=== PATIENT | male | born 1935 | race Caucasian/White ===

== ENCOUNTER → 2017-01-12 | Outpatient (CLI) | payer MEDICARE, OTHER ==
--- NOTE | 2017-01-12 11:52 | NM ---
EXAMINATION TYPE: NM thyroid image only DATE OF EXAM: 01/12/2017 11:48 AM COMPARISON: NONE HISTORY: Abnormal thyroid labs TECHNIQUE: After the intravenous administration of 10.5 mCi Tc 99m Sodium Pertechnetate. FINDINGS: Diffuse, genius uptake is seen pinhole static images. No hot or cold defect. IMPRESSION: Normal thyroid scan and uptake.
== END | disposition home or self-care (01) ==
LOC: RADNMMAIN 11:06
PROVIDERS: ATTEND Family Medicine
DX: R94.6 Abnormal results of thyroid function studies (principal)
CPT/HCPCS: 78013; A9512

== ENCOUNTER → 2017-03-28 | Outpatient (CLI) | payer MEDICARE, OTHER ==
[2017-03-28 10:43] LABS: Blood Urea Nitrogen 23 mg/dL (9-20); Non-African American GFR(MDRD) >60 (>60 ml/min/1.73 sqM)
--- NOTE | 2017-03-28 11:27 | CT ---
EXAMINATION TYPE: CT chest w con DATE OF EXAM: 03/28/2017 11:08 AM COMPARISON: NONE HISTORY: Difficulty breathing, COPD CT DLP: 464 mGycm Automated exposure control for dose reduction was used. CONTRAST: CT scan of the chest is performed with IV Contrast, patient injected with 100 mL of Omnipaque 300. FINDINGS: LUNGS: Moderate emphysematous changes seen. Subpleural fibrosis identified within the lower lobes as well as a mild bronchiectasis. No evidence for focal consolidation at this time. No nodule or mass is identified. MEDIASTINUM: There are no greater than 1 cm hilar or mediastinal lymph nodes. No pericardial effusi on is seen. Ectasia of the thoracic aorta without evidence for aneurysm. Mild atheromatous changes se en. There is evidence of a mild cardiomegaly. Small hiatal hernia detected. UPPER ABDOMEN: No signif icant abnormality appreciated. OTHER: No additional significant abnormality is seen. IMPRESSION: 1. Moderate emphysematous change with mild left basilar subpleural fibrosis and mild bronchiectasis.
== END ==
LOC: RADCTMAIN 09:56
PROVIDERS: ATTEND Family Medicine
DX: J43.9 Emphysema, unspecified (principal); J47.9 Bronchiectasis, uncomplicated
CPT/HCPCS: 82565; 84520; 71260; 36415; Q9967

== ENCOUNTER 2017-04-20 12:06 | Inpatient (IN) | payer MEDICARE, OTHER ==
[2017-04-20] MEDS ORDERED: ASPIRIN 325 MG TAB PO STA (13:55)
[2017-04-20] MEDS ORDERED: SODIUM CHLORIDE 0.9% 1,000 ML IV STA (13:55)
[2017-04-20] MEDS ORDERED: SODIUM CHLORIDE 0.9% 500 ML IV STA (13:55)
--- NOTE | 2017-04-20 14:08 | ED ---
General Adult HPI - General Chief complaint: Recheck/Abnormal Lab/Rx Stated complaint: abnormal labs Time Seen by Provider: 04/20/17 12:33 Source: patient, RN notes reviewed, old records reviewed Mode of arrival: wheelchair Limitations: no limitations - History of Present Illness Initial comments: This is an 81-year-old male here for evaluation for this patient was SDR for evaluation of episode of altered mental status as of recent. Patient did see his primary care doctor was sent for possible CVA evaluation, did have outpatient CAT scan, patient was told to emergency room secondary CAT scan findings. Patient denies neurological complaints at this time. Symptoms he believes have resolved. Patient has no chest patient was with her bowel pain no headache or trauma - Related Data Home Medications Medication Instructions Recorded Confirmed Aspirin 81 mg PO DAILY 03/24/14 03/29/17 Atenolol [Tenormin] 12.5 mg PO BID 03/24/14 03/29/17 Cholecalciferol [Vitamin D3] 50,000 units PO DAILY 03/24/14 03/29/17 Desvenlafaxine Succinate [Pristiq 50 mg PO DAILY 03/24/14 03/29/17 ER] Finasteride [Proscar] 5 mg PO DAILY 03/24/14 03/29/17 Fluticasone Propionate [Flovent 200 mcg IH BID 03/24/14 03/29/17 Diskus] Garlic 1,000 mg PO TID 03/24/14 03/29/17 Iron 65 mg PO DAILY 03/24/14 03/29/17 Levalbuterol Hfa Inhaler [Xopenex 1 applicator INHALATION TID 03/24/14 03/29/17 Hfa Inhaler] [place]-3 Acid Ethyl Esters [Lovaza] 1 gm PO TID 03/24/14 03/29/17 Salmeterol Xinafoate [Serevent 1 puff IH BID 03/24/14 03/29/17 Diskus] Simvastatin [Zocor] 40 mg PO HS 03/24/14 03/29/17 Systane 1 drop BOTH EYES TID 03/24/14 03/29/17 Terazosin [Hytrin] 2 mg PO BID 03/24/14 03/29/17 cycloSPORINE [Restasis] 1 applicator BOTH EYES BID 03/24/14 03/29/17 Xolair 225 mg SQ Q14D 03/26/14 03/29/17 Tadalafil [Cialis] 5 mg PO DAILY 10/23/14 03/29/17 Primidone [Mysoline] 100 mg PO TID 07/22/15 03/29/17 Carbidopa-Levodopa 25-250 mg 1 each PO TID 10/28/15 03/29/17 [Sinemet 25-250] Naproxen Sodium [Aleve] 220 mg PO Q12HR 08/17/16 03/29/17 Ipratropium Nebulized [Atrovent 0.5 mg INHALATION Q8HR 03/29/17 03/29/17 Nebulized] Ipratropium Nebulized [Atrovent 04/12/17 Nebulized] Allergies Allergy/AdvReac Type Severity Reaction Status Date / Time No Known Allergies Allergy Verified 04/20/17 12:23 Review of Systems ROS Statement: Those systems with pertinent positive or pertinent negative responses have been documented in the HPI. ROS Other: All systems not noted in ROS Statement are negative. Past Medical History Past Medical History: Asthma, COPD, Hypertension, Myocardial Infarction ([place]), Prostate Disorder Additional Past Medical History / Comment(s): hx cataracts removed bilat, kidney stone Last Myocardial Infarction Date:: unknown History of Any Multi-Drug Resistant Organisms: None Reported Past Surgical History: Back Surgery, Cholecystectomy, Heart Catheterization Past Anesthesia/Blood Transfusion Reactions: No Reported Reaction, Previous Problems w/ Anesthesia Additional Past Anesthesia/Blood Transfusion Reaction / Comment(s): woke up during anesthesia x1 Past Psychological History: No Psychological Hx Reported Smoking Status: Former smoker Past Alcohol Use History: None Reported Past Drug Use History: None Reported General Exam - General Exam Comments Initial Comments: NIH of 0 Limitations: no limitations General appearance: alert, in no apparent distress Head exam: Present: atraumatic, normocephalic, normal inspection Eye exam: Present: normal appearance, PERRL, EOMI. Absent: scleral icterus, conjunctival injection, periorbital swelling ENT exam: Present: normal exam, mucous membranes moist Neck exam: Present: normal inspection. Absent: tenderness, meningismus, lymphadenopathy Respiratory exam: Present: normal lung sounds bilaterally. Absent: respiratory distress, wheezes, rales, rhonchi, stridor Cardiovascular Exam: Present: regular rate, normal rhythm, normal heart sounds. Absent: systolic murmur, diastolic murmur, rubs, gallop, clicks GI/Abdominal exam: Present: soft, normal bowel sounds. Absent: distended, tenderness, guarding, rebound, rigid Extremities exam: Present: normal inspection, full ROM, normal capillary refill. Absent: tenderness, pedal edema, joint swelling, calf tenderness Back exam: Present: normal inspection Neurological exam: Present: alert, oriented X3, CN II-XII intact Psychiatric exam: Present: normal affect, normal mood Skin exam: Present: warm, dry, intact, normal color. Absent: rash Course Vital Signs 04/20/17 12:18 Temperature 97.3 F L Pulse Rate 62 Respiratory 18 Rate Blood Pressure 115/56 O2 Sat by Pulse 93 L Oximetry Medical Decision Making - Medical Decision Making 81 female to the ER for evaluation of altered mental status. Neurological complaint. Patient does have CT positive for CVA, will be admitted for neurological evaluation and treatment - Radiology Data Radiology results: report reviewed (CT brain as an outpatient study does show likely CVA involving) Disposition Clinical Impression: CVA (cerebral vascular accident) Disposition: ADMITTED IP TO THIS HOSP Condition: Good Referrals: Maxx Benson MD [Primary Care Provider] - 1-2 days
[2017-04-20 14:37] LABS: Basophils % (A) 1 %; CH 32.4; CHCM 31.9; Eosinophils # (A) 0.2 k/uL (0-0.7); Eosinophils % (A) 4 %; HCT 38.4 % (39.0-53.0); HGB 12.2 gm/dL (13.0-17.5); Luc % (Auto) 2; Lymphocytes # (A) 1.5 k/uL (1.0-4.8); Lymphocytes % (A) 31 %; MCH 32.3 pg (25.0-35.0); MCHC 31.7 g/dL (31.0-37.0); MCV 101.8 fL (80.0-100.0); Macrocytosis Slight; Mean Platelet Volume 8.2; Monocytes # (A) 0.4 k/uL (0-1.0); Monocytes % (A) 8 %; Neutrophils # (A) 2.7 k/uL (1.3-7.7); Neutrophils % (A) 55 %; RBC 3.77 m/uL (4.30-5.90); RDW 14.8 % (11.5-15.5); WBC 4.9 k/uL (3.8-10.6)
[2017-04-20 14:44] LABS: Phosphorous 3.4 mg/dL (2.5-4.5); Potassium 5.5 mmol/L (3.5-5.1); Total Bilirubin 0.4 mg/dL (0.2-1.3); Total Protein 7.9 g/dL (6.3-8.2)
[2017-04-20 14:46] LABS: Partial Thromboplastin Time 24.1 sec (22.0-30.0); Prothrombin Time 10.6 sec (9.0-12.0)
[2017-04-20 14:55] VITALS: BMI 21.9
[2017-04-20 15:03] LABS: Creatine Kinase 68 U/L (55-170)
[2017-04-20 15:16] LABS: Troponin I <0.012 ng/mL (0.000-0.034)
[2017-04-20 15:31] LABS: Creatine Kinase MB 2.9 ng/mL (0.0-2.4)
[2017-04-20 16:22] LABS: Appearance,Urine Cloudy (Clear); Bacteria,Urine Occasional /hpf; Bilirubin,Urine Negative (Negative); Glucose,Urine (UA) Negative (Negative); Ketones,Urine Negative (Negative); Leukocyte Esterase,Urine Negative (Negative); Mucus,Urine Rare /hpf; Nitrite,Urine Negative (Negative); Particle Count 8804; Protein,Urine Trace (Negative); RBC,Urine 18 /hpf (0-5); Squamous Epithelial Cell,Urine <1 /hpf (0-4); UA Billing (MACRO vs. MICRO) MICRO; Urobilinogen,Urine <2.0 mg/dL (<2.0); WBC,Urine 3 /hpf (0-5)
--- NOTE | 2017-04-20 16:24 | P.CNNES ---
History of Present Illness Consult date: 04/20/17 Reason for Consult: Patient being evaluated for possible stroke. CT brain is abnormal. History of Present Illness: This patient is a 81-year-old right-handed white male who was in his usual state of health until about a week ago. Patient states he was at home and developed sudden difficulty with balance and gait. He states he was having difficulty walking straight and had some gait imbalance. He did not pay much attention to this as he felt the symptoms would get better. He went to see his primary care physician Dr. Maxx Vitale who recommended he go for a computed tomography scan of the brain for further evaluation. Patient had the computed tomography scan of the brain done today with contrast and there is evidence of acute right frontal lobe gyral enhancement. He was recommended admission to the hospital due to the abnormal computed tomography scan of the brain. Patient does have history of underlying Haakenson is some. He is taking Sinemet as well as Mysoline. Patient states he does not shuffle when he is walking but does complain of tremors in his hands. Patient denied any headache today. He denies any visual changes but did have some mild slurring of speech a few days ago. Patient has a history of having undergone back surgery about 5 years ago. Following the back surgery he continues to have chronic low back pain and difficulty walking. He states he slaps his left foot when he walks at home. He has not had this further evaluated. Patient states he does take one baby aspirin on a regular basis for secondary stroke prevention. His stroke risk factors include hypertension and hyperlipidemia. He is taking Zocor 40 mg daily. Patient denies any focal weakness on his left side. He has no symptoms of headache today on admission. He does take one baby aspirin daily on a regular basis and should continue on the same. Patient has been having and noticing a change in his mood in the last few weeks. He does complain of mild depression as well. He is now been admitted and neurology has been consulted for further evaluation and recommendations. Review of Systems Constitutional: Denies chills, Denies fever Eyes: denies blurred vision, denies pain Ears, nose, mouth and throat: Denies headache, Denies sore throat Cardiovascular: Denies chest pain, Denies shortness of breath Respiratory: Denies cough Gastrointestinal: Denies abdominal pain, Denies diarrhea, Denies nausea, Denies vomiting Musculoskeletal: Denies myalgias Integumentary: Denies pruritus, Denies rash Neurological: Reports ataxia, Reports gait dysfunction, Reports memory loss, Reports tremors, Denies numbness, Denies weakness Psychiatric: Reports memory loss, Denies anxiety, Denies depression Endocrine: Denies fatigue, Denies weight change Past Medical History Past Medical History: Asthma, COPD, Hypertension, Myocardial Infarction ([place]), Prostate Disorder Additional Past Medical History / Comment(s): hx cataracts removed bilat, kidney stone Last Myocardial Infarction Date:: unknown History of Any Multi-Drug Resistant Organisms: None Reported Past Surgical History: Back Surgery, Cholecystectomy, Heart Catheterization Past Anesthesia/Blood Transfusion Reactions: No Reported Reaction, Previous Problems w/ Anesthesia Additional Past Anesthesia/Blood Transfusion Reaction / Comment(s): woke up during anesthesia x1 Past Psychological History: No Psychological Hx Reported Smoking Status: Former smoker Past Alcohol Use History: None Reported Past Drug Use History: None Reported Medications and Allergies Home Medications Medication Instructions Recorded Confirmed Type Aspirin 81 mg PO DAILY 03/24/14 04/20/17 History Atenolol [Tenormin] 12.5 mg PO BID 03/24/14 04/20/17 History Desvenlafaxine Succinate [Pristiq 50 mg PO DAILY 03/24/14 04/20/17 History ER] Finasteride [Proscar] 5 mg PO DAILY 03/24/14 04/20/17 History Garlic 1,000 mg PO TID 03/24/14 04/20/17 History Iron 65 mg PO DAILY 03/24/14 04/20/17 History [place]-3 Acid Ethyl Esters [Lovaza] 4 gm PO DAILY 03/24/14 04/20/17 History Salmeterol Xinafoate [Serevent 1 puff IH RT-BID 03/24/14 04/20/17 History Diskus] Simvastatin [Zocor] 40 mg PO HS 03/24/14 04/20/17 History Terazosin [Hytrin] 2 mg PO BID 03/24/14 04/20/17 History cycloSPORINE [Restasis] 1 applicator BOTH EYES BID 03/24/14 04/20/17 History Xolair 225 mg SQ Q14D 03/26/14 04/20/17 History Tadalafil [Cialis] 5 mg PO DAILY 10/23/14 04/20/17 History Ipratropium Nebulized [Atrovent 0.5 mg INHALATION RT-TID 03/29/17 04/20/17 History Nebulized] Albuterol Nebulized [Ventolin 2.5 mg INHALATION RT-TID 04/20/17 04/20/17 History Nebulized] Fluticasone Propionate [Flovent 2 puff INHALATION RT-BID 04/20/17 04/20/17 History Hfa 220MCG] Primidone [Mysoline] 100 mg PO TID 04/20/17 04/20/17 History Roflumilast [Daliresp] 500 mcg PO DAILY 04/20/17 04/20/17 History Allergies Allergy/AdvReac Type Severity Reaction Status Date / Time No Known Allergies Allergy Verified 04/20/17 12:23 Physical Examination - Vital Signs Vital Signs: Vital Signs Temp Pulse Pulse Resp BP BP BP 04/20/17 14:48 97 F L 68 18 172/81 04/20/17 13:59 56 L 18 167/70 04/20/17 12:18 97.3 F L 62 18 115/56 Pulse Ox 04/20/17 14:48 98 04/20/17 13:59 99 04/20/17 12:18 93 L Intake and Output 04/20/17 04/20/17 04/20/17 06:59 14:59 22:59 Other: Weight 63.5 kg Patient Weight 04/21/17 06:59 Weight 63.5 kg - Constitutional General appearance: average body habitus, cooperative - EENT EENT: PERRL, mucous membranes moist - Respiratory Respiratory: lungs clear, normal breath sounds - Cardiovascular Cardiovascular: regular rate, normal S1, normal S2 Extremities: no peripheral edema bilaterally - Gastrointestinal Gastrointestinal: normoactive bowel sounds - Integumentary Integumentary: normal - Neurologic Cranial nerve examination: PERRL, EOMI, VFF, V1/V2/V3 grossly intact, face symmetric, tongue midline, intact gag reflex, intact corneal reflex, normal palatal elevation Speech examination: intact Sensorimotor examination: intact Detailed motor examination: grossly full strength in all extremities Motor examination - right side: 4/5: dorsiflexion, toe extension (EHL), plantarflexion, 5/5: biceps, triceps, wrist flexion, wrist extension, derrick worker, hip flexors, knee extensors Motor examination - left side: 3/5: dorsiflexion, toe extension (EHL), plantarflexion, 5/5: biceps, triceps, wrist flexion, wrist extension, derrick worker, hip flexors, knee extensors Detailed sensory examination: intact Reflex and gait examination: intact Reflexes: 1+: ankle, bicep, knee, tricep - Musculoskeletal Musculoskeletal: no pain - Psychiatric Psychiatric: mood/affect appropriate, cooperative Results - Laboratory Findings CBC and BMP: 04/20/17 14:15 04/20/17 14:15 Abnormal Lab Findings: Abnormal Labs 04/20/17 04/20/17 04/20/17 14:15 14:15 14:15 RBC 3.77 L Hgb 12.2 L Hct 38.4 L MCV 101.8 H Potassium 5.5 H Carbon Dioxide 36 H BUN 26 H Creatinine 1.70 H CK-MB (CK-2) 2.9 H* Assessment and Plan (1) Acute ischemic stroke Status: Acute Code(s): I63.9 - CEREBRAL INFARCTION, UNSPECIFIED (2) Parkinsonism Status: Acute Code(s): G20 - PARKINSON'S DISEASE (3) Ataxic gait Status: Acute Code(s): R26.0 - ATAXIC GAIT (4) Foot drop Status: Acute Code(s): M21.379 - FOOT DROP, UNSPECIFIED FOOT (5) History of lumbar laminectomy Status: Acute Code(s): Z98.890 - OTHER SPECIFIED POSTPROCEDURAL STATES Plan: This patient is 81-year-old male who apparently over the last week has been having difficulty with unsteady gait. He has a history of underlying parkinsonism and history of back surgery. He states he has chronic low back pain which does hinder his ability to walk and ambulate. Apparently a week ago he just did not feel well and felt that his balance was quite suddenly change. He was having difficulty standing up straight. His gait was clearly involved. He denied any slurring of speech or visual changes. He had seen his primary care physician who recommended he undergo a computed tomography scan of the brain. CAT scan of the brain was completed today and was abnormal. CAT scan reveals evidence of gyral enhancement over the right frontal lobe. He was admitted to hospital for further evaluation. We are recommending the patient undergo an MRI of the brain with and without gadolinium. We will also obtain a routine computed tomography scan of the brain without contrast tonight for further assessment. We are recommending a complete stroke evaluation for the patient. His overall prognosis at this time remains very guarded. Case was discussed at length with the patient today in detail. He is in agreement with our treatment plan. We will continue close neurological follow-up of this patient during this admission. His overall prognosis at this time remains guarded. Time with Patient: Greater than 30
[2017-04-20 16:32] LABS: Specific Gravity,Urine 1.049 (1.001-1.035)
--- NOTE | 2017-04-20 17:33 | CT ---
EXAMINATION TYPE: CT brain wo con DATE OF EXAM: 04/20/2017 5:25 PM COMPARISON: Today HISTORY: Abnormal CT CT DLP: 1121 mGycm Automated exposure control for dose reduction was used. FINDINGS: There is cerebral cortical atrophy. There is no mass effect nor midline shift. There is no sign of in tracranial hemorrhage. There is no pathologic intracranial calcification. There is slight prominence of the ventricles. IMPRESSION: Cerebral atrophy and mild normal pressure type hydrocephalus. There is gyriform enhancement in the ri ght posterior frontal lobe on the CT scan this morning consistent with a vascular malformation. I do not see definite evidence for a cortical infarct.
[2017-04-20] MEDS: SODIUM CHLORIDE 0.9% 1,000 ML IV SCH ×2 (18:51→23:54)
[2017-04-20] MEDS: IPRATROPIUM 0.5 MG/2.5 ML NEBU INHALATION SCH (20:44)
[2017-04-20] MEDS: FORMOTEROL FUMARATE 20 MCG/2 ML NEBU INHALATION SCH (20:44)
[2017-04-20] MEDS: ALBUTEROL NEBULIZED 2.5 MG/3 ML INHALATION SCH (20:44)
[2017-04-20] MEDS: BUDESONIDE 1 MG/2 ML NEBU INHALATION SCH (20:45)
[2017-04-20] MEDS: PRIMIDONE 50 MG TAB PO SCH (21:57)
[2017-04-20] MEDS: ATENOLOL 25 MG TAB PO SCH (21:58)
[2017-04-20] MEDS: TERAZOSIN 2 MG CAP PO SCH (21:58)
[2017-04-20] MEDS: ATORVASTATIN 20 MG TAB PO SCH (21:58)
[2017-04-20] MEDS: cycloSPORINE 0.05% OPHTH 0.4 ML DROPERETTE BOTH EYES SCH (21:58)
[2017-04-20] MEDS: HEPARIN SODIUM,PORCINE 5,000 UNIT/ML 1 ML VIAL SQ SCH (21:58)
[2017-04-21 06:30] LABS: Basophils % (A) 0 %; CH 31.7; CHCM 31.5; Eosinophils # (A) 0.2 k/uL (0-0.7); Eosinophils % (A) 6 %; HCT 33.4 % (39.0-53.0); HDW 2.62; HGB 10.4 gm/dL (13.0-17.5); Hypochromasia Slight; Luc % (Auto) 3; Lymphocytes # (A) 1.1 k/uL (1.0-4.8); Lymphocytes % (A) 29 %; MCH 31.6 pg (25.0-35.0); MCHC 31.3 g/dL (31.0-37.0); Macrocytosis Slight; Mean Platelet Volume 7.3; Monocytes # (A) 0.4 k/uL (0-1.0); Monocytes % (A) 10 %; Neutrophils # (A) 2.1 k/uL (1.3-7.7); Neutrophils % (A) 53 %; RBC 3.31 m/uL (4.30-5.90); RDW 14.5 % (11.5-15.5); WBC 3.9 k/uL (3.8-10.6); WBC (Perox) 4.05
[2017-04-21 06:41] LABS: Anion Gap 7 mmol/L; Blood Urea Nitrogen 29 mg/dL (9-20); Calcium 9.2 mg/dL (8.4-10.2); Carbon Dioxide 27 mmol/L (22-30); Chloride 105 mmol/L (98-107); Cholesterol 140 mg/dL (<200); Glucose 90 mg/dL (74-99); HDL Cholesterol 63 mg/dL (40-60); Non-African American GFR(MDRD) >60 (>60 ml/min/1.73 sqM); Sodium 139 mmol/L (137-145); Triglycerides 52 mg/dL (<150)
--- NOTE | 2017-04-21 07:48 | MR ---
MR brain with and without contrast HISTORY: Cerebrovascular accident multiplanar multisequence and postcontrast images obtained through the brain following 20 cc MultiHan ce IV. Correlation to CT brain 20 Apr 2017 Gyriform enhancement is again seen as on patient's prior CT, there is some associated gliotic change on inversion recovery and T2-weighted sequences. Scattered hyperintensities are present within the pe riventricular and subcortical white matter on inversion recovery and T2-weighted sequences. Some mini mal restricted diffusion is thought present along the frontal cortex, there is no significant mass ef fect. Cerebellopontine angles, corpus callosum, pituitary, cervical medullary junction are within normal li mits. The orbits are symmetric. There are normal vascular flow voids, normal vascular enhancement is noted following contrast administration. No definite hemorrhage or hydrocephalus. Cortical atrophy is likely age-related. Inflammatory change present in the mastoid air cells on the right. IMPRESSION: Gyriform enhancement may be related to cortical infarct. Suggest short interval follow-up . Finding somewhat equivocal on diffusion-weighted images. Fast brain protocol was utilized. Correlat e for right mastoiditis. Chronic small vessel ischemia, age related atrophy.
[2017-04-21] MEDS: ATENOLOL 25 MG TAB PO SCH ×3 (08:37→21:02)
[2017-04-21] MEDS: HEPARIN SODIUM,PORCINE 5,000 UNIT/ML 1 ML VIAL SQ SCH ×2 (08:37→20:43)
[2017-04-21] MEDS: TERAZOSIN 2 MG CAP PO SCH ×3 (08:37→21:02)
[2017-04-21] MEDS: ASPIRIN 325 MG TAB PO SCH (08:38)
[2017-04-21] MEDS: cycloSPORINE 0.05% OPHTH 0.4 ML DROPERETTE BOTH EYES SCH ×2 (08:38→20:43)
[2017-04-21] MEDS: DESVENLAFAXINE SUCCINATE 50 MG TAB.ER.24H PO SCH (08:38)
[2017-04-21] MEDS: PRIMIDONE 50 MG TAB PO SCH ×4 (08:39→21:02)
[2017-04-21] MEDS: FINASTERIDE 5 MG TAB PO SCH (08:39)
[2017-04-21] MEDS ORDERED: NON-FORMULARY DRUG (Roflumilast [Daliresp] 500 MCG) PO SCH (09:00)
[2017-04-21] MEDS: BUDESONIDE 1 MG/2 ML NEBU INHALATION SCH ×2 (09:21→19:01)
[2017-04-21] MEDS: FORMOTEROL FUMARATE 20 MCG/2 ML NEBU INHALATION SCH ×2 (09:21→19:01)
[2017-04-21] MEDS: IPRATROPIUM 0.5 MG/2.5 ML NEBU INHALATION SCH ×3 (09:21→19:01)
[2017-04-21] MEDS: ALBUTEROL NEBULIZED 2.5 MG/3 ML INHALATION SCH ×3 (09:21→19:01)
[2017-04-21] MEDS: FERROUS SULFATE 325 MG TAB PO SCH (11:51)
[2017-04-21] MEDS: SODIUM CHLORIDE 0.9% 1,000 ML IV SCH ×2 (11:52→20:35)
--- NOTE | 2017-04-21 15:34 | P.PN ---
Subjective This patient is a 81 year old male being evaluated for possible stroke. The patient had an abnormal CT Scan of the brain and was admitted to the hospital yesterday. He had no focal motor deficit on examination yesterday on Neurologic examination. The CT Scan revealed gyral changes over the right frontal lobe. He did not have any left sided weakness. He had MRI Brain done last night and we reviewed the results that are not conclusive. It appears to suggest likely area of stroke, but a short term follow-up will useful to assess this possible infarction. We would recommend a carotid doppler study be done today as part of a stroke evaluation. The patient seems to be doing about the same today as compared to yesterday. We would recommend a complete stroke evaluation for this patient. We will continue close neruologic follow-up for this patient. We have updated the patient on the results of the MRI of the brain. We will continue our stroke evaluation for the patient. He may require follow-up MRI of the brain at a latter date. His overall prognosis at this time remains guarded. Objective - Vital Signs Vital signs: Vital Signs Temp 97.1 F L 04/21/17 04:00 Pulse 54 L 04/21/17 04:00 Resp 18 04/21/17 04:00 BP 149/71 04/21/17 04:00 Pulse Ox 100 04/21/17 04:00 Intake & Output 04/20/17 04/21/17 04/21/17 18:59 06:59 18:59 Intake Total 360 360 Output Total 900 800 Balance 360 -900 -440 Weight 63.5 kg 65.3 kg Intake: Oral 360 360 Output: Urine 900 800 Other: Voiding Method Urinal Urinal # Voids 1 # Bowel Movements 1 - Exam Physical Examination: PHYSICAL EXAMINATION: Patient is resting comfortably in bed. VITAL SIGNS: Blood pressure is [166/68]. Heart rate is [60]. Respiration is [16] . Temperature is [97.0]. HEENT: Head is atraumatic, neck is supple, there were no carotid bruits. CHEST: Lungs are clear to auscultation and percussion. CARDIAC: S1, S2 normal rate and rhythm. There is no murmur. ABDOMEN: Soft and nontender. Bowel sounds are present. EXTREMITIES: There is no pedal edema. Peripheral pulses are present. Neurological examination: Patient's neurological examination is unchanged from yesterday. - Labs CBC & Chem 7: 04/21/17 05:51 04/21/17 05:51 Labs: Abnormal Lab Results - Last 24 Hours (Table) 04/20/17 04/20/17 04/20/17 Range/Units 14:10 14:15 14:15 RBC 3.77 L (4.30-5.90) m/uL Hgb 12.2 L (13.0-17.5) gm/dL Hct 38.4 L (39.0-53.0) % MCV 101.8 H (80.0-100.0) fL Potassium (3.5-5.1) mmol/L Carbon Dioxide (22-30) mmol/L BUN (9-20) mg/dL Creatinine (0.66-1.25) mg/dL CK-MB (CK-2) 2.9 H* (0.0-2.4) ng/mL HDL Cholesterol (40-60) mg/dL Ur Specific [place] 1.049 H (1.001-1.035) Urine Protein Trace H (Negative) Urine Blood Trace H (Negative) Urine RBC 18 H (0-5) /hpf Urine Bacteria Occasional H (None) /hpf Urine Mucus Rare H (None) /hpf 04/20/17 04/21/17 04/21/17 Range/Units 14:15 05:51 05:51 RBC 3.31 L (4.30-5.90) m/uL Hgb 10.4 L (13.0-17.5) gm/dL Hct 33.4 L (39.0-53.0) % MCV 101.0 H (80.0-100.0) fL Potassium 5.5 H (3.5-5.1) mmol/L Carbon Dioxide 36 H (22-30) mmol/L BUN 26 H 29 H (9-20) mg/dL Creatinine 1.70 H (0.66-1.25) mg/dL CK-MB (CK-2) (0.0-2.4) ng/mL HDL Cholesterol 63 H (40-60) mg/dL Ur Specific [place] (1.001-1.035) Urine Protein (Negative) Urine Blood (Negative) Urine RBC (0-5) /hpf Urine Bacteria (None) /hpf Urine Mucus (None) /hpf Assessment and Plan (1) Acute ischemic stroke Status: Acute Code(s): I63.9 - CEREBRAL INFARCTION, UNSPECIFIED (2) Parkinsonism Status: Acute Code(s): G20 - PARKINSON'S DISEASE (3) Ataxic gait Status: Acute Code(s): R26.0 - ATAXIC GAIT (4) Foot drop Status: Acute Code(s): M21.379 - FOOT DROP, UNSPECIFIED FOOT (5) History of lumbar laminectomy Status: Acute Code(s): Z98.890 - OTHER SPECIFIED POSTPROCEDURAL STATES Plan: This patient is 81-year-old male who apparently over the last week has been having difficulty with unsteady gait. He has a history of underlying parkinsonism and history of back surgery. He states he has chronic low back pain which does hinder his ability to walk and ambulate. Apparently a week ago he just did not feel well and felt that his balance was quite suddenly change. He was having difficulty standing up straight. His gait was clearly involved. He denied any slurring of speech or visual changes. He had seen his primary care physician who recommended he undergo a computed tomography scan of the brain. CAT scan of the brain was completed today and was abnormal. CAT scan reveals evidence of gyral enhancement over the right frontal lobe. He was admitted to hospital for further evaluation. We are recommending the patient undergo an MRI of the brain with and without gadolinium. We will also obtain a routine computed tomography scan of the brain without contrast tonight for further assessment. We are recommending a complete stroke evaluation for the patient. His overall prognosis at this time remains very guarded. Patient's MRI of the brain was completed last night. Results indicate no definitive finding. It is suggestive of a right frontal lobe infarct. We are recommending a carotid Doppler study to be done to rule out carotid artery stenosis. We will give further recommendations depending on these results. Patient is to continue on 1 aspirin daily for secondary stroke prevention. The MRI report indicates a recommendation for possible repeat MRI for a short interval follow-up. Case was discussed at length with the patient today in detail. He is in agreement with our treatment plan. We will continue close neurological follow-up of this patient during this admission. His overall prognosis at this time remains guarded.
--- NOTE | 2017-04-21 17:41 | HP ---
DATE OF ADMISSION: 04/20/2017 This patient seen, evaluated, examined while covering for Dr. Maxx Benson. Patient admitted to the hospital from the emergency department with problems associated with altered mental status. There was some suspicion of CVA as well. Neurological services have been following this patient as well. Overall the patient is a poor historian, not much data can be obtained from him. He does have chronic ongoing tremors as well. A CT scan of the chest shows some finding. Patient has been admitted to the hospital for observation as well as MRI to perform with neurological evaluation. Past medical history significant for chronic persistent asthma, COPD, hypertension, hypertensive cardiovascular disease, myocardial infarction, history of prostate disorder. Past surgical history is significant for cardiac cath, angiogram, status post cholecystectomy back surgery, bilateral cataract extraction. Renal calculi. ALLERGIES: No known drug allergy. Medications at home include: 1. Aspirin 81 mg daily. 2. Tenormin 12.5 mg p.o. 2 times a day. 3. Cholecalciferol 50,000 units daily. 4. Pristiq 50 mg daily. 5. Proscar 5 mg daily. 6. Flovent 200 mcg 2 times a day. 7. Garlique 1 gram 3 times a day. 8. Iron as needed. 9. Xopenex MDI 3 times a day. 10. [place]-3 fatty acid. 11. Also on Zocor 40 mg daily. 12. Hytrin 2 mg 2 times a day. 13. Xolair 225 mg q. 14. 14. Cialis 5 mg daily. 15. Mysoline Sinemet is 3 times a day. 16. Aleve. 17. Ipratropium nebulizer treatment. REVIEW OF SYSTEMS: JUVENILE OFFICER: Denies any seizure activity, loss of consciousness, hemiparesis. CARDIORESPIRATORY: As dictated above. Chronic ongoing shortness of breath, but has been stable. GI/: Otherwise unremarkable and noncontributory. Musculoskeletal/dermatological: Unremarkable and noncontributory except as dictated above. On examination, most recent vitals include blood pressure is 166/68, respiratory rate 16, pulse 60, temperature 97, saturation 99% on 3 liters oxygen. HEENT: Atraumatic, normocephalic. Pharynx is clear. Narrow pharyngeal opening is present. NECK: Supple without lymphadenopathy, jugular venous distention or carotid bruit. LUNGS: Bilateral good air entry is present. HEART: Regular rate and rhythm. S1 and S2 audible. ABDOMEN: Soft. No rebound or rigidity. EXTREMITIES: +1 peripheral pulses. NEUROLOGICAL EXAMINATION: Ongoing chronic tremors. Coordination appears to be stable as per the patient and family. No weakness in any side of the body is present. Overall neurological examination is within baseline. Labs reviewed. White cell count 2900, hemoglobin of 10 and 33, platelet count of 175,000. Sodium 130, potassium 5.0, BUN and creatinine 29 and 0.9, cholesterol within normal limits. Urinalysis few WBC, RBC is present. CT scan of the brain revealed cerebellar trophy, normal pressure hydrocephalus. Some gyriform enhancement of the right posterior frontal lobe is seen. Vascular malformation cannot be excluded. The MRI of the brain performed late last night revealed gyriform enhancement related to cortical infarct. No mass effect is seen. IMPRESSION: 1. Acute cerebrovascular accident involving the right posterior frontal lobe. 2. Normal pressure hydrocephalus. 3. Severe chronic obstructive pulmonary disease emphysema and chronic persistent asthma. 4. Dyslipidemia. 5. Hypertension, hypertensive cardiovascular disease. 6. Advanced Parkinson's disease 7. Benign prostatic hypertrophy. Plan is to continue current medications, supportive care. Monitor fall precautions. Continue neurochecks. Awaiting further evaluation from the neurology service. Will follow.
[2017-04-21] MEDS: ATORVASTATIN 20 MG TAB PO SCH ×2 (20:43→21:02)
[2017-04-22 06:15] VITALS: RESP 18
[2017-04-22] MEDS: FORMOTEROL FUMARATE 20 MCG/2 ML NEBU INHALATION SCH ×2 (08:40→20:00)
[2017-04-22] MEDS: ALBUTEROL NEBULIZED 2.5 MG/3 ML INHALATION SCH ×3 (08:40→20:00)
[2017-04-22] MEDS: IPRATROPIUM 0.5 MG/2.5 ML NEBU INHALATION SCH ×3 (08:40→20:00)
[2017-04-22] MEDS: BUDESONIDE 1 MG/2 ML NEBU INHALATION SCH ×2 (08:40→20:00)
[2017-04-22] MEDS: PRIMIDONE 50 MG TAB PO SCH ×3 (08:50→23:03)
[2017-04-22] MEDS: HEPARIN SODIUM,PORCINE 5,000 UNIT/ML 1 ML VIAL SQ SCH ×2 (08:50→20:08)
[2017-04-22] MEDS: ASPIRIN 325 MG TAB PO SCH (08:51)
[2017-04-22] MEDS: TERAZOSIN 2 MG CAP PO SCH ×2 (08:51→20:09)
[2017-04-22] MEDS: ATENOLOL 25 MG TAB PO SCH (08:51)
[2017-04-22] MEDS: FINASTERIDE 5 MG TAB PO SCH (08:52)
[2017-04-22] MEDS: cycloSPORINE 0.05% OPHTH 0.4 ML DROPERETTE BOTH EYES SCH ×2 (08:52→20:11)
[2017-04-22] MEDS: DESVENLAFAXINE SUCCINATE 50 MG TAB.ER.24H PO SCH (08:52)
[2017-04-22] MEDS: SODIUM CHLORIDE 0.9% 1,000 ML IV SCH ×2 (11:09→17:32)
[2017-04-22] MEDS: FERROUS SULFATE 325 MG TAB PO SCH (11:56)
--- NOTE | 2017-04-22 13:37 | P.PN ---
Subjective This is an 81-year-old male patient being evaluated and examined today on the sixth floor. This patient was admitted to the hospital from the emergency room with altered mental status and there was some suspicion of CVA. Neurology is on consult. This patient does have a history of chronic and ongoing tremors. A CT scan of the brain shows cerebral atrophy, and normal pressure hydrocephalus some gyriform enhancement of the right posterior frontal lobe is seen consistent with a vascular malformation. MRI of the brain shows gyriform enhancement may be related to cortical infarct. Upon examination the patient's resting up in bed on 3 L of oxygen which he does wear home as well. He denies any cough, congestion, or shortness of breath. Objective - Vital Signs Vital signs: Vital Signs Temp 97.6 F 04/22/17 11:36 Pulse 53 L 04/22/17 11:37 Resp 18 04/22/17 11:37 BP 189/75 04/22/17 11:36 Pulse Ox 100 04/22/17 11:36 Intake & Output 04/21/17 04/22/17 04/22/17 18:59 06:59 18:59 Intake Total 540 300 237 Output Total 800 200 Balance -260 300 37 Weight 66.9 kg Intake: Intake, IV Titration 300 Amount Sodium Chloride 0.9% 1, 300 000 ml @ 100 mls/hr IV . Q10H [facility] Rx#:[id number] Oral 540 237 Output: Urine 800 200 Other: Voiding Method Urinal Urinal Toilet # Voids 0 500 # Bowel Movements 0 - Exam GENERAL EXAM: Alert, active, comfortable in no apparent distress. HEAD: Normocephalic. EYES: Normal reaction of pupils, equal size. NOSE: Clear with pink turbinates. THROAT: No erythema or exudates. NECK: No masses, no JVD. CHEST: No chest wall deformity. LUNGS: Equal air entry with no crackles, wheeze, rhonchi or dullness. CVS: S1 and S2 normal with no audible mumurs, regular rhythm. ABDOMEN: No hepatosplenomegaly, normal bowel sounds, no guarding or rigidity. EXTREMITIES: No edema noted, pedal pulses palpable. SKIN: No rashes CENTRAL NERVOUS SYSTEM: Chronic ongoing tremors, tone is normal in all 4 extremities. No significant extremity weakness noted. - Labs CBC & Chem 7: 04/21/17 05:51 04/21/17 05:51 Assessment and Plan Plan: Assessment Acute cerebrovascular accident including the right posterior frontal lobe Normal pressure hydrocephalus Severe chronic obstructive pulmonary disease Chronic persistent asthma Chronic hypoxic respiratory failure Dyslipidemia Hypertension, hypertensive cardiovascular disease Advanced Parkinson's disease Benign prostatic hypertrophy Plan Medications have been reviewed and will be continued as ordered. Continue with neurology consults appreciate recommendations. Patient is supposed to have an EEG. Continue with supplemental oxygen to maintain oxygen saturations greater than 90%. Continue with pulmonary hygiene with supportive care. Continue neuro checks. Patient did have a carotid Doppler study done in the outpatient setting, we will obtain copies of the report. We will continue to monitor labs/ results and adjust treatment as necessary. I performed an examination of the patient and discussed their management with the nurse practitioner. I have reviewed the nurse practitioner's note and agree with the documented findings and plan of care. We are covering for Dr. Benson until Sunday at 6 AM.
[2017-04-22 17:09] LABS: Glucose,Whole Blood 91 mg/dL (75-99)
--- NOTE | 2017-04-22 18:53 | P.PN ---
Subjective This patient is a 81 year old male being evaluated for possible stroke. The patient had an abnormal CT Scan of the brain and was admitted to the hospital yesterday. He had no focal motor deficit on examination yesterday on Neurologic examination. The CT Scan revealed gyral changes over the right frontal lobe. He did not have any left sided weakness. He had MRI Brain done last night and we reviewed the results that are not conclusive. It appears to suggest likely area of stroke, but a short term follow-up will useful to assess this possible infarction. We would recommend a carotid doppler study be done today as part of a stroke evaluation. The patient seems to be doing about the same today as compared to yesterday. We would recommend a complete stroke evaluation for this patient. We will continue close neruologic follow-up for this patient. We have updated the patient on the results of the MRI of the brain. We will continue our stroke evaluation for the patient. He may require follow-up MRI of the brain at a latter date. Patient is requiring oxygen at this time at a setting of 3 L. He does use home oxygen as well. He denies any cough or congestion or shortness of breath. As noted the patient will follow up in the outpatient neurology clinic for further recommendations. Radiology is recommending a short-term follow-up MRI of the brain which can be done in the outpatient setting. We are awaiting the results of his recent carotid Doppler study. His blood pressure is slightly elevated this evening. Recommend close monitoring over the next several days. His overall prognosis remains guarded. His overall prognosis at this time remains guarded. Objective - Vital Signs Vital signs: Vital Signs Temp 97.5 F L 04/22/17 15:56 Pulse 66 04/22/17 16:00 Resp 18 04/22/17 16:00 BP 185/81 04/22/17 15:56 Pulse Ox 99 04/22/17 15:56 Intake & Output 04/21/17 04/22/17 04/22/17 18:59 06:59 18:59 Intake Total 886 242 5902 Output Total 800 200 Balance -260 300 817 Weight 66.9 kg Intake: Intake, IV Titration 300 Amount Sodium Chloride 0.9% 1, 300 000 ml @ 100 mls/hr IV . Q10H [facility] Rx#:[id number] Oral 540 1017 Output: Urine 800 200 Other: Voiding Method Urinal Urinal Toilet # Voids 0 500 3 # Bowel Movements 0 1 - Exam Physical Examination: PHYSICAL EXAMINATION: Patient is resting comfortably in bed. VITAL SIGNS: Blood pressure is [185/81]. Heart rate is [67]. Respiration is [18] . Temperature is [97.5]. HEENT: Head is atraumatic, neck is supple, there were no carotid bruits. CHEST: Lungs are clear to auscultation and percussion. CARDIAC: S1, S2 normal rate and rhythm. There is no murmur. ABDOMEN: Soft and nontender. Bowel sounds are present. EXTREMITIES: There is no pedal edema. Peripheral pulses are present. Neurological examination: Patient's neurological examination is unchanged from yesterday. - Labs CBC & Chem 7: 04/21/17 05:51 04/21/17 05:51 Assessment and Plan (1) Acute ischemic stroke Status: Acute Code(s): I63.9 - CEREBRAL INFARCTION, UNSPECIFIED (2) Parkinsonism Status: Acute Code(s): G20 - PARKINSON'S DISEASE (3) Ataxic gait Status: Acute Code(s): R26.0 - ATAXIC GAIT (4) Foot drop Status: Acute Code(s): M21.379 - FOOT DROP, UNSPECIFIED FOOT (5) History of lumbar laminectomy Status: Acute Code(s): Z98.890 - OTHER SPECIFIED POSTPROCEDURAL STATES Plan: This patient is a 81-year-old male initially admitted to Hospital with symptoms of possible new stroke. He underwent a computed tomography scan and subsequently a MRI of the brain. There is a gyral area of enhancement in change noted over the right frontal lobe. Radiology is recommending a short interval repeat study. At this time this suggests mostly a acute cortical infarct in the right frontal lobe. He is undergoing a complete stroke evaluation. We are waiting the results of his carotid Doppler study. He is to continue on aspirin at this time. He may follow-up in the outpatient neurology clinic for further reevaluation of his MRI study and possible repeat MRI of the brain. We will continue close neurological follow-up for the patient during this admission. His overall prognosis at this time remains guarded.
[2017-04-22] MEDS: ATORVASTATIN 20 MG TAB PO SCH (20:09)
[2017-04-22] MEDS: ATENOLOL 12.5 MG TAB PO SCH (20:11)
[2017-04-23] MEDS: SODIUM CHLORIDE 0.9% 1,000 ML IV SCH ×2 (03:02→12:23)
[2017-04-23] MEDS: IPRATROPIUM 0.5 MG/2.5 ML NEBU INHALATION SCH ×2 (07:53→13:54)
[2017-04-23] MEDS: BUDESONIDE 1 MG/2 ML NEBU INHALATION SCH (07:53)
[2017-04-23] MEDS: FORMOTEROL FUMARATE 20 MCG/2 ML NEBU INHALATION SCH (07:53)
[2017-04-23] MEDS: ALBUTEROL NEBULIZED 2.5 MG/3 ML INHALATION SCH ×2 (07:53→13:54)
[2017-04-23] MEDS: DESVENLAFAXINE SUCCINATE 50 MG TAB.ER.24H PO SCH (08:19)
[2017-04-23] MEDS: ATENOLOL 12.5 MG TAB PO SCH (08:19)
[2017-04-23] MEDS: HEPARIN SODIUM,PORCINE 5,000 UNIT/ML 1 ML VIAL SQ SCH (08:19)
[2017-04-23] MEDS: cycloSPORINE 0.05% OPHTH 0.4 ML DROPERETTE BOTH EYES SCH (08:19)
[2017-04-23] MEDS: ASPIRIN 325 MG TAB PO SCH (08:19)
[2017-04-23] MEDS: PRIMIDONE 50 MG TAB PO SCH (08:19)
[2017-04-23] MEDS: FINASTERIDE 5 MG TAB PO SCH (08:20)
[2017-04-23] MEDS: TERAZOSIN 2 MG CAP PO SCH (08:20)
[2017-04-23 10:04] VITALS: BP 174/78; TEMP 96.4
[2017-04-23] MEDS: FERROUS SULFATE 325 MG TAB PO SCH (12:23)
--- NOTE | 2017-04-23 13:04 | P.PN ---
Subjective This patient is a 81 year old male being evaluated for possible stroke. The patient had an abnormal CT Scan of the brain and was admitted to the hospital yesterday. He had no focal motor deficit on examination yesterday on Neurologic examination. The CT Scan revealed gyral changes over the right frontal lobe. He did not have any left sided weakness. He had MRI Brain done last night and we reviewed the results that are not conclusive. It appears to suggest likely area of stroke, but a short term follow-up will be useful to assess this possible infarction. We would recommend a carotid doppler study be done today as part of a stroke evaluation. The patient seems to be doing about the same today as compared to yesterday. We would recommend a complete stroke evaluation for this patient. We will continue close neruologic follow-up for this patient. We have updated the patient on the results of the MRI of the brain. We will continue our stroke evaluation for the patient. He may require follow-up MRI of the brain at a latter date. Patient is requiring oxygen at this time at a setting of 3 L. He does use home oxygen as well. He denies any cough or congestion or shortness of breath. As noted the patient will follow up in the outpatient neurology clinic for further recommendations. Radiology is recommending a short-term follow-up MRI of the brain which can be done in the outpatient setting. We are awaiting the results of his recent carotid Doppler study. If the carotid Doppler is negative for any significant stenosis then would continue with aspirin therapy for secondary stroke prevention. His blood pressure is slightly elevated this evening. Recommend close monitoring over the next several days. His overall prognosis remains guarded. Patient may be considered for discharge home with outpatient follow-up in the neurology clinic in 2-3 weeks. His overall prognosis at this time remains guarded. Objective - Vital Signs Vital signs: Vital Signs Temp 96.4 F L 04/23/17 08:00 Pulse 72 04/23/17 08:15 Resp 18 04/23/17 08:00 BP 174/78 04/23/17 08:00 Pulse Ox 100 04/23/17 08:00 Intake & Output 04/22/17 04/23/17 04/23/17 18:59 06:59 18:59 Intake Total 1017 0 240 Output Total 200 450 Balance 817 -450 240 Weight 65.5 kg Intake: Intake, IV Titration 0 Amount Sodium Chloride 0.9% 1, 0 000 ml @ 100 mls/hr IV . Q10H [facility] Rx#:[id number] Oral 1017 240 Output: Urine 200 450 Other: Voiding Method Toilet Toilet Toilet # Voids 3 # Bowel Movements 1 - Exam Physical Examination: PHYSICAL EXAMINATION: Patient is resting comfortably in bed. VITAL SIGNS: Blood pressure is [174/78]. Heart rate is [73]. Respiration is [16] . Temperature is [96.4]. HEENT: Head is atraumatic, neck is supple, there were no carotid bruits. CHEST: Lungs are clear to auscultation and percussion. CARDIAC: S1, S2 normal rate and rhythm. There is no murmur. ABDOMEN: Soft and nontender. Bowel sounds are present. EXTREMITIES: There is no pedal edema. Peripheral pulses are present. Neurological examination: Patient's neurological examination is unchanged from yesterday. - Labs CBC & Chem 7: 04/21/17 05:51 04/21/17 05:51 Assessment and Plan (1) Acute ischemic stroke Status: Acute Code(s): I63.9 - CEREBRAL INFARCTION, UNSPECIFIED (2) Parkinsonism Status: Acute Code(s): G20 - PARKINSON'S DISEASE (3) Ataxic gait Status: Acute Code(s): R26.0 - ATAXIC GAIT (4) Foot drop Status: Acute Code(s): M21.379 - FOOT DROP, UNSPECIFIED FOOT (5) History of lumbar laminectomy Status: Acute Code(s): Z98.890 - OTHER SPECIFIED POSTPROCEDURAL STATES Plan: This patient is a 81-year-old male initially admitted to Hospital with symptoms of possible new stroke. He underwent a computed tomography scan and subsequently a MRI of the brain. There is a gyral area of enhancement in change noted over the right frontal lobe. Radiology is recommending a short interval repeat study. At this time this suggests mostly a acute cortical infarct in the right frontal lobe. He is undergoing a complete stroke evaluation. We are waiting the results of his carotid Doppler study. If the carotid Doppler is negative for any significant stenosis he may be discharged home on aspirin therapy for secondary stroke prevention. He is to continue on aspirin at this time. He may follow-up in the outpatient neurology clinic for further reevaluation of his MRI study and possible repeat MRI of the brain. He may schedule follow-up in 2-3 weeks in the outpatient neurology clinic. We will continue close neurological follow-up for the patient during this admission. His overall prognosis at this time remains guarded. We will continue close neurological follow-up with this patient during this admission.
--- NOTE | 2017-04-23 13:55 | P.DS ---
Providers Date of admission: 04/20/17 13:59 Expected date of discharge: 04/23/17 Attending physician: Maxx Benson Consults: 04/20/17 14:01 Consult Physician Routine Consulting Provider: Clemente Mayer Consult Reason/Comments: cva Do you want consulting provider notified?: Yes Primary care physician: [facility] Course: This is an 81-year-old male patient being evaluated and examined today on the sixth floor. This patient was admitted to the hospital from the emergency room with altered mental status and there was some suspicion of CVA. Neurology is on consult. This patient does have a history of chronic and ongoing tremors. A CT scan of the brain shows cerebral atrophy, and normal pressure hydrocephalus some gyriform enhancement of the right posterior frontal lobe is seen consistent with a vascular malformation. MRI of the brain shows gyriform enhancement may be related to cortical infarct. Upon examination the patient's resting up in bed on 3 L of oxygen which he does wear home as well. He denies any cough, congestion, or shortness of breath. Neurology has cleared the patient for discharge. Pertinent Studies: Brain Ct. Brain MRI Patient Condition at Discharge: Good Plan - Discharge Summary Discharge Medication List Aspirin 81 mg PO DAILY 03/24/14 [History] Atenolol [Tenormin] 12.5 mg PO BID 03/24/14 [History] Desvenlafaxine Succinate [Pristiq ER] 50 mg PO DAILY 03/24/14 [History] Finasteride [Proscar] 5 mg PO DAILY 03/24/14 [History] Garlic 1,000 mg PO TID 03/24/14 [History] Iron 65 mg PO DAILY 03/24/14 [History] [place]-3 Acid Ethyl Esters [Lovaza] 4 gm PO DAILY 03/24/14 [History] Salmeterol Xinafoate [Serevent Diskus] 1 puff IH RT-BID 03/24/14 [History] Simvastatin [Zocor] 40 mg PO HS 03/24/14 [History] Terazosin [Hytrin] 2 mg PO BID 03/24/14 [History] cycloSPORINE [Restasis] 1 applicator BOTH EYES BID 03/24/14 [History] Xolair 225 mg SQ Q14D 03/26/14 [History] Tadalafil [Cialis] 5 mg PO DAILY 10/23/14 [History] Ipratropium Nebulized [Atrovent Nebulized] 0.5 mg INHALATION RT-TID 03/29/17 [ History] Albuterol Nebulized [Ventolin Nebulized] 2.5 mg INHALATION RT-TID 04/20/17 [ History] Fluticasone Propionate [Flovent Hfa 220MCG] 2 puff INHALATION RT-BID 04/20/17 [ History] Primidone [Mysoline] 100 mg PO TID 04/20/17 [History] Roflumilast [Daliresp] 500 mcg PO DAILY 04/20/17 [History] Follow up Appointment(s)/Referral(s): Maxx Benson MD [Primary Care Provider] - 1-2 days Clemente Mayer MD [STAFF PHYSICIAN] - 1 Week Patient Instructions/Handouts: Ischemic Stroke (GEN)
[2017-04-23 14:57] VITALS: PULSE 73
--- NOTE | 2017-04-24 10:15 | EEG ---
DATE OF SERVICE: 04/23/2017 INDICATIONS FOR EXAMINATION: This patient is an 81-year-old male admitted with acute right frontal lobe stroke. AGE: 81Y EEG FINDINGS: A routine 21-channel, awake digital EEG recording was accomplished utilizing the 10 to 20 international system with bipolar and referential montages. The background activity in the most alert resting state consists of a low to medium amplitude, fairly well-developed and well-sustained 6 Hz activity over the posterior head regions. This posterior rhythm attenuates to eye opening. There is a small amount of low amplitude 18 to 20 Hz beta activity seen maximally over the anterior head regions. Muscle and movement artifact was observed on a few occasions during the tracing. Hyperventilation was not performed. Photic stimulation at flash frequencies of 2 to 30 Hz produced a minimal occipital driving response. No epileptiform discharges were seen. IMPRESSION: This EEG is moderately abnormal in diffuse fashion due to slowing of the EEG background. The EEG failed to reveal any focal, lateralized or epileptiform abnormalities. Clinical correlation is recommended.
--- NOTE | 2017-04-24 11:27 | ECHOF ---
Referral Reason:Thrombus MEASUREMENTS -------- HEIGHT: 170.2 cm WEIGHT: 63.5 kg BP: RVIDd: 3.4 cm (< 3.3) IVSd: 1.1 cm (0.6 - 1.1) LVIDd: 4.7 cm (3.9 - 5.3) LVPWd: 0.8 cm (0.6 - 1.1) IVSs: 1.4 cm LVIDs: 3.3 cm LVPWs: 1.1 cm LA Diam: 3.2 cm (2.7 - 3.8) LAESV Index (A-L): 32.05 ml/m Ao Diam: 3.4 cm (2.0 - 3.7) AV Cusp: 2.5 cm (1.5 - 2.6) LA Diam: 4.1 cm (2.7 - 3.8) MV E Ajit: 0.63 m/s MV DecT: 242 ms MV A Ajit: 0.87 m/s MV E/A Ratio: 0.72 RAP: 5.00 mmHg RVSP: 28.65 mmHg FINDINGS -------- Sinus rhythm. This was a technically adequate study. There is mild concentric left ventricular hypertrophy. Overall left ventricular systolic function is normal with, an EF between 55 - 60 %. The right ventricle is normal in size. LA is moderately dilated 34-39 ml/m2 The right atrial size is normal. There is mild aortic valve sclerosis. There is no evidence of aortic regurgitation. Mild mitral annular calcification present. Mild mitral regurgitation is present. Mild tricuspid regurgitation present. There is no evidence of pulmonary hypertension. The right ventricular systolic pressure, as measured by Doppler, is 28.65mmHg. Trace/mild (physiologic) pulmonic regurgitation. The aortic root size is normal. There is no pericardial effusion. CONCLUSIONS -------- 1. There is mild concentric left ventricular hypertrophy. 2. Trace/mild (physiologic) pulmonic regurgitation. 3. The aortic root size is normal. 4. There is no pericardial effusion. 5. Overall left ventricular systolic function is normal with, an EF between 55 - 60 %. 6. LA is moderately dilated 34-39 ml/m2 7. There is mild aortic valve sclerosis. 8. Mild mitral annular calcification present. 9. Mild mitral regurgitation is present. 10. Mild tricuspid regurgitation present. 11. There is no evidence of pulmonary hypertension. 12. The right ventricular systolic pressure, as measured by Doppler, is 28.65mmHg. LOCOMOTIVE CRANE OPERATOR HELPER: So Quezada RDCS
== END 2017-04-23 15:42 | disposition home or self-care (01) | DRG 65 ==
LOC: EC 12:06 → 6SEL 13:59
PROVIDERS: ADMIT Family Medicine; ATTEND Family Medicine
DX: I63.9 Cerebral infarction, unspecified (principal); G91.2 (Idiopathic) normal pressure hydrocephalus; J96.11 Chronic respiratory failure with hypoxia; G20 Parkinson's disease; J44.9 Chronic obstructive pulmonary disease, unspecified; I11.9 Hypertensive heart disease without heart failure; Q27.9 Congenital malformation of peripheral vascular system, unspecified; J45.909 Unspecified asthma, uncomplicated; E78.5 Hyperlipidemia, unspecified; M21.379 Foot drop, unspecified foot; F32.9 Major depressive disorder, single episode, unspecified; N40.0 Benign prostatic hyperplasia without lower urinary tract symptoms; R47.81 Slurred speech; R27.0 Ataxia, unspecified; G89.29 Other chronic pain; M54.5 Low back pain; I25.2 Old myocardial infarction; Z87.891 Personal history of nicotine dependence; Z90.49 Acquired absence of other specified parts of digestive tract; Z98.41 Cataract extraction status, right eye; Z98.42 Cataract extraction status, left eye; Z87.442 Personal history of urinary calculi; Z79.82 Long term (current) use of aspirin; Z79.899 Other long term (current) drug therapy
CPT/HCPCS: 70450; 70460; 70553; 80048; 80053; 80061; 81001; 82550; 82553; 83735; 84100; 84484; 85025; 85610; 85730; 93306; 93880; 94640; 95819; 99285

== ENCOUNTER → 2017-04-20 | Outpatient (CLI) | payer MEDICARE, OTHER ==
--- NOTE | 2017-04-20 10:33 | CT ---
"EXAMINATION TYPE: CT brain w con DATE OF EXAM: 04/20/2017 9:47 AM COMPARISON: NONE HISTORY: TIA, loss of balance CT DLP: 1058 mGycm Automated exposure control for dose reduction was used. CONTRAST: CT scan of the head is performed with IV Contrast, patient injected with 100 mL of Omnipaque 300. FINDINGS: There is no abnormal enhancing mass or midline shift identified. The ventricles and sulci are within normal limits in size. The globes are intact and the visualized sinuses are clear. There is a gyral enhancement within the right frontal lobe. MRI is recommended. This could been the b asis of an evolving subacute infarct. Neoplasm not excluded. Physician office notified. IMPRESSION: There is a gyral enhancement within the right frontal lobe. MRI is recommended. This could been the b asis of an evolving subacute infarct. Neoplasm not excluded. Cannot exclude petechial hemorrhage give n the presence of contrast. A Red message has been communicated to Maxx Benson MD via the [employer] | Critical Result s ystem on 04/20/2017 10:30 AM, Message ID [id number]."
--- NOTE | 2017-04-20 10:43 | US ---
EXAMINATION TYPE: US carotid duplex BILAT DATE OF EXAM: 04/20/2017 9:45 AM COMPARISON: NONE CLINICAL HISTORY: I67.9 cva. Syncope, TIA EXAM MEASUREMENTS: RIGHT: Peak Systolic Velocity (PSV) cm/sec ----- Right CCA: 89.6 ----- Right ICA: 186.4 ----- Right ECA: 196.6 ICA/CCA ratio: 2.1 RIGHT: End Diastole cm/sec ----- Right CCA: 11.1 ----- Right ICA: 36.6 ----- Right ECA: 0.0 LEFT: Peak Systolic Velocity (PSV) cm/sec ----- Left CCA: 96.8 ----- Left ICA: 201.2 ----- Left ECA: 190.8 ICA/CCA ratio: 2.1 LEFT: End Diastole cm/sec ----- Left CCA: 17.9 ----- Left ICA: 36.2 ----- Left ECA: 8.1 VERTEBRALS (direction of flow): Right Vertebral: Antegrade Left Vertebral: Antegrade Bilateral intimal thickening, significant amount of plaque bilateral bulb and proximal ICA, elevated velocities: right proximal mid and distal ICA, right mid ECA, left proximal CCA, left proximal and mi d ICA and left mid ECA, right ICA/CCA ratio of 2.1 for 50 to 69% stenosis, left ICA/CCA ratio of 2.1 for 50 to 69% stenosis IMPRESSION: 1. Extensive atherosclerotic plaque bilaterally with findings suggestive of 50-69% stenosis bilateral ly. Consider follow-up MRA or CTA.
== END | disposition home or self-care (01) ==
LOC: RADCTMAIN 09:02
PROVIDERS: ATTEND Family Medicine
DX: I65.23 Occlusion and stenosis of bilateral carotid arteries (principal); R93.0 Abnormal findings on diagnostic imaging of skull and head, not elsewhere classified; I63.9 Cerebral infarction, unspecified
CPT/HCPCS: 93880; 70460; Q9967

== ENCOUNTER → 2017-07-23 | Outpatient (CLI) | payer MEDICARE, OTHER ==
--- NOTE | 2017-07-23 11:41 | NM ---
EXAMINATION TYPE: NM thyroid image only DATE OF EXAM: 07/23/2017 COMPARISON: 01/12/2017 HISTORY: Abnormal thyroid labs TECHNIQUE: After the intravenous administration of 11 mCi Tc 99m Sodium Pertechnetate. FINDINGS: No sizable hot or cold defect. IMPRESSION: Normal thyroid scan and uptake.
== END | disposition home or self-care (01) ==
LOC: RADNMMAIN 10:59
PROVIDERS: ATTEND Family Medicine
DX: R94.6 Abnormal results of thyroid function studies (principal)
CPT/HCPCS: 78013; A9512

== ENCOUNTER 2018-03-09 11:01 | Inpatient (IN) | payer MEDICARE, OTHER ==
[2018-03-09] MEDS ORDERED: SODIUM CHLORIDE 0.9% 1,000 ML IV STA (11:29)
[2018-03-09] MEDS ORDERED: SODIUM CHLORIDE 0.9% 500 ML IV STA (11:29)
[2018-03-09] MEDS ORDERED: IPRATROPIUM 0.5 MG/2.5 ML NEBU INHALATION STA (11:29)
[2018-03-09] MEDS ORDERED: ALBUTEROL NEBULIZED 2.5 MG/3 ML INHALATION STA (11:29)
--- NOTE | 2018-03-09 11:36 | ED ---
General Adult HPI - General Chief complaint: Shortness of Breath Stated complaint: congestion Time Seen by Provider: 03/09/18 11:26 Source: patient, family, RN notes reviewed, old records reviewed Mode of arrival: wheelchair Limitations: no limitations - History of Present Illness Initial comments: This is an 82-year-old male the ER for evaluation of shortness of breath. Patient does suffer from severe COPD, so with significant shortness of breath history regarding into today. Worsening today with increasing amount of oxygen requirement at home. Increasing shortness of breath severely worse with any sort of activity or exertion. No chest pain, patient denies fever does have increased cough and congestion. No recent travel history no sick contacts. Patient does have recent admission for similar complaint - Related Data Home Medications Medication Instructions Recorded Confirmed Aspirin 81 mg PO DAILY 03/24/14 02/14/18 Atenolol [Tenormin] 12.5 mg PO BID 03/24/14 02/14/18 Desvenlafaxine Succinate [Pristiq 50 mg PO DAILY 03/24/14 02/14/18 ER] Finasteride [Proscar] 5 mg PO DAILY 03/24/14 02/14/18 Garlic 1 tab PO TID 03/24/14 02/14/18 Delong-3 Acid Ethyl Esters [Lovaza] 1 gm PO TID 03/24/14 02/14/18 Salmeterol Xinafoate [Serevent 1 puff INHALATION RT-BID 03/24/14 02/14/18 Diskus] Simvastatin [Zocor] 40 mg PO HS 03/24/14 02/14/18 Terazosin [Hytrin] 2 mg PO BID 03/24/14 02/14/18 Fluticasone Propionate [Flovent 2 puff INHALATION RT-BID 04/20/17 02/14/18 Hfa 220MCG] Primidone [Mysoline] 100 mg PO DAILY 04/20/17 02/14/18 Roflumilast [Daliresp] 500 mcg PO DAILY 04/20/17 02/14/18 Carbidopa-Levodopa 10-100 mg 1 tab PO TID 08/30/17 02/14/18 [Sinemet 10-100] Calcium Carbonate [Calcium] 600 mg PO BID 09/13/17 02/14/18 Cholecalciferol [Vitamin D3] 5,000 unit PO DAILY 09/13/17 02/14/18 Diazepam 2 mg PO TID PRN 09/13/17 02/14/18 Ferrous Sulfate [Feosol] 325 mg PO DAILY 09/13/17 02/14/18 Montelukast [Singulair] 10 mg PO DAILY 09/13/17 02/14/18 Omalizumab [Xolair] 150 mg SQ Q14D 09/13/17 02/14/18 Propylene Glycol/Peg 400/Pf 1 drop BOTH EYES TID 09/13/17 02/14/18 [Systane 0.3-0.4% Eye Drops] cycloSPORINE 0.05% OPHTH SOLN 1 drop BOTH EYES BID 09/13/17 02/14/18 [Restasis] predniSONE 10 mg PO DAILY 09/13/17 02/14/18 Budesonide [Pulmicort] 0.25 mg INHALATION BID 12/20/17 02/14/18 Ipratropium-Albuterol Nebulize 3 ml INHALATION TID 12/20/17 02/14/18 [Duoneb 0.5 mg-3 mg/3 ml Soln] Allergies Allergy/AdvReac Type Severity Reaction Status Date / Time No Known Allergies Allergy Verified 02/14/18 09:39 Review of Systems ROS Statement: Those systems with pertinent positive or pertinent negative responses have been documented in the HPI. ROS Other: All systems not noted in ROS Statement are negative. Past Medical History Past Medical History: COPD, Hyperlipidemia, Hypertension, Prostate Disorder, Renal Disease Additional Past Medical History / Comment(s): Home O2 at 3-3.5L/NC ATC, chronic tremors-etiology unknown to pt, L foot drop, pt states he "possibly" had a ND years ago, chronic low back pain, nephrolithiasis-has passed stones on his own and also surgically removed, BPH. L ankle torn tendon Last Myocardial Infarction Date:: unknown History of Any Multi-Drug Resistant Organisms: None Reported Past Surgical History: Back Surgery, Cholecystectomy, Heart Catheterization Additional Past Surgical History / Comment(s): Lumbar laminectomy, lithotripsy, colonoscopy, bilateral cataract removals. Past Anesthesia/Blood Transfusion Reactions: No Reported Reaction, Previous Problems w/ Anesthesia Additional Past Anesthesia/Blood Transfusion Reaction / Comment(s): woke up during anesthesia x1 Past Psychological History: Anxiety Smoking Status: Former smoker Past Alcohol Use History: None Reported Past Drug Use History: None Reported - Past Family History Mother Family Medical History: Musculoskeletal Disorder, Neurologic Disorder Additional Family Medical History / Comment(s): Mother had parkinsons. Father Additional Family Medical History / Comment(s): Father had back problems. He in a MVA at the age of 62 yrs. General Exam Limitations: no limitations General appearance: alert, in no apparent distress, anxious Head exam: Present: atraumatic, normocephalic, normal inspection Eye exam: Present: normal appearance, PERRL, EOMI. Absent: scleral icterus, conjunctival injection, periorbital swelling ENT exam: Present: normal exam, mucous membranes moist Neck exam: Present: normal inspection. Absent: tenderness, meningismus, lymphadenopathy Respiratory exam: Present: respiratory distress, wheezes, accessory muscle use, decreased breath sounds, prolonged expiratory. Absent: rales, rhonchi, stridor Cardiovascular Exam: Present: regular rate, normal rhythm, normal heart sounds. Absent: systolic murmur, diastolic murmur, rubs, gallop, clicks GI/Abdominal exam: Present: soft, normal bowel sounds. Absent: distended, tenderness, guarding, rebound, rigid Extremities exam: Present: normal inspection, full ROM, normal capillary refill. Absent: tenderness, pedal edema, joint swelling, calf tenderness Back exam: Present: normal inspection Neurological exam: Present: alert, oriented X3, CN II-XII intact Psychiatric exam: Present: normal affect, normal mood Skin exam: Present: warm, dry, intact, normal color. Absent: rash Course Vital Signs 03/09/18 03/09/18 03/09/18 11:16 11:42 12:02 Temperature 100.0 F H Pulse Rate 80 69 Respiratory 18 20 Rate Blood Pressure 73/44 O2 Sat by Pulse 94 L Oximetry 03/09/18 03/09/18 03/09/18 12:13 12:38 12:41 Temperature 98.6 F Pulse Rate 67 73 Respiratory Rate Blood Pressure O2 Sat by Pulse Oximetry 03/09/18 13:07 Temperature Pulse Rate 87 Respiratory 16 Rate Blood Pressure 115/63 O2 Sat by Pulse 96 Oximetry - Reevaluation(s) Reevaluation #1: 03/09/18 13:11 Patient did not really show much improvement with breathing treatment EKG Findings - EKG Comments: EKG Findings:: EKG shows a flutter rate of 64, QRS 134, QTC 422 Medical Decision Making - Medical Decision Making 82 male the ER for evasive shortness of cough and congestion will be for breathing treatments steroids. - Lab Data Result diagrams: 03/09/18 11:37 03/09/18 11:37 Lab Results 03/09/18 03/09/18 03/09/18 Range/Units 11:35 11:37 11:37 WBC 8.8 (3.8-10.6) k/uL RBC 3.75 L (4.30-5.90) m/uL Hgb 12.6 L (13.0-17.5) gm/dL Hct 37.5 L (39.0-53.0) % MCV 100.0 (80.0-100.0) fL MCH 33.6 (25.0-35.0) pg MCHC 33.6 (31.0-37.0) g/dL RDW 15.1 (11.5-15.5) % Plt Count 156 (150-450) k/uL Neutrophils % 79 % Lymphocytes % 8 % Monocytes % 8 % Eosinophils % 3 % Basophils % 0 % Neutrophils # 6.9 (1.3-7.7) k/uL Lymphocytes # 0.7 L (1.0-4.8) k/uL Monocytes # 0.7 (0-1.0) k/uL Eosinophils # 0.3 (0-0.7) k/uL Basophils # 0.0 (0-0.2) k/uL Macrocytosis Slight PT (9.0-12.0) sec INR (<1.2) APTT (22.0-30.0) sec D-Dimer (<0.60) mg/L FEU Sodium (137-145) mmol/L Potassium (3.5-5.1) mmol/L Chloride (98-107) mmol/L Carbon Dioxide (22-30) mmol/L Anion Gap mmol/L BUN (9-20) mg/dL Creatinine (0.66-1.25) mg/dL Est GFR (CKD-EPI)AfAm (>60 ml/min/1.73 sqM) Est GFR (CKD-EPI)NonAf (>60 ml/min/1.73 sqM) Glucose (74-99) mg/dL Calcium (8.4-10.2) mg/dL Magnesium (1.6-2.3) mg/dL Total Bilirubin (0.2-1.3) mg/dL AST (17-59) U/L ALT (21-72) U/L Alkaline Phosphatase (38-126) U/L Total Creatine Kinase 55 (55-170) U/L CK-MB (CK-2) 1.9 (0.0-2.4) ng/mL CK-MB (CK-2) Rel Index 3.5 Troponin I 0.023 (0.000-0.034) ng/mL NT-Pro-B Natriuret Pep pg/mL Total Protein (6.3-8.2) g/dL Albumin (3.5-5.0) g/dL Influenza Type A RNA Not Detected (Not Detectd) Influenza Type B (PCR) Not Detected (Not Detectd) 03/09/18 03/09/18 03/09/18 Range/Units 11:37 11:37 11:37 WBC (3.8-10.6) k/uL RBC (4.30-5.90) m/uL Hgb (13.0-17.5) gm/dL Hct (39.0-53.0) % MCV (80.0-100.0) fL MCH (25.0-35.0) pg MCHC (31.0-37.0) g/dL RDW (11.5-15.5) % Plt Count (150-450) k/uL Neutrophils % % Lymphocytes % % Monocytes % % Eosinophils % % Basophils % % Neutrophils # (1.3-7.7) k/uL Lymphocytes # (1.0-4.8) k/uL Monocytes # (0-1.0) k/uL Eosinophils # (0-0.7) k/uL Basophils # (0-0.2) k/uL Macrocytosis PT 9.7 (9.0-12.0) sec INR 1.0 (<1.2) APTT 22.8 (22.0-30.0) sec D-Dimer 0.73 H (<0.60) mg/L FEU Sodium 140 (137-145) mmol/L Potassium 4.7 (3.5-5.1) mmol/L Chloride 100 (98-107) mmol/L Carbon Dioxide 32 H (22-30) mmol/L Anion Gap 8 mmol/L BUN 19 (9-20) mg/dL Creatinine 0.91 (0.66-1.25) mg/dL Est GFR (CKD-EPI)AfAm >90 (>60 ml/min/1.73 sqM) Est GFR (CKD-EPI)NonAf 78 (>60 ml/min/1.73 sqM) Glucose 147 H (74-99) mg/dL Calcium 10.0 (8.4-10.2) mg/dL Magnesium 1.7 (1.6-2.3) mg/dL Total Bilirubin 0.5 (0.2-1.3) mg/dL AST 23 (17-59) U/L ALT 15 L (21-72) U/L Alkaline Phosphatase 60 (38-126) U/L Total Creatine Kinase (55-170) U/L CK-MB (CK-2) (0.0-2.4) ng/mL CK-MB (CK-2) Rel Index Troponin I (0.000-0.034) ng/mL NT-Pro-B Natriuret Pep 438 pg/mL Total Protein 6.9 (6.3-8.2) g/dL Albumin 3.8 (3.5-5.0) g/dL Influenza Type A RNA (Not Detectd) Influenza Type B (PCR) (Not Detectd) - Radiology Data Radiology results: report reviewed (Chest x-rays negative for acute disease), image reviewed Disposition Clinical Impression: Acute exacerbation of chronic obstructive airways disease, Hypoxia Disposition: ADMITTED IP TO THIS HOSP Condition: Fair Referrals: Maxx Benson MD [Primary Care Provider] - 1-2 days
[2018-03-09 11:56] LABS: Basophils % (A) 0 %; Eosinophils # (A) 0.3 k/uL (0-0.7); Eosinophils % (A) 3 %; HCT 37.5 % (39.0-53.0); HGB 12.6 gm/dL (13.0-17.5); Lymphocytes # (A) 0.7 k/uL (1.0-4.8); Lymphocytes % (A) 8 %; MCH 33.6 pg (25.0-35.0); MCHC 33.6 g/dL (31.0-37.0); Macrocytosis Slight; Mean Platelet Volume 7.5; Monocytes # (A) 0.7 k/uL (0-1.0); Monocytes % (A) 8 %; Neutrophils # (A) 6.9 k/uL (1.3-7.7); Neutrophils % (A) 79 %; Platelet Count 156 k/uL (150-450); RBC 3.75 m/uL (4.30-5.90); RDW 15.1 % (11.5-15.5); WBC 8.8 k/uL (3.8-10.6)
[2018-03-09 12:01] LABS: ALT 15 U/L (21-72); AST 23 U/L (17-59); Albumin 3.8 g/dL (3.5-5.0); Alkaline Phosphatase 60 U/L (38-126); Anion Gap 8 mmol/L; Blood Urea Nitrogen 19 mg/dL (9-20); Carbon Dioxide 32 mmol/L (22-30); Chloride 100 mmol/L (98-107); Glucose 147 mg/dL (74-99); Magnesium 1.7 mg/dL (1.6-2.3); Potassium 4.7 mmol/L (3.5-5.1); Sodium 140 mmol/L (137-145); Total Bilirubin 0.5 mg/dL (0.2-1.3); Total Protein 6.9 g/dL (6.3-8.2)
--- NOTE | 2018-03-09 12:05 | XR ---
EXAMINATION TYPE: XR chest 1V portable DATE OF EXAM: 03/09/2018 HISTORY: sob. REFERENCE: Previous study dated 09/14/2017. FINDINGS: The lungs are overinflated. The heart is mildly enlarged. There is left basilar airspace di sease. There is a small left effusion. IMPRESSION: 1. COPD. 2. CARDIOMEGALY. 3. LEFT BASILAR AIRSPACE DISEASE. 4. SMALL LEFT EFFUSION.
[2018-03-09 12:10] LABS: D-Dimer 0.73 mg/L FEU (<0.60); Partial Thromboplastin Time 22.8 sec (22.0-30.0); Prothrombin Time 9.7 sec (9.0-12.0)
[2018-03-09 12:24] LABS: Creatine Kinase MB 1.9 ng/mL (0.0-2.4)
[2018-03-09] MEDS ORDERED: ACETAMINOPHEN IV (For NPO) 1,000 MG in EMPTY BAG 1 BAG IVPB STA (12:40)
[2018-03-09] MEDS ORDERED: KETOROLAC 30 MG/ML 1 ML VIAL IVP STA (12:40)
[2018-03-09 12:45] LABS: Troponin I 0.023 ng/mL (0.000-0.034)
[2018-03-09] MEDS ORDERED: RX INFO: IV CONTRAST WAS GIVEN 1 EACH MISC MISCELLANE PRN (13:08)
[2018-03-09] MEDS ORDERED: methylPREDNISolone SOD SUCCI 125 MG/2 ML VIAL IV STA (13:08)
[2018-03-09] MEDS: SODIUM CHLORIDE 0.9% 1,000 ML IV SCH ×2 (13:59→21:11)
--- NOTE | 2018-03-09 14:49 | CT ---
EXAMINATION TYPE: CT angio chest DATE OF EXAM: 03/09/2018 COMPARISON: Chest x-ray same date HISTORY: Shortness of breath CT DLP: 266.9 mGycm Automated exposure control for dose reduction was used. CONTRAST: CTA scan of the thorax is performed with IV Contrast, patient injected with 79 mL of Isovue 370, pulm onary embolism protocol. MIP images are created and reviewed. 3D reconstructed images are created o n an independent workstation and reviewed. FINDINGS: LUNGS: The lungs are remarkable for interstitial changes, there is bronchial wall thickening especial ly at the left lung base, emphysematous changes are extensive, there is no concerning parenchymal mas s or nodule identified. There is no pleural effusion or pneumothorax seen. The tracheobronchial tr ee is patent. AORTA: No additional significant abnormality is seen. Pulmonary artery is dilated. There are coronar y artery calcifications present. MEDIASTINUM: There is satisfactory enhancement of the pulmonary artery and its branches, there is no CT evidence for pulmonary embolism. There are no greater than 1 cm hilar or mediastinal lymph nodes. No pericardial effusion is seen. OTHER: Liver shows a somewhat nodular contour, correlate for possible cirrhosis. Postop changes are noted to the lumbar spine, there is degenerative disc change. IMPRESSION: CORRELATE FOR PULMONARY ARTERY HYPERTENSION. Emphysema. Correlate for chronic bronchitis. No evident pulmonary embolism. Interstitial lung disease. Additional findings above.
[2018-03-09] MEDS: IPRATROPIUM-ALBUTEROL 3 ML NEB INHALATION SCH ×2 (16:57→20:41)
[2018-03-09] MEDS: methylPREDNISolone SOD SUCCI 125 MG/2 ML VIAL IV SCH ×2 (17:53→23:48)
--- NOTE | 2018-03-09 19:13 | CONS ---
CONSULTATION Sharif Mota is an 82-year-old male who presented to the ED at [facility] with increasing shortness of breath that started about a day ago. He thought he had a scratchy throat. He had increasing need for oxygen and was wheezing. He subsequently was seen in the ER and admitted for further evaluation and management. He denied any fever or chills. PAST MEDICAL HISTORY: Positive for asthma, COPD, hyperlipidemia, hypertension, prostate disorder, kidney disease, benign prostatic hypertrophy, chronic low back pain, acute myocardial infarction, left foot drop, left ankle , cholecystectomy, cardiac cath, lumbar laminectomy, colonoscopy. SOCIAL HISTORY: Patient used to smoke cigarettes. He quit smoking several years ago. 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 He does not drink alcohol excessively. FAMILY HISTORY: Negative for COPD or asthma. Mother had a history of Parkinson disease. Father had a history of back problems and in an MVA at age 62. MEDICATIONS: Prior to admission were: 1. Aspirin. 2. Tenormin. 3. Pristiq. 4. Proscar. 5. Garlic. 6. Hayward-3 acids. 7. Serevent. 8. Simvastatin. 9. Flovent. 10.Mysoline. 11.Daliresp. 12.Carbidopa-levodopa. 13.Calcium carbonate. 14.Cholecalciferol. 15.Diazepam. 16.Ferrous sulfate. 17.Singulair. 18.Xolair. 19.Propylene. 20.Cyclosporine. 21.Prednisone. 22.Pulmicort. 23.Ipratropium with albuterol. REVIEW OF SYSTEMS: Noncontributory other than for what is described in history of present illness and past medical history. PHYSICAL EXAMINATION: Respiratory rate is 16, pulse rate of 60, temperature 97.9, blood pressure is 106/51, O2 saturation on 4L by nasal cannula is 99%. HEENT: Pupils are equal. Chest with decreased breath sounds with prolonged expiration. There is expiratory wheezing. Cardiovascular system reveals an S1, S2. Abdomen is soft. There is no pedal edema. CT scan of the chest with contrast was done which showed no evidence of PE. There is bronchial wall thickening with some emphysematous changes. LABS: Revealed a white count of 8.8, hemoglobin of 12.6, 0.3 eosinophils. Impression at this time is: 1. Asthma with acute exacerbation. 2. Chronic obstructive pulmonary disease. 3. Acute respiratory failure. 4. Elevated blood sugars in part due to steroids. At this point in time from a pulmonary standpoint, keep him on IV steroids, bronchodilators, aerosolized steroids, montelukast, GI and DVT prophylaxis. Increase his activity level. He was counseled regarding his condition and this approach. I would like to thank you for allowing us the privilege of participating in his care. Would continue to use a biologic on him as an outpatient. MMODL / IJN: [id number] /
[2018-03-09] MEDS: BUDESONIDE 0.5 MG/2 ML NEBU INHALATION SCH (20:40)
[2018-03-09] MEDS: MONTELUKAST 10 MG TAB PO SCH (21:06)
[2018-03-09] MEDS: cycloSPORINE 0.05% OPHTH 0.4 ML DROPERETTE BOTH EYES SCH (21:06)
[2018-03-09] MEDS: ATENOLOL 12.5 MG TAB PO SCH (21:06)
[2018-03-09] MEDS: PRIMIDONE 50 MG TAB PO SCH (21:06)
[2018-03-09] MEDS: CARBIDOPA-LEVODOPA 25-100 MG 1 EACH TAB PO SCH (21:06)
[2018-03-09] MEDS: ATORVASTATIN 20 MG TAB PO SCH (21:06)
[2018-03-09] MEDS: HEPARIN SODIUM,PORCINE 5,000 UNIT/ML 1 ML VIAL SQ SCH (21:09)
[2018-03-10] MEDS: methylPREDNISolone SOD SUCCI 125 MG/2 ML VIAL IV SCH ×4 (06:24→23:31)
[2018-03-10] MEDS: SODIUM CHLORIDE 0.9% 1,000 ML IV SCH ×2 (06:25→16:46)
[2018-03-10] MEDS: BUDESONIDE 0.5 MG/2 ML NEBU INHALATION SCH ×2 (09:00→19:02)
[2018-03-10] MEDS: IPRATROPIUM-ALBUTEROL 3 ML NEB INHALATION SCH ×4 (09:00→19:02)
[2018-03-10] MEDS: PRIMIDONE 50 MG TAB PO SCH ×3 (09:06→21:19)
[2018-03-10] MEDS: CHOLECALCIFEROL 1,000 UNIT TAB PO SCH (09:06)
[2018-03-10] MEDS: MONTELUKAST 10 MG TAB PO SCH ×2 (09:06→21:19)
[2018-03-10] MEDS: DESVENLAFAXINE SUCCINATE 50 MG TAB.ER.24H PO SCH (09:06)
[2018-03-10] MEDS: ATENOLOL 12.5 MG TAB PO SCH ×2 (09:06→21:19)
[2018-03-10] MEDS: cycloSPORINE 0.05% OPHTH 0.4 ML DROPERETTE BOTH EYES SCH ×2 (09:07→21:20)
[2018-03-10] MEDS: ASPIRIN 81 MG PO SCH (09:07)
[2018-03-10] MEDS: DOXAZOSIN 4 MG TAB PO SCH (09:07)
[2018-03-10] MEDS: FERROUS SULFATE 325 MG TAB PO SCH (09:07)
[2018-03-10] MEDS: HEPARIN SODIUM,PORCINE 5,000 UNIT/ML 1 ML VIAL SQ SCH ×2 (09:07→21:20)
[2018-03-10] MEDS: FINASTERIDE 5 MG TAB PO SCH (09:08)
[2018-03-10] MEDS: CARBIDOPA-LEVODOPA 25-100 MG 1 EACH TAB PO SCH ×3 (09:56→21:19)
[2018-03-10] MEDS: TADALAFIL PO SCH (15:22)
[2018-03-10] MEDS: Roflumilast [Daliresp] PO SCH (15:22)
[2018-03-10] MEDS: guaiFENesin 600 MG TABLET.ER PO SCH (16:46)
[2018-03-10 17:19] LABS: Glucose,Whole Blood 142 mg/dL (75-99)
[2018-03-10] MEDS: INSULIN ASPART 100 UNIT/ML 1 ML 10 ML VIAL SQ SCH ×2 (18:02→21:19)
[2018-03-10 20:26] LABS: Glucose,Whole Blood 133 mg/dL (75-99)
--- NOTE | 2018-03-10 21:00 | PN ---
PROGRESS NOTE SUBJECTIVE: 82-year-old white male with COPD, hypoxemia, on steroid taper, updrafts of DuoNeb and Pulmicort. Breathing is improving. Pulmonary consult elicited. Lungs show scattered wheeze x4. Hematology negative Homans. Cardiovascular S1-S2. Psych fair mood and affect. Neurologic: Alert and oriented times three. ASSESSMENT: 1. Chronic obstructive pulmonary disease exacerbation. 2. Hypoxemia. 3. Tracheobronchitis. 4. Parkinson disease. 5. Essential tremor. 6. Hypertension. 7. Coronary artery disease. Continue current treatment. IV steroids taper. Continue with updraft treatments. Prognosis guarded. MMODL / IJN: [id number] /
--- NOTE | 2018-03-10 21:09 | HP ---
HISTORY AND PHYSICAL DATE OF SERVICE: 03/09/18 CHIEF COMPLAINT: 82-year-old white male with COPD and hypoxemia. HISTORY OF PRESENT ILLNESS: 82-year-old white male, COPD, hypoxemia, acute respiratory distress, having no chest pain and shortness of breath is worsening, cough, congestion. No melena, hematochezia. stomach pain. No claudication. MEDICATIONS: Home medicines: See list. FAMILY HISTORY: Family history see old list. REVIEW OF SYSTEM: Fourteen point review of systems negative except for HPI. PHYSICAL EXAMINATION: Blood pressure 120s to 140s over 60s to 80s. Cardiovascular S1, S2. Slightly tachycardic. Lungs scattered wheeze x4, scattered rhonchi. Hematology: Negative Homans. Vascular negative. Normal dorsalis pedis, posterior tibial, radial pulse. Psych: Fair mood and affect. NEUROLOGIC: Alert and oriented x3. ASSESSMENT: 1. Chronic obstructive pulmonary disease exacerbation. 2. Tracheobronchitis. 3. Hypoxemia. 4. Parkinson disease. 5. Essential tremor. Continue current treatments, IV steroids will be given. Pulmonary consult. MMODL / IJN: [id number] /
[2018-03-10] MEDS: ATORVASTATIN 20 MG TAB PO SCH (21:19)
--- NOTE | 2018-03-10 21:45 | CONS ---
CONSULTATION DATE OF SERVICE: March 10, 2018. He is less short of breath, but continues to have wheezing. On physical examination his blood pressure is 129/61, respiratory rate of 20, pulse rate of 62, temperature 98.1 degrees Fahrenheit, O2 saturation on 4 L by nasal cannula is 98%. HEENT is unremarkable. Chest reveals expiratory wheeze on forced expiration. Cardiovascular system is S1, S2. Abdomen is soft. There is no pedal edema. IMPRESSION: At this time is: 1. Allergic asthma with acute exacerbation. 2. Chronic obstructive pulmonary disease. At this point in time, continue him on his current medications including high-dose IV steroids. Consider switching him to oral steroids tomorrow. If he continues to improve, I would consider changing his anti IgE treatment with Xolair to anti eosinophilic treatment as he eosinophilic count is 0.3 1000 and he continues to have exacerbations despite being on Xolair. Depending on how he does, we should make further changes to his care. He was counseled on his condition and this approach. MISTYL / IJN: [id number] /
[2018-03-11] MEDS: SODIUM CHLORIDE 0.9% 1,000 ML IV SCH ×3 (02:24→21:20)
[2018-03-11] MEDS: methylPREDNISolone SOD SUCCI 125 MG/2 ML VIAL IV SCH (06:10)
[2018-03-11] MEDS: BUDESONIDE 0.5 MG/2 ML NEBU INHALATION SCH ×2 (06:51→19:06)
[2018-03-11] MEDS: IPRATROPIUM-ALBUTEROL 3 ML NEB INHALATION SCH ×4 (06:51→19:06)
[2018-03-11 07:15] LABS: Glucose,Whole Blood 135 mg/dL (75-99)
[2018-03-11] MEDS: Roflumilast [Daliresp] PO SCH (08:09)
[2018-03-11] MEDS: MONTELUKAST 10 MG TAB PO SCH (08:09)
[2018-03-11] MEDS: TADALAFIL PO SCH (08:09)
[2018-03-11] MEDS: guaiFENesin 600 MG TABLET.ER PO SCH (08:10)
[2018-03-11] MEDS: CARBIDOPA-LEVODOPA 25-100 MG 1 EACH TAB PO SCH ×3 (08:10→21:14)
[2018-03-11] MEDS: FINASTERIDE 5 MG TAB PO SCH (08:10)
[2018-03-11] MEDS: DOXAZOSIN 4 MG TAB PO SCH (08:10)
[2018-03-11] MEDS: ATENOLOL 12.5 MG TAB PO SCH ×2 (08:11→20:40)
[2018-03-11] MEDS: CHOLECALCIFEROL 1,000 UNIT TAB PO SCH (08:11)
[2018-03-11] MEDS: ASPIRIN 81 MG PO SCH (08:11)
[2018-03-11] MEDS: cycloSPORINE 0.05% OPHTH 0.4 ML DROPERETTE BOTH EYES SCH ×2 (08:11→20:46)
[2018-03-11] MEDS: FERROUS SULFATE 325 MG TAB PO SCH (08:12)
[2018-03-11] MEDS: DESVENLAFAXINE SUCCINATE 50 MG TAB.ER.24H PO SCH (08:12)
[2018-03-11] MEDS: INSULIN ASPART 100 UNIT/ML 1 ML 10 ML VIAL SQ SCH ×4 (08:12→20:46)
[2018-03-11] MEDS: HEPARIN SODIUM,PORCINE 5,000 UNIT/ML 1 ML VIAL SQ SCH ×2 (08:12→20:46)
[2018-03-11] MEDS: PRIMIDONE 50 MG TAB PO SCH ×3 (08:13→20:47)
--- NOTE | 2018-03-11 10:23 | P.PN ---
<Jessica Jimenez E - Last Filed: 03/11/18 10:14> Subjective Progress Note Date: 03/11/18 HPI: This is an 82-year-old male patient presented to the emergency department with increasing shortness of breath that started over a day ago. He thought he had a scratchy throat. He had increasing need for oxygen and was wheezing. He subsequently was seen in the ER and admitted for further evaluation and management. He denied any fever or chills. He does have a past medical history significant for asthma, COPD, hyperlipidemia, hypertension, prostate disorder, kidney disease, BPH, chronic low back pain, acute [place], left foot drop, cholecystectomy, cardiac cath, lumbar laminectomy and colonoscopy. 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 He is resting up in bed on 3 L of supplemental oxygen via nasal cannula. The patient does utilize 3-4 L of oxygen at home as well. He did have a CTA which did re- veal pulmonary artery hypertension, emphysema, chronic bronchitis, interstitial lung disease. And was negative for any PE. Patient is currently on Xolair treatments and his next Xolair injection is scheduled for . 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 Due to the patient having exacerbations despite being on the Xolair therapy at this time. All labs and reports have been reviewed. Objective - Vital Signs Vital signs: Vital Signs Temp 97.8 F 03/11/18 07:00 Pulse 70 03/11/18 07:01 Resp 16 03/11/18 07:00 BP 167/70 03/11/18 07:00 Pulse Ox 96 03/11/18 07:00 Intake & Output 03/10/18 03/11/18 03/11/18 18:59 06:59 18:59 Intake Total 800 1100 Output Total 300 950 Balance 500 150 Intake: IV 800 900 Sodium Chloride 0.9% 1, 800 900 000 ml @ 100 mls/hr IV . Q10H [facility] Rx#:[id number] Oral 200 Output: Urine 300 950 Other: Voiding Method Toilet Urinal # Voids 1 # Bowel Movements 1 - Exam GENERAL EXAM: Alert, comfortable in no apparent distress. HEAD: Normocephalic. EYES: Normal reaction of pupils, equal size. NOSE: Clear with pink turbinates. THROAT: No erythema or exudates. NECK: No masses, no JVD. CHEST: No chest wall deformity. LUNGS: Equal air entry with expiratory wheezing throughout. Bases diminished CVS: S1 and S2 normal with no audible mumurs, regular rhythm. ABDOMEN: No hepatosplenomegaly, normal bowel sounds, no guarding or rigidity. EXTREMITIES: No edema noted, pedal pulses palpable. CENTRAL NERVOUS SYSTEM: No focal deficits, tone is normal in all 4 extremities. - Labs CBC & Chem 7: 03/09/18 11:37 03/09/18 11:37 Labs: Abnormal Lab Results - Last 24 Hours (Table) 03/10/18 03/10/18 03/11/18 Range/Units 17:17 20:21 07:14 POC Glucose (mg/dL) 142 H 133 H 135 H (75-99) mg/dL Assessment and Plan Assessment: Assessment ALLERGIC asthma with acute exacerbation COPD Acute on chronic hypoxic respiratory failure Hyperglycemia, steroid-induced Parkinson's Plan Medications have been reviewed and will be continued as ordered. Steroids have been tapered. Chest CTA has been reviewed. Continue with pulmonary hygiene, coughing and deep breathing exercises, and supportive care. Supplemental oxygen to maintain oxygen saturations of 92% or better. Continue nebulizer treatments. GI and DVT prophylaxis. Increase activity as tolerated. Initiate and encourage incentive spirometer. We will continue to monitor labs/results and adjust treatment as necessary. Further recommendations pending. I performed an examination of the patient and discussed their management with the nurse practitioner. I have reviewed the nurse practitioner's note and agree with the documented findings and plan of care. <Aliza Gillis - Last Filed: 03/11/18 13:02> Objective - Vital Signs Vital signs: Vital Signs Temp 97.8 F 03/11/18 07:00 Pulse 72 03/11/18 11:23 Resp 16 03/11/18 07:00 BP 167/70 03/11/18 07:00 Pulse Ox 96 03/11/18 07:00 Intake & Output 03/10/18 03/11/18 03/11/18 18:59 06:59 18:59 Intake Total 800 1100 Output Total 300 950 Balance 500 150 Intake: IV 800 900 Sodium Chloride 0.9% 1, 800 900 000 ml @ 100 mls/hr IV . Q10H [facility] Rx#:[id number] Oral 200 Output: Urine 300 950 Other: Voiding Method Toilet Urinal # Voids 1 # Bowel Movements 1 - Labs CBC & Chem 7: 03/09/18 11:37 03/09/18 11:37 Labs: Abnormal Lab Results - Last 24 Hours (Table) 03/10/18 03/10/18 03/11/18 Range/Units 17:17 20:21 07:14 POC Glucose (mg/dL) 142 H 133 H 135 H (75-99) mg/dL 03/11/18 Range/Units 11:27 POC Glucose (mg/dL) 110 H (75-99) mg/dL Assessment and Plan Assessment: Patient seen and examined. Patient states he is starting to feel better. Steroid taper. Bronchodilators, Pulmicort. Will discuss changing the patient from Xolair to Fasenra on an outpatient basis. ~Aliza Gillis,
[2018-03-11 11:28] LABS: Glucose,Whole Blood 110 mg/dL (75-99)
[2018-03-11] MEDS: CIALIS 5 MG PO SCH (15:53)
[2018-03-11] MEDS: DALIRESP 500 MCG PO SCH (15:53)
[2018-03-11 17:20] LABS: Glucose,Whole Blood 102 mg/dL (75-99)
[2018-03-11 20:42] LABS: Glucose,Whole Blood 157 mg/dL (75-99)
[2018-03-11] MEDS: ATORVASTATIN 20 MG TAB PO SCH (20:46)
[2018-03-11] MEDS: methylPREDNISolone SOD SUCCI 40 MG/ML 1 ML VIAL IV SCH (20:46)
[2018-03-12 07:21] LABS: Glucose,Whole Blood 113 mg/dL (75-99)
[2018-03-12] MEDS: IPRATROPIUM-ALBUTEROL 3 ML NEB INHALATION SCH ×4 (07:27→20:21)
[2018-03-12] MEDS: BUDESONIDE 0.5 MG/2 ML NEBU INHALATION SCH ×2 (07:27→20:21)
[2018-03-12 07:43] LABS: Basophils % (A) 0 %; Eosinophils % (A) 1 %; HCT 32.5 % (39.0-53.0); HGB 10.7 gm/dL (13.0-17.5); Lymphocytes # (A) 0.7 k/uL (1.0-4.8); Lymphocytes % (A) 12 %; MCH 33.1 pg (25.0-35.0); MCHC 32.9 g/dL (31.0-37.0); MCV 100.7 fL (80.0-100.0); Macrocytosis Slight; Mean Platelet Volume 7.9; Monocytes # (A) 0.6 k/uL (0-1.0); Monocytes % (A) 9 %; Neutrophils # (A) 4.5 k/uL (1.3-7.7); Neutrophils % (A) 74 %; Platelet Count 158 k/uL (150-450); RBC 3.23 m/uL (4.30-5.90); RDW 15.2 % (11.5-15.5)
[2018-03-12 08:14] LABS: ALT 21 U/L (21-72); AST 37 U/L (17-59); Albumin 2.6 g/dL (3.5-5.0); Alkaline Phosphatase 44 U/L (38-126); Anion Gap 5 mmol/L; Blood Urea Nitrogen 22 mg/dL (9-20); Carbon Dioxide 29 mmol/L (22-30); Chloride 106 mmol/L (98-107); Glucose 101 mg/dL (74-99); Potassium 4.8 mmol/L (3.5-5.1); Sodium 140 mmol/L (137-145); Total Bilirubin 0.1 mg/dL (0.2-1.3); Total Protein 5.2 g/dL (6.3-8.2)
[2018-03-12] MEDS: methylPREDNISolone SOD SUCCI 40 MG/ML 1 ML VIAL IV SCH (08:14)
[2018-03-12] MEDS: INSULIN ASPART 100 UNIT/ML 1 ML 10 ML VIAL SQ SCH ×3 (09:14→17:24)
[2018-03-12] MEDS: ATENOLOL 12.5 MG TAB PO SCH (09:22)
[2018-03-12] MEDS: ASPIRIN 81 MG PO SCH (09:22)
[2018-03-12] MEDS: CARBIDOPA-LEVODOPA 25-100 MG 1 EACH TAB PO SCH ×2 (09:22→16:45)
[2018-03-12] MEDS: CHOLECALCIFEROL 1,000 UNIT TAB PO SCH (09:22)
[2018-03-12] MEDS: DESVENLAFAXINE SUCCINATE 50 MG TAB.ER.24H PO SCH (09:23)
[2018-03-12] MEDS: cycloSPORINE 0.05% OPHTH 0.4 ML DROPERETTE BOTH EYES SCH (09:23)
[2018-03-12] MEDS: DOXAZOSIN 4 MG TAB PO SCH (09:23)
[2018-03-12] MEDS: MONTELUKAST 10 MG TAB PO SCH (09:24)
[2018-03-12] MEDS: FERROUS SULFATE 325 MG TAB PO SCH (09:24)
[2018-03-12] MEDS: PRIMIDONE 50 MG TAB PO SCH ×2 (09:24→16:45)
[2018-03-12] MEDS: HEPARIN SODIUM,PORCINE 5,000 UNIT/ML 1 ML VIAL SQ SCH (09:25)
[2018-03-12] MEDS: CIALIS 5 MG PO SCH (09:25)
[2018-03-12] MEDS: FINASTERIDE 5 MG TAB PO SCH (09:25)
[2018-03-12] MEDS: guaiFENesin 600 MG TABLET.ER PO SCH (09:25)
[2018-03-12] MEDS: DALIRESP 500 MCG PO SCH (09:26)
--- NOTE | 2018-03-12 10:39 | P.PN ---
Subjective Progress Note Date: 03/12/18 HPI: This is an 82-year-old male patient presented to the emergency department with increasing shortness of breath that started over a day ago. He thought he had a scratchy throat. He had increasing need for oxygen and was wheezing. He subsequently was seen in the ER and admitted for further evaluation and management. He denied any fever or chills. He does have a past medical history significant for asthma, COPD, hyperlipidemia, hypertension, prostate disorder, kidney disease, BPH, chronic low back pain, acute [place], left foot drop, cholecystectomy, cardiac cath, lumbar laminectomy and colonoscopy. 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 Interval history: 03/11/18- patient is being seen examined and evaluated today on rounds. He is resting up in bed on 3 L of supplemental oxygen via nasal cannula. The patient does utilize 3-4 L of oxygen at home as well. He did have a CTA which did re- veal pulmonary artery hypertension, emphysema, chronic bronchitis, interstitial lung disease. And was negative for any PE. Patient is currently on Xolair treatments and his next Xolair injection is scheduled for . 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 Due to the patient having exacerbations despite being on the Xolair therapy at this time. All labs and reports have been reviewed. 03/12/18- patient is being seen examined and evaluated today on rounds. He is resting up in bed on 3 L of supplemental oxygen via nasal cannula. He has been utilizing his incentive spirometer and pulling volumes of approximately 1750. He does state he continues to have shortness of breath with exertion or activity and extensive conversation. He does not feel his breathing is at his baseline yet. Patient has been not up walking around much we will add PT and OT for evaluation and treatment. Objective - Vital Signs Vital signs: Vital Signs Temp 97.8 F 03/12/18 07:24 Pulse 80 03/12/18 07:42 Resp 14 03/12/18 07:24 BP 128/74 03/12/18 07:24 Pulse Ox 95 03/12/18 07:27 Intake & Output 03/11/18 03/12/18 03/12/18 18:59 06:59 18:59 Intake Total 1000 1090 Output Total 1025 300 Balance 1000 65 -300 Intake: IV 500 Sodium Chloride 0.9% 1, 500 000 ml @ 100 mls/hr IV . Q10H [facility] Rx#:[id number] Oral 1000 590 Output: Urine 1025 300 Other: Voiding Method Toilet Toilet Urinal Urinal # Voids 3 1 - Exam GENERAL EXAM: Alert, comfortable in no apparent distress. HEAD: Normocephalic. EYES: Normal reaction of pupils, equal size. NOSE: Clear with pink turbinates. THROAT: No erythema or exudates. NECK: No masses, no JVD. CHEST: No chest wall deformity. LUNGS: Equal air entry with expiratory wheezing throughout. Bases diminished CVS: S1 and S2 normal with no audible mumurs, regular rhythm. ABDOMEN: No hepatosplenomegaly, normal bowel sounds, no guarding or rigidity. EXTREMITIES: No edema noted, pedal pulses palpable. CENTRAL NERVOUS SYSTEM: No focal deficits, tone is normal in all 4 extremities. - Labs CBC & Chem 7: 03/12/18 07:06 03/12/18 07:06 Labs: Abnormal Lab Results - Last 24 Hours (Table) 03/11/18 03/11/18 03/11/18 Range/Units 11:27 17:18 20:41 RBC (4.30-5.90) m/uL Hgb (13.0-17.5) gm/dL Hct (39.0-53.0) % MCV (80.0-100.0) fL Lymphocytes # (1.0-4.8) k/uL BUN (9-20) mg/dL Glucose (74-99) mg/dL POC Glucose (mg/dL) 110 H 102 H 157 H (75-99) mg/dL Total Bilirubin (0.2-1.3) mg/dL Total Protein (6.3-8.2) g/dL Albumin (3.5-5.0) g/dL 03/12/18 03/12/18 03/12/18 Range/Units 07:06 07:06 07:19 RBC 3.23 L (4.30-5.90) m/uL Hgb 10.7 L (13.0-17.5) gm/dL Hct 32.5 L (39.0-53.0) % MCV 100.7 H (80.0-100.0) fL Lymphocytes # 0.7 L (1.0-4.8) k/uL BUN 22 H (9-20) mg/dL Glucose 101 H (74-99) mg/dL POC Glucose (mg/dL) 113 H (75-99) mg/dL Total Bilirubin 0.1 L (0.2-1.3) mg/dL Total Protein 5.2 L (6.3-8.2) g/dL Albumin 2.6 L (3.5-5.0) g/dL Assessment and Plan Assessment: Assessment ALLERGIC asthma with acute exacerbation COPD Acute on chronic hypoxic respiratory failure Hyperglycemia, steroid-induced Parkinson's Plan Medications have been reviewed and will be continued as ordered. Steroids tapered. Add PT and OT, and encourage increase in activity as tolerated. Continue with pulmonary hygiene, coughing and deep breathing exercises, and supportive care. Supplemental oxygen to maintain oxygen saturations of 92% or better. Continue nebulizer treatments. GI and DVT prophylaxis. Initiate and encourage incentive spirometer. We will continue to monitor labs/results and adjust treatment as necessary. Further recommendations pending. I performed an examination of the patient and discussed their management with the nurse practitioner. I have reviewed the nurse practitioner's note and agree with the documented findings and plan of care.
--- NOTE | 2018-03-12 11:30 | CDI ---
Last Revision, October 2017 Documentation Clarification Form Date: 03/12/2018 11:25:00 AM From: Malika Dougherty RN, CCDS Admit Date: 03/09/2018 1:08:00 PM Patient Name: Sharif Mota Visit Number: [id number] ATTENTION: The Clinical Documentation Specialists (CDI) and [facility] Coding Staff appreciate your assistance in clarifying documentation. Please respond to the clarification below the line at the bottom and electronically sign. The CDI & [facility] Coding staff will review the response and follow-up if needed. Please note: Queries are made part of the Legal Health Record. If you have any questions, please contact the author of this message via ITS. Dr. Aliza Gillis/Jessica Jimenez [employer] HEL[employer] Allergic Asthma w exacerbation is documented in the pulmonary progress notes and requires further specificity. Patient history/risk factors: COPD, Chronic respiratory Failure, ex-smoker 3-4L O2 at home Clinical Indicators: CTA: emphysema, chronic bronchitis, interstitial lung disease Vital Signs: Temp 100, hr 80, RR 18, 73/44, spo2 94% 3L NC Treatment: IV Solumedrol tapering dose Duoneb QID Pulmicort BID Consults: Pulmonary In your professional opinion, can you please further specify the following, if known? With: Acute Exacerbation Status asthmaticus Acute lower respiratory infection COPD (specify with or without exacerbation) Chronic obstructive bronchitis Other, please specify Unable to determine Severity: Mild intermittent Mild persistent Moderate persistent Severe persistent Other, please specify Unable to determine Form or Type: Cough variant Childhood Exercise induced bronchospasm Extrinsic allergic Idiosyncratic Intrinsic nonallergic Late-onset Mixed Other, please specify Unable to determine Please continue to document in your progress notes and discharge summary in order to capture severity of illness and risk of mortality. Include clinical findings that support your diagnosis. acute exacerbation of moderate to severe persistent extrinsic allergic asthma MTDD
[2018-03-12 11:46] LABS: Glucose,Whole Blood 114 mg/dL (75-99)
[2018-03-12 17:26] LABS: Glucose,Whole Blood 111 mg/dL (75-99)
[2018-03-12] MEDS ORDERED: methylPREDNISolone SOD SUCCI 40 MG/ML 1 ML VIAL ONE (21:00)
[2018-03-12] MEDS ORDERED: HEPARIN SODIUM,PORCINE 5,000 UNIT/ML 1 ML VIAL ONE (21:00)
[2018-03-12] MEDS ORDERED: PRIMIDONE 50 MG TAB ONE (21:00)
[2018-03-12] MEDS ORDERED: cycloSPORINE 0.05% OPHTH 0.4 ML DROPERETTE ONE (21:00)
[2018-03-12] MEDS ORDERED: ATENOLOL 12.5 MG TAB ONE (21:00)
[2018-03-12] MEDS ORDERED: CARBIDOPA-LEVODOPA 25-100 MG 1 EACH TAB ONE (21:00)
[2018-03-12] MEDS ORDERED: ATORVASTATIN 20 MG TAB ONE (21:00)
[2018-03-12 21:03] LABS: Glucose,Whole Blood 127 mg/dL (75-99)
[2018-03-13 07:19] LABS: Glucose,Whole Blood 119 mg/dL (75-99)
[2018-03-13] MEDS: INSULIN ASPART 100 UNIT/ML 1 ML 10 ML VIAL SQ SCH ×5 (08:14→21:17)
[2018-03-13] MEDS: ATENOLOL 12.5 MG TAB PO SCH ×3 (08:15→21:18)
[2018-03-13] MEDS: cycloSPORINE 0.05% OPHTH 0.4 ML DROPERETTE BOTH EYES SCH ×3 (08:15→21:17)
[2018-03-13] MEDS: CARBIDOPA-LEVODOPA 25-100 MG 1 EACH TAB PO SCH ×4 (08:15→21:17)
[2018-03-13] MEDS: MONTELUKAST 10 MG TAB PO SCH (08:16)
[2018-03-13] MEDS: guaiFENesin 600 MG TABLET.ER PO SCH (08:16)
[2018-03-13] MEDS: DOXAZOSIN 4 MG TAB PO SCH (08:16)
[2018-03-13] MEDS: CHOLECALCIFEROL 1,000 UNIT TAB PO SCH (08:16)
[2018-03-13] MEDS: FINASTERIDE 5 MG TAB PO SCH (08:16)
[2018-03-13] MEDS: DALIRESP 500 MCG PO SCH (08:16)
[2018-03-13] MEDS: DESVENLAFAXINE SUCCINATE 50 MG TAB.ER.24H PO SCH (08:16)
[2018-03-13] MEDS: FERROUS SULFATE 325 MG TAB PO SCH (08:16)
[2018-03-13] MEDS: ASPIRIN 81 MG PO SCH (08:16)
[2018-03-13] MEDS: CIALIS 5 MG PO SCH (08:17)
[2018-03-13] MEDS: IPRATROPIUM-ALBUTEROL 3 ML NEB INHALATION SCH ×4 (08:23→20:14)
[2018-03-13] MEDS: BUDESONIDE 0.5 MG/2 ML NEBU INHALATION SCH ×2 (08:23→20:14)
--- NOTE | 2018-03-13 09:47 | PN ---
PROGRESS NOTE DATE OF SERVICE: 03/12/2018 SUBJECTIVE: This is an 82-year-old white male with COPD, hypoxemia, not getting better despite IV steroids. Awaiting Pulmonary recommendation, possible bronchoscopy. Lungs show scattered rhonchi and wheeze x4. HEMATOLOGY: Negative Homans. CARDIAC: Regular rate and rhythm. GI: Soft. Remains on Pulmicort and DuoNeb, IV Solu-Medrol. Temperature 96.7, respiratory rate 18 to 26, blood pressure 130s to 150s, O2 saturations 87 to 97 on 3 L. ASSESSMENT: Chronic obstructive pulmonary disease exacerbation, rule out pneumonia, rule out worsening respiratory status. Patient is not doing better. Possible bronchoscopy will be needed. MMODL / IJN: [id number] /
[2018-03-13] MEDS: HEPARIN SODIUM,PORCINE 5,000 UNIT/ML 1 ML VIAL SQ SCH ×3 (10:16→21:18)
[2018-03-13] MEDS: PRIMIDONE 50 MG TAB PO SCH ×4 (10:16→21:18)
[2018-03-13] MEDS: methylPREDNISolone SOD SUCCI 40 MG/ML 1 ML VIAL IV SCH ×3 (10:16→21:17)
[2018-03-13] MEDS: ATORVASTATIN 20 MG TAB PO SCH ×2 (10:16→21:18)
--- NOTE | 2018-03-13 10:44 | XR ---
EXAMINATION TYPE: XR chest 2V DATE OF EXAM: 03/13/2018 COMPARISON: Prior CT and chest x-ray 03/09/2018 HISTORY: Shortness of breath TECHNIQUE: Frontal and lateral views of the chest are obtained. FINDINGS: There is no focal air space opacity, pleural effusion, or pneumothorax seen. The cardiac silhouette size is within normal limits. Prominent lung volumes compatible with underlying COPD, em physema. Bronchial wall thickening is present. Patchy density again noted in the left lower lobe. Int erstitial changes are present. Pulmonary artery is enlarged, patient is rotated. The osseous structur es are intact. IMPRESSION: Emphysema, bronchitis, correlate for pulmonary artery hypertension. 5 to 6 mm left lower lobe nodular density seen on axial image [address] may be related to postinflammatory change an d is not well seen on plain film, follow-up CT recommended in 6 months.
--- NOTE | 2018-03-13 11:00 | P.PN ---
<Jessica Jimenez E - Last Filed: 03/13/18 10:51> Subjective Progress Note Date: 03/13/18 HPI: This is an 82-year-old male patient presented to the emergency department with increasing shortness of breath that started over a day ago. He thought he had a scratchy throat. He had increasing need for oxygen and was wheezing. He subsequently was seen in the ER and admitted for further evaluation and management. He denied any fever or chills. He does have a past medical history significant for asthma, COPD, hyperlipidemia, hypertension, prostate disorder, kidney disease, BPH, chronic low back pain, acute [place], left foot drop, cholecystectomy, cardiac cath, lumbar laminectomy and colonoscopy. 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 He is resting up in bed on 3 L of supplemental oxygen via nasal cannula. The patient does utilize 3-4 L of oxygen at home as well. He did have a CTA which did re- veal pulmonary artery hypertension, emphysema, chronic bronchitis, interstitial lung disease. And was negative for any PE. Patient is currently on Xolair treatments and his next Xolair injection is scheduled for . 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 Due to the patient having exacerbations despite being on the Xolair therapy at this time. All labs and reports have been reviewed. 03/12/18- patient is being seen examined and evaluated today on rounds. He is resting up in bed on 3 L of supplemental oxygen via nasal cannula. He has been utilizing his incentive spirometer and pulling volumes of approximately 1750. He does state he continues to have shortness of breath with exertion or activity and extensive conversation. He does not feel his breathing is at his baseline yet. Patient has been not up walking around much we will add PT and OT for evaluation and treatment. 03/13/18- patient is being seen examined and evaluated today on rounds. He is resting up in bed on 3 of oxygen via nasal cannula. Continues to have shortness of breath with exertion. He also continues to have a productive cough with davies and yellow sputum. We will initiate patient on Mucomyst inhalation. patient at this point is not a candidate for bronchoscopy related to high with as multiple blebs are seen on CT. Stat Chest x-ray is reviewed and his left lower lobe infiltrate is improving. Will also initiate chest PT and vest therapy, related to bronchiectasis seen on chest CT. Objective - Vital Signs Vital signs: Vital Signs Temp 96.7 F L 03/13/18 07:52 Pulse 70 03/13/18 08:33 Resp 16 03/13/18 08:33 BP 130/66 03/13/18 07:52 Pulse Ox 97 03/13/18 07:52 Intake & Output 03/12/18 03/13/18 03/13/18 18:59 06:59 18:59 Intake Total 790 Output Total 300 1100 Balance -300 -310 Intake: Oral 790 Output: Urine 300 1100 Other: Voiding Method Toilet Toilet Toilet Urinal Urinal # Voids 3 - Exam GENERAL EXAM: Alert, comfortable in no apparent distress. HEAD: Normocephalic. EYES: Normal reaction of pupils, equal size. NOSE: Clear with pink turbinates. THROAT: No erythema or exudates. NECK: No masses, no JVD. CHEST: No chest wall deformity. LUNGS: Equal air entry with expiratory wheezing throughout. Bases diminished CVS: S1 and S2 normal with no audible mumurs, regular rhythm. ABDOMEN: No hepatosplenomegaly, normal bowel sounds, no guarding or rigidity. EXTREMITIES: No edema noted, pedal pulses palpable. CENTRAL NERVOUS SYSTEM: No focal deficits, tone is normal in all 4 extremities. - Labs CBC & Chem 7: 03/12/18 07:06 03/12/18 07:06 Labs: Abnormal Lab Results - Last 24 Hours (Table) 03/12/18 03/12/18 03/12/18 Range/Units 11:45 17:14 21:02 POC Glucose (mg/dL) 114 H 111 H 127 H (75-99) mg/dL 03/13/18 Range/Units 07:11 POC Glucose (mg/dL) 119 H (75-99) mg/dL Assessment and Plan Assessment: Assessment ALLERGIC asthma with acute exacerbation COPD Acute on chronic hypoxic respiratory failure Hyperglycemia, steroid-induced Parkinson's Plan Medications have been reviewed and will be continued as ordered. Steroids tapered. Added Mucomyst inhalation. Switch steroids to be completed IV today and will be switched to oral in the morning. Stat chest x-rays reviewed. Chest GRAPHICS ARTIST and vest therapy ordered. Patient is not a candidate for bronchoscopy at this time due to multiple labs noted on CT. Obtain sputum culture. PT and OT, and encourage increase in activity as tolerated. Continue with pulmonary hygiene, coughing and deep breathing exercises, and supportive care. Supplemental oxygen to maintain oxygen saturations of 92% or better. Continue nebulizer treatments. GI and DVT prophylaxis. Initiate and encourage incentive spirometer. We will continue to monitor labs/results and adjust treatment as necessary. Further recommendations pending. I performed an examination of the patient and discussed their management with the nurse practitioner. I have reviewed the nurse practitioner's note and agree with the documented findings and plan of care. <Aliza Gillis A - Last Filed: 03/13/18 11:06> Objective - Vital Signs Vital signs: Vital Signs Temp 96.7 F L 03/13/18 07:52 Pulse 70 03/13/18 08:33 Resp 16 03/13/18 08:33 BP 130/66 03/13/18 07:52 Pulse Ox 97 03/13/18 07:52 Intake & Output 03/12/18 03/13/18 03/13/18 18:59 06:59 18:59 Intake Total 790 Output Total 300 1100 Balance -300 -310 Intake: Oral 790 Output: Urine 300 1100 Other: Voiding Method Toilet Toilet Toilet Urinal Urinal # Voids 3 - Labs CBC & Chem 7: 03/12/18 07:06 03/12/18 07:06 Labs: Abnormal Lab Results - Last 24 Hours (Table) 03/12/18 03/12/18 03/12/18 Range/Units 11:45 17:14 21:02 POC Glucose (mg/dL) 114 H 111 H 127 H (75-99) mg/dL 03/13/18 Range/Units 07:11 POC Glucose (mg/dL) 119 H (75-99) mg/dL Assessment and Plan Assessment: Patient seen and examined. CXR reviewed, improving left lower lobe infiltrate. Initiate mucomyst and chest physiotherapy. Continue bronchodilators, pulmicort, PT and OT, Singulair, steroid taper. ~Aliza Gillis DO
[2018-03-13 11:15] LABS: Glucose,Whole Blood 112 mg/dL (75-99)
[2018-03-13] MEDS: ACETYLCYSTEINE 800 MG/4 ML VIAL INHALATION SCH ×3 (11:35→20:14)
[2018-03-13 17:18] LABS: Glucose,Whole Blood 127 mg/dL (75-99)
[2018-03-13 20:08] LABS: Glucose,Whole Blood 134 mg/dL (75-99)
--- NOTE | 2018-03-13 23:12 | PN ---
PROGRESS NOTE SUBJECTIVE: 82-year-old white male with COPD, hypoxemia, not improving despite IV Solu-Medrol suspect maybe bronchoscopy is needed. He is still having a mild amount wheezing. Sat in the low 90s on 3 L. Cardiovascular S1, S2. Lungs scattered wheeze x4. Hematology negative Homans. ASSESSMENT: 1. Chronic obstructive pulmonary disease exacerbation. 2. Hypoxemia. 3. Tracheobronchitis. 4. Parkinson disease. 5. Essential tremor. Prognosis is guarded. He will need possibly bronchoscopy. He has not responded to IV steroids. MMODL / IJN: [id number] /
[2018-03-14 07:01] LABS: Glucose,Whole Blood 113 mg/dL (75-99)
[2018-03-14] MEDS: INSULIN ASPART 100 UNIT/ML 1 ML 10 ML VIAL SQ SCH ×4 (07:58→20:51)
[2018-03-14] MEDS: BUDESONIDE 0.5 MG/2 ML NEBU INHALATION SCH ×2 (08:31→19:20)
[2018-03-14] MEDS: IPRATROPIUM-ALBUTEROL 3 ML NEB INHALATION SCH ×4 (08:31→19:20)
[2018-03-14] MEDS: ACETYLCYSTEINE 800 MG/4 ML VIAL INHALATION SCH ×4 (08:31→19:20)
[2018-03-14] MEDS: ASPIRIN 81 MG PO SCH (08:52)
[2018-03-14] MEDS: CARBIDOPA-LEVODOPA 25-100 MG 1 EACH TAB PO SCH ×3 (08:52→21:31)
[2018-03-14] MEDS: ATENOLOL 12.5 MG TAB PO SCH ×2 (08:52→20:51)
[2018-03-14] MEDS: CHOLECALCIFEROL 1,000 UNIT TAB PO SCH (08:54)
[2018-03-14] MEDS: cycloSPORINE 0.05% OPHTH 0.4 ML DROPERETTE BOTH EYES SCH ×2 (08:56→20:52)
[2018-03-14] MEDS: DESVENLAFAXINE SUCCINATE 50 MG TAB.ER.24H PO SCH (08:56)
[2018-03-14] MEDS: DOXAZOSIN 4 MG TAB PO SCH (08:56)
[2018-03-14] MEDS: PRIMIDONE 50 MG TAB PO SCH ×3 (08:57→21:31)
[2018-03-14] MEDS: MONTELUKAST 10 MG TAB PO SCH (08:57)
[2018-03-14] MEDS: guaiFENesin 600 MG TABLET.ER PO SCH ×2 (08:57→20:52)
[2018-03-14] MEDS: FERROUS SULFATE 325 MG TAB PO SCH (08:57)
[2018-03-14] MEDS: FINASTERIDE 5 MG TAB PO SCH (08:57)
[2018-03-14] MEDS: predniSONE 20 MG TAB PO SCH (08:57)
[2018-03-14] MEDS: HEPARIN SODIUM,PORCINE 5,000 UNIT/ML 1 ML VIAL SQ SCH ×2 (08:58→20:51)
[2018-03-14] MEDS ORDERED: OMALIZUMAB 150 MG VIAL SQ SCH (09:00)
[2018-03-14] MEDS: CIALIS 5 MG PO SCH (09:07)
[2018-03-14] MEDS: DALIRESP 500 MCG PO SCH (09:08)
--- NOTE | 2018-03-14 10:10 | P.PN ---
Subjective Progress Note Date: 03/14/18 HPI: This is an 82-year-old male patient presented to the emergency department with increasing shortness of breath that started over a day ago. He thought he had a scratchy throat. He had increasing need for oxygen and was wheezing. He subsequently was seen in the ER and admitted for further evaluation and management. He denied any fever or chills. He does have a past medical history significant for asthma, COPD, hyperlipidemia, hypertension, prostate disorder, kidney disease, BPH, chronic low back pain, acute [place], left foot drop, cholecystectomy, cardiac cath, lumbar laminectomy and colonoscopy. 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 He is resting up in bed on 3 L of supplemental oxygen via nasal cannula. The patient does utilize 3-4 L of oxygen at home as well. He did have a CTA which did re- veal pulmonary artery hypertension, emphysema, chronic bronchitis, interstitial lung disease. And was negative for any PE. Patient is currently on Xolair treatments and his next Xolair injection is scheduled for . 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 Due to the patient having exacerbations despite being on the Xolair therapy at this time. All labs and reports have been reviewed. 03/12/18- patient is being seen examined and evaluated today on rounds. He is resting up in bed on 3 L of supplemental oxygen via nasal cannula. He has been utilizing his incentive spirometer and pulling volumes of approximately 1750. He does state he continues to have shortness of breath with exertion or activity and extensive conversation. He does not feel his breathing is at his baseline yet. Patient has been not up walking around much we will add PT and OT for evaluation and treatment. 03/13/18- patient is being seen examined and evaluated today on rounds. He is resting up in bed on 3 of oxygen via nasal cannula. Continues to have shortness of breath with exertion. He also continues to have a productive cough with davies and yellow sputum. We will initiate patient on Mucomyst inhalation. patient at this point is not a candidate for bronchoscopy related to high with as multiple blebs are seen on CT. Stat Chest x-ray is reviewed and his left lower lobe infiltrate is improving. Will also initiate chest PT and vest therapy, related to bronchiectasis seen on chest CT. 03/14/18- patient is being seen examined and evaluated today on rounds. He is resting up in bed on 3 L of supplemental oxygen via nasal cannula. Continues to have shortness breath cough and congestion. He continues to have a cough with productive sputum. Chest PT and the Mucomyst seem to be helping break it up per the patient. He is also on Mucinex. We will adjust that dose from daily to twice a day. Patient will also be initiated on IV antibiotics. Objective - Vital Signs Vital signs: Vital Signs Temp 98.0 F 03/14/18 07:00 Pulse 88 03/14/18 08:55 Resp 18 03/14/18 07:00 BP 137/78 03/14/18 07:00 Pulse Ox 93 L 03/14/18 07:00 Intake & Output 03/13/18 03/14/18 03/14/18 18:59 06:59 18:59 Other: Voiding Method Toilet Toilet # Voids 1 - Exam GENERAL EXAM: Alert, comfortable in no apparent distress. HEAD: Normocephalic. EYES: Normal reaction of pupils, equal size. NOSE: Clear with pink turbinates. THROAT: No erythema or exudates. NECK: No masses, no JVD. CHEST: No chest wall deformity. LUNGS: Equal air entry with expiratory wheezing throughout. Improving. Bases diminished CVS: S1 and S2 normal with no audible mumurs, regular rhythm. ABDOMEN: No hepatosplenomegaly, normal bowel sounds, no guarding or rigidity. EXTREMITIES: No edema noted, pedal pulses palpable. CENTRAL NERVOUS SYSTEM: No focal deficits, tone is normal in all 4 extremities. - Labs CBC & Chem 7: 03/12/18 07:06 03/12/18 07:06 Labs: Abnormal Lab Results - Last 24 Hours (Table) 03/13/18 03/13/18 03/13/18 Range/Units 11:03 17:14 20:01 POC Glucose (mg/dL) 112 H 127 H 134 H (75-99) mg/dL 03/14/18 Range/Units 06:59 POC Glucose (mg/dL) 113 H (75-99) mg/dL Assessment and Plan Assessment: Assessment Purulent Tracheobronchitis ALLERGIC asthma with acute exacerbation COPD Acute on chronic hypoxic respiratory failure Hyperglycemia, steroid-induced Parkinson's Plan Medications have been reviewed and will be continued as ordered. Steroids tapered. Continue Mucomyst inhalation. Increase mucinex dosing increased to BID. IV antibiotics. Sputum culture pending. Chest TOOL ROOM SUPERVISOR and vest therapy ordered. Patient is not a candidate for bronchoscopy at this time due to multiple blebs noted on CT. PT and OT, and encourage increase in activity as tolerated. Continue with pulmonary hygiene, coughing and deep breathing exercises, and supportive care. Supplemental oxygen to maintain oxygen saturations of 92% or better. Continue nebulizer treatments. GI and DVT prophylaxis. Initiate and encourage incentive spirometer. We will continue to monitor labs/results and adjust treatment as necessary. Further recommendations pending. I performed an examination of the patient and discussed their management with the nurse practitioner. I have reviewed the nurse practitioner's note and agree with the documented findings and plan of care.
[2018-03-14] MEDS: PIPERACILLIN-TAZOBACTAM 3.375 GM in DEXTROSE/WATER 1 50ML.BAG IVPB SCH ×2 (10:37→16:58)
[2018-03-14 11:35] LABS: Glucose,Whole Blood 130 mg/dL (75-99)
[2018-03-14 17:30] LABS: Glucose,Whole Blood 120 mg/dL (75-99)
[2018-03-14 19:50] LABS: Glucose,Whole Blood 197 mg/dL (75-99)
[2018-03-14] MEDS: ATORVASTATIN 20 MG TAB PO SCH (20:52)
--- NOTE | 2018-03-14 23:46 | PN ---
PROGRESS NOTE SUBJECTIVE: This is an 82-year-old white male with COPD, hypoxemia. He was started on IV Zosyn as patient's respiratory status is declining for possible early pneumonia tracheobronchitis. He remains on 3-4 L, saturating in the low to mid 90s. Lungs show scattered rhonchi and wheeze. CARDIOVASCULAR: S1, S2. Tachycardic. Extremities show tremor. HEMATOLOGIC: Negative Homans. ASSESSMENT: 1. Chronic obstructive pulmonary disease exacerbation. 2. Tracheobronchitis. 3. Possible pneumonia. 4. Acute hypoxemic respiratory distress. Continue on IV Zosyn, Pulmicort and DuoNeb updrafts. MMODL / IJN: [id number] /
[2018-03-15] MEDS: PIPERACILLIN-TAZOBACTAM 3.375 GM in DEXTROSE/WATER 1 50ML.BAG IVPB SCH ×4 (00:43→23:12)
[2018-03-15 07:25] LABS: Glucose,Whole Blood 103 mg/dL (75-99)
[2018-03-15] MEDS: BUDESONIDE 0.5 MG/2 ML NEBU INHALATION SCH ×2 (07:55→20:06)
[2018-03-15] MEDS: ACETYLCYSTEINE 800 MG/4 ML VIAL INHALATION SCH ×4 (07:55→20:06)
[2018-03-15] MEDS: IPRATROPIUM-ALBUTEROL 3 ML NEB INHALATION SCH ×4 (07:56→20:06)
[2018-03-15] MEDS: INSULIN ASPART 100 UNIT/ML 1 ML 10 ML VIAL SQ SCH ×4 (09:15→20:59)
[2018-03-15] MEDS: CHOLECALCIFEROL 1,000 UNIT TAB PO SCH (09:17)
[2018-03-15] MEDS: ASPIRIN 81 MG PO SCH (09:17)
[2018-03-15] MEDS: CARBIDOPA-LEVODOPA 25-100 MG 1 EACH TAB PO SCH ×3 (09:17→20:58)
[2018-03-15] MEDS: ATENOLOL 12.5 MG TAB PO SCH ×2 (09:17→20:58)
[2018-03-15] MEDS: FERROUS SULFATE 325 MG TAB PO SCH (09:18)
[2018-03-15] MEDS: FINASTERIDE 5 MG TAB PO SCH (09:18)
[2018-03-15] MEDS: DESVENLAFAXINE SUCCINATE 50 MG TAB.ER.24H PO SCH (09:18)
[2018-03-15] MEDS: DOXAZOSIN 4 MG TAB PO SCH (09:18)
[2018-03-15] MEDS: cycloSPORINE 0.05% OPHTH 0.4 ML DROPERETTE BOTH EYES SCH ×2 (09:18→20:59)
[2018-03-15] MEDS: MONTELUKAST 10 MG TAB PO SCH (09:19)
[2018-03-15] MEDS: guaiFENesin 600 MG TABLET.ER PO SCH ×2 (09:19→20:58)
[2018-03-15] MEDS: predniSONE 20 MG TAB PO SCH (09:19)
[2018-03-15] MEDS: DALIRESP 500 MCG PO SCH (09:20)
[2018-03-15] MEDS: HEPARIN SODIUM,PORCINE 5,000 UNIT/ML 1 ML VIAL SQ SCH ×2 (09:20→20:59)
[2018-03-15] MEDS: PRIMIDONE 50 MG TAB PO SCH ×3 (09:20→20:58)
[2018-03-15] MEDS: CIALIS 5 MG PO SCH (09:21)
[2018-03-15 09:46] LABS: Basophils % (A) 0 %; Eosinophils # (A) 0.1 k/uL (0-0.7); Eosinophils % (A) 1 %; HGB 11.3 gm/dL (13.0-17.5); Lymphocytes # (A) 0.9 k/uL (1.0-4.8); Lymphocytes % (A) 10 %; MCH 33.3 pg (25.0-35.0); MCHC 33.3 g/dL (31.0-37.0); MCV 99.9 fL (80.0-100.0); Macrocytosis Slight; Mean Platelet Volume 7.6; Monocytes # (A) 0.5 k/uL (0-1.0); Monocytes % (A) 6 %; Neutrophils # (A) 7.5 k/uL (1.3-7.7); Neutrophils % (A) 83 %; Platelet Count 157 k/uL (150-450); WBC 9.1 k/uL (3.8-10.6)
[2018-03-15 10:11] LABS: ALT 26 U/L (21-72); AST 29 U/L (17-59); Albumin 3.2 g/dL (3.5-5.0); Alkaline Phosphatase 47 U/L (38-126); Anion Gap 8 mmol/L; Blood Urea Nitrogen 22 mg/dL (9-20); Calcium 9.7 mg/dL (8.4-10.2); Carbon Dioxide 34 mmol/L (22-30); Chloride 97 mmol/L (98-107); Glucose 138 mg/dL (74-99); Potassium 4.3 mmol/L (3.5-5.1); Sodium 139 mmol/L (137-145); Total Bilirubin 0.3 mg/dL (0.2-1.3)
--- NOTE | 2018-03-15 10:11 | P.PN ---
Subjective Progress Note Date: 03/15/18 HPI: This is an 82-year-old male patient presented to the emergency department with increasing shortness of breath that started over a day ago. He thought he had a scratchy throat. He had increasing need for oxygen and was wheezing. He subsequently was seen in the ER and admitted for further evaluation and management. He denied any fever or chills. He does have a past medical history significant for asthma, COPD, hyperlipidemia, hypertension, prostate disorder, kidney disease, BPH, chronic low back pain, acute [place], left foot drop, cholecystectomy, cardiac cath, lumbar laminectomy and colonoscopy. 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 He is resting up in bed on 3 L of supplemental oxygen via nasal cannula. The patient does utilize 3-4 L of oxygen at home as well. He did have a CTA which did re- veal pulmonary artery hypertension, emphysema, chronic bronchitis, interstitial lung disease. And was negative for any PE. Patient is currently on Xolair treatments and his next Xolair injection is scheduled for . 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 Due to the patient having exacerbations despite being on the Xolair therapy at this time. All labs and reports have been reviewed. 03/12/18- patient is being seen examined and evaluated today on rounds. He is resting up in bed on 3 L of supplemental oxygen via nasal cannula. He has been utilizing his incentive spirometer and pulling volumes of approximately 1750. He does state he continues to have shortness of breath with exertion or activity and extensive conversation. He does not feel his breathing is at his baseline yet. Patient has been not up walking around much we will add PT and OT for evaluation and treatment. 03/13/18- patient is being seen examined and evaluated today on rounds. He is resting up in bed on 3 of oxygen via nasal cannula. Continues to have shortness of breath with exertion. He also continues to have a productive cough with davies and yellow sputum. We will initiate patient on Mucomyst inhalation. patient at this point is not a candidate for bronchoscopy related to high with as multiple blebs are seen on CT. Stat Chest x-ray is reviewed and his left lower lobe infiltrate is improving. Will also initiate chest PT and vest therapy, related to bronchiectasis seen on chest CT. 03/14/18- patient is being seen examined and evaluated today on rounds. He is resting up in bed on 3 L of supplemental oxygen via nasal cannula. Continues to have shortness breath cough and congestion. He continues to have a cough with productive sputum. Chest PT and the Mucomyst seem to be helping break it up per the patient. He is also on Mucinex. We will adjust that dose from daily to twice a day. Patient will also be initiated on IV antibiotics. 03/15/18- patient is being seen examined and evaluated today on rounds. He is resting up in bed on 3 L of supplemental oxygen via nasal cannula which is his baseline. He is was initiated on Zosyn and feels he is improving with this. His chronic greater than 6 months productive cough continues, despite aggressive treatment with Mucomyst and flutter valve, and in patient chest PT. Patient was benefit from at-home vest therapy for chest PT. We will start to initiate this process. Objective - Vital Signs Vital signs: Vital Signs Temp 98.2 F 03/15/18 07:15 Pulse 80 03/15/18 08:11 Resp 20 03/15/18 07:54 BP 174/82 03/15/18 07:15 Pulse Ox 93 L 03/15/18 07:15 Intake & Output 03/14/18 03/15/18 03/15/18 18:59 06:59 18:59 Output Total 550 Balance -550 Output: Urine 550 Other: Voiding Method Toilet Toilet # Voids 4 1 - Exam GENERAL EXAM: Alert, comfortable in no apparent distress. HEAD: Normocephalic. EYES: Normal reaction of pupils, equal size. NOSE: Clear with pink turbinates. THROAT: No erythema or exudates. NECK: No masses, no JVD. CHEST: No chest wall deformity. LUNGS: Equal air entry with expiratory wheezing throughout. Improving slowly. Bases diminished CVS: S1 and S2 normal with no audible mumurs, regular rhythm. ABDOMEN: No hepatosplenomegaly, normal bowel sounds, no guarding or rigidity. EXTREMITIES: No edema noted, pedal pulses palpable. CENTRAL NERVOUS SYSTEM: No focal deficits, tone is normal in all 4 extremities. - Labs CBC & Chem 7: 04/17/18 07:06 03/12/18 07:06 Labs: Abnormal Lab Results - Last 24 Hours (Table) 03/14/18 03/14/18 03/14/18 Range/Units 11:33 17:29 19:48 POC Glucose (mg/dL) 130 H 120 H 197 H (75-99) mg/dL 03/15/18 Range/Units 07:23 POC Glucose (mg/dL) 103 H (75-99) mg/dL Microbiology - Last 24 Hours (Table) 03/14/18 09:00 Gram Stain - Preliminary Sputum Assessment and Plan Assessment: Assessment Bronchiectasis on CT of the chest Purulent Tracheobronchitis ALLERGIC asthma with acute exacerbation COPD Acute on chronic hypoxic respiratory failure Hyperglycemia, steroid-induced Parkinson's Chronic productive cough greater than 6 months Plan Patient has had a cough greater than 6 months that has been productive. There has been confirmed bronchiectasis on his CT of the chest. He hasn't improved much despite flutter valve and Mucomyst inhalation. He has no skilled person at home to do manual chest PT, therefore we will try to set the patient up for a at-home vest therapy for bronchiectasis treatment. Medications have been reviewed and will be continued as ordered. Steroids tapered. Continue Mucomyst inhalation. IV antibiotics. Sputum culture pending. Chest PT and vest therapy ordered. Patient is not a candidate for bronchoscopy at this time due to multiple blebs noted on CT. PT and OT, and encourage increase in activity as tolerated. Continue with pulmonary hygiene, coughing and deep breathing exercises, and supportive care. Supplemental oxygen to maintain oxygen saturations of 92% or better. Continue nebulizer treatments. GI and DVT prophylaxis. Initiate and encourage incentive spirometer. We will continue to monitor labs/results and adjust treatment as necessary. Further recommendations pending. I performed an examination of the patient and discussed their management with the nurse practitioner. I have reviewed the nurse practitioner's note and agree with the documented findings and plan of care.
[2018-03-15 11:24] LABS: Glucose,Whole Blood 120 mg/dL (75-99)
[2018-03-15 11:47] VITALS: BMI 22.9
--- NOTE | 2018-03-15 15:29 | PN ---
PROGRESS NOTE SUBJECTIVE: [age] white male with COPD, acute hypoxemic respiratory distress, remains on IV Zosyn for tracheobronchitis by gem technician. CARDIOVASCULAR: S1, S2. LUNGS: Scattered rhonchi and wheeze x4. HEMATOLOGY: Negative Homans. GI: Soft, nontender. Pulse is 80 to 78, respiratory rate 16 to 18. 3 L of oxygen per nasal cannula, which is his baseline. He is on Zosyn. He has improvement with Mucomyst and flutter valve with chest PT. He is going to get a home vest versus chest PT at home. He started to initiate some progress. Oxygen is 93%. Blood pressure 170s over 80s. Hemoglobin 10.7, white count 6. CT scan shows bronchiectasis. Flutter valve and Mucomyst have not really helped. Manual chest PT versus bronchial vest treatment. Steroid taper. Mucomyst. IV antibiotics. Chest PT/OT. Continue to wean oxygen and steroids for the next 24 to 48 hours. MMODL / IJN: [id number] /
[2018-03-15 17:40] LABS: Glucose,Whole Blood 170 mg/dL (75-99)
[2018-03-15 20:17] LABS: Glucose,Whole Blood 304 mg/dL (75-99)
[2018-03-15] MEDS: ATORVASTATIN 20 MG TAB PO SCH (20:58)
[2018-03-16] MEDS: ACETYLCYSTEINE 800 MG/4 ML VIAL INHALATION SCH ×4 (07:23→19:46)
[2018-03-16] MEDS: BUDESONIDE 0.5 MG/2 ML NEBU INHALATION SCH ×2 (07:24→19:47)
[2018-03-16] MEDS: IPRATROPIUM-ALBUTEROL 3 ML NEB INHALATION SCH ×4 (07:25→19:47)
--- NOTE | 2018-03-16 08:19 | P.PN ---
Subjective Progress Note Date: 03/16/18 (Patient seen and evaluated examined while covering for Dr. Maxx Benson) Principal diagnosis: Acute COPD exacerbation, purulent tracheobronchitis, bronchiectasis likely chronic, acute on chronic hypoxic respirator failure, advanced Parkinson's disease 03/16/2018, patient seen and evaluated examined the severity of cough congestion is improved and was able to sleep last night patient remains on broad -spectrum antibiotics breathing treatments and steroids shortness of breath has improved as well, medications reviewed laboratory data reviewed 82-year-old male patient presented to the emergency department with increasing shortness of breath that started over a day ago. He thought he had a scratchy throat. He had increasing need for oxygen and was wheezing. He subsequently was seen in the ER and admitted for further evaluation and management. He denied any fever or chills. He does have a past medical history significant for asthma, COPD, hyperlipidemia, hypertension, prostate disorder, kidney disease, BPH, chronic low back pain, acute [place], left foot drop, cholecystectomy, cardiac cath, lumbar laminectomy and colonoscopy. Patient does have a past smoking history of several years ago Objective - Vital Signs Vital signs: Vital Signs Temp 98.2 F 03/15/18 20:45 Pulse 76 03/16/18 07:45 Resp 18 03/15/18 20:45 BP 145/69 03/15/18 20:45 Pulse Ox 99 03/15/18 20:45 Intake & Output 03/15/18 03/16/18 03/16/18 18:59 06:59 18:59 Intake Total 480 Output Total 100 Balance 380 Weight 68.5 kg Intake: Oral 480 Output: Urine 100 Other: Voiding Method Urinal Urinal # Voids 2 1 - Exam GENERAL EXAM: Alert, comfortable in no apparent distress. HEAD: Normocephalic. EYES: Normal reaction of pupils, equal size. NOSE: Clear with pink turbinates. THROAT: No erythema or exudates. NECK: No masses, no JVD. CHEST: No chest wall deformity. LUNGS: Equal air entry with fine expiratory wheezing throughout on forced expiration CVS: S1 and S2 normal with no audible mumurs, regular rhythm. ABDOMEN: No hepatosplenomegaly, normal bowel sounds, no guarding or rigidity. EXTREMITIES: No edema noted, pedal pulses palpable. CENTRAL NERVOUS SYSTEM: No focal deficits, tone is normal in all 4 extremities. - Labs CBC & Chem 7: 03/15/18 09:25 03/15/18 09:25 Labs: Abnormal Lab Results - Last 24 Hours (Table) 03/15/18 03/15/18 03/15/18 Range/Units 09:25 09:25 11:23 RBC 3.40 L (4.30-5.90) m/uL Hgb 11.3 L (13.0-17.5) gm/dL Hct 34.0 L (39.0-53.0) % Lymphocytes # 0.9 L (1.0-4.8) k/uL Chloride 97 L (98-107) mmol/L Carbon Dioxide 34 H (22-30) mmol/L BUN 22 H (9-20) mg/dL Glucose 138 H (74-99) mg/dL POC Glucose (mg/dL) 120 H (75-99) mg/dL Total Protein 6.0 L (6.3-8.2) g/dL Albumin 3.2 L (3.5-5.0) g/dL 03/15/18 03/15/18 Range/Units 17:36 20:16 RBC (4.30-5.90) m/uL Hgb (13.0-17.5) gm/dL Hct (39.0-53.0) % Lymphocytes # (1.0-4.8) k/uL Chloride (98-107) mmol/L Carbon Dioxide (22-30) mmol/L BUN (9-20) mg/dL Glucose (74-99) mg/dL POC Glucose (mg/dL) 170 H 304 H (75-99) mg/dL Total Protein (6.3-8.2) g/dL Albumin (3.5-5.0) g/dL Microbiology - Last 24 Hours (Table) 03/14/18 09:00 Gram Stain - Preliminary Sputum Sputum Culture - Preliminary Gram Neg Bacilli Moraxella(branhamella) catarra Assessment and Plan Assessment: Acute COPD exacerbation Chronic bronchiectasis Acute purulent tracheobronchitis Chronic persistent asthma with acute exacerbation Parkinson's disease Chronic cough likely multifactorial related to above Plan: Continue deep breathing exercises incentive spirometry Continue broad-spectrum antibiotics Chest PT as tolerated Nebulizer treatment IV steroids with slow tapering Increase activity as tolerated Aspiration precautions Supplemental oxygen titrated oxygen down as tolerated Time with Patient: Greater than 30
[2018-03-16] MEDS: ASPIRIN 81 MG PO SCH (08:55)
[2018-03-16] MEDS: INSULIN ASPART 100 UNIT/ML 1 ML 10 ML VIAL SQ SCH ×4 (08:55→21:42)
[2018-03-16] MEDS: ATENOLOL 12.5 MG TAB PO SCH ×2 (08:56→21:43)
[2018-03-16] MEDS: CHOLECALCIFEROL 1,000 UNIT TAB PO SCH (08:56)
[2018-03-16] MEDS: CARBIDOPA-LEVODOPA 25-100 MG 1 EACH TAB PO SCH ×3 (08:56→21:42)
[2018-03-16] MEDS: DESVENLAFAXINE SUCCINATE 50 MG TAB.ER.24H PO SCH (08:57)
[2018-03-16] MEDS: cycloSPORINE 0.05% OPHTH 0.4 ML DROPERETTE BOTH EYES SCH ×2 (08:57→21:42)
[2018-03-16] MEDS: FERROUS SULFATE 325 MG TAB PO SCH (08:58)
[2018-03-16] MEDS: DOXAZOSIN 4 MG TAB PO SCH (08:58)
[2018-03-16] MEDS: FINASTERIDE 5 MG TAB PO SCH (08:58)
[2018-03-16] MEDS: HEPARIN SODIUM,PORCINE 5,000 UNIT/ML 1 ML VIAL SQ SCH ×2 (08:58→21:47)
[2018-03-16] MEDS: guaiFENesin 600 MG TABLET.ER PO SCH ×2 (08:58→21:43)
[2018-03-16] MEDS: PRIMIDONE 50 MG TAB PO SCH ×3 (08:59→21:42)
[2018-03-16] MEDS: MONTELUKAST 10 MG TAB PO SCH (08:59)
[2018-03-16] MEDS: predniSONE 20 MG TAB PO SCH (08:59)
[2018-03-16] MEDS: DALIRESP 500 MCG PO SCH (09:00)
[2018-03-16] MEDS: CIALIS 5 MG PO SCH (09:00)
[2018-03-16] MEDS: PIPERACILLIN-TAZOBACTAM 3.375 GM in DEXTROSE/WATER 1 50ML.BAG IVPB SCH ×3 (09:08→23:35)
[2018-03-16 11:03] LABS: Glucose,Whole Blood 165 mg/dL (75-99)
--- NOTE | 2018-03-16 13:56 | XR ---
EXAMINATION TYPE: XR chest 2V DATE OF EXAM: 03/16/2018 HISTORY: shortness of breath. REFERENCE: Previous study dated 03/13/2018. FINDINGS: The lungs are overinflated. There is chronic interstitial change. There is no superimposed pneumonia or edema. The heart is not enlarged. Pleural spaces are clear. IMPRESSION: 1. COPD. 2. CHRONIC INTERSTITIAL CHANGE.
--- NOTE | 2018-03-16 14:39 | PN ---
PROGRESS NOTE DATE OF SERVICE: 03/16/2018. He is hemodynamically stable. He continues to have shortness of breath, but is doing better overall. He has been afebrile except for the first day when he had a low-grade fever of 100 degrees Fahrenheit on the fourteenth. PHYSICAL EXAMINATION: His blood pressure is 112/51, respiratory rate of 18, pulse rate of 75, temperature 97.1, O2 saturation on 3 L by nasal cannula is 91%. HEENT: Unremarkable. Chest reveals prolonged expiration. Wheeze only on forced expiration. Cardiovascular system reveals a S1, S2. ABDOMEN: Soft. There is no edema. White count is 9.1, hemoglobin 11.3. Sodium 139, potassium 4.3, chloride 97, bicarb 34, BUN 22, creatinine of 0.85. Sputum culture is growing Pseudomonas aeruginosa and Moraxella catarrhalis. IMPRESSION: 1. Severe asthma with acute exacerbation. 2. Severe chronic obstructive pulmonary disease. 3. Doubt Pseudomonas or Moraxella infection. This may be in fact due to colonization. Would continue high-dose oral steroids. Continue Mucomyst, bronchodilators, aerosolized steroids. Have the patient seen by ID to further decide if the patient would need prolonged antibiotics. Depending on how he does we should make further changes to his care. MMODL / IJN: [id number] /
[2018-03-16 17:39] LABS: Glucose,Whole Blood 200 mg/dL (75-99)
[2018-03-16 20:20] LABS: Glucose,Whole Blood 211 mg/dL (75-99)
[2018-03-16] MEDS: ATORVASTATIN 20 MG TAB PO SCH (21:42)
[2018-03-17] MEDS: ACETYLCYSTEINE 800 MG/4 ML VIAL INHALATION SCH ×4 (07:09→19:19)
[2018-03-17] MEDS: BUDESONIDE 0.5 MG/2 ML NEBU INHALATION SCH ×2 (07:09→19:19)
[2018-03-17] MEDS: IPRATROPIUM-ALBUTEROL 3 ML NEB INHALATION SCH ×4 (07:09→19:19)
[2018-03-17 07:27] LABS: Glucose,Whole Blood 104 mg/dL (75-99)
[2018-03-17] MEDS: INSULIN ASPART 100 UNIT/ML 1 ML 10 ML VIAL SQ SCH ×4 (08:13→20:40)
[2018-03-17] MEDS: PIPERACILLIN-TAZOBACTAM 3.375 GM in DEXTROSE/WATER 1 50ML.BAG IVPB SCH ×3 (08:14→23:31)
[2018-03-17] MEDS: MONTELUKAST 10 MG TAB PO SCH (08:15)
[2018-03-17] MEDS: guaiFENesin 600 MG TABLET.ER PO SCH ×2 (08:15→20:40)
[2018-03-17] MEDS: DOXAZOSIN 4 MG TAB PO SCH (08:16)
[2018-03-17] MEDS: predniSONE 20 MG TAB PO SCH (08:16)
[2018-03-17] MEDS: DESVENLAFAXINE SUCCINATE 50 MG TAB.ER.24H PO SCH (08:16)
[2018-03-17] MEDS: FERROUS SULFATE 325 MG TAB PO SCH (08:16)
[2018-03-17] MEDS: PRIMIDONE 50 MG TAB PO SCH ×3 (08:16→20:40)
[2018-03-17] MEDS: CARBIDOPA-LEVODOPA 25-100 MG 1 EACH TAB PO SCH ×3 (08:16→20:40)
[2018-03-17] MEDS: HEPARIN SODIUM,PORCINE 5,000 UNIT/ML 1 ML VIAL SQ SCH ×2 (08:16→20:40)
[2018-03-17] MEDS: CHOLECALCIFEROL 1,000 UNIT TAB PO SCH (08:17)
[2018-03-17] MEDS: ASPIRIN 81 MG PO SCH (08:17)
[2018-03-17] MEDS: cycloSPORINE 0.05% OPHTH 0.4 ML DROPERETTE BOTH EYES SCH ×2 (08:17→20:40)
[2018-03-17] MEDS: CIALIS 5 MG PO SCH (08:18)
[2018-03-17] MEDS: FINASTERIDE 5 MG TAB PO SCH (08:18)
[2018-03-17] MEDS: ATENOLOL 12.5 MG TAB PO SCH ×2 (08:18→20:40)
[2018-03-17] MEDS: DALIRESP 500 MCG PO SCH (08:18)
[2018-03-17 11:24] LABS: Glucose,Whole Blood 133 mg/dL (75-99)
--- NOTE | 2018-03-17 14:01 | PN ---
PROGRESS NOTE DATE OF SERVICE: 03/17/18 He was seen on February2017. He has been hemodynamically stable. He continues to have shortness of breath, but is doing better. Overall on physical examination, his respiratory rate is 16, pulse rate of 72, temperature 97.6, blood pressure 146/68, O2 saturation on 3 L by nasal cannula is 97%. HEENT is unremarkable. Chest reveals expiratory wheeze only on forced expiration. Cardiovascular system revealed an S1, S2. Abdomen is soft. There is no pedal edema. IMPRESSION: 1. Severe asthma with acute exacerbation. 2. Chronic obstructive pulmonary disease. 3. Eosinophilic phenotype. At this point in time from a pulmonary standpoint, would recommend continuing steroids, bronchodilators, increase his activity level. I agree with possible discharge planning. He may be a candidate for anti eosinophilic treatment as he has suboptimal control with Xolair. Depending on how he does we shall make further changes to his care. MMELIEZERL / FRANKIEN: [id number] /
--- NOTE | 2018-03-17 15:17 | P.CONS ---
History of Present Illness - Reason for Consult Consult date: 03/17/18 - Chief Complaint COPD - History of Present Illness 82-year-old male with a long-standing history of COPD and ALLERGIC asthma who presented to Hospital on 03/09/2018 from home increasing shortness of breath going on for several days. Because he felt so poorly he presented to Hospital. He was treated with respiratory treatments, oxygen and steroid therapy. He is now feeling somewhat better. He does not exactly high-grade fevers or chills but certainly was feeling very poorly. The patient did have a sputum culture performed that shows evidence of pseudomonas aeruginosa as well as Moraxella catarrhalis and for that the infectious diseases consultation was requested. The patient relates that he is now feeling somewhat better than admission. He did have a low-grade fever at admission that has now resolved. Is having no chills or rigors. The patient has a long-standing history of smoking but stopped several years ago. 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 Review of Systems 82-year-old male feeling better at this time. HEENT:Denies headache or acute visual change. Denies sinus or mouth discomforts. Denies neck stiffness or pain. Denies significant oral cavity pain. Denies difficulty on swallowing. Lungs: As per the HPI his shortness of breath is improved. Cough is improved. Sputum production is improved no hemoptysis Cardiovascular: Shortness of breath is improved denying chest pains or pressures no syncope or orthopnea Gastrointestinal:Denies nausea, vomiting, diarrhea, constipation, hematemesis, melena, hematochezia. No no significant change of bowel habit noticed. Musculoskeletal: denies significant myalgias or arthralgias. No new joint swelling. Denies new back pain. Skin: Denies new rash or lesions. No new ulcers or wounds are related.. Neuro: Denies headache or visual change. Denies any new onset weakness or difficulty with ambulation. Denies falls or seizures. Psychiatric:Denies anxiety or depression. Endocrine: Fatigue is improving, had a 40 pound weight loss that he TREATED by improving his diet about 8 years ago and is help his overall level of fitness Past Medical History Past Medical History: COPD, Hyperlipidemia, Hypertension, Prostate Disorder, Renal Disease Additional Past Medical History / Comment(s): Home O2 at 3-3.5L/NC ATC, chronic tremors-etiology unknown to pt, L foot drop, pt states he "possibly" had a PR years ago, chronic low back pain, nephrolithiasis-has passed stones on his own and also surgically removed, BPH. L ankle torn tendon Last Myocardial Infarction Date:: unknown History of Any Multi-Drug Resistant Organisms: None Reported Past Surgical History: Back Surgery, Cholecystectomy, Heart Catheterization Additional Past Surgical History / Comment(s): Lumbar laminectomy, lithotripsy, colonoscopy, bilateral cataract removals. Past Anesthesia/Blood Transfusion Reactions: No Reported Reaction, Previous Problems w/ Anesthesia Additional Past Anesthesia/Blood Transfusion Reaction / Comm: woke up during anesthesia x1 Past Psychological History: Anxiety Additional Psychological History / Comment(s): Pt states he has anxiety when his breathing gets bad. Pt lives alone. He has home oxygen and a nebulizer. He uses no assistive device. He drives. Patient was in the [employer] for 22 years , then the [employer]. Was a lifelong smoker stopping a few years ago, was a severe alcohol user as a younger man but not recent. He is single, he has no children. No animals. Lives independently Smoking Status: Former smoker Past Alcohol Use History: None Reported Additional Past Alcohol Use History / Comment(s): Pt started smoking in 1941 and quit in 2001. He was a pack to 2 packs a day smoker. Past Drug Use History: None Reported - Past Family History Mother Family Medical History: Musculoskeletal Disorder, Neurologic Disorder Additional Family Medical History / Comment(s): Mother had parkinsons. Father Additional Family Medical History / Comment(s): Father had back problems. He in a MVA at the age of 62 yrs. Medications and Allergies Home Medications and Allergies Comment(s): Current Medications Acetylcysteine (Mucomyst) 200 mg INHALATION RT-QID [facility] Last Admin: 03/17/18 14:52 Dose: 200 mg Albuterol/Ipratropium (Duoneb 0.5 Mg-3 Mg/3 Ml Soln) 3 ml INHALATION RT-QID [facility] Last Admin: 03/17/18 14:52 Dose: 3 ml Aspirin (Aspirin) 81 mg PO DAILY [facility] Last Admin: 03/17/18 08:17 Dose: 81 mg Atenolol (Tenormin) 12.5 mg PO BID [facility] Last Admin: 03/17/18 08:18 Dose: 12.5 mg Atorvastatin Calcium (Lipitor) 20 mg PO HS [facility] Last Admin: 03/16/18 21:42 Dose: 20 mg Budesonide (Pulmicort) 0.5 mg INHALATION RT-BID [facility] Last Admin: 03/17/18 07:09 Dose: 0.5 mg Carbidopa/Levodopa (Sinemet 25-100) 1 each PO TID [facility] Last Admin: 03/17/18 08:16 Dose: 1 each Cholecalciferol (Vitamin D3) 5,000 unit PO DAILY [facility] Last Admin: 03/17/18 08:17 Dose: 5,000 unit Cyclosporine (Restasis 0.05% Ophth Soln) 1 drops BOTH EYES BID [facility] Last Admin: 03/17/18 08:17 Dose: 1 drops Desvenlafaxine Succinate (Pristiq Er) 50 mg PO DAILY [facility] Last Admin: 03/17/18 08:16 Dose: 50 mg Doxazosin Mesylate (Cardura) 4 mg PO DAILY [facility] Last Admin: 03/17/18 08:16 Dose: 4 mg Ferrous Sulfate (Feosol) 325 mg PO DAILY [facility] Last Admin: 03/17/18 08:16 Dose: 325 mg Finasteride (Proscar) 5 mg PO DAILY [facility] Last Admin: 03/17/18 08:18 Dose: 5 mg Guaifenesin (Mucinex) 1,200 mg PO BID [facility] Last Admin: 03/17/18 08:15 Dose: 1,200 mg Heparin Sodium (Porcine) (Heparin) 5,000 unit SQ Q12HR [facility] Last Admin: 03/17/18 08:16 Dose: 5,000 unit Piperacillin/Tazobactam/ (Dextrose 3.375 gm/ IV Solution) 50 mls @ 12.5 mls/hr IVPB Q8HR [facility] Last Admin: 03/17/18 08:14 Dose: 12.5 mls/hr Insulin Aspart (Novolog) 0 unit SQ ACHS [facility] PRN Reason: Protocol Last Admin: 03/17/18 12:53 Dose: 1 unit Montelukast Sodium (Singulair) 10 mg PO DAILY [facility] Last Admin: 03/17/18 08:15 Dose: 10 mg Daliresp ( Roflumilast) 500 Mcg Tablet 500 mcg PO DAILY [facility] Last Admin: 03/17/18 08:18 Dose: 500 mcg Cialis (Tadalafil) 5 (Mg Tablet) 5 mg PO DAILY [facility] Last Admin: 03/17/18 08:18 Dose: 5 mg Prednisone () 60 mg PO DAILY [facility] Last Admin: 03/17/18 08:16 Dose: 60 mg Primidone (Mysoline) 100 mg PO TID [facility] Last Admin: 03/17/18 08:16 Dose: 100 mg Home Medications Medication Instructions Recorded Confirmed Type Aspirin 81 mg PO DAILY 03/24/14 03/09/18 History Atenolol [Tenormin] 12.5 mg PO BID 03/24/14 03/09/18 History Desvenlafaxine Succinate [Pristiq 50 mg PO DAILY 03/24/14 03/09/18 History ER] Finasteride [Proscar] 5 mg PO DAILY 03/24/14 03/09/18 History Garlic 1 tab PO TID 03/24/14 03/09/18 History [place]-3 Acid Ethyl Esters [Lovaza] 4 gm PO DAILY 03/24/14 03/09/18 History Salmeterol Xinafoate [Serevent 1 puff INHALATION RT-BID 03/24/14 03/09/18 History Diskus] Simvastatin [Zocor] 40 mg PO HS 03/24/14 03/09/18 History Terazosin [Hytrin] 2 mg PO BID 03/24/14 03/09/18 History Primidone [Mysoline] 100 mg PO TID 04/20/17 03/09/18 History Roflumilast [Daliresp] 500 mcg PO DAILY 04/20/17 03/09/18 History Calcium Carbonate [Calcium] 600 mg PO BID 09/13/17 03/09/18 History Cholecalciferol [Vitamin D3] 5,000 unit PO DAILY 09/13/17 03/09/18 History Ferrous Sulfate [Feosol] 325 mg PO DAILY 09/13/17 03/09/18 History Montelukast [Singulair] 10 mg PO DAILY 09/13/17 03/09/18 History Omalizumab [Xolair] 150 mg SQ Q14D 09/13/17 03/09/18 History cycloSPORINE 0.05% OPHTH SOLN 1 drop BOTH EYES BID 09/13/17 03/09/18 History [Restasis] predniSONE 10 mg PO DAILY 09/13/17 03/09/18 History Ipratropium-Albuterol Nebulize 3 ml INHALATION RT-TID 12/20/17 03/09/18 History [Duoneb 0.5 mg-3 mg/3 ml Soln] Albuterol Nebulized [Ventolin 2.5 mg INHALATION RT-TID 03/09/18 03/09/18 History Nebulized] Budesonide [Pulmicort] 0.5 mg INHALATION RT-BID 03/09/18 03/09/18 History Carbidopa-Levodopa 25-100 mg 1 tab PO TID 03/09/18 03/09/18 History [Sinemet 25-100] Tadalafil [Cialis] 5 mg PO DAILY 03/09/18 03/09/18 History Allergies Allergy/AdvReac Type Severity Reaction Status Date / Time No Known Allergies Allergy Verified 03/09/18 13:33 Physical Exam Vitals: Vital Signs Temp Pulse Pulse Resp BP Pulse Ox 03/17/18 14:53 64 03/17/18 11:21 72 03/17/18 11:05 68 03/17/18 07:32 68 03/17/18 07:09 60 03/17/18 06:47 97.6 F 72 16 146/68 97 03/16/18 22:17 97.9 F 70 18 119/62 94 L 03/16/18 20:07 76 03/16/18 19:50 74 03/16/18 15:45 75 03/16/18 15:37 97 03/16/18 15:25 70 Intake and Output 03/17/18 03/17/18 03/17/18 06:59 14:59 22:59 Output Total 475 Balance -475 Output: Urine 475 Other: Voiding Method Urinal # Voids 1 Pleasant 82-year-old male who is in no acute distress. With the shortness of breath is improved HEENT: Anicteric conjunctiva are pink and moist nasal mucosa grossly intact without significant lesions, there is no thrush. Neck: The neck is supple without significant lymphadenopathy or thyromegaly. Lungs: There are symmetrical air entry, expiratory wheezes are scattered the lung bad[place], no zeinab bronchial sounds are heard Heart: Regular rate and rhythm with an audible S1-S2, no S3 soft S4 There is no significant murmur click or rub, PMI was nondisplaced. Abdomen: Positive bowel sounds soft and nontender without palpable masses or organomegaly. There was no guarding or rebound. Extremities: The upper extremities have excellent pulses they are symmetric, no significant petechiae or telangiectasia. No splinter hemorrhages were noted. The lower extremities are free from significant edema. The peripheral pulses were 2+ and symmetric. Neuro: Awake alert oriented to person place and time. There are no acute new gross focal sensory motor deficits. Results CBC & Chem 7: 03/15/18 09:25 03/15/18 09:25 Labs: Abnormal Lab Results - Last 24 Hours (Table) 03/16/18 03/16/18 03/17/18 Range/Units 17:38 20:19 07:25 POC Glucose (mg/dL) 200 H 211 H 104 H (75-99) mg/dL 03/17/18 Range/Units 11:19 POC Glucose (mg/dL) 133 H (75-99) mg/dL Laboratory Results WBC 9.1 k/uL (3.8-10.6) 03/15/18 09:25 RBC 3.40 m/uL (4.30-5.90) L 03/15/18 09:25 Hgb 11.3 gm/dL (13.0-17.5) L 03/15/18 09:25 Hct 34.0 % (39.0-53.0) L 03/15/18 09:25 MCV 99.9 fL (80.0-100.0) 03/15/18 09:25 MCH 33.3 pg (25.0-35.0) 03/15/18 09:25 MCHC 33.3 g/dL (31.0-37.0) 03/15/18 09:25 RDW 15.0 % (11.5-15.5) 03/15/18 09:25 Plt Count 157 k/uL (150-450) 03/15/18 09:25 Neutrophils % 83 % 03/15/18 09:25 Lymphocytes % 10 % 03/15/18 09:25 Monocytes % 6 % 03/15/18 09:25 Eosinophils % 1 % 03/15/18 09:25 Basophils % 0 % 03/15/18 09:25 Neutrophils # 7.5 k/uL (1.3-7.7) 03/15/18 09:25 Lymphocytes # 0.9 k/uL (1.0-4.8) L 03/15/18 09:25 Monocytes # 0.5 k/uL (0-1.0) 03/15/18 09:25 Eosinophils # 0.1 k/uL (0-0.7) 03/15/18 09:25 Basophils # 0.0 k/uL (0-0.2) 03/15/18 09:25 Macrocytosis Slight 03/15/18 09:25 PT 9.7 sec (9.0-12.0) 03/09/18 11:37 INR 1.0 (<1.2) 03/09/18 11:37 APTT 22.8 sec (22.0-30.0) 03/09/18 11:37 D-Dimer 0.73 mg/L FEU (<0.60) H 03/09/18 11:37 Sodium 139 mmol/L (137-145) 03/15/18 09:25 Potassium 4.3 mmol/L (3.5-5.1) 03/15/18 09:25 Chloride 97 mmol/L (98-107) L 03/15/18 09:25 Carbon Dioxide 34 mmol/L (22-30) H 03/15/18 09:25 Anion Gap 8 mmol/L 03/15/18 09:25 BUN 22 mg/dL (9-20) H 03/15/18 09:25 Creatinine 0.85 mg/dL (0.66-1.25) 03/15/18 09:25 Est GFR (CKD-EPI)AfAm >90 (>60 ml/min/1.73 sqM) 03/15/18 09:25 Est GFR (CKD-EPI)NonAf 81 (>60 ml/min/1.73 sqM) 03/15/18 09:25 Glucose 138 mg/dL (74-99) H 03/15/18 09:25 POC Glucose (mg/dL) 133 mg/dL (75-99) H 03/17/18 11:19 POC Glu Global President ID Fauiza Haile 03/17/18 11:19 Calcium 9.7 mg/dL (8.4-10.2) 03/15/18 09:25 Magnesium 1.7 mg/dL (1.6-2.3) 03/09/18 11:37 Total Bilirubin 0.3 mg/dL (0.2-1.3) 03/15/18 09:25 AST 29 U/L (17-59) 03/15/18 09:25 ALT 26 U/L (21-72) 03/15/18 09:25 Alkaline Phosphatase 47 U/L (38-126) 03/15/18 09:25 Total Creatine Kinase 55 U/L (55-170) 03/09/18 11:37 CK-MB (CK-2) 1.9 ng/mL (0.0-2.4) 03/09/18 11:37 CK-MB (CK-2) Rel Index 3.5 03/09/18 11:37 Troponin I 0.023 ng/mL (0.000-0.034) 03/09/18 11:37 NT-Pro-B Natriuret Pep 438 pg/mL 03/09/18 11:37 Total Protein 6.0 g/dL (6.3-8.2) L 03/15/18 09:25 Albumin 3.2 g/dL (3.5-5.0) L 03/15/18 09:25 Influenza Type A RNA Not Detected (Not Detectd) 03/09/18 11:35 Influenza Type B (PCR) Not Detected (Not Detectd) 03/09/18 11:35 Microbiology 03/14/18 09:00 Sputum Gram Stain - Final 03/14/18 09:00 Sputum Sputum Culture - Final Pseudomonas aeruginosa Moraxella(branhamella) catarra CT scan - chest: report reviewed (Pulmonary hypertension, COPD with emphysema, interstitial lung disease) Assessment and Plan (1) Acute exacerbation of chronic obstructive airways disease Current Visit: Yes Status: Acute Code(s): J44.1 - CHRONIC OBSTRUCTIVE PULMONARY DISEASE W (ACUTE) EXACERBATION SNOMED Code(s): 051601175 (2) Pseudomonas aeruginosa infection Narrative/Plan: 82-year-old male presents to hospital with an exacerbation with underlying emphysema and COPD. He was very short of breath, required increased oxygen amounts, treated with respiratory treatments and steroids. He had a change in his sputum and was treated with antibiotic therapy currently with Zosyn. As the patient has had a significant improvement in her status is likely getting ready for discharge to home soon. Given the patient had an exacerbation of his COPD the change of his sputum has had a response to the treatment that included antibiotic therapy, it would be prudent to complete a 5 day course of ciprofloxacin 500 mg orally twice per day at the time of his discharge to complete the treatment of his purulent tracheobronchitis with exacerbation of COPD with Pseudomonas and Moraxella catarrhalis. Fortunately does not seem to have pneumonia. Current Visit: Yes Status: Acute Code(s): A49.8 - OTHER BACTERIAL INFECTIONS OF UNSPECIFIED SITE SNOMED Code(s): 87039509 (3) Moraxella catarrhalis bronchitis Current Visit: Yes Status: Acute Code(s): J40 - BRONCHITIS, NOT SPECIFIED ACUTE OR CHRONIC; B96.89 - OTH BACTERIAL AGENTS THE CAUSE OF DISEASES CLASSD [facility] SNOMED Code(s): 07137652
--- NOTE | 2018-03-17 17:12 | PN ---
PROGRESS NOTE SUBJECTIVE: White male, 82-year-old with COPD, hypoxemia, tracheobronchitis. Continue on IV antibiotics and updraft treatments. Lungs: Scattered rhonchi and wheeze. Hematology negative Homans. Psych fair mood and affect. Continue IV antibiotics, IV steroids, updraft treatments. Continue current treatment. MMODL / IJN: [id number] /
[2018-03-17 17:29] LABS: Glucose,Whole Blood 167 mg/dL (75-99)
[2018-03-17 20:11] LABS: Glucose,Whole Blood 182 mg/dL (75-99)
[2018-03-17] MEDS: ATORVASTATIN 20 MG TAB PO SCH (20:40)
[2018-03-17 21:51] VITALS: RESP 18
[2018-03-18 07:21] LABS: Glucose,Whole Blood 102 mg/dL (75-99)
[2018-03-18] MEDS: ACETYLCYSTEINE 800 MG/4 ML VIAL INHALATION SCH (08:22)
[2018-03-18] MEDS: IPRATROPIUM-ALBUTEROL 3 ML NEB INHALATION SCH ×2 (08:22→12:01)
[2018-03-18] MEDS: BUDESONIDE 0.5 MG/2 ML NEBU INHALATION SCH (08:22)
[2018-03-18 08:38] VITALS: BP 157/75; TEMP 98.1
[2018-03-18] MEDS: PIPERACILLIN-TAZOBACTAM 3.375 GM in DEXTROSE/WATER 1 50ML.BAG IVPB SCH (09:10)
[2018-03-18] MEDS: INSULIN ASPART 100 UNIT/ML 1 ML 10 ML VIAL SQ SCH ×2 (09:10→12:49)
[2018-03-18] MEDS: DALIRESP 500 MCG PO SCH (09:11)
[2018-03-18] MEDS: CIALIS 5 MG PO SCH (09:11)
[2018-03-18] MEDS: ATENOLOL 12.5 MG TAB PO SCH (09:12)
[2018-03-18] MEDS: CARBIDOPA-LEVODOPA 25-100 MG 1 EACH TAB PO SCH (09:12)
[2018-03-18] MEDS: ASPIRIN 81 MG PO SCH (09:12)
[2018-03-18] MEDS: CHOLECALCIFEROL 1,000 UNIT TAB PO SCH (09:12)
[2018-03-18] MEDS: DOXAZOSIN 4 MG TAB PO SCH (09:13)
[2018-03-18] MEDS: FERROUS SULFATE 325 MG TAB PO SCH (09:13)
[2018-03-18] MEDS: cycloSPORINE 0.05% OPHTH 0.4 ML DROPERETTE BOTH EYES SCH (09:13)
[2018-03-18] MEDS: DESVENLAFAXINE SUCCINATE 50 MG TAB.ER.24H PO SCH (09:13)
[2018-03-18] MEDS: FINASTERIDE 5 MG TAB PO SCH (09:14)
[2018-03-18] MEDS: HEPARIN SODIUM,PORCINE 5,000 UNIT/ML 1 ML VIAL SQ SCH (09:14)
[2018-03-18] MEDS: MONTELUKAST 10 MG TAB PO SCH (09:15)
[2018-03-18] MEDS: predniSONE 20 MG TAB PO SCH (09:15)
[2018-03-18] MEDS: guaiFENesin 600 MG TABLET.ER PO SCH (09:15)
--- NOTE | 2018-03-18 09:28 | P.PN ---
Subjective Progress Note Date: 03/18/18 HPI: This is an 82-year-old male patient presented to the emergency department with increasing shortness of breath that started over a day ago. He thought he had a scratchy throat. He had increasing need for oxygen and was wheezing. He subsequently was seen in the ER and admitted for further evaluation and management. He denied any fever or chills. He does have a past medical history significant for asthma, COPD, hyperlipidemia, hypertension, prostate disorder, kidney disease, BPH, chronic low back pain, acute [place], left foot drop, cholecystectomy, cardiac cath, lumbar laminectomy and colonoscopy. 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 He is resting up in bed on 3 L of supplemental oxygen via nasal cannula. The patient does utilize 3-4 L of oxygen at home as well. He did have a CTA which did re- veal pulmonary artery hypertension, emphysema, chronic bronchitis, interstitial lung disease. And was negative for any PE. Patient is currently on Xolair treatments and his next Xolair injection is scheduled for . 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 Due to the patient having exacerbations despite being on the Xolair therapy at this time. All labs and reports have been reviewed. 03/12/18- patient is being seen examined and evaluated today on rounds. He is resting up in bed on 3 L of supplemental oxygen via nasal cannula. He has been utilizing his incentive spirometer and pulling volumes of approximately 1750. He does state he continues to have shortness of breath with exertion or activity and extensive conversation. He does not feel his breathing is at his baseline yet. Patient has been not up walking around much we will add PT and OT for evaluation and treatment. 03/13/18- patient is being seen examined and evaluated today on rounds. He is resting up in bed on 3 of oxygen via nasal cannula. Continues to have shortness of breath with exertion. He also continues to have a productive cough with davies and yellow sputum. We will initiate patient on Mucomyst inhalation. patient at this point is not a candidate for bronchoscopy related to high with as multiple blebs are seen on CT. Stat Chest x-ray is reviewed and his left lower lobe infiltrate is improving. Will also initiate chest PT and vest therapy, related to bronchiectasis seen on chest CT. 03/14/18- patient is being seen examined and evaluated today on rounds. He is resting up in bed on 3 L of supplemental oxygen via nasal cannula. Continues to have shortness breath cough and congestion. He continues to have a cough with productive sputum. Chest PT and the Mucomyst seem to be helping break it up per the patient. He is also on Mucinex. We will adjust that dose from daily to twice a day. Patient will also be initiated on IV antibiotics. 03/15/18- patient is being seen examined and evaluated today on rounds. He is resting up in bed on 3 L of supplemental oxygen via nasal cannula which is his baseline. He is was initiated on Zosyn and feels he is improving with this. His chronic greater than 6 months productive cough continues, despite aggressive treatment with Mucomyst and flutter valve, and in patient chest PT. Patient was benefit from at-home vest therapy for chest PT. We will start to initiate this process. 03/16-03/17/18- Please see Dr. RACHELL Alonso notes 03/18/18- patient is being seen examined and evaluated today on rounds. He is resting up in bed on 3 L of supplemental oxygen which is his baseline oxygen use at home. He states his breathing is closer to baseline. His productive cough has decreased and sputum production significantly. His sputum was positive for Pseudomonas and Moraxella, infectious disease was consult did and has recommended Cipro upon discharge. He has responded well to antibiotics and steroids and breathing treatments. He has been treated with chest PT as well. The patient has been set up for an outpatient chest PT vest to be used in the home. This will be delivered to his house, along with a certified sports medicine trainer that we'll teach him how to use the vest. We will continue to follow this patient closely outpatient as well. Objective - Vital Signs Vital signs: Vital Signs Temp 98.1 F 03/18/18 07:35 Pulse 66 03/18/18 08:59 Resp 18 03/18/18 07:35 BP 157/75 03/18/18 07:35 Pulse Ox 96 03/18/18 07:35 Intake & Output 03/17/18 03/18/18 03/18/18 18:59 06:59 18:59 Intake Total 50 Output Total 500 Balance 50 -500 Intake: Intake, IV Titration 50 Amount Piperacillin-Tazobactam 3 50 .375 gm In Dextrose/Water 1 50ml.bag @ 12.5 mls/hr IVPB Q8HR ON LICENSE OF [facility] Rx#: [id number] Output: Urine 500 Other: Voiding Method Urinal # Voids 2 - Exam GENERAL EXAM: Alert, comfortable in no apparent distress. HEAD: Normocephalic. EYES: Normal reaction of pupils, equal size. NOSE: Clear with pink turbinates. THROAT: No erythema or exudates. NECK: No masses, no JVD. CHEST: No chest wall deformity. LUNGS: Equal air entry with expiratory wheezing throughout. Improved. Bases diminished CVS: S1 and S2 normal with no audible mumurs, regular rhythm. ABDOMEN: No hepatosplenomegaly, normal bowel sounds, no guarding or rigidity. EXTREMITIES: No edema noted, pedal pulses palpable. CENTRAL NERVOUS SYSTEM: No focal deficits, tone is normal in all 4 extremities. - Labs CBC & Chem 7: 03/15/18 09:25 03/15/18 09:25 Labs: Abnormal Lab Results - Last 24 Hours (Table) 03/17/18 03/17/18 03/17/18 Range/Units 11:19 17:27 20:09 POC Glucose (mg/dL) 133 H 167 H 182 H (75-99) mg/dL 03/18/18 Range/Units 07:19 POC Glucose (mg/dL) 102 H (75-99) mg/dL Assessment and Plan Assessment: Assessment Bronchiectasis on CT of the chest Purulent Tracheobronchitis ALLERGIC asthma with acute exacerbation COPD Acute on chronic hypoxic respiratory failure Hyperglycemia, steroid-induced Parkinson's Chronic productive cough greater than 6 months Plan Patient has been cleared for discharge from pulmonary standpoint. Patient has had a cough greater than 6 months that has been productive. There has been confirmed bronchiectasis on his CT of the chest. He hasn't improved much despite flutter valve and Mucomyst inhalation. He has no skilled person at home to do manual chest PT, therefore patient set up for a at-home vest therapy for bronchiectasis treatment. This will be delivered to his house and a certified sports medicine trainer we'll teach him how to use the vest. Patient will also possibly switch his biologic related to his suboptimal Xolair treatment. Medications have been reviewed and will be continued as ordered. Steroids tapered. Continue Mucomyst inhalation. IV antibiotics. Sputum culture pending. Chest PT and vest therapy ordered. Patient is not a candidate for bronchoscopy at this time due to multiple blebs noted on CT. PT and OT, and encourage increase in activity as tolerated. Continue with pulmonary hygiene, coughing and deep breathing exercises, and supportive care. Supplemental oxygen to maintain oxygen saturations of 92% or better. Continue nebulizer treatments. GI and DVT prophylaxis. Initiate and encourage incentive spirometer. We will continue to monitor labs/results and adjust treatment as necessary. Further recommendations pending. I performed an examination of the patient and discussed their management with the nurse practitioner. I have reviewed the nurse practitioner's note and agree with the documented findings and plan of care.
[2018-03-18] MEDS: PRIMIDONE 50 MG TAB PO SCH (09:30)
[2018-03-18 11:10] LABS: Glucose,Whole Blood 107 mg/dL (75-99)
[2018-03-18 11:21] LABS: Glucose,Whole Blood 113 mg/dL (75-99)
[2018-03-18 12:15] VITALS: PULSE 62
== END 2018-03-18 14:40 | disposition home or self-care (01) | DRG 190 ==
LOC: EC 11:01 → 5MS5E 13:08
PROVIDERS: ADMIT Family Medicine; ATTEND Family Medicine
DX: J43.9 Emphysema, unspecified (principal); J96.21 Acute and chronic respiratory failure with hypoxia; J84.9 Interstitial pulmonary disease, unspecified; I27.21 Secondary pulmonary arterial hypertension; D72.1 Eosinophilia; G20 Parkinson's disease; Z99.81 Dependence on supplemental oxygen; J20.9 Acute bronchitis, unspecified; E78.5 Hyperlipidemia, unspecified; G25.0 Essential tremor; I10 Essential (primary) hypertension; I25.10 Atherosclerotic heart disease of native coronary artery without angina pectoris; N40.0 Benign prostatic hyperplasia without lower urinary tract symptoms; T38.0X5A Adverse effect of glucocorticoids and synthetic analogues, initial encounter; R73.9 Hyperglycemia, unspecified; Z79.51 Long term (current) use of inhaled steroids; Z79.82 Long term (current) use of aspirin; Z79.899 Other long term (current) drug therapy; Z82.0 Family history of epilepsy and other diseases of the nervous system; Z87.891 Personal history of nicotine dependence; M54.5 Low back pain; G89.29 Other chronic pain; Z98.42 Cataract extraction status, left eye; Z98.41 Cataract extraction status, right eye; Z60.2 Problems related to living alone; I25.2 Old myocardial infarction
CPT/HCPCS: 36415; 71045; 71046; 71275; 80053; 82550; 82553; 83735; 83880; 84484; 85025; 85379; 85610; 85730; 87070; 87077; 87186; 87205; 87502; 93005; 94640; 94667; 94668; 94760; 96361; 96365; 96375; 99285

== ENCOUNTER → 2018-04-25 | Outpatient (CLI) | payer MEDICARE, OTHER ==
--- NOTE | 2018-04-25 13:31 | US ---
EXAMINATION TYPE: US venous doppler duplex UE LT DATE OF EXAM: 04/25/2018 COMPARISON: NONE CLINICAL HISTORY: M79.662 R22.32 Pain Swelling of Left Upper Limb. SIDE PERFORMED: Left Grayscale, color doppler, spectral doppler imaging performed of the deep veins of the upper extremiti es. There is normal flow, compressibility and vascular waveforms. Left Arm: Negative for DVT IMPRESSION: No sonographic evidence of deep venous thrombosis within the left upper extremity.
== END | disposition home or self-care (01) ==
LOC: RADUSWWP 11:12
PROVIDERS: ATTEND Family Medicine
DX: M79.662 Pain in left lower leg (principal); R22.32 Localized swelling, mass and lump, left upper limb

== ENCOUNTER → 2018-06-13 | Outpatient (CLI) | payer MEDICARE, OTHER | END | disposition home or self-care (01) | LOC: LABWHC1 10:40 | PROVIDERS: ATTEND Family Medicine | DX: M54.5 Low back pain (principal) | CPT/HCPCS: 36415; 82565 ==

== ENCOUNTER → 2018-06-15 | Outpatient (CLI) | payer MEDICARE, OTHER ==
--- NOTE | 2018-06-15 09:21 | MR ---
MR lumbar spine wo/w con Low back pain Gadavist Multiplanar, multiecho imaging of the lumbar spine was obtained without contrast on a 3 Vee magnet. REFERENCE:None. FINDINGS: Paraspinal soft tissues are normal. There is a degenerative retrograde listhesis of L3 on L4. Alignment is otherwise maintained. Cord signal is maintained. The conus ends normally at the level of the superior endplate of L2. At T12-L1, there is mild disc space loss. Intervertebral foramina are well maintained. There is mild hypertrophic change in the facets. At L1-2, there is moderate disc space loss. There is a broad-based, left paracentral disc protrusion mildly deforming the thecal sac. The intervertebral foramina are reasonably well-maintained. There ar e hypertrophic changes and capsulitis within the facets. At L2-3, there is mild disc space loss. Intervertebral foramina are reasonably well-maintained. There is no significant compressive discopathy. There are hypertrophic changes and capsulitis within the f acets. At L3-4, there is moderate disc space loss. There is a mild retrograde listhesis of L3 on L4. There i s a broad-based disc protrusion mildly deforming the thecal sac. There is bilateral intervertebral fo raminal narrowing. There has been an L3 laminectomy. At L4-5, there is severe disc space loss. There is a laminectomy at L4. There is no significant compr essive discopathy. There are hypertrophic changes in the facets. There is bilateral intervertebral fo raminal narrowing, worse on the left than the right. At L5-S1, there is bilateral intervertebral foraminal narrowing, worse on the left than the right. Th ere is been an L5 laminectomy. There is a broad-based disc displacement. There are fairly marked hype rtrophic changes in the facets. IMPRESSION: 1. POSTOPERATIVE CHANGE. 2. DIFFUSE DEGENERATIVE DISC DISEASE AND FACET ARTHROPATHY. 3. MULTILEVEL INTERVERTEBRAL FORAMINAL NARROWING. 3.
== END | disposition home or self-care (01) ==
LOC: RADMRIMAIN 08:01
PROVIDERS: ATTEND Family Medicine
DX: M51.36 Other intervertebral disc degeneration, lumbar region (principal); M48.8X6 Other specified spondylopathies, lumbar region; M99.73 Connective tissue and disc stenosis of intervertebral foramina of lumbar region; M99.74 Connective tissue and disc stenosis of intervertebral foramina of sacral region; Z98.890 Other specified postprocedural states
CPT/HCPCS: 72158; A9581

== ENCOUNTER 2019-01-20 04:49 | Inpatient (IN) | payer MEDICARE, OTHER ==
[2019-01-20] MEDS ORDERED: IPRATROPIUM 0.5 MG/2.5 ML NEBU INHALATION STA (05:05)
[2019-01-20] MEDS ORDERED: ALBUTEROL NEBULIZED 2.5 MG/3 ML INHALATION STA (05:05)
[2019-01-20] MEDS ORDERED: methylPREDNISolone SOD SUCCI 125 MG/2 ML VIAL IV STA (05:05)
[2019-01-20 05:45] LABS: Basophils % (A) 0 %; Eosinophils # (A) 0.1 k/uL (0-0.7); Eosinophils % (A) 1 %; HCT 42.6 % (39.0-53.0); HGB 13.3 gm/dL (13.0-17.5); Lymphocytes # (A) 0.8 k/uL (1.0-4.8); Lymphocytes % (A) 9 %; MCHC 31.3 g/dL (31.0-37.0); MCV 108.6 fL (80.0-100.0); Macrocytosis Marked; Mean Platelet Volume 7.6; Monocytes # (A) 0.7 k/uL (0-1.0); Monocytes % (A) 7 %; Neutrophils # (A) 8.1 k/uL (1.3-7.7); Neutrophils % (A) 83 %; Platelet Count 180 k/uL (150-450); RBC 3.93 m/uL (4.30-5.90); WBC 9.8 k/uL (3.8-10.6)
--- NOTE | 2019-01-20 05:45 | ED ---
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 Patient has been taking albuterol at home with minimal improvement. He is currently on 10 mg prednisone daily. Denies fever or chills. Cough is productive. Denies significant central chest pain. Reports some mild chest tightness. No abdominal pain nausea vomiting. Patient has been increasing his oxygen supplementation at home with minimal improvement. Denies lower extremity pain or swelling. - Related Data Home Medications Medication Instructions Recorded Confirmed Aspirin 81 mg PO DAILY 03/24/14 03/21/18 Atenolol [Tenormin] 12.5 mg PO BID 03/24/14 03/21/18 Desvenlafaxine Succinate [Pristiq 50 mg PO DAILY 03/24/14 03/21/18 ER] Finasteride [Proscar] 5 mg PO DAILY 03/24/14 03/21/18 Garlic 1 tab PO TID 03/24/14 03/21/18 [place]-3 Acid Ethyl Esters [Lovaza] 4 gm PO DAILY 03/24/14 03/21/18 Salmeterol Xinafoate [Serevent 1 puff INHALATION RT-BID 03/24/14 03/21/18 Diskus] Simvastatin [Zocor] 40 mg PO HS 03/24/14 03/21/18 Terazosin [Hytrin] 2 mg PO BID 03/24/14 03/21/18 Primidone [Mysoline] 100 mg PO TID 04/20/17 03/21/18 Roflumilast [Daliresp] 500 mcg PO DAILY 04/20/17 03/21/18 Calcium Carbonate [Calcium] 600 mg PO BID 09/13/17 03/21/18 Cholecalciferol [Vitamin D3] 5,000 unit PO DAILY 09/13/17 03/21/18 Ferrous Sulfate [Feosol] 325 mg PO DAILY 09/13/17 03/21/18 Montelukast [Singulair] 10 mg PO DAILY 09/13/17 03/21/18 Omalizumab [Xolair] 150 mg SQ Q14D 09/13/17 03/21/18 cycloSPORINE 0.05% OPHTH SOLN 1 drop BOTH EYES BID 09/13/17 03/21/18 [Restasis] predniSONE 10 mg PO DAILY 09/13/17 03/21/18 Ipratropium-Albuterol Nebulize 3 ml INHALATION RT-TID 12/20/17 03/21/18 [Duoneb 0.5 mg-3 mg/3 ml Soln] Albuterol Nebulized [Ventolin 2.5 mg INHALATION RT-TID 03/09/18 03/21/18 Nebulized] Budesonide [Pulmicort] 0.5 mg INHALATION RT-BID 03/09/18 03/21/18 Carbidopa-Levodopa 25-100 mg 1 tab PO TID 03/09/18 03/21/18 [Sinemet 25-100] Tadalafil [Cialis] 5 mg PO DAILY 03/09/18 03/21/18 Allergies Allergy/AdvReac Type Severity Reaction Status Date / Time No Known Allergies Allergy Verified 01/20/19 04:56 Review of Systems ROS Statement: Those systems with pertinent positive or pertinent negative responses have been documented in the HPI. ROS Other: All systems not noted in ROS Statement are negative. Past Medical History Past Medical History: COPD, Hyperlipidemia, Hypertension, Prostate Disorder, Renal Disease Additional Past Medical History / Comment(s): Home O2 at 3-3.5L/NC ATC, chronic tremors-etiology unknown to pt, L foot drop, pt states he "possibly" had a OR years ago, chronic low back pain, nephrolithiasis-has passed stones on his own and also surgically removed, BPH. L ankle torn tendon, Last Myocardial Infarction Date:: unknown History of Any Multi-Drug Resistant Organisms: None Reported Past Surgical History: Back Surgery, Cholecystectomy, Heart Catheterization Additional Past Surgical History / Comment(s): Lumbar laminectomy, lithotripsy, colonoscopy, bilateral cataract removals. Past Anesthesia/Blood Transfusion Reactions: No Reported Reaction, Previous Problems w/ Anesthesia Additional Past Anesthesia/Blood Transfusion Reaction / Comment(s): woke up during anesthesia x1 Past Psychological History: Anxiety Smoking Status: Former smoker Past Alcohol Use History: None Reported Past Drug Use History: None Reported - Past Family History Mother Family Medical History: Musculoskeletal Disorder, Neurologic Disorder Additional Family Medical History / Comment(s): Mother had parkinsons. Father Additional Family Medical History / Comment(s): Father had back problems. He in a MVA at the age of 62 yrs. General Exam Limitations: no limitations General appearance: alert, in distress Head exam: Present: atraumatic, normocephalic Eye exam: Present: normal appearance, PERRL ENT exam: Present: normal exam Neck exam: Present: normal inspection. Absent: tenderness, meningismus Respiratory exam: Present: respiratory distress, wheezes, accessory muscle use, decreased breath sounds Cardiovascular Exam: Present: regular rate, normal rhythm GI/Abdominal exam: Present: soft. Absent: distended, tenderness, guarding Extremities exam: Present: normal inspection. Absent: pedal edema, calf tenderness Neurological exam: Present: alert, oriented X3, CN II-XII intact. Absent: motor sensory deficit Psychiatric exam: Present: normal affect, normal mood Skin exam: Present: warm, dry, intact. Absent: cyanosis, diaphoretic Course Vital Signs 01/20/19 01/20/19 01/20/19 04:51 05:23 05:35 Temperature 98.9 F Pulse Rate 100 86 84 Respiratory 24 Rate Blood Pressure 200/91 O2 Sat by Pulse 88 L Oximetry 01/20/19 01/20/19 01/20/19 05:49 06:04 06:23 Temperature Pulse Rate 86 105 H 105 H Respiratory 24 Rate Blood Pressure 194/84 O2 Sat by Pulse 95 Oximetry EKG Findings - EKG Comments: EKG Findings:: EKG: Sinus tachycardia with first-degree AV block, right bundle branch block, left anterior fascicular block, rate of 101, W[place] interval 240, QRS duration 136, QTC 414, no ST segment elevation similar compared to previous EKG Medical Decision Making - Medical Decision Making 83-year-old male presenting with 4 days of worsening cough and dyspnea. Patient has history of COPD, does follow with pulmonology. Exam reveals minimal air entry with moderate respiratory distress. Chest x-ray obtained, shows concern for pulmonary congestion as well as infiltrate and small left sided effusion. Patient has normal white blood cell count, stable hemoglobin, CO2 is 31 consistent with chronic CO2 retention. Lactic is normal at 1.4. Mild troponin elevation so 0.037 and mild elevation in BNP at 2270. Patient is given IV diuresis. Given aspirin. Will be admitted for treatment of COPD, community acquired pneumonia, and pulmonary edema, concern for CHF. Case discussed with Dr. Benson, will admit - Lab Data Result diagrams: 01/20/19 05:10 01/20/19 05:10 Lab Results 01/20/19 01/20/19 01/20/19 Range/Units 05:05 05:10 05:10 WBC 9.8 (3.8-10.6) k/uL RBC 3.93 L (4.30-5.90) m/uL Hgb 13.3 (13.0-17.5) gm/dL Hct 42.6 (39.0-53.0) % MCV 108.6 H (80.0-100.0) fL MCH 34.0 (25.0-35.0) pg MCHC 31.3 (31.0-37.0) g/dL RDW 15.0 (11.5-15.5) % Plt Count 180 (150-450) k/uL Neutrophils % 83 % Lymphocytes % 9 % Monocytes % 7 % Eosinophils % 1 % Basophils % 0 % Neutrophils # 8.1 H (1.3-7.7) k/uL Lymphocytes # 0.8 L (1.0-4.8) k/uL Monocytes # 0.7 (0-1.0) k/uL Eosinophils # 0.1 (0-0.7) k/uL Basophils # 0.0 (0-0.2) k/uL Manual Slide Review Performed Macrocytosis Marked PT (9.0-12.0) sec INR (<1.2) APTT (22.0-30.0) sec Sodium 144 (137-145) mmol/L Potassium 4.9 (3.5-5.1) mmol/L Chloride 106 (98-107) mmol/L Carbon Dioxide 31 H (22-30) mmol/L Anion Gap 7 mmol/L BUN 28 H (9-20) mg/dL Creatinine 1.07 (0.66-1.25) mg/dL Est GFR (CKD-EPI)AfAm 74 (>60 ml/min/1.73 sqM) Est GFR (CKD-EPI)NonAf 64 (>60 ml/min/1.73 sqM) Glucose 166 H (74-99) mg/dL Plasma Lactic Acid Claudy (0.7-2.0) mmol/L Calcium 10.5 H (8.4-10.2) mg/dL Magnesium 1.8 (1.6-2.3) mg/dL Total Bilirubin 0.8 (0.2-1.3) mg/dL AST 38 (17-59) U/L ALT 44 (21-72) U/L Alkaline Phosphatase 105 (38-126) U/L Troponin I (0.000-0.034) ng/mL NT-Pro-B Natriuret Pep pg/mL Total Protein 7.9 (6.3-8.2) g/dL Albumin 4.3 (3.5-5.0) g/dL Influenza Type A RNA Not Detected (Not Detectd) Influenza Type B (PCR) Not Detected (Not Detectd) 01/20/19 01/20/19 01/20/19 Range/Units 05:10 05:10 05:10 WBC (3.8-10.6) k/uL RBC (4.30-5.90) m/uL Hgb (13.0-17.5) gm/dL Hct (39.0-53.0) % MCV (80.0-100.0) fL MCH (25.0-35.0) pg MCHC (31.0-37.0) g/dL RDW (11.5-15.5) % Plt Count (150-450) k/uL Neutrophils % % Lymphocytes % % Monocytes % % Eosinophils % % Basophils % % Neutrophils # (1.3-7.7) k/uL Lymphocytes # (1.0-4.8) k/uL Monocytes # (0-1.0) k/uL Eosinophils # (0-0.7) k/uL Basophils # (0-0.2) k/uL Manual Slide Review Macrocytosis PT 10.0 (9.0-12.0) sec INR 0.9 (<1.2) APTT 22.9 (22.0-30.0) sec Sodium (137-145) mmol/L Potassium (3.5-5.1) mmol/L Chloride (98-107) mmol/L Carbon Dioxide (22-30) mmol/L Anion Gap mmol/L BUN (9-20) mg/dL Creatinine (0.66-1.25) mg/dL Est GFR (CKD-EPI)AfAm (>60 ml/min/1.73 sqM) Est GFR (CKD-EPI)NonAf (>60 ml/min/1.73 sqM) Glucose (74-99) mg/dL Plasma Lactic Acid Claudy (0.7-2.0) mmol/L Calcium (8.4-10.2) mg/dL Magnesium (1.6-2.3) mg/dL Total Bilirubin (0.2-1.3) mg/dL AST (17-59) U/L ALT (21-72) U/L Alkaline Phosphatase (38-126) U/L Troponin I 0.037 H* (0.000-0.034) ng/mL NT-Pro-B Natriuret Pep 2270 pg/mL Total Protein (6.3-8.2) g/dL Albumin (3.5-5.0) g/dL Influenza Type A RNA (Not Detectd) Influenza Type B (PCR) (Not Detectd) 01/20/19 Range/Units 05:10 WBC (3.8-10.6) k/uL RBC (4.30-5.90) m/uL Hgb (13.0-17.5) gm/dL Hct (39.0-53.0) % MCV (80.0-100.0) fL MCH (25.0-35.0) pg MCHC (31.0-37.0) g/dL RDW (11.5-15.5) % Plt Count (150-450) k/uL Neutrophils % % Lymphocytes % % Monocytes % % Eosinophils % % Basophils % % Neutrophils # (1.3-7.7) k/uL Lymphocytes # (1.0-4.8) k/uL Monocytes # (0-1.0) k/uL Eosinophils # (0-0.7) k/uL Basophils # (0-0.2) k/uL Manual Slide Review Macrocytosis PT (9.0-12.0) sec INR (<1.2) APTT (22.0-30.0) sec Sodium (137-145) mmol/L Potassium (3.5-5.1) mmol/L Chloride (98-107) mmol/L Carbon Dioxide (22-30) mmol/L Anion Gap mmol/L BUN (9-20) mg/dL Creatinine (0.66-1.25) mg/dL Est GFR (CKD-EPI)AfAm (>60 ml/min/1.73 sqM) Est GFR (CKD-EPI)NonAf (>60 ml/min/1.73 sqM) Glucose (74-99) mg/dL Plasma Lactic Acid Claudy 1.4 (0.7-2.0) mmol/L Calcium (8.4-10.2) mg/dL Magnesium (1.6-2.3) mg/dL Total Bilirubin (0.2-1.3) mg/dL AST (17-59) U/L ALT (21-72) U/L Alkaline Phosphatase (38-126) U/L Troponin I (0.000-0.034) ng/mL NT-Pro-B Natriuret Pep pg/mL Total Protein (6.3-8.2) g/dL Albumin (3.5-5.0) g/dL Influenza Type A RNA (Not Detectd) Influenza Type B (PCR) (Not Detectd) Critical Care Time Critical Care Time: Yes Total Critical Care Time: 35 Disposition Clinical Impression: Acute exacerbation of chronic obstructive airways disease, Hypoxia, Community acquired pneumonia Disposition: ADMITTED IP TO THIS HOSP Condition: Stable Is patient prescribed a controlled substance at d/c from ED?: No Referrals: Maxx Benson MD [Primary Care Provider] - 1-2 days Decision to Admit Reason: Admit from EC Decision Date: 01/20/19 Decision Time: 06:38
[2019-01-20 05:46] LABS: INR 0.9 (<1.2); Partial Thromboplastin Time 22.9 sec (22.0-30.0)
[2019-01-20 05:47] LABS: Albumin 4.3 g/dL (3.5-5.0); Calcium 10.5 mg/dL (8.4-10.2); Magnesium 1.8 mg/dL (1.6-2.3); Potassium 4.9 mmol/L (3.5-5.1); Total Bilirubin 0.8 mg/dL (0.2-1.3); Total Protein 7.9 g/dL (6.3-8.2)
[2019-01-20] MEDS ORDERED: AZITHROMYCIN 500 MG in SODIUM CHLORIDE 0.9% 250 ML IVPB STA (06:13)
--- NOTE | 2019-01-20 06:13 | XR ---
EXAM: XR Chest, 2 Views CLINICAL HISTORY: difficulty breathing TECHNIQUE: Frontal and lateral views of the chest. COMPARISON: 03/16/2018. FINDINGS: Lungs: Mild pulmonary vascular congestion/pulmonary edema is suggested, more conspicuous on this study than the prior. Mild peribronchial cuffing is likely reactive. Infectious versus inflammatory airways disease cannot be definitively excluded within this setting. Pleural space: Small left pleural effusion resulting in compressive atelectasis of the left lower lobe. Infiltrates cannot be definitively excluded. No pneumothorax. Heart: Mild cardiomegaly with prominent main pulmonary artery suggesting pulmonary hypertension, interval worsening since prior study. Mediastinum: As above. Bones/joints: Unchanged. IMPRESSION: 1. Mild cardiomegaly with prominent main pulmonary artery suggesting pulmonary hypertension, interval worsening since prior study. 2. Mild pulmonary vascular congestion/pulmonary edema is suggested, more conspicuous on this study than the prior. 3. Mild peribronchial cuffing is likely reactive. Infectious versus inflammatory airways disease cannot be definitively excluded within this setting. 4. Small left pleural effusion resulting in compressive atelectasis of the left lower lobe. Infiltrates cannot be definitively excluded.
[2019-01-20] MEDS ORDERED: ASPIRIN 325 MG TAB PO STA (06:23)
[2019-01-20] MEDS ORDERED: FUROSEMIDE 10 MG/ML 4 ML VIAL IV STA (06:23)
[2019-01-20] MEDS ORDERED: IPRATROPIUM-ALBUTEROL 3 ML NEB INHALATION PRN (06:38)
[2019-01-20] MEDS ORDERED: ALBUTEROL NEBULIZED 2.5 MG/3 ML INHALATION PRN (06:39)
[2019-01-20] MEDS: IPRATROPIUM-ALBUTEROL 3 ML NEB INHALATION SCH ×4 (07:26→19:10)
[2019-01-20] MEDS: PRIMIDONE 50 MG TAB PO SCH ×3 (10:03→21:47)
[2019-01-20] MEDS: ASPIRIN 81 MG PO SCH (10:03)
[2019-01-20] MEDS: CALCIUM CARBONATE 500 MG CHEWABLE PO SCH ×2 (10:03→21:47)
[2019-01-20] MEDS: CARBIDOPA-LEVODOPA 25-100 MG 1 EACH TAB PO SCH ×3 (10:03→21:47)
[2019-01-20] MEDS: MONTELUKAST 10 MG TAB PO SCH (10:03)
[2019-01-20] MEDS: FUROSEMIDE 10 MG/ML 4 ML VIAL IV SCH ×2 (10:04→21:47)
[2019-01-20] MEDS: DOXAZOSIN 4 MG TAB PO SCH (10:04)
[2019-01-20] MEDS: ATENOLOL 12.5 MG TAB PO SCH ×2 (10:04→22:57)
[2019-01-20] MEDS: CIALIS 5 MG PO SCH (10:22)
--- NOTE | 2019-01-20 10:32 | ECHOF ---
Referral Reason:alessandro MEASUREMENTS -------- HEIGHT: 172.7 cm WEIGHT: 65.8 kg BP: 194/84 RVIDd: 2.7 cm (< 3.3) IVSd: 1.0 cm (0.6 - 1.1) LVIDd: 4.3 cm (3.9 - 5.3) LVPWd: 1.3 cm (0.6 - 1.1) IVSs: 1.4 cm LVIDs: 3.9 cm LVPWs: 1.6 cm LA Diam: 4.6 cm (2.7 - 3.8) LAESV Index (A-L): 44.36 ml/m Ao Diam: 3.1 cm (2.0 - 3.7) AV Cusp: 1.6 cm (1.5 - 2.6) LA Diam: 3.5 cm (2.7 - 3.8) MV EXCURSION: 22.907 mm (> 18.000) MV EF SLOPE: 133 mm/s (70 - 150) EPSS: 0.4 cm MV E Ajit: 1.09 m/s MV DecT: 131 ms MV A Ajit: 0.02 m/s MV E/A Ratio: 45.30 RAP: 5.00 mmHg RVSP: 64.95 mmHg FINDINGS -------- Undetermined rhythm. This was a technically good study. LV size, wall thickness and systolic function are normal, with an EF greater than 55%. The left jj tricular size is normal. The right ventricle is normal in size. The left atrium is markedly dilated. LA is severely dilated >40 ml/m2 The right atrial size is normal. There is mild aortic valve sclerosis. There is no evidence of aortic regurgitation. Mild mitral annular calcification present. Ntmc-zk-[id number] mitral regurgitation is present. Iwgw-ba-emidrgol tricuspid regurgitation present. There is moderate pulmonary hypertension. The r ight ventricular systolic pressure, as measured by Doppler, is 64.95mmHg. There is no pulmonic regurgitation present. The aortic root size is normal. There is a trivial pericardial effusion present. CONCLUSIONS -------- 1. This was a technically good study. 2. LV size, wall thickness and systolic function are normal, with an EF greater than 55%. 3. The left ventricular size is normal. 4. The right ventricle is normal in size. 5. The left atrium is markedly dilated. 6. LA is severely dilated >40 ml/m2 7. The right atrial size is normal. 8. There is mild aortic valve sclerosis. 9. Mild mitral annular calcification present. 10. Jcrk-ff-uijvtkwy mitral regurgitation is present. 11. Mrqw-vn-xnmyhwtn tricuspid regurgitation present. 12. There is moderate pulmonary hypertension. 13. The right ventricular systolic pressure, as measured by Doppler, is 64.95mmHg. 14. There is no pulmonic regurgitation present. 15. The aortic root size is normal. 16. There is a trivial pericardial effusion present. REEL ASSEMBLER: So Quezada RDCS
[2019-01-20 12:22] LABS: Glucose,Whole Blood 160 mg/dL (75-99)
[2019-01-20] MEDS: INSULIN ASPART (NovoLOG) 100 UNIT/ML VIAL SQ SCH ×3 (12:43→21:46)
[2019-01-20] MEDS: methylPREDNISolone SOD SUCCI 125 MG/2 ML VIAL IV SCH ×3 (12:43→23:41)
--- NOTE | 2019-01-20 13:04 | HP ---
HISTORY AND PHYSICAL CHIEF COMPLAINT: This is an 83-year-old white male with COPD on 5 L oxygen at home and low-dose prednisone cough, congestion, shortness of breath, purulent yellow-green phlegm, admitted with community-acquired pneumonia and COPD exacerbation. His breathing and sputum production gradually worsened. HOME MEDICATIONS: 1. Aspirin. 2. Tenormin. 3. Pristiq for depression. 4. Proscar for BPH. 5. Lovaza. 6. Serevent. 7. Zocor. 8. Hytrin,. 9. Mysoline. 10.Daliresp. 11.Calcium carbonate. 12.Iron sulfate. 13.Singulair. 14.Xolair. 15.DuoNeb. 16.Sinemet. 17.Cialis. ALLERGIES: Allergies are negative. REVIEW OF SYSTEMS: Fourteen-point review of systems negative except for mentioned above. MEDICAL HISTORY: History of COPD, dyslipidemia, hypertension, BPH, Parkinson's type tremors, essential tremor, chronic renal disease, O2 dependent COPD. He has been taking 4 to 5 L at home. History of left footdrop. History of coronary artery disease, nephrolithiasis. He has had back surgery, cholecystectomy, heart catheterization, lumbar laminectomy, lithotripsy, colonoscopy, cataract removal. FAMILY HISTORY: Mother with Parkinson's. Father back problems, in a car accident. PHYSICAL EXAMINATION: Temp 98.9, pulse is 84 to 100, blood pressure 200/91, respiratory 18 to 20. EKG sinus tachycardia, first degree heart block, right bundle branch block. He is cachetic. He has ftgd-qy-mqsxrhuq neurologic tremor. LUNGS: Show scattered rhonchi and wheeze x4. HEMATOLOGY: Negative Homans. PSYCH: Poor mood and affect. Chest x-ray shows infiltrate, pleural perfusion. BNP was 2270. Elevated troponin at 0.037. Lactic acid 1.4. Admitted with chronic obstructive pulmonary disease, community-acquired pneumonia, pulmonary edema, possible congestive heart failure. Cardiology, Pulmonary consults. Essential tremor, Parkinson's type tremor. Admit the patient. Pulmonary and cardiology consult. Rocephin, azithromycin IV. Please see further orders. MMODL / IJN: [id number] /
[2019-01-20 16:45] LABS: Glucose,Whole Blood 250 mg/dL (75-99)
--- NOTE | 2019-01-20 18:25 | CONS ---
CONSULTATION The patient is an 83-year-old male who presented to [facility] with increasing shortness of breath. He denied any fever or chills, bringing up a scant amount of sputum. He subsequently was seen in the ER and admitted for further evaluation and management. PAST MEDICAL HISTORY: Positive for severe asthma, COPD, bronchiectasis, history of previous asbestos exposure. Idiopathic pulmonary fibrosis, pulmonary hypertension, previous acute CA. FAMILY HISTORY: Positive for Parkinson disease in his mother. Father had history of back problems. MEDICATIONS: Prior to admission were calcium carbonate, aspirin, Daliresp, Lovaza, garlic, Feosol, vitamin D3, Advil, Zocor, DuoNeb, Restasis, Hytrin, Singulair, Proscar, Pristiq, Pulmicort, Tenormin, prednisone, Provigil, Mysoline, carbidopa, levodopa, Cialis, Serevent Diskus. REVIEW OF SYSTEMS: Noncontributory. PHYSICAL EXAMINATION: Respiratory rate 18, pulse rate of 85, temperature 98.2, blood pressure 186/70, O2 saturation on room air is 95%. HEENT: Unremarkable. Chest reveals decreased breath sounds. Prolonged expiration with expiratory wheezes. Scattered basal crackles. Cardiovascular system: S1, S2. Abdomen is soft. There is trace pedal edema. LABORATORY DATA: White count is 9.8, hemoglobin of 13.3, sodium 144, potassium 4.9, chloride 106, bicarb 31. Influenza A and B are negative. Troponin is 0.037. NT proBNP is 2270. Albumin is 4.3. Chest x-ray shows mild cardiomegaly. Pulmonary vascular congestion with early pulmonary edema. Peribronchial cuffing. IMPRESSION: At this time: 1. Acute on chronic respiratory failure secondary to severe asthma with acute exacerbation. 2. Interstitial pulmonary fibrosis. 3. Congestive heart failure. 4. Pulmonary hypertension. At this point in time, would keep him on his current medications. Keep him on IV steroids, antibiotics, keep him on GI and DVT prophylaxis. Continue bronchodilators. His prognosis is guarded. MMODL / IJN: [id number] /
[2019-01-20] MEDS: BUDESONIDE 0.5 MG/2 ML NEBU INHALATION SCH (19:10)
[2019-01-20 19:44] LABS: Glucose,Whole Blood 182 mg/dL (75-99)
[2019-01-20] MEDS: HEPARIN SODIUM,PORCINE 5,000 UNIT/ML 1 ML VIAL SQ SCH (21:47)
[2019-01-20] MEDS: FAMOTIDINE 20 MG TAB PO SCH (21:47)
[2019-01-20] MEDS: ATORVASTATIN 20 MG TAB PO SCH (21:47)
[2019-01-21] MEDS: methylPREDNISolone SOD SUCCI 125 MG/2 ML VIAL IV SCH (05:40)
[2019-01-21] MEDS: BUDESONIDE 0.5 MG/2 ML NEBU INHALATION SCH ×2 (07:22→20:11)
[2019-01-21] MEDS: IPRATROPIUM-ALBUTEROL 3 ML NEB INHALATION SCH ×4 (07:22→20:11)
[2019-01-21 07:38] LABS: Glucose,Whole Blood 138 mg/dL (75-99)
[2019-01-21] MEDS ORDERED: AZITHROMYCIN 500 MG in SODIUM CHLORIDE 0.9% 250 ML IVPB SCH (09:00)
--- NOTE | 2019-01-21 09:22 | P.PN ---
Subjective Progress Note Date: 01/21/19 01/21/2019: Patient seen and examined. Patient states he is feeling better overall. He states he did have his oxygen off for a few minutes and he didn't realize it. He did put the oxygen back on and he is currently on 4 L nasal cannula. His O2 saturation is 100%. His O2 is down to 3 L nasal cannula. He does complain of a cough which he states is improving. He denies fevers and chills. The patient does wear 3-4 L nasal cannula at baseline at home. Objective - Vital Signs Vital signs: Vital Signs Temp 97.4 F L 01/21/19 01:00 Pulse 72 01/21/19 07:35 Resp 15 01/21/19 01:00 BP 151/68 01/21/19 02:57 Pulse Ox 99 01/21/19 01:00 Intake & Output 01/20/19 01/21/19 01/21/19 18:59 06:59 18:59 Intake Total 640 Output Total 400 200 Balance -400 440 Weight 62.2 kg Intake: Oral 100 Blood Product 540 Output: Urine 400 200 Other: Voiding Method Toilet Urinal # Voids 4 - Exam Gen.: Patient is alert and oriented 3, no acute distress Cardiovascular: Regular rate and rhythm, S1/S2 Lungs: Diminished breath sounds bilaterally Abdomen: Soft nontender nondistended positive bowel sounds Extremities: No edema - Labs CBC & Chem 7: 01/20/19 05:10 01/20/19 05:10 Labs: Abnormal Lab Results - Last 24 Hours (Table) 01/20/19 01/20/19 01/20/19 Range/Units 12:10 16:34 19:30 POC Glucose (mg/dL) 160 H 250 H 182 H (75-99) mg/dL 01/21/19 Range/Units 07:25 POC Glucose (mg/dL) 138 H (75-99) mg/dL Microbiology - Last 24 Hours (Table) 01/20/19 05:30 Blood Culture - Preliminary Blood No Growth after 24 hours Assessment and Plan Assessment: Acute on chronic hypoxic respiratory failure Acute exacerbation of severe persistent asthma and COPD Interstitial pulmonary fibrosis Congestive heart failure Severe pulmonary hypertension Bronchiectasis Purulent tracheobronchitis Parkinson's disease Hypertension Dyslipidemia Anemia O2 to maintain saturation greater than or equal to 90% Steroid taper Antibiotics: Azithromycin and Rocephin Pulmicort Duo nebs Singulair Mucinex and flutter therapy GI and DVT prophylaxis: Heparin and Pepcid Incentive spirometry and pulmonary hygiene Patient to continue vest therapy at home
[2019-01-21] MEDS: INSULIN ASPART (NovoLOG) 100 UNIT/ML VIAL SQ SCH ×4 (09:48→20:50)
[2019-01-21] MEDS: CALCIUM CARBONATE 500 MG CHEWABLE PO SCH ×2 (09:49→21:48)
[2019-01-21] MEDS: HEPARIN SODIUM,PORCINE 5,000 UNIT/ML 1 ML VIAL SQ SCH ×2 (09:49→21:48)
[2019-01-21] MEDS: FUROSEMIDE 10 MG/ML 4 ML VIAL IV SCH ×2 (09:49→21:48)
[2019-01-21] MEDS: PRIMIDONE 50 MG TAB PO SCH ×3 (09:49→21:48)
[2019-01-21] MEDS: CARBIDOPA-LEVODOPA 25-100 MG 1 EACH TAB PO SCH ×3 (09:50→21:48)
[2019-01-21] MEDS: ASPIRIN 81 MG PO SCH (09:50)
[2019-01-21] MEDS: CIALIS 5 MG PO SCH (09:50)
[2019-01-21] MEDS: ATENOLOL 12.5 MG TAB PO SCH ×2 (09:50→21:48)
[2019-01-21] MEDS: MONTELUKAST 10 MG TAB PO SCH (09:50)
[2019-01-21] MEDS: DOXAZOSIN 4 MG TAB PO SCH (09:50)
[2019-01-21] MEDS: FAMOTIDINE 20 MG TAB PO SCH (09:50)
[2019-01-21 12:10] LABS: Glucose,Whole Blood 117 mg/dL (75-99)
[2019-01-21] MEDS ORDERED: amLODIPine 5 MG TAB PO SCH (13:45)
--- NOTE | 2019-01-21 13:46 | P.CRDCN ---
History of Present Illness History of present illness: This is a pleasant 83-year-old male past medical history significant for COPD on home oxygen, hypertension, dyslipidemia, chronic kidney disease and mild non-obstructive coronary artery disease per catheterization in 1998. He follows in the office with Dr. Méndez. We have been asked to see him in consultation for heart failure. He presented to the hospital early yesterday morning with symptoms of increasing shortness of breath and cough. He states he is on oxygen at home, however he couldn't seem to catch his breath. His cough is productive of yellow sputum, denies fever/chills at home. He denies chest pain, palpitations, dizziness, PND or orhopnea. He states he has had some difficulty sleeping the last 2 nights but that was due to coughing keeping him awake. He has been started on IV lasix since admission. He is seen and examined laying flat in bed in no acute distress. He states his breathing hasn't really improved since admission but hasn't gotten worse either. He has also been started on antibiotics and is being treated for pneumonia with acute exacerbation of COPD. Echocardiogram obtained reveals severely dilated left atrium, mild-moderate MR, mild-moderate TR, moderate pulmonary hypertension with RVSP 64.95 mmHg. This shows worsening valvular heart disease and pulmonary hypertension when compared to previous echo from 2017. EKG reveals right bundle branch block and left anterior fascicular block with first-degree AV block heart rate 101. Chest x-ray reveals prominent pulmonary arteries suggesting pulmonary hypertension that is worsened from prior study. Mild pulmonary vascular congestion, peribronchial cuffing, infectious versus intact inflammatory airway disease and small left pleural effusion. Laboratory data reviewed, WBC 9.8, hemoglobin 13.3, platelets 180, sodium 144, potassium 4.9, creatinine 1.07, NT proBNP 2270, troponin on admission 0.037. Current cardiac medications include aspirin 81 mg daily, simvastatin 40 mg daily , atenolol 12.5 mg twice a day. At the time of my exam: CONSTITUTIONAL: Denies fever. Denies chills. EYES: Denies blurred vision. Denies vision changes. Denies eye pain. EARS, NOSE, MOUTH & THROAT: Denies headache. Denies sore throat. Denies ear pain. CARDIOVASCULAR: Denies chest pain. Complains of shortness of breath. Denies orthopnea. Denies PND. Denies palpitations. RESPIRATORY: Complains of cough. GASTROINTESTINAL: Denies abdominal pain. Denies diarrhea. Denies constipation. Denies nausea. Denies vomiting. MUSCULOSKELETAL: Denies myalgias. INTEGUMENTARY: Denies pruitis. Denies rash. NEUROLOGIC: Denies numbness. Denies tingling. Denies weakness. PSYCHIATRIC: Denies anxiety. Denies depression. ENDOCRINE: Denies fatigue. Denies weight change. Denies polydipsia. Denies polyurina. GENITOURINARY: Denies burning, hematuria or urgency with micturation. HEMATOLOGIC: Denies history of anemia. Denies bleeding. Blood pressure 172/66 heart rate 69 afebrile maintaining oxygen saturation on room air GENERAL: This is a 83-year-old male in no apparent distress at the time of my examination. HEENT: Head is atraumatic, normocephalic. Pupils are equal, round. Sclerae anicteric. Conjunctivae are clear. Mucous membranes of the mouth are moist. Neck is supple. There is no jugular venous distention. No carotid bruit is heard. LUNGS: Bibasilar rales, faint expiratory wheezes, no rhonchi. No chest wall tenderness is noted on palpation or with deep breathing. HEART: Regular rate and rhythm with systolic ejection murmur at the left sternal border, no rubs or gallops. S1 and S2 heard. Distant heart sounds. ABDOMEN: Soft, nontender. Bowel sounds are heard. No organomegaly noted. EXTREMITIES: No evidence of peripheral edema and no calf tenderness noted. VASCULAR: Radial and dorsalis pedis pulses palpated, no evidence of clubbing. NEUROLOGIC: Patient is awake, alert and oriented x3. ASSESSMENT Acute right sided heart failure Pulmonary hypertension, RVSP 64.9 Acute exacerbation of COPD Hypertension, uncontrolled Dyslipidemia Chronic kidney disease Mild non-obstructive coronary artery disease 1999 catheterization Parkinson's disease PLAN Continue current dose of IV lasix. Repeat kidney function and electrolytes in the morning. Add on small dose of amlodipine 5 mg daily for better blood pressure control. Document intake and output along with daily weight. Further recommendations to follow based on clinical course. Thank you kindly for this consultation. Nurse Practitioner note has been reviewed, I agree with a documented findings and plan of care. Patient was seen and examined. Past Medical History Past Medical History: Asthma, COPD, Eye Disorder, Hyperlipidemia, Hypertension, Prostate Disorder, Renal Disease, Respiratory Disorder Additional Past Medical History / Comment(s): Home O2 at 3.5-4L/NC ATC, bronchitis, hyperglu=ycemia d/t chronic steroid use, chronic tremors-etiology unknown to pt, chronic low back pain, nephrolithiasis-has passed stones on his own and also surgically removed, BPH, bilateral glaucoma, L ankle torn tendon, L foot drop Last Myocardial Infarction Date:: unknown History of Any Multi-Drug Resistant Organisms: None Reported Past Surgical History: Back Surgery, Cholecystectomy, Heart Catheterization Additional Past Surgical History / Comment(s): Lumbar laminectomy, lithotripsy, colonoscopy, bilateral cataract removals. Past Anesthesia/Blood Transfusion Reactions: No Reported Reaction, Previous Problems w/ Anesthesia Additional Past Anesthesia/Blood Transfusion Reaction / Comment(s): woke up during anesthesia x1 Smoking Status: Former smoker - Past Family History Mother Family Medical History: Musculoskeletal Disorder, Neurologic Disorder Additional Family Medical History / Comment(s): Mother had parkinsons. Father Additional Family Medical History / Comment(s): Father had back problems. He in a MVA at the age of 62 yrs. Medications and Allergies Home Medications Medication Instructions Recorded Confirmed Type Aspirin 81 mg PO HS 03/24/14 01/20/19 History Atenolol [Tenormin] 12.5 mg PO BID 03/24/14 01/20/19 History Desvenlafaxine Succinate [Pristiq 50 mg PO DAILY 03/24/14 01/20/19 History ER] Finasteride [Proscar] 5 mg PO DAILY 03/24/14 01/20/19 History Garlic 1 tab PO TID 03/24/14 01/20/19 History [place]-3 Acid Ethyl Esters [Lovaza] 4 gm PO DAILY 03/24/14 01/20/19 History Salmeterol Xinafoate [Serevent 1 puff INHALATION RT-BID 03/24/14 01/20/19 History Diskus] Simvastatin [Zocor] 40 mg PO DAILY 03/24/14 01/20/19 History Terazosin [Hytrin] 2 mg PO BID 03/24/14 01/20/19 History Primidone [Mysoline] 100 mg PO TID 04/20/17 01/20/19 History Roflumilast [Daliresp] 500 mcg PO DAILY 04/20/17 01/20/19 History Calcium Carbonate [Calcium] 600 mg PO DAILY 09/13/17 01/20/19 History Cholecalciferol [Vitamin D3] 5,000 unit PO DAILY 09/13/17 01/20/19 History Ferrous Sulfate [Feosol] 325 mg PO DAILY 09/13/17 01/20/19 History Montelukast [Singulair] 10 mg PO DAILY 09/13/17 01/20/19 History cycloSPORINE 0.05% OPHTH SOLN 1 drop BOTH EYES BID 09/13/17 01/20/19 History [Restasis] predniSONE 10 mg PO DAILY 09/13/17 01/20/19 History Ipratropium-Albuterol Nebulize 3 ml INHALATION RT-TID 12/20/17 01/20/19 History [Duoneb 0.5 mg-3 mg/3 ml Soln] Budesonide [Pulmicort] 0.5 mg INHALATION RT-BID 03/09/18 01/20/19 History Carbidopa-Levodopa 25-100 mg 1 tab PO TID 03/09/18 01/20/19 History [Sinemet 25-100] Tadalafil [Cialis] 5 mg PO DAILY 03/09/18 01/20/19 History Ibuprofen [Advil] 400 mg PO Q6H PRN 01/20/19 01/20/19 History Modafinil [Provigil] 200 mg PO DAILY 01/20/19 01/20/19 History Allergies Allergy/AdvReac Type Severity Reaction Status Date / Time No Known Allergies Allergy Verified 01/20/19 07:05 Physical Exam Vitals: Vital Signs Temp Pulse Pulse Resp BP Pulse Ox 01/21/19 11:10 72 01/21/19 11:03 68 01/21/19 09:44 98.3 F 69 16 172/66 100 01/21/19 07:35 72 01/21/19 07:24 75 01/21/19 02:57 151/68 01/21/19 01:00 97.4 F L 61 15 182/72 99 01/21/19 00:00 15 01/20/19 20:40 98.5 F 65 18 148/65 99 01/20/19 19:25 70 18 01/20/19 19:12 68 18 01/20/19 15:42 66 16 01/20/19 15:30 67 16 99 01/20/19 14:29 98.1 F 59 L 167/70 98 01/20/19 11:35 90 Intake and Output 01/20/19 01/21/19 01/21/19 22:59 06:59 14:59 Intake Total 100 540 Output Total 200 Balance -100 540 Intake: Oral 100 Blood Product 540 Output: Urine 200 Other: Voiding Method Toilet Urinal # Voids 4 Weight 62.2 kg Results 01/20/19 05:10 01/20/19 05:10 Current Medications Generic Name Dose Route Start Last Admin Trade Name Freq PRN Reason Stop Dose Admin Albuterol Sulfate 2.5 mg 01/20/19 06:39 Ventolin Nebulized INHALATION RT-Q2H PRN Shortness Of Breath Or Wheezing Albuterol/Ipratropium 3 ml 01/20/19 06:38 Duoneb 0.5 Mg-3 Mg/3 Ml Soln INHALATION RT-Q4H PRN Shortness Of Breath Or Wheezing Albuterol/Ipratropium 3 ml 01/20/19 08:00 01/21/19 11:02 Duoneb 0.5 Mg-3 Mg/3 Ml Soln INHALATION 3 ml RT-QID SERA Administration Aspirin 81 mg 01/20/19 09:00 01/21/19 09:50 Aspirin PO 81 mg DAILY SERA Administration Atenolol 12.5 mg 01/20/19 09:00 01/21/19 09:50 Tenormin PO 12.5 mg BID SERA Administration Atorvastatin Calcium 20 mg 01/20/19 21:00 01/20/19 21:47 Lipitor PO 20 mg HS SERA Administration Budesonide 0.5 mg 01/20/19 20:00 01/21/19 07:22 Pulmicort INHALATION 0.5 mg RT-BID SERA Administration Calcium Carbonate/Glycine 500 mg 01/20/19 09:00 01/21/19 09:49 Tums PO 500 mg BID SERA Administration Carbidopa/Levodopa 1 each 01/20/19 09:00 01/21/19 09:50 Sinemet 25-100 PO 1 each TID SERA Administration Doxazosin Mesylate 4 mg 01/20/19 09:00 01/21/19 09:50 Cardura PO 4 mg DAILY SERA Administration Famotidine 20 mg 01/20/19 21:00 01/21/19 09:50 Pepcid PO 20 mg BID SERA Administration Furosemide 40 mg 01/20/19 09:00 01/21/19 09:49 Lasix IV 40 mg Q12HR SERA Administration Heparin Sodium (Porcine) 5,000 unit 01/20/19 21:00 01/21/19 09:49 Heparin SQ 5,000 unit Q12HR SERA Administration Azithromycin 500 mg/ Sodium 250 mls @ 250 mls/hr 01/21/19 09:00 Chloride IVPB DAILY [facility] Ceftriaxone Sodium 1 gm/ 50 mls @ 100 mls/hr 01/20/19 21:00 01/21/19 09:49 Sodium Chloride IVPB 100 mls/hr Q12HR SERA Administration Insulin Aspart 0 unit 01/20/19 12:30 01/21/19 09:48 Novolog SQ Not Given ACHS [facility] Protocol Methylprednisolone Sodium Succinate 40 mg 01/21/19 16:00 Solu-Medrol IV Q8HR [facility] Montelukast Sodium 10 mg 01/20/19 09:00 01/21/19 09:50 Singulair PO 10 mg DAILY [facility]A Administration Cialis 5mg 5 mg 01/20/19 09:00 01/21/19 09:50 PO Not Given DAILY [facility] Primidone 100 mg 01/20/19 09:00 01/21/19 09:49 Mysoline PO 100 mg TID SERA Administration Intake and Output 01/20/19 01/21/19 01/21/19 22:59 06:59 14:59 Intake Total 100 540 Output Total 200 Balance -100 540 Intake: Oral 100 Blood Product 540 Output: Urine 200 Other: Voiding Method Toilet Urinal # Voids 4 Weight 62.2 kg 01/20/19 05:10 01/20/19 05:10
[2019-01-21 17:07] LABS: Glucose,Whole Blood 167 mg/dL (75-99)
--- NOTE | 2019-01-21 17:35 | PN ---
PROGRESS NOTE CHIEF COMPLAINT: Vnjlpg-dxzio-cjdz-old white male says he is feeling a little bit better than yesterday. He is still on 4 liters of oxygen. Oxygen is down to 100% on 3 to 4 L. Temperature 97.4, pulse 70s, respiratory rate 16-25, blood pressure 150s over 60s. CARDIOVASCULAR: S1, S2. LUNGS: Scattered wheeze x4. Decreased breath sounds x4. EXTREMITIES: No edema. NEUROLOGIC: Alert and oriented x3. ASSESSMENT: 1. Chronic obstructive pulmonary disease exacerbation. 2. Pulmonary fibrosis. 3. Congestive heart failure. 4. Severe pulmonary hypertension. 5. Bronchiectasis. 6. Tracheobronchitis. 7. Parkinson's disease. Continue on home medications. 8. Hypertension. 9. Anemia. 10.Dyslipidemia. 11.Benign prostatic hypertrophy. Continue on home medications. 12.Hypercholesterolemia. Treat with home medications. 13.Chronic renal disease. Continue home medications. Continue on DuoNeb, Pulmicort, Rocephin, Zithromax, flutter therapy. Possible treatment at home. Possible discharge home in the next 48 hours. This patient remains on IV Solu-Medrol. Await cardiology recommendations, also. MMODL / IJN: [id number] /
[2019-01-21] MEDS: methylPREDNISolone SOD SUCCI 40 MG/ML 1 ML VIAL IV SCH (18:08)
[2019-01-21 20:23] LABS: Glucose,Whole Blood 108 mg/dL (75-99)
[2019-01-21] MEDS: ATORVASTATIN 20 MG TAB PO SCH (21:48)
[2019-01-22] MEDS: methylPREDNISolone SOD SUCCI 40 MG/ML 1 ML VIAL IV SCH ×2 (00:44→10:43)
[2019-01-22 07:40] LABS: Glucose,Whole Blood 125 mg/dL (75-99)
[2019-01-22] MEDS: BUDESONIDE 0.5 MG/2 ML NEBU INHALATION SCH ×2 (09:27→20:40)
[2019-01-22] MEDS: IPRATROPIUM-ALBUTEROL 3 ML NEB INHALATION SCH ×4 (09:27→20:40)
[2019-01-22] MEDS: FUROSEMIDE 10 MG/ML 4 ML VIAL IV SCH (10:43)
[2019-01-22] MEDS: INSULIN ASPART (NovoLOG) 100 UNIT/ML VIAL SQ SCH ×4 (10:43→22:08)
[2019-01-22] MEDS: HEPARIN SODIUM,PORCINE 5,000 UNIT/ML 1 ML VIAL SQ SCH (10:43)
[2019-01-22] MEDS: AZITHROMYCIN 500 MG TAB PO SCH (10:44)
[2019-01-22] MEDS: ATENOLOL 12.5 MG TAB PO SCH (10:44)
[2019-01-22] MEDS: CALCIUM CARBONATE 500 MG CHEWABLE PO SCH ×2 (10:45→22:07)
[2019-01-22] MEDS: ASPIRIN 81 MG PO SCH (10:45)
[2019-01-22] MEDS: PRIMIDONE 50 MG TAB PO SCH ×3 (10:45→22:07)
[2019-01-22] MEDS: MONTELUKAST 10 MG TAB PO SCH (10:45)
[2019-01-22] MEDS: CARBIDOPA-LEVODOPA 25-100 MG 1 EACH TAB PO SCH ×3 (10:45→22:08)
[2019-01-22] MEDS: FAMOTIDINE 20 MG TAB PO SCH (10:45)
[2019-01-22] MEDS: DOXAZOSIN 4 MG TAB PO SCH (10:45)
[2019-01-22] MEDS: amLODIPine 10 MG TAB PO SCH (10:48)
[2019-01-22] MEDS: CIALIS 5 MG PO SCH (10:48)
[2019-01-22 12:11] LABS: Glucose,Whole Blood 84 mg/dL (75-99)
--- NOTE | 2019-01-22 12:41 | CDI ---
Documentation Clarification Form Date: 01/22/2019 12:30:04 PM From: Zuleyma Magaña CCS, CCDS Admit Date: 01/20/2019 6:38:00 AM Patient Name: Sharif Mota Visit Number: [id number] Discharge Date: ATTENTION: The Clinical Documentation Specialists (CDI) and [facility] Coding Staff appreciate your assistance in clarifying documentation. Please respond to the clarification below the line at the bottom and electronically sign. The CDI & [facility] Coding staff will review the response and follow-up if needed. Please note: Queries are made part of the Legal Health Record. If you have any questions, please contact the author of this message via ITS. Dr. Giovanni Ashby: Per the Cardiology Consult: "We have been asked to see him in consultation for heart failure. Acute right sided heart failure." History/Risk Factors: COPD on 5L O2 at home, Hyperlipidemia, Hypertension, BPH, Parkinson's, CKD, CAD & smoker. Clinical Indicators: Presented with worsening cough & dyspnea, no improvement with home respiratory treatment: O2 & inhaled steroids. VS: P 100, R 24 (sob, labored, accessory use, cough, retractive, tachypnea pattern), BP 200/91, PO 88 5Lnc. BNP: 2270 Echocardiogram Results: Systolic normal, EF >55%, mild aortic valve sclerosis, Mild-mod MR, mild-mod TR, mod pulmonary hypertension, trivial pericardial effusion. Chest X Ray: Mild cardiomegaly, Mild pulmonary vascular congestion/pulmonary edema, Small left pleural effusion resulting in compressive atelectasis. Treatment: Albuterol neb INH, Atrovent neb INH, IV Solumedrol, IV Azithromycin , IV Rocephin, IV Lasix 40 mg, O2 5L. In your professional opinion, can you please clarify the acuity of CHF if known? Diastolic Heart Failure: o Acute o Chronic o Acute on Chronic Unable to Determine Other, please specify (Last Revision: February 2018) MTDD
[2019-01-22] MEDS ORDERED: ATENOLOL 12.5 MG TAB PO STA (13:40)
--- NOTE | 2019-01-22 14:03 | PN ---
PROGRESS NOTE DATE OF SERVICE: 01/22/2019 He has been doing significantly better overall. PHYSICAL EXAMINATION: His blood pressure is 163/66, respiratory rate of 16, pulse rate of 60, temperature 97.9, O2 SAT on room is 99%. HEENT is unremarkable. Chest reveals prolonged expiration. Occasional crackles. Cardiovascular system reveals an S1, S2. Abdomen is soft. There is no pedal edema. IMPRESSION: 1. Acute on chronic respiratory failure secondary to severe persistent asthma and COPD with acute exacerbation. 2. Interstitial fibrosis. 3. Congestive heart failure. 4. Pulmonary hypertension. Switch him to oral steroids and antibiotics, increase his activity level. Depending on how he does, we shall make further changes to his care. MMODL / IJN: [id number] /
--- NOTE | 2019-01-22 14:28 | P.PN ---
Subjective This is a pleasant 83-year-old male past medical history significant for COPD on home oxygen, hypertension, dyslipidemia, chronic kidney disease and mild non-obstructive coronary artery disease per catheterization in 1998. He follows in the office with Dr. Méndez. He is seen and examined laying flat resting comfortably in bed. He states overall he is starting to feel better but not back to baseline. Telemetry tracings indicate he is in atrial flutter. Review of the records indicate this is a new diagnosis. He denies chest pain, palpitations or dizziness. Blood pressure continues to be elevated 163/66 with heart rate of 68. Weight is down 4 kg from admission. GENERAL: This is a 83-year-old male in no apparent distress at the time of my examination. HEENT: Head is atraumatic, normocephalic. Pupils are equal, round. Sclerae anicteric. Conjunctivae are clear. Mucous membranes of the mouth are moist. Neck is supple. There is no jugular venous distention. No carotid bruit is heard. LUNGS: Faint rales noted intermittently, no wheezes or rhonchi. No chest wall tenderness is noted on palpation or with deep breathing. HEART: Regular rate and rhythm with systolic ejection murmur at the left sternal border, no rubs or gallops. S1 and S2 heard. Distant heart sounds. EXTREMITIES: No evidence of peripheral edema and no calf tenderness noted. ASSESSMENT Acute on chronic diastolic heart failure due right sided heart failure, EF 55% New onset typical atrial flutter with 3:1 conduction, stable Pulmonary hypertension, RVSP 64.9 Acute exacerbation of COPD Hypertension, uncontrolled Dyslipidemia Chronic kidney disease Mild non-obstructive coronary artery disease 1998 catheterization Parkinson's disease PLAN Initiate the patient on anti-coagulation in the form of Eliquis 2.5 mg BID. Increase atenolol to 25 mg BID, give additional dose of 12.5 mg now. Transition to oral diuretics. Repeat chest xray in the morning. Check TSH. Further recommendations to follow based upon clinical course. Nurse Practitioner note has been reviewed, I agree with a documented findings and plan of care. Patient was seen and examined. Objective - Vital Signs Vital signs: Vital Signs Temp 97.9 F 01/22/19 07:35 Pulse 72 01/22/19 12:25 Resp 16 01/22/19 07:35 BP 163/66 01/22/19 07:35 Pulse Ox 99 02/27/19 07:35 Intake & Output 01/21/19 01/22/19 01/22/19 18:59 06:59 18:59 Intake Total 590 Output Total 1000 Balance -410 Weight 61.6 kg Intake: Intake, IV Titration 50 Amount cefTRIAXone 1 gm In 50 Sodium Chloride 0.9% 50 ml @ 100 mls/hr IVPB Q12HR [facility] Rx#:[id number] Oral 540 Output: Urine 1000 Other: Voiding Method Toilet Urinal # Voids 2 1 - Labs CBC & Chem 7: 01/20/19 05:10 01/20/19 05:10 Labs: Abnormal Lab Results - Last 24 Hours (Table) 01/21/19 01/21/19 01/22/19 Range/Units 16:55 20:10 07:28 POC Glucose (mg/dL) 167 H 108 H 125 H (75-99) mg/dL Microbiology - Last 24 Hours (Table) 01/20/19 05:30 Blood Culture - Preliminary Blood No Growth after 48 hours
[2019-01-22] MEDS ORDERED: RX INFO: IV CONTRAST WAS GIVEN 1 EACH MISC MISCELLANE PRN (14:37)
[2019-01-22 15:58] LABS: Potassium 4.4 mmol/L (3.5-5.1)
--- NOTE | 2019-01-22 16:09 | PN ---
PROGRESS NOTE SUBJECTIVE: Hrvtfy-vgebx-fndd-old white male. He is doing better. He is breathing better. Remains on broad-spectrum antibiotics. His blood pressure is 163/66, respiratory rate 12-16, pulse 50s to 60s, temperature 97.9, oxygen 99%. HEENT: Normocephalic, atraumatic. Lungs are clear. HEART: S1, S2. Abdomen is soft. No pedal edema. ASSESSMENT: 1. Acute on chronic respiratory failure secondary to chronic obstructive pulmonary disease exacerbation. 2. Tracheobronchitis versus pneumonia. 3. Pulmonary hypertension. 4. Congestive heart failure. 5. Interstitial fibrosis. 6. Parkinson's. Possible oral steroids and antibiotics. Possible discharge home tomorrow. MMODL / IJN: [id number] /
[2019-01-22] MEDS: APIXABAN 2.5 MG TABLET PO SCH ×2 (16:53→22:10)
[2019-01-22] MEDS: predniSONE 20 MG TAB PO SCH (16:53)
[2019-01-22] MEDS: FUROSEMIDE 40 MG TAB PO SCH (16:53)
[2019-01-22 16:54] LABS: T4, Free (Free Thyroxine) 1.91 ng/dL (0.78-2.19)
[2019-01-22 17:02] LABS: Glucose,Whole Blood 144 mg/dL (75-99)
--- NOTE | 2019-01-22 19:04 | CT ---
EXAMINATION TYPE: CT chest w con DATE OF EXAM: 01/22/2019 COMPARISON: 03/09/2018 HISTORY: Shortness of breath CT DLP: 249.5 mGycm Automated exposure control for dose reduction was used. CONTRAST: CT scan of the chest is performed with IV Contrast, patient injected with 100 mL of Isovue 300. FINDINGS: There is diffuse pulmonary emphysema. There is left lower lobe infiltrate and left pleural effusion. There is small pericardial effusion. There is no mediastinal adenopathy. There are no hilar masses. Thoracic aorta shows mild atheromatous change. There is no evidence of thoracic aortic aneurysm or dissection. There is no evidence of a pu lmonary mass. I see no bony destructive process. There is mild spurring in the thoracic spine. IMPRESSION: Emphysema. No suspicious pulmonary mass. There is a chronic mild infiltrate left lower l obe. There is no increase in pulmonary density compared to old exam. There is a new small left pleura l effusion. There is new small pericardial effusion.
[2019-01-22 20:17] LABS: Glucose,Whole Blood 208 mg/dL (75-99)
[2019-01-22] MEDS: ATORVASTATIN 20 MG TAB PO SCH (22:07)
[2019-01-22] MEDS: ATENOLOL 25 MG TAB PO SCH (22:07)
[2019-01-22] MEDS: CEFDINIR 300 MG CAP PO SCH (22:08)
[2019-01-23 07:34] LABS: Glucose,Whole Blood 110 mg/dL (75-99)
[2019-01-23] MEDS: INSULIN ASPART (NovoLOG) 100 UNIT/ML VIAL SQ SCH ×5 (08:55→22:22)
[2019-01-23] MEDS: IPRATROPIUM-ALBUTEROL 3 ML NEB INHALATION SCH ×4 (08:59→20:16)
[2019-01-23] MEDS: BUDESONIDE 0.5 MG/2 ML NEBU INHALATION SCH ×2 (08:59→20:16)
--- NOTE | 2019-01-23 09:04 | XR ---
EXAMINATION TYPE: XR chest 2V DATE OF EXAM: 01/23/2019 COMPARISON: 01/20/2019 TECHNIQUE: PA and lateral views submitted. HISTORY: Shortness of breath FINDINGS: The lungs are clear and there is no pneumothorax, pleural effusion, or focal pneumonia. Prominence of the left atrium or hilum. Vague nodular density measuring 7 mm left upper lobe. Hyperinflation sug gests COPD. Chronic appearing interstitial lung disease suspected in there is persistent left lower l obe infiltrate and small effusion with tiny right effusion. Hypertrophic and degenerative change of t he spine. IMPRESSION: 1. COPD with bilateral small effusion and basilar atelectasis or infiltrate. Underlying chronic inter stitial lung disease suspected. Superimposed acute interstitial pneumonitis or congestion not exclude d. 2. Vague 7 to 8 mm nodule left upper lobe. This was not clearly depicted by recent CT scan and may re present superimposed structures recommended evaluation with follow-up chest x-ray on short-term basis .
[2019-01-23] MEDS: CALCIUM CARBONATE 500 MG CHEWABLE PO SCH ×2 (09:05→22:19)
[2019-01-23] MEDS: FUROSEMIDE 40 MG TAB PO SCH ×2 (09:05→15:56)
[2019-01-23] MEDS: ASPIRIN 81 MG PO SCH (09:06)
[2019-01-23] MEDS: APIXABAN 2.5 MG TABLET PO SCH ×2 (09:06→22:19)
[2019-01-23] MEDS: MONTELUKAST 10 MG TAB PO SCH (09:06)
[2019-01-23] MEDS: CARBIDOPA-LEVODOPA 25-100 MG 1 EACH TAB PO SCH ×3 (09:06→22:19)
[2019-01-23] MEDS: FAMOTIDINE 20 MG TAB PO SCH (09:06)
[2019-01-23] MEDS: amLODIPine 10 MG TAB PO SCH (09:06)
[2019-01-23] MEDS: CEFDINIR 300 MG CAP PO SCH ×2 (09:06→22:18)
[2019-01-23] MEDS: PRIMIDONE 50 MG TAB PO SCH ×3 (09:06→22:19)
[2019-01-23] MEDS: ATENOLOL 25 MG TAB PO SCH (09:06)
[2019-01-23] MEDS: DOXAZOSIN 4 MG TAB PO SCH (09:06)
[2019-01-23] MEDS: predniSONE 20 MG TAB PO SCH (09:06)
[2019-01-23] MEDS: AZITHROMYCIN 500 MG TAB PO SCH (09:06)
[2019-01-23] MEDS: CIALIS 5 MG PO SCH (09:07)
[2019-01-23 10:30] LABS: Potassium 4.4 mmol/L (3.5-5.1)
[2019-01-23 10:31] LABS: Calcium 10.3 mg/dL (8.4-10.2)
--- NOTE | 2019-01-23 10:55 | PN ---
PROGRESS NOTE DATE OF SERVICE: 01/23/2019 He has been hemodynamically somewhat unstable with an episode of bradycardia. His atenolol was held. He has been started on Eliquis. IMPRESSION: 1. Asthma with chronic obstructive pulmonary disease with acute exacerbation. 2. Atrial fibrillation with episode of bradycardia. 3. His pulmonary fibrosis. 4. Pulmonary hypertension. At this point in time, continue him on his current medications. Increase his activity level. Monitor his heart rate. Continue bronchodilators. If he is doing better tomorrow, will be able to start to taper his steroids with close outpatient followup. MMODL / IJN: [id number] /
[2019-01-23 11:57] LABS: Glucose,Whole Blood 126 mg/dL (75-99)
--- NOTE | 2019-01-23 14:07 | P.PN ---
Subjective This is a pleasant 83-year-old male past medical history significant for COPD on home oxygen, hypertension, dyslipidemia, chronic kidney disease and mild non-obstructive coronary artery disease per catheterization in 1998. He follows in the office with Dr. Méndez. He is seen and examined laying flat resting comfortably in bed sleeping. He denies significant shortness of breath at rest states he has not been out of bed in the previous 24 hours. He denies chest pain, dizziness or palpitations. He has been found to be in atrial flutter with a controlled ventricular response. Atenolol was increased yesterday however is causing some bradycardia heart rates in the 40-50 range. Morning dose of atenolol was held and we will decrease back down to 12.5 mg. Blood pressure 144/60. He underwent a CT of his chest last night revealing emphysema with no suspicious pulmonary mass, chronic mild infiltrate in the left lower lobe, no increase in pulmonary density compared to previous exam with a new small left pleural effusion. Chest x-ray reveals COPD with bilateral small effusions and basilar atelectasis or infiltrate. Underlying COPD suspected, superimposed acute interstitial pneumonitis or congestion is entirely occluded with a vague 78 mm nodule on the left upper lobe. This was not clearly depicted by the recent computed tomography scan and may represent superimposed structures. Recommend follow-up on a short-term basis. Laboratory data reviewed, sodium 142, potassium 4.4, CO2 41, creatinine 1.03, TSH 0.201 with a free T4 of 1.91. GENERAL: This is a 83-year-old male in no apparent distress at the time of my examination. HEENT: Head is atraumatic, normocephalic. Pupils are equal, round. Sclerae anicteric. Conjunctivae are clear. Mucous membranes of the mouth are moist. Neck is supple. There is no jugular venous distention. No carotid bruit is heard. LUNGS: No rales, wheezes or rhonchi. No chest wall tenderness is noted on palpation or with deep breathing. HEART: Regular rate and rhythm with systolic ejection murmur at the left sternal border, no rubs or gallops. S1 and S2 heard. Distant heart sounds. EXTREMITIES: No evidence of peripheral edema and no calf tenderness noted. 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 Increase activity and consider physical therapy evaluation. Check CBC in the morning. Expect he can be discharged home in the next 24 hours if he continues to remain stable. Nurse Practitioner note has been reviewed, I agree with a documented findings and plan of care. Patient was seen and examined. Objective - Vital Signs Vital signs: Vital Signs Temp 98.1 F 01/23/19 07:00 Pulse 68 01/23/19 12:31 Resp 17 01/23/19 07:00 BP 144/60 01/23/19 07:00 Pulse Ox 100 01/23/19 07:00 Intake & Output 01/22/19 01/23/19 01/23/19 18:59 06:59 18:59 Intake Total 540 Output Total 500 150 Balance 40 -150 Weight 62 kg Intake: Oral 540 Output: Urine 500 150 Other: # Voids 2 1 - Labs CBC & Chem 7: 01/20/19 05:10 01/23/19 09:47 Labs: Abnormal Lab Results - Last 24 Hours (Table) 01/22/19 01/22/19 01/22/19 Range/Units 14:49 16:50 20:00 Chloride 95 L (98-107) mmol/L Carbon Dioxide 38 H (22-30) mmol/L BUN 39 H (9-20) mg/dL Glucose 177 H (74-99) mg/dL POC Glucose (mg/dL) 144 H 208 H (75-99) mg/dL Calcium (8.4-10.2) mg/dL TSH 0.201 L (0.465-4.680) mIU/L 01/23/19 01/23/19 01/23/19 Range/Units 07:22 09:47 11:45 Chloride 97 L (98-107) mmol/L Carbon Dioxide 41 H* (22-30) mmol/L BUN 37 H (9-20) mg/dL Glucose 112 H (74-99) mg/dL POC Glucose (mg/dL) 110 H 126 H (75-99) mg/dL Calcium 10.3 H (8.4-10.2) mg/dL TSH (0.465-4.680) mIU/L Microbiology - Last 24 Hours (Table) 01/20/19 05:30 Blood Culture - Preliminary Blood No Growth after 72 hours
[2019-01-23 17:32] LABS: Glucose,Whole Blood 143 mg/dL (75-99)
[2019-01-23 17:33] LABS: Glucose,Whole Blood 143 mg/dL (75-99)
[2019-01-23 17:34] LABS: Glucose,Whole Blood 143 mg/dL (75-99)
[2019-01-23 17:36] LABS: Glucose,Whole Blood 143 mg/dL (75-99)
[2019-01-23 17:38] LABS: Glucose,Whole Blood 143 mg/dL (75-99)
[2019-01-23 20:15] LABS: Glucose,Whole Blood 210 mg/dL (75-99)
[2019-01-23] MEDS: ATORVASTATIN 20 MG TAB PO SCH (22:19)
[2019-01-24] MEDS: INSULIN ASPART (NovoLOG) 100 UNIT/ML VIAL SQ SCH ×2 (07:14→12:04)
[2019-01-24 07:17] LABS: Glucose,Whole Blood 119 mg/dL (75-99)
[2019-01-24 07:41] VITALS: BP 174/75; RESP 18; TEMP 97.7
[2019-01-24] MEDS: CARBIDOPA-LEVODOPA 25-100 MG 1 EACH TAB PO SCH (07:45)
[2019-01-24] MEDS: PRIMIDONE 50 MG TAB PO SCH (07:45)
[2019-01-24] MEDS: ASPIRIN 81 MG PO SCH (07:45)
[2019-01-24] MEDS: CALCIUM CARBONATE 500 MG CHEWABLE PO SCH (07:45)
[2019-01-24] MEDS: APIXABAN 2.5 MG TABLET PO SCH (07:45)
[2019-01-24] MEDS: FAMOTIDINE 20 MG TAB PO SCH (07:45)
[2019-01-24] MEDS: amLODIPine 10 MG TAB PO SCH (07:45)
[2019-01-24] MEDS: CEFDINIR 300 MG CAP PO SCH (07:46)
[2019-01-24] MEDS: FUROSEMIDE 40 MG TAB PO SCH (07:46)
[2019-01-24] MEDS: predniSONE 20 MG TAB PO SCH (07:46)
[2019-01-24] MEDS: MONTELUKAST 10 MG TAB PO SCH (07:46)
[2019-01-24] MEDS: DOXAZOSIN 4 MG TAB PO SCH (07:47)
[2019-01-24] MEDS: AZITHROMYCIN 500 MG TAB PO SCH (07:47)
[2019-01-24] MEDS: BUDESONIDE 0.5 MG/2 ML NEBU INHALATION SCH (08:58)
[2019-01-24] MEDS: IPRATROPIUM-ALBUTEROL 3 ML NEB INHALATION SCH ×2 (08:58→12:37)
[2019-01-24] MEDS ORDERED: ATENOLOL 12.5 MG TAB PO SCH (09:00)
[2019-01-24 09:16] LABS: HCT 45.4 % (39.0-53.0); HGB 14.4 gm/dL (13.0-17.5); MCH 33.7 pg (25.0-35.0); MCHC 31.6 g/dL (31.0-37.0); MCV 106.5 fL (80.0-100.0); Macrocytosis Moderate; Mean Platelet Volume 6.8; Platelet Count 274 k/uL (150-450); RBC 4.27 m/uL (4.30-5.90); RDW 14.5 % (11.5-15.5); WBC 6.9 k/uL (3.8-10.6)
[2019-01-24 09:54] LABS: Band Neutrophils % 2 %; Lymphocytes # (M) 1.38 k/uL (1.0-4.8); Metamyelocytes # (M) 0.14 k/uL (0); Metamyelocytes % 2 %; Monocytes # (M) 0.55 k/uL (0-1.0); Myelocytes # (M) 0.07 k/uL (0); Myelocytes % 1 %; Neutrophils % (M) 69 %; Nucleated Red Blood Cells 0 /100 WBC (0-0); Total Cells Counted 200
[2019-01-24] MEDS: CIALIS 5 MG PO SCH (10:24)
[2019-01-24 12:08] LABS: Glucose,Whole Blood 182 mg/dL (75-99)
[2019-01-24 12:40] VITALS: PULSE 68
--- NOTE | 2019-01-24 13:50 | PN ---
PROGRESS NOTE He was seen on 01/24/2019 He has been hemodynamically more stable. He is at his baseline as far as shortness of breath goes. His heart rate is in the 60s, respiratory rate of 18, temperature 97.7, blood pressure 174/75, O2 saturation on 4 L by nasal cannula is 100%. HEENT is unremarkable. Chest reveals prolonged expiration but no clear wheeze. Cardiovascular system reveals an S1, S2. Abdomen is soft. There is no pedal edema. IMPRESSION AT THIS TIME: 1. Asthma with acute exacerbation. 2. Chronic obstructive pulmonary disease. 3. Atrial fibrillation. 4. Pulmonary fibrosis. Agree with possible discharge planning on antibiotics with a short course of steroids in a tapering fashion. We will be happy to see him in the outpatient setting within the next few days. MMELIEZERL / FRANKIEN: [id number] /
== END 2019-01-24 14:49 | disposition home or self-care (01) | DRG 189 ==
LOC: EC 04:49 → 4SSUR 06:38
PROVIDERS: ADMIT Family Medicine; ATTEND Family Medicine
DX: J96.21 Acute and chronic respiratory failure with hypoxia (principal); I50.33 Acute on chronic diastolic (congestive) heart failure; J45.51 Severe persistent asthma with (acute) exacerbation; J44.1 Chronic obstructive pulmonary disease with (acute) exacerbation; E87.2 Acidosis; I13.0 Hypertensive heart and chronic kidney disease with heart failure and stage 1 through stage 4 chronic kidney disease, or unspecified chronic kidney disease; I45.2 Bifascicular block; I48.3 Typical atrial flutter; J98.11 Atelectasis; R64 Cachexia; J84.112 Idiopathic pulmonary fibrosis; D64.9 Anemia, unspecified; E78.00 Pure hypercholesterolemia, unspecified; E78.5 Hyperlipidemia, unspecified; F32.9 Major depressive disorder, single episode, unspecified; G20 Parkinson's disease; I25.10 Atherosclerotic heart disease of native coronary artery without angina pectoris; I27.20 Pulmonary hypertension, unspecified; I44.0 Atrioventricular block, first degree; I48.91 Unspecified atrial fibrillation; N18.9 Chronic kidney disease, unspecified; N40.0 Benign prostatic hyperplasia without lower urinary tract symptoms; Z77.090 Contact with and (suspected) exposure to asbestos; Z79.52 Long term (current) use of systemic steroids; Z79.82 Long term (current) use of aspirin; Z79.899 Other long term (current) drug therapy; Z82.0 Family history of epilepsy and other diseases of the nervous system; Z87.891 Personal history of nicotine dependence; Z99.81 Dependence on supplemental oxygen; R91.1 Solitary pulmonary nodule; I08.1 Rheumatic disorders of both mitral and tricuspid valves; I25.2 Old myocardial infarction; Z68.20 Body mass index [BMI] 20.0-20.9, adult
CPT/HCPCS: 36415; 71046; 71260; 80048; 80053; 83605; 83735; 83880; 84439; 84443; 84484; 85025; 85610; 85730; 87040; 87502; 93005; 93306; 94640; 94644; 94667; 94760; 96365; 96367; 96375; 99291

== ENCOUNTER 2019-03-05 13:59 | Emergency (ER) | payer MEDICARE, OTHER ==
--- NOTE | 2019-03-05 15:59 | ED ---
General Adult HPI - General Chief complaint: Skin/Abscess/Foreign Body Stated complaint: Lump on Groin Time Seen by Provider: 03/05/19 15:16 Source: patient, RN notes reviewed Mode of arrival: wheelchair Limitations: no limitations - History of Present Illness Initial comments: 83-year-old male with a past medical history of hyperlipidemia, hypertension, renal disorder, asthma, COPD on home oxygen presents to the emergency department for chief complaint of lump in the right groin times several days. Patient states this is somewhat painful and does radiate to his right hip. Denies any injuries. Denies any redness around the area or significant tenderness. Patient has been having normal bowel movements, no vomiting. Patient is eating normally.Patient has no other complaints at this time including shortness of breath, chest pain, abdominal pain, nausea or vomiting, headache, or visual changes. - Related Data Home Medications Medication Instructions Recorded Confirmed Aspirin 81 mg PO HS 03/24/14 03/05/19 Atenolol [Tenormin] 12.5 mg PO BID 03/24/14 03/05/19 Desvenlafaxine Succinate [Pristiq 50 mg PO DAILY 03/24/14 03/05/19 ER] Finasteride [Proscar] 5 mg PO DAILY 03/24/14 03/05/19 Garlic 1 tab PO TID 03/24/14 03/05/19 [place]-3 Acid Ethyl Esters [Lovaza] 4 gm PO DAILY 03/24/14 03/05/19 Salmeterol Xinafoate [Serevent 1 puff INHALATION RT-BID 03/24/14 03/05/19 Diskus] Simvastatin [Zocor] 40 mg PO DAILY 03/24/14 03/05/19 Terazosin [Hytrin] 2 mg PO BID 03/24/14 03/05/19 Roflumilast [Daliresp] 500 mcg PO DAILY 04/20/17 03/05/19 Calcium Carbonate [Calcium] 600 mg PO DAILY 09/13/17 03/05/19 Cholecalciferol [Vitamin D3] 5,000 unit PO DAILY 09/13/17 03/05/19 Ferrous Sulfate [Feosol] 325 mg PO DAILY 09/13/17 03/05/19 Montelukast [Singulair] 10 mg PO DAILY 09/13/17 03/05/19 cycloSPORINE 0.05% OPHTH SOLN 1 drop BOTH EYES BID 09/13/17 03/05/19 [Restasis] predniSONE 10 mg PO DAILY 09/13/17 03/05/19 Ipratropium-Albuterol Nebulize 3 ml INHALATION RT-TID 12/20/17 03/05/19 [Duoneb 0.5 mg-3 mg/3 ml Soln] Budesonide [Pulmicort] 0.5 mg INHALATION RT-BID 03/09/18 03/05/19 Tadalafil [Cialis] 5 mg PO DAILY 03/09/18 03/05/19 Ibuprofen [Advil] 400 mg PO Q6H PRN 01/20/19 03/05/19 Modafinil [Provigil] 200 mg PO DAILY 01/20/19 03/05/19 Carbidopa-Levodopa 10-100 mg 1 tab PO TID 03/05/19 03/05/19 [Sinemet 10-100 mg] Primidone [Mysoline] 100 mg PO DAILY 03/05/19 03/05/19 Propylene Glycol/Peg 400/Pf 1 drop BOTH EYES DAILY PRN 03/05/19 03/05/19 [Systane 0.3-0.4% Eye Drop] Previous Rx's Medication Instructions Recorded Apixaban [Eliquis] 2.5 mg PO BID #180 tablet 01/24/19 Allergies Allergy/AdvReac Type Severity Reaction Status Date / Time No Known Allergies Allergy Verified 03/05/19 16:00 Review of Systems ROS Statement: Those systems with pertinent positive or pertinent negative responses have been documented in the HPI. ROS Other: All systems not noted in ROS Statement are negative. Past Medical History Past Medical History: Asthma, COPD, Eye Disorder, Hyperlipidemia, Hypertension, Prostate Disorder, Renal Disease, Respiratory Disorder Additional Past Medical History / Comment(s): Home O2 at 3.5-4L/NC ATC, bronchitis, hyperglu=ycemia d/t chronic steroid use, chronic tremors-etiology unknown to pt, chronic low back pain, nephrolithiasis-has passed stones on his own and also surgically removed, BPH, bilateral glaucoma, L ankle torn tendon, L foot drop Last Myocardial Infarction Date:: unknown History of Any Multi-Drug Resistant Organisms: None Reported Past Surgical History: Back Surgery, Cholecystectomy, Heart Catheterization Additional Past Surgical History / Comment(s): Lumbar laminectomy, lithotripsy, colonoscopy, bilateral cataract removals. Past Anesthesia/Blood Transfusion Reactions: No Reported Reaction, Previous Problems w/ Anesthesia Additional Past Anesthesia/Blood Transfusion Reaction / Comment(s): woke up during anesthesia x1 Past Psychological History: Anxiety Smoking Status: Former smoker - Past Family History Mother Family Medical History: Musculoskeletal Disorder, Neurologic Disorder Additional Family Medical History / Comment(s): Mother had parkinsons. Father Additional Family Medical History / Comment(s): Father had back problems. He in a MVA at the age of 62 yrs. General Exam Limitations: no limitations General appearance: alert, in no apparent distress Head exam: Present: atraumatic, normocephalic, normal inspection Eye exam: Present: normal appearance, PERRL, EOMI. Absent: scleral icterus, conjunctival injection, periorbital swelling ENT exam: Present: normal exam, normal oropharynx, mucous membranes moist, TM's normal bilaterally, normal external ear exam Neck exam: Present: normal inspection. Absent: tenderness, meningismus, lymphadenopathy Respiratory exam: Present: normal lung sounds bilaterally. Absent: respiratory distress, wheezes, rales, rhonchi, stridor Cardiovascular Exam: Present: regular rate, normal rhythm, normal heart sounds. Absent: systolic murmur, diastolic murmur, rubs, gallop, clicks GI/Abdominal exam: Present: soft, normal bowel sounds. Absent: distended, tenderness (No tenderness noted in the abdomen), guarding, rebound, rigid exam: Present: other (Patient has a soft reducible inguinal hernia present in the right groin). Absent: testicular tenderness, urethral discharge, scrotal swelling, vertical testicular lie, circumcision Course Vital Signs 03/05/19 03/05/19 14:27 16:15 Temperature 98.3 F 98.2 F Pulse Rate 64 68 Respiratory 16 18 Rate Blood Pressure 173/61 168/61 O2 Sat by Pulse 93 L 93 L Oximetry Medical Decision Making - Medical Decision Making 83 old male presents to the emergency department for a chief complaint of hernia in the right groin. Patient is passing gas and stool, no nausea or vomiting. Normal diet. No tenderness of the abdomen. There is a soft hernia of the right groin that is reducible. Patient was put into Trendelenburg and Dr. Helmreich was able to reduce the hernia without difficulty. Hernia was never indurated or erythematous. Nontender to palpation. At this time patient will follow up with general surgeon and return here if he has any worsening symptoms. I did discuss these in depth with the patient such as significant pain, tenderness, redness or inability to reduce the hernia as well as nausea vomiting, inability to pass gas or stool, or abdominal pain. Disposition Clinical Impression: Inguinal hernia Disposition: HOME SELF-CARE Condition: Good Instructions (If sedation given, give patient instructions): Inguinal Hernia (ED) Additional Instructions: Please follow up with surgery in 1-2 days. Please monitor for increased pain or redness. If hernia is hard, red, and very painful and you cannot reduce this he needs to immediately return to the emergency department. Is patient prescribed a controlled substance at d/c from ED?: No Referrals: Maxx Benson MD [Primary Care Provider] - 1-2 days Florentino Mcnair MD [Medical Doctor] - 1-2 days Time of Disposition: 15:58
[2019-03-05 16:22] VITALS: BP 168/61; PULSE 68; RESP 18; TEMP 98.2
== END 2019-03-05 16:15 | disposition home or self-care (01) ==
LOC: EC 13:59
DX: K40.90 Unilateral inguinal hernia, without obstruction or gangrene, not specified as recurrent (principal); J44.9 Chronic obstructive pulmonary disease, unspecified; E78.5 Hyperlipidemia, unspecified; I10 Essential (primary) hypertension; N42.9 Disorder of prostate, unspecified; Z87.442 Personal history of urinary calculi; Z90.49 Acquired absence of other specified parts of digestive tract; Z95.5 Presence of coronary angioplasty implant and graft; Z98.49 Cataract extraction status, unspecified eye; Z99.81 Dependence on supplemental oxygen; Z79.51 Long term (current) use of inhaled steroids; Z79.52 Long term (current) use of systemic steroids; Z79.82 Long term (current) use of aspirin; Z79.899 Other long term (current) drug therapy; Z87.891 Personal history of nicotine dependence
CPT/HCPCS: 99283

== ENCOUNTER → 2019-09-02 | Outpatient (CLI) | payer MEDICARE, OTHER ==
--- NOTE | 2019-09-03 07:23 | CT ---
EXAMINATION TYPE: CT abdomen wo con DATE OF EXAM: 09/02/2019 COMPARISON: CT chest 01/22/2019 HISTORY: 84-year-old male LUQ pain after hernia surgery TECHNIQUE: Contiguous axial scanning of the abdomen without IV contrast. Coronal and sagittal reconst ructions performed. CT DLP: 260 mGycm Automated exposure control for dose reduction was used. FINDINGS: Moderate to advanced emphysematous change in the visualized lower lungs. Small effusions are demonstr ated with patchy left basilar density and more focal 2.4 cm subpleural opacity laterally at the left base, refer to axial image 5. Heart borderline in size with coronary vessel calcifications. Trace pericardial effusion. Moderate atherosclerotic calcifications throughout the abdominal aorta. Stable prominent 5 mm right retrocrural lymph node. Noncontrast appearance of the liver, adrenal glands, left kidney, spleen, and pancreas show no gross abnormality. Punctate 2 mm nonobstructive right renal calculus. Cortical defects in the right kidney suggests sequ ashlee of prior vascular or infectious insult. Lack of IV contrast limits the evaluation. Generalized anasarca change. No dilated small bowel, free fluid, or free air seen within the upper to mid abdomen. A few left-sided colonic diverticula. No intra-abdominal lymphadenopathy identified in the upper to mid abdomen allowing for noncontrast [place] and underlying anasarca change. Bones: Degenerative changes at the SI joints. Laminectomy change L3-L5 levels. Advanced multilevel de generative change throughout the lumbar spine. Grade 1 retrolisthesis at L3-L4. IMPRESSION: 1. CORRELATE FOR FLUID OVERLOAD STATE GIVEN BORDERLINE HEART SIZE, SMALL EFFUSIONS, AND GENERALIZED A NASARCA CHANGE. 2. LACK OF IV CONTRAST AND SUPERIMPOSED ANASARCA CHANGES LIMIT THE EVALUATION. 3. PATCHY LEFT BASILAR ATELECTASIS AND/OR INFILTRATE WITH SUPERIMPOSED 2.4 CM SUBPLEURAL DENSITY AMANDA PHERALLY AT THE LEFT BASE. THREE-MONTH FOLLOW-UP RECOMMENDED TO EXCLUDE A DEVELOPING MASS HERE, NEW F ROM 01/22/2019. 4. MODERATE TO ADVANCED EMPHYSEMA OF THE VISUALIZED LOWER LUNGS AND MODERATE TO SEVERE ATHEROSCLEROTI C CALCIFICATIONS. 5. A FEW LEFT-SIDED COLONIC DIVERTICULA. PUNCTATE 2 MM NONOBSTRUCTIVE RIGHT RENAL CALCULUS.
== END | disposition home or self-care (01) ==
LOC: RADCTMAIN 13:26
PROVIDERS: ATTEND Family Medicine
DX: K57.30 Diverticulosis of large intestine without perforation or abscess without bleeding (principal); N20.0 Calculus of kidney; I70.0 Atherosclerosis of aorta
CPT/HCPCS: 74150

== ENCOUNTER 2019-12-03 08:58 | Day surgery (SDC) | payer MEDICARE, OTHER ==
[2019-11-28 15:58] VITALS: BMI 22.1
[~2019-12-03 08:58] MED LIST: CYCLOPENTOLATE 1% OPHTH SOLN 2 ML BTL OP ONE; DEXAMETHASONE SOD PHOSPHATE 10 MG/ML 1 ML VIAL IV ONE; LACTATED RINGERS 1,000 ML IV SCH; LIDOCAINE 1% 20 ML VIAL (10MG/ML) FOR IV START INTRADERMA PRN; MOXIFLOXACIN HCL 0.5% DROPS 3 ML BTL OP ONE; PHENYLEPHRINE 2.5% OPHTH DRP 2ML OP NR; TETRACAINE 0.5% OPHTH (PF) DROPS 4 ML BTL OP ONE; TIMOLOL 0.5% OPHTH DROPS 5 ML BTL OP ONE
[2019-12-03] MEDS: PILOCARPINE 2% OPHTH DROPS 15 ML BTL RIGHT EYE ONE ×3 (09:55→10:05)
[2019-12-03 10:03] LABS: Glucose,Whole Blood 123 mg/dL (75-99)
[2019-12-03 10:06] VITALS: RESP 16; TEMP 97.5
[2019-12-03] MEDS ORDERED: MIDAZOLAM 2 MG/2 ML VIAL ONE (10:06)
[2019-12-03] MEDS ORDERED: fentaNYL (PF) 50 MCG/ML 2 ML AMP ONE (10:06)
[2019-12-03] MEDS ORDERED: TRYPAN BLUE 0.06% SYRINGE 0.5 ML SYRINGE INTRAOCULA ONE (10:10)
[2019-12-03] MEDS ORDERED: CHONDROITIN-SOD HYALURONATE 1 EACH SYRINGE (0.75 ML) INTRAOCULA ONE (10:11)
--- NOTE | 2019-12-03 10:35 | P.OP ---
Date of Procedure: 12/03/19 Preoperative Diagnosis: POAG moderate stage Postoperative Diagnosis: same Procedure(s) Performed: goniotomy right eye Implants: none Anesthesia: MAC Surgeon: Jose Roberto Arnold Estimated Blood Loss (ml): 5 Pathology: none sent Condition: stable Disposition: observation Indications for Procedure: poor glaucoma control Operative Findings: no complications
[2019-12-03] MEDS ORDERED: hydrALAZINE HCL 20 MG/ML 1 ML VIAL IV ONE (11:16)
[2019-12-03 11:36] VITALS: BP 152/66; PULSE 47
--- NOTE | 2019-12-04 00:04 | OP ---
OPERATIVE REPORT DATE OF SERVICE: December 03, 2019. PROCEDURE PERFORMED: Goniotomy of the right eye. PREOPERATIVE DIAGNOSIS: Primary open-angle glaucoma, moderate stage. POSTOPERATIVE DIAGNOSIS: Primary open-angle glaucoma, moderate stage. SURGEON: Dr. Jose Roberto Arnold. ANESTHESIA: Topical. ESTIMATED BLOOD LOSS: 3 mL. SPECIMEN: Taken none. NARRATIVE: After obtaining the appropriate consent, the patient was brought to the operating room. There he was placed on cardiac monitoring prepped and draped in the usual sterile manner. He was approached from his right temporal side and at the 9 o'clock position, a 2.5 mm keratome was used to create a self-sealing corneal flap incision. Through this opening 1% Xylocaine MPF 50 50 mix with balanced salt solution was injected into the anterior chamber. This was followed by installation of trypan blue which was left in the eye for approximately 1 minute. Once irrigated away and the eye was stabilized using Viscoat. A small amount was placed on the patient's eye. The patient was asked to rotate to his left approximately 45 degrees. The gonio prism was placed on the patient's eye readily identifying a very high trabecular meshwork. Using the jade and meat method, a [place] dual blade goniotomy knife was used to remove approximately 5 hours of trabecular meshwork on the nasal side of the patient's eye. Irrigation/aspiration was then reintroduced to remove the viscoelastic. The eye was brought to slightly higher than 25 mmHg by palpation with balanced salt solution. The incisions were confirmed watertight. He then received 2 drops of moxifloxacin as well as 2 drops of 0.5% timolol. He was then lightly patched and shielded in the usual manner. There were no complications from the procedure. He tolerated the procedure well, was returned to outpatient recovery in good condition. MMODL / IJN: [id number] /
== END 2019-12-03 11:47 | disposition home or self-care (01) ==
LOC: OR 08:58
PROVIDERS: ATTEND Ophthalmology
DX: H40.1132 Primary open-angle glaucoma, bilateral, moderate stage (principal); H18.453 Nodular corneal degeneration, bilateral; H18.59 Other hereditary corneal dystrophies; H04.123 Dry eye syndrome of bilateral lacrimal glands; H52.13 Myopia, bilateral; H52.4 Presbyopia; H01.009 Unspecified blepharitis unspecified eye, unspecified eyelid; H00.023 Hordeolum internum right eye, unspecified eyelid; H00.026 Hordeolum internum left eye, unspecified eyelid; I10 Essential (primary) hypertension; I48.91 Unspecified atrial fibrillation; E78.5 Hyperlipidemia, unspecified; N40.1 Benign prostatic hyperplasia with lower urinary tract symptoms; N13.8 Other obstructive and reflux uropathy; J43.9 Emphysema, unspecified; F41.9 Anxiety disorder, unspecified; J30.2 Other seasonal allergic rhinitis; Z96.1 Presence of intraocular lens; Z87.891 Personal history of nicotine dependence; Z79.51 Long term (current) use of inhaled steroids; Z79.82 Long term (current) use of aspirin; Z79.52 Long term (current) use of systemic steroids; Z79.01 Long term (current) use of anticoagulants; Z79.899 Other long term (current) drug therapy; Z83.3 Family history of diabetes mellitus
CPT/HCPCS: 65820; J2250; J0360; J3010

== ENCOUNTER → 2020-04-14 | Outpatient (CLI) | payer MEDICARE, OTHER ==
--- NOTE | 2020-04-14 11:32 | XR ---
EXAMINATION TYPE: XR chest 2V DATE OF EXAM: 04/14/2020 COMPARISON: 01/23/2019 HISTORY: Presurgical testing TECHNIQUE: Frontal and lateral views of the chest are obtained. FINDINGS: Flattening of the diaphragms is seen with increased retrosternal airspace and increased an terior posterior diameter of the chest, compatible with underlying COPD. Moderate degenerative change of the spine is present. Chronic pleural-parenchymal scarring and/or chronic trace pleural effusion at the left lung base. Diffuse osseous demineralization. IMPRESSION: Chronic scarring and/or trace chronic pleural effusion at the left costophrenic angle. U nderlying COPD.
[2020-04-14 13:16] LABS: Basophils % (A) 0 %; Eosinophils % (A) 0 %; HCT 32.2 % (39.0-53.0); HGB 10.1 gm/dL (13.0-17.5); Hypochromasia Moderate; Lymphocytes # (A) 0.6 k/uL (1.0-4.8); Lymphocytes % (A) 9 %; MCH 33.1 pg (25.0-35.0); MCHC 31.3 g/dL (31.0-37.0); MCV 105.8 fL (80.0-100.0); Macrocytosis Moderate; Mean Platelet Volume 8.8; Monocytes # (A) 0.3 k/uL (0-1.0); Monocytes % (A) 5 %; Neutrophils # (A) 5.8 k/uL (1.3-7.7); Neutrophils % (A) 85 %; Platelet Count 148 k/uL (150-450); RBC 3.04 m/uL (4.30-5.90); RDW 15.3 % (11.5-15.5); WBC 6.8 k/uL (3.8-10.6)
[2020-04-14 13:36] LABS: Appearance,Urine Turbid (Clear); Bilirubin,Urine Negative (Negative); Blood,Urine Large (Negative); Color,Urine Red; Glucose,Urine (UA) Negative (Negative); Hyaline Casts,Urine 5 /lpf (0-2); Ketones,Urine Negative (Negative); Leukocyte Esterase,Urine Large (Negative); Mucus,Urine Rare /hpf; Nitrite,Urine Positive (Negative); Protein,Urine 2+ (Negative); RBC,Urine >182 /hpf (0-5); Specific Gravity,Urine 1.021 (1.001-1.035); Urobilinogen,Urine <2.0 mg/dL (<2.0); WBC,Urine >182 /hpf (0-5)
[2020-04-14 14:00] LABS: Albumin 3.8 g/dL (3.5-5.0); Calcium 10.1 mg/dL (8.4-10.2); Potassium 4.9 mmol/L (3.5-5.1); Total Bilirubin 0.2 mg/dL (0.2-1.3); Total Protein 6.7 g/dL (6.3-8.2)
== END | disposition home or self-care (01) ==
LOC: RADXRMAIN 10:31
PROVIDERS: ATTEND Urology
DX: J44.9 Chronic obstructive pulmonary disease, unspecified (principal); R33.9 Retention of urine, unspecified; N21.9 Calculus of lower urinary tract, unspecified; R31.29 Other microscopic hematuria
CPT/HCPCS: 71046; 80053; 81001; 85025; 86850; 86900; 86901; 87077; 87086; 87186; 93005

== ENCOUNTER → 2020-04-16 | Outpatient (CLI) | payer MEDICARE, OTHER | END | disposition home or self-care (01) | LOC: LABWHC1 12:26 | PROVIDERS: ATTEND Urology | DX: Z11.59 Encounter for screening for other viral diseases (principal) | CPT/HCPCS: 87635 ==

== ENCOUNTER → 2020-04-21 | Day surgery (SDC) | payer MEDICARE, OTHER ==
[2020-04-15 15:21] VITALS: BMI 20.2
--- NOTE | 2020-04-20 19:47 | P.GSHP ---
History of Present Illness H&P Date: 04/20/20 84 yo male who comes for a turp and cystolithotripsy because of bladder stones and a large prostate[50gm]. He had been on chronic alpha blockers Risks , complications and alternatives have been discussed. - Constitutional Constitutional: Reports weakness - Respiratory Respiratory: Reports dyspnea - Genitourinary (Male) Genitourinary: Reports as per HPI Past Medical History Past Medical History: Atrial Fibrillation, COPD, Eye Disorder, Hyperlipidemia, Hypertension, Osteoarthritis (OA), Prostate Disorder, Respiratory Disorder Additional Past Medical History / Comment(s): emphysema, Home O2 at 4L/[place] ATC, bronchitis, Hx of elevated cbg d/t chronic steroid use, chronic tremors- etiology unknown to pt, chronic low back pain, left foot drop., nephrolithiasis- has passed stones on his own and also surgically removed, BPH, bilateral glaucoma, Hx of left torn achilles tendon., indwelling catheter Last Myocardial Infarction Date:: unknown History of Any Multi-Drug Resistant Organisms: None Reported Past Surgical History: Back Surgery, Cholecystectomy, Heart Catheterization, Hernia Repair Additional Past Surgical History / Comment(s): Lumbar laminectomy, lithotripsy, colonoscopy, bilateral cataracts, right inguinal hernia. Past Anesthesia/Blood Transfusion Reactions: No Reported Reaction, Previous Problems w/ Anesthesia Additional Past Anesthesia/Blood Transfusion Reaction / Comment(s): woke up during anesthesia x1 Smoking Status: Former smoker - Past Family History Mother Family Medical History: Musculoskeletal Disorder, Neurologic Disorder Additional Family Medical History / Comment(s): Mother had parkinsons. Father Additional Family Medical History / Comment(s): Father had back problems. He in a MVA at the age of 62 yrs. Medications and Allergies Home Medications Medication Instructions Recorded Confirmed Type Aspirin 81 mg PO HS 03/24/14 04/15/20 History Atenolol [Tenormin] 12.5 mg PO BID 03/24/14 04/15/20 History Desvenlafaxine Succinate [Pristiq 50 mg PO DAILY 03/24/14 04/15/20 History ER] Garlic 1 tab PO TID 03/24/14 04/15/20 History Simvastatin [Zocor] 40 mg PO DAILY 03/24/14 04/15/20 History Terazosin [Hytrin] 2 mg PO BID 03/24/14 04/15/20 History Roflumilast [Daliresp] 500 mcg PO DAILY 04/20/17 04/15/20 History Calcium Carbonate [Calcium] 600 mg PO DAILY 09/13/17 04/15/20 History Cholecalciferol [Vitamin D3] 5,000 unit PO DAILY 09/13/17 04/15/20 History Ferrous Sulfate [Feosol] 325 mg PO PC-LUNCH 09/13/17 04/15/20 History Montelukast [Singulair] 10 mg PO DAILY 09/13/17 04/15/20 History cycloSPORINE 0.05% OPHTH SOLN 1 drop BOTH EYES BID 09/13/17 04/15/20 History [Restasis] predniSONE 10 mg PO DAILY 09/13/17 04/15/20 History Ipratropium-Albuterol Nebulize 3 ml INHALATION RT-TID 12/20/17 04/15/20 History [Duoneb 0.5 mg-3 mg/3 ml Soln] Budesonide [Pulmicort] 0.5 mg INHALATION RT-BID 03/09/18 04/15/20 History Tadalafil [Cialis] 5 mg PO DAILY 03/09/18 04/15/20 History Modafinil [Provigil] 200 mg PO DAILY 01/20/19 04/15/20 History Apixaban [Eliquis] 2.5 mg PO BID #180 tablet 01/24/19 04/15/20 Rx Carbidopa-Levodopa 10-100 mg 1 tab PO TID 03/05/19 04/15/20 History [Sinemet 10-100 mg] Primidone [Mysoline] 100 mg PO TID 03/05/19 04/15/20 History Arformoterol Tartrate [Brovana] 15 mcg INHALATION RT-BID 12/01/19 04/15/20 History Azithromycin [Zithromax] 500 mg PO DAILY 12/01/19 04/15/20 History Reseda-3 Fatty Acids [Reseda-3] 1,000 mg PO TID 12/01/19 04/15/20 History Allergies Allergy/AdvReac Type Severity Reaction Status Date / Time No Known Allergies Allergy Verified 04/15/20 15:10 Surgical - Exam - General well developed, chronically ill - Eyes PERRL - ENT no hearing loss - Neck trachea midline - Respiratory chronic o2 normal expansion, normal respiratory effort - Cardiovascular Rhythm: irregularly irregular - Abdomen Abdomen: soft, non tender - Genitourinary indwelling catheter, large prostate normal penis with no external lesions, testicles present - Integumentary no rash, no growths - Neurologic normal coordination, normal sensation - Musculoskeletal normal gait, normal posture - Psychiatric oriented to time, oriented to person, oriented to place, speech is normal, memory intact Assessment and Plan Assessment: Impression: Urine retention secondary to a large prostate with secondary bladder stones, Copd, htn afib Plan Turp with cystolithotripsy
[~2020-04-21] MED LIST changes: +AMPICILLIN 1,000 MG in SODIUM CHLORIDE 0.9% 50 ML IVPB ONE; -CYCLOPENTOLATE 1% OPHTH SOLN 2 ML BTL OP ONE; -DEXAMETHASONE SOD PHOSPHATE 10 MG/ML 1 ML VIAL IV ONE; +GENTAMICIN 90 MG in SODIUM CHLORIDE 0.9% 100 ML IVPB ONE; +HYDROmorphone 0.5 MG/0.5 ML SYRINGE IVP PRN; +LEVOFLOXACIN 500MG-D5W PMX 500 MG in DEXTROSE/WATER 1 100ML.BAG IVPB ONE; +LIDOCAINE 1% (10MG/ML) FOR IV START INTRADERMA PRN; -LIDOCAINE 1% 20 ML VIAL (10MG/ML) FOR IV START INTRADERMA PRN; -MOXIFLOXACIN HCL 0.5% DROPS 3 ML BTL OP ONE; -PHENYLEPHRINE 2.5% OPHTH DRP 2ML OP NR; -TETRACAINE 0.5% OPHTH (PF) DROPS 4 ML BTL OP ONE; -TIMOLOL 0.5% OPHTH DROPS 5 ML BTL OP ONE; +fentaNYL (PF) 50 MCG/ML 2 ML AMP IV PRN
[2020-04-21 09:08] VITALS: BP 172/68; PULSE 53; RESP 17; TEMP 98.4
--- NOTE | 2020-04-21 10:04 | P.PN ---
Progress Note - Text Progress Note Date: 04/21/20 The patient is here for a TURP and cystoscopy lithotripsy. There is question as to when he stopped his Eliquis. Given his frail nature and age I felt he needed a spinal which anesthesia is reluctant to do. I also do not feel comfortable doing a TURP in this gentleman given the situation. We will this cancel the surgery. He'll be given oral antibiotics to cover his positive urine culture. We'll change his catheter and reschedule him for next week. He will stop his Eliquis 4 days preoperatively. This has been discussed at length with the patient and his daughter. They understand and concur.
== END ==
LOC: OR 08:42
PROVIDERS: ATTEND Urology
DX: N21.0 Calculus in bladder (principal); Z53.09 Procedure and treatment not carried out because of other contraindication; N40.1 Benign prostatic hyperplasia with lower urinary tract symptoms; R33.8 Other retention of urine; I25.10 Atherosclerotic heart disease of native coronary artery without angina pectoris; I10 Essential (primary) hypertension; I48.21 Permanent atrial fibrillation; J43.9 Emphysema, unspecified; M19.90 Unspecified osteoarthritis, unspecified site; G89.29 Other chronic pain; M54.5 Low back pain; H40.9 Unspecified glaucoma; E78.2 Mixed hyperlipidemia; F32.9 Major depressive disorder, single episode, unspecified; Z90.49 Acquired absence of other specified parts of digestive tract; Z98.41 Cataract extraction status, right eye; Z98.42 Cataract extraction status, left eye; Z87.891 Personal history of nicotine dependence; Z87.442 Personal history of urinary calculi; Z79.82 Long term (current) use of aspirin; Z79.01 Long term (current) use of anticoagulants; Z79.52 Long term (current) use of systemic steroids; Z79.51 Long term (current) use of inhaled steroids; Z79.899 Other long term (current) drug therapy; Z98.890 Other specified postprocedural states; Z82.69 Family history of other diseases of the musculoskeletal system and connective tissue; Z82.0 Family history of epilepsy and other diseases of the nervous system
CPT/HCPCS: 86850; 86900; 86901

== ENCOUNTER → 2020-04-23 | Outpatient (CLI) | payer MEDICARE, OTHER | END | disposition home or self-care (01) | LOC: LABWHC1 11:10 | PROVIDERS: ATTEND Urology | DX: Z11.59 Encounter for screening for other viral diseases (principal) ==

== ENCOUNTER 2020-04-24 10:50 | Emergency (ER) | payer MEDICARE, OTHER ==
[2020-04-24 10:58] VITALS: PULSE 60; RESP 18; TEMP 97.8
[2020-04-24] MEDS ORDERED: SODIUM CHLORIDE 0.9% 1,000 ML IV STA (11:16)
[2020-04-24] MEDS ORDERED: MORPHINE SULFATE 4 MG/ML SYRINGE IVP STA (11:16)
--- NOTE | 2020-04-24 11:20 | ED ---
Abdominal Pain HPI <Angus Umana - Last Filed: 04/24/20 14:07> - General Source: patient Mode of arrival: ambulatory <Isaiah Abbott - Last Filed: 04/24/20 14:12> - General Chief Complaint: Abdominal Pain Stated Complaint: Urogenital Time Seen by Provider: 04/24/20 11:02 - History of Present Illness Initial Comments: Patient is an 84-year-old male presenting to the emergency department with a chief complaint of abdominal pain. Daughter is also present in the room to answer additional questions. Patient states he woke up this morning developed a sudden onset of left lower quadrant abdominal pain without any radiation. States the pain is sharp in nature. Denies any nausea or vomiting or diarrhea. States he is scheduled for kidney stone removal on Sunday with Dr. Salazar. States he has a Prasad catheter since December. States the catheter is draining well. States he had a bowel movement this morning and noticed a red tinged stool after he wiped. He does report a history of hemorrhoids. (Isaiah Polanco) - Related Data Home Medications Medication Instructions Recorded Confirmed Aspirin 81 mg PO HS 03/24/14 04/15/20 Atenolol [Tenormin] 12.5 mg PO BID 03/24/14 04/21/20 Desvenlafaxine Succinate [Pristiq 50 mg PO DAILY 03/24/14 04/15/20 ER] Garlic 1 tab PO TID 03/24/14 04/15/20 Simvastatin [Zocor] 40 mg PO DAILY 03/24/14 04/15/20 Terazosin [Hytrin] 2 mg PO BID 03/24/14 04/15/20 Roflumilast [Daliresp] 500 mcg PO DAILY 04/20/17 04/15/20 Calcium Carbonate [Calcium] 600 mg PO DAILY 09/13/17 04/15/20 Cholecalciferol [Vitamin D3] 5,000 unit PO DAILY 09/13/17 04/15/20 Ferrous Sulfate [Feosol] 325 mg PO PC-LUNCH 09/13/17 04/21/20 Montelukast [Singulair] 10 mg PO DAILY 09/13/17 04/15/20 cycloSPORINE 0.05% OPHTH SOLN 1 drop BOTH EYES BID 09/13/17 04/15/20 [Restasis] predniSONE 10 mg PO DAILY 09/13/17 04/15/20 Ipratropium-Albuterol Nebulize 3 ml INHALATION RT-TID 12/20/17 04/15/20 [Duoneb 0.5 mg-3 mg/3 ml Soln] Budesonide [Pulmicort] 0.5 mg INHALATION RT-BID 03/09/18 04/15/20 Tadalafil [Cialis] 5 mg PO DAILY 03/09/18 04/21/20 Modafinil [Provigil] 200 mg PO DAILY 01/20/19 04/15/20 Carbidopa-Levodopa 10-100 mg 1 tab PO TID 03/05/19 04/15/20 [Sinemet 10-100 mg] Primidone [Mysoline] 100 mg PO TID 03/05/19 04/15/20 Arformoterol Tartrate [Brovana] 15 mcg INHALATION RT-BID 12/01/19 04/15/20 Azithromycin [Zithromax] 500 mg PO DAILY 12/01/19 04/15/20 [place]-3 Fatty Acids [[place]-3] 1,000 mg PO TID 12/01/19 04/15/20 Previous Rx's Medication Instructions Recorded Apixaban [Eliquis] 2.5 mg PO BID #180 tablet 01/24/19 Allergies Allergy/AdvReac Type Severity Reaction Status Date / Time No Known Allergies Allergy Verified 04/24/20 10:58 Review of Systems ROS Other: All systems not noted in ROS Statement are negative. <Angus Umana - Last Filed: 04/24/20 14:07> ROS Other: All systems not noted in ROS Statement are negative. <Isaiah Abbott - Last Filed: 04/24/20 14:12> ROS Statement: Those systems with pertinent positive or pertinent negative responses have been documented in the HPI. Past Medical History Past Medical History: Atrial Fibrillation, COPD, Eye Disorder, Hyperlipidemia, Hypertension, Prostate Disorder, Respiratory Disorder Additional Past Medical History / Comment(s): emphysema, Home O2 at 3.5-4L/NC A TC, bronchitis, Hx of elevated cbg d/t chronic steroid use, chronic tremors- etiology unknown to pt, chronic low back pain, left foot drop., nephrolithiasis- has passed stones on his own and also surgically removed, BPH, bilateral glaucoma, Hx of left torn achilles tendon., states difficulty walking-using walker. Last Myocardial Infarction Date:: unknown History of Any Multi-Drug Resistant Organisms: None Reported Past Surgical History: Back Surgery, Cholecystectomy, Heart Catheterization, Hernia Repair Additional Past Surgical History / Comment(s): Lumbar laminectomy, lithotripsy, colonoscopy, bilateral cataracts, right inguinal hernia. Past Anesthesia/Blood Transfusion Reactions: No Reported Reaction, Previous Problems w/ Anesthesia Additional Past Anesthesia/Blood Transfusion Reaction / Comment(s): woke up during anesthesia x1 Past Psychological History: Depression Smoking Status: Former smoker Past Alcohol Use History: None Reported Past Drug Use History: None Reported - Past Family History Mother Family Medical History: Musculoskeletal Disorder, Neurologic Disorder Additional Family Medical History / Comment(s): Mother had parkinsons. Father Additional Family Medical History / Comment(s): Father had back problems. He in a MVA at the age of 62 yrs. <Isaiah Abbott - Last Filed: 04/24/20 14:12> General Exam Limitations: no limitations General appearance: alert, in no apparent distress Head exam: Present: atraumatic, normocephalic, normal inspection Eye exam: Present: normal appearance, PERRL, EOMI Pupils: Present: normal accommodation ENT exam: Present: normal exam, normal oropharynx, mucous membranes moist Neck exam: Present: normal inspection, full ROM. Absent: tenderness Respiratory exam: Present: normal lung sounds bilaterally. Absent: respiratory distress, wheezes, rales, rhonchi, stridor Cardiovascular Exam: Present: regular rate, normal rhythm, normal heart sounds GI/Abdominal exam: Present: soft, tenderness (Left lower quadrant tenderness). Absent: distended, guarding, rebound, rigid Rectal exam: Present: normal inspection, normal rectal tone. Absent: hemorrhoids exam: Present: normal inspection (Indwelling catheter noted). Absent: t esticular tenderness, scrotal swelling Extremities exam: Present: normal inspection, full ROM Back exam: Present: normal inspection, full ROM. Absent: CVA tenderness (R), CVA tenderness (L) Neurological exam: Present: alert, oriented X3 Psychiatric exam: Present: normal affect, normal mood Skin exam: Present: warm, dry, intact, normal color <Isaiah Abbott - Last Filed: 04/24/20 14:12> Course <Angus Umana - Last Filed: 04/24/20 14:07> Vital Signs 04/24/20 04/24/20 04/24/20 10:54 11:25 11:30 Temperature 97.8 F Pulse Rate 60 Respiratory 18 Rate Blood Pressure 146/52 158/128 O2 Sat by Pulse 100 100 100 Oximetry 04/24/20 04/24/20 12:00 13:00 Temperature Pulse Rate Respiratory Rate Blood Pressure 174/155 186/74 O2 Sat by Pulse 100 100 Oximetry - Reevaluation(s) Reevaluation #1: 04/24/20 14:07 PA supervision: I proceeded [id number] evaluation the patient did present with complaints of left lower quadrant abdominal pain. He is scheduled for a prostate surgery in [address] was negative for acute findings other than he does have a kidney stone right his pain did totally resolve. Heme positive on rectal exam no gross bleeding the patient has a history of being on L Fidel. I did discuss the case with Dr. Coronel. Patient will be discharged and follow-up as planned. (Angus Umana) Medical Decision Making - Lab Data Result diagrams: 04/24/20 11:25 04/24/20 11:25 <Angus Umana - Last Filed: 04/24/20 14:07> - Lab Data Result diagrams: 04/24/20 11:25 04/24/20 11:25 <Isaiah Abbott - Last Filed: 04/24/20 14:12> - Lab Data Lab Results 04/24/20 04/24/20 04/24/20 Range/Units 11:25 11:25 12:20 WBC 2.6 L (3.8-10.6) k/uL RBC 2.99 L (4.30-5.90) m/uL Hgb 10.4 L (13.0-17.5) gm/dL Hct 31.6 L (39.0-53.0) % MCV 105.7 H (80.0-100.0) fL MCH 34.6 (25.0-35.0) pg MCHC 32.7 (31.0-37.0) g/dL RDW 15.8 H (11.5-15.5) % Plt Count 155 (150-450) k/uL Neutrophils % 65 % Lymphocytes % 25 % Monocytes % 8 % Eosinophils % 1 % Basophils % 0 % Neutrophils # 1.7 (1.3-7.7) k/uL Lymphocytes # 0.6 L (1.0-4.8) k/uL Monocytes # 0.2 (0-1.0) k/uL Eosinophils # 0.0 (0-0.7) k/uL Basophils # 0.0 (0-0.2) k/uL Hypochromasia Slight Macrocytosis Moderate Sodium 140 (137-145) mmol/L Potassium 4.7 (3.5-5.1) mmol/L Chloride 106 (98-107) mmol/L Carbon Dioxide 30 (22-30) mmol/L Anion Gap 4 mmol/L BUN 25 H (9-20) mg/dL Creatinine 1.28 H (0.66-1.25) mg/dL Est GFR (CKD-EPI)AfAm 59 (>60 ml/min/1.73 sqM) Est GFR (CKD-EPI)NonAf 51 (>60 ml/min/1.73 sqM) Glucose 128 H (74-99) mg/dL Calcium 9.8 (8.4-10.2) mg/dL Total Bilirubin 0.2 (0.2-1.3) mg/dL AST 29 (17-59) U/L ALT 6 (4-49) U/L Alkaline Phosphatase 56 (38-126) U/L Total Protein 6.4 (6.3-8.2) g/dL Albumin 3.5 (3.5-5.0) g/dL Amylase 143 H (30-110) U/L Lipase 533 H (23-300) U/L Urine Color Yellow Urine Appearance Cloudy (Clear) Urine pH 6.0 (5.0-8.0) Ur Specific [place] 1.024 (1.001-1.035) Urine Protein 1+ H (Negative) Urine Glucose (UA) Negative (Negative) Urine Ketones Negative (Negative) Urine Blood Large H (Negative) Urine Nitrite Negative (Negative) Urine Bilirubin Negative (Negative) Urine Urobilinogen <2.0 (<2.0) mg/dL Ur Leukocyte Esterase Large H (Negative) Urine RBC 173 H (0-5) /hpf Urine WBC 63 H (0-5) /hpf Calcium Oxalate Crystal Rare H (None) /hpf Urine Bacteria Occasional H (None) /hpf Urine Mucus Rare H (None) /hpf Stool Occult Blood (Negative) 04/24/20 Range/Units 12:28 WBC (3.8-10.6) k/uL RBC (4.30-5.90) m/uL Hgb (13.0-17.5) gm/dL Hct (39.0-53.0) % MCV (80.0-100.0) fL MCH (25.0-35.0) pg MCHC (31.0-37.0) g/dL RDW (11.5-15.5) % Plt Count (150-450) k/uL Neutrophils % % Lymphocytes % % Monocytes % % Eosinophils % % Basophils % % Neutrophils # (1.3-7.7) k/uL Lymphocytes # (1.0-4.8) k/uL Monocytes # (0-1.0) k/uL Eosinophils # (0-0.7) k/uL Basophils # (0-0.2) k/uL Hypochromasia Macrocytosis Sodium (137-145) mmol/L Potassium (3.5-5.1) mmol/L Chloride (98-107) mmol/L Carbon Dioxide (22-30) mmol/L Anion Gap mmol/L BUN (9-20) mg/dL Creatinine (0.66-1.25) mg/dL Est GFR (CKD-EPI)AfAm (>60 ml/min/1.73 sqM) Est GFR (CKD-EPI)NonAf (>60 ml/min/1.73 sqM) Glucose (74-99) mg/dL Calcium (8.4-10.2) mg/dL Total Bilirubin (0.2-1.3) mg/dL AST (17-59) U/L ALT (4-49) U/L Alkaline Phosphatase (38-126) U/L Total Protein (6.3-8.2) g/dL Albumin (3.5-5.0) g/dL Amylase (30-110) U/L Lipase (23-300) U/L Urine Color Urine Appearance (Clear) Urine pH (5.0-8.0) Ur Specific [place] (1.001-1.035) Urine Protein (Negative) Urine Glucose (UA) (Negative) Urine Ketones (Negative) Urine Blood (Negative) Urine Nitrite (Negative) Urine Bilirubin (Negative) Urine Urobilinogen (<2.0) mg/dL Ur Leukocyte Esterase (Negative) Urine RBC (0-5) /hpf Urine WBC (0-5) /hpf Calcium Oxalate Crystal (None) /hpf Urine Bacteria (None) /hpf Urine Mucus (None) /hpf Stool Occult Blood Positive (Negative) Disposition <Angus Umana - Last Filed: 04/24/20 14:07> Is patient prescribed a controlled substance at d/c from ED?: No Time of Disposition: 14:12 <Isaiah Abbott - Last Filed: 04/24/20 14:12> Clinical Impression: Abdominal pain Disposition: HOME SELF-CARE Condition: Good Instructions (If sedation given, give patient instructions): Abdominal Pain (ED) Additional Instructions: Follow-up with . Stop taking Eliquis. Return to emergency department if symptoms worsen. Referrals: Maxx Benson MD [Primary Care Provider] - 1-2 days
[2020-04-24 11:36] LABS: Basophils % (A) 0 %; Eosinophils % (A) 1 %; HCT 31.6 % (39.0-53.0); HGB 10.4 gm/dL (13.0-17.5); Hypochromasia Slight; Lymphocytes # (A) 0.6 k/uL (1.0-4.8); Lymphocytes % (A) 25 %; MCH 34.6 pg (25.0-35.0); MCHC 32.7 g/dL (31.0-37.0); MCV 105.7 fL (80.0-100.0); Macrocytosis Moderate; Mean Platelet Volume 8.9; Monocytes # (A) 0.2 k/uL (0-1.0); Monocytes % (A) 8 %; Neutrophils # (A) 1.7 k/uL (1.3-7.7); Neutrophils % (A) 65 %; Platelet Count 155 k/uL (150-450); RBC 2.99 m/uL (4.30-5.90); RDW 15.8 % (11.5-15.5); WBC 2.6 k/uL (3.8-10.6)
[2020-04-24 11:50] LABS: Albumin 3.5 g/dL (3.5-5.0); Calcium 9.8 mg/dL (8.4-10.2); Potassium 4.7 mmol/L (3.5-5.1); Total Bilirubin 0.2 mg/dL (0.2-1.3); Total Protein 6.4 g/dL (6.3-8.2)
--- NOTE | 2020-04-24 12:42 | CT ---
EXAMINATION TYPE: CT abdomen pelvis w con DATE OF EXAM: 04/24/2020 COMPARISON: CT abdomen September 02, 2019 HISTORY: LLQ pain CT DLP: 661.4 mGycm, Automated Exposure Control for Dose Reduction was Utilized. CONTRAST: CT scan of the abdomen and pelvis is performed with oral and with IV Contrast, patient injected with 80 mL of Isovue 300. FINDINGS: LUNG BASES: Moderate to advanced emphysematous change with [id number] left greater than right b ibasilar fibrotic changes. Stable Mild cardiomegaly. Stable tiny pericardial effusion. Trace left ple ural effusion remains present. LIVER/GB: Cholecystectomy clips are again seen. PANCREAS: No significant abnormality is seen. SPLEEN: No significant abnormality is seen. ADRENALS: No significant abnormality is seen. KIDNEYS: Multifocal areas of cortical loss and scarring in the right kidney. Stable 3 mm nonobstructi ng calculus lower pole level right kidney axial image 30. Symmetric cortical medullary uptake and exc retion from both kidneys without hydronephrosis seen bilaterally. Bladder poorly distended with sever e concentric wall thickening and large intraluminal calculi. Along the left superior margin of the bl adder there is anterior focal prominence with nondependent air within moderate adjacent fluid and fat stranding. Some adjacent foci of air suspected in the abnormal trabeculated bladder wall versus cont ain pneumoperitoneum which would be felt less likely. BOWEL: Suboptimal evaluation without enteric contrast. No suspicious small or large bowel dilatation is seen. Diverticula are present in the region of the proximal to mid sigmoid colon along with the di stal left colon. PROSTATE/SEMINAL VESICLES: Markedly enlarged prostate gland consistent with BPH bulging on bladder ba se. LYMPH NODES: No greater than 1cm abdominal or pelvic lymph nodes are appreciated. OSSEOUS STRUCTURES: Osseous structures are demineralized. Moderate to severe multilevel disc space na rrowing with relative sparing of L2-L3 level. Posterior spurring effaces the anterior thecal sac at L 1-L2 and L3-L4 levels. Posterior decompression with laminectomy defects and spinous process resection in the lower lumbar spine. Multilevel facet arthropathy mid to lower lumbar spine. Mild to moderate narrowing can't acetabular spurring left greater than right hips. There is narrowing and spurring in both sacroiliac joints more prominent on the left. OTHER: [id number] calcified plaque of the aorta extends into branch vessels. IMPRESSION: Some distal colonic diverticula most prominent proximal and mid sigmoid colon without con vincing evidence for acute diverticulitis. There is moderate inflammatory change felt present in the central pelvis, I feel more likely a product of acute bladder infection or cystitis on background out let obstruction and trabeculated bladder related to BPH. This is further discussed in body of report.
[2020-04-24 12:47] LABS: Appearance,Urine Cloudy (Clear); Bacteria,Urine Occasional /hpf; Bilirubin,Urine Negative (Negative); Blood,Urine Large (Negative); Calcium Oxalate Crystals,Urine Rare /hpf; Color,Urine Yellow; Glucose,Urine (UA) Negative (Negative); Ketones,Urine Negative (Negative); Leukocyte Esterase,Urine Large (Negative); Mucus,Urine Rare /hpf; Nitrite,Urine Negative (Negative); Protein,Urine 1+ (Negative); RBC,Urine 173 /hpf (0-5); Specific Gravity,Urine 1.024 (1.001-1.035); Urobilinogen,Urine <2.0 mg/dL (<2.0); WBC,Urine 63 /hpf (0-5)
[2020-04-24] MEDS ORDERED: ONDANSETRON 4 MG/2 ML VIAL IVP STA (13:18)
[2020-04-24 14:35] VITALS: BP 117/74
== END 2020-04-24 14:36 | disposition home or self-care (01) ==
LOC: EC 10:50
DX: R10.32 Left lower quadrant pain (principal); I10 Essential (primary) hypertension; J44.9 Chronic obstructive pulmonary disease, unspecified; E78.5 Hyperlipidemia, unspecified; F32.9 Major depressive disorder, single episode, unspecified; I48.91 Unspecified atrial fibrillation; Z79.51 Long term (current) use of inhaled steroids; Z79.82 Long term (current) use of aspirin; Z79.899 Other long term (current) drug therapy; Z87.891 Personal history of nicotine dependence
CPT/HCPCS: 36415; 80053; 82150; 83690; 85025; 82272; 81001; 87086; 87077; 87186; 74177; 99284; 96374; 96361; J2405; Q9967

== ENCOUNTER 2020-04-27 11:47 | Day surgery (SDC) | payer MEDICARE, OTHER ==
[2020-04-26 08:41] VITALS: BMI 20.2
--- NOTE | 2020-04-26 10:34 | P.GSHP ---
History of Present Illness H&P Date: 04/26/20 84 yo male with urine retention due to a large prostate and bladder stones comes for a turp and cystolithotripsy. He was scheduled for last week but did stop his eliquis in time It was cancelled He has been on culture specific antibiotics, stopped his eliquis and comes for a turp and cystolithotripsy. - Constitutional Constitutional: Reports weakness - Cardiovascular Cardiovascular: Reports decreased exercise tolerance, Reports dyspnea on exertion, Reports irregular heart beat - Respiratory Respiratory: Reports dyspnea - Gastrointestinal Gastrointestinal: Reports as per HPI Past Medical History Past Medical History: Atrial Fibrillation, COPD, Eye Disorder, Hyperlipidemia, Hypertension, Prostate Disorder, Respiratory Disorder Additional Past Medical History / Comment(s): emphysema, Home O2 at 3.5-4L/NC ATC, bronchitis, Hx of elevated cbg d/t chronic steroid use, chronic tremors- etiology unknown to pt, chronic low back pain, left foot drop., nephrolithiasis- has passed stones on his own and also surgically removed, BPH, glaucoma, Hx of left torn achilles tendon., indwelling catheter, seen over weekend in for abd. pain Last Myocardial Infarction Date:: unknown History of Any Multi-Drug Resistant Organisms: None Reported Past Surgical History: Back Surgery, Cholecystectomy, Heart Catheterization, Hernia Repair Additional Past Surgical History / Comment(s): Lumbar laminectomy, lithotripsy, colonoscopy, bilateral cataracts, right inguinal hernia. Past Anesthesia/Blood Transfusion Reactions: No Reported Reaction Additional Past Anesthesia/Blood Transfusion Reaction / Comment(s): woke up during anesthesia x1 Smoking Status: Former smoker - Past Family History Mother Family Medical History: Musculoskeletal Disorder, Neurologic Disorder Additional Family Medical History / Comment(s): Mother had parkinsons. Father Additional Family Medical History / Comment(s): Father had back problems. He in a MVA at the age of 62 yrs. Medications and Allergies Home Medications Medication Instructions Recorded Confirmed Type Aspirin 81 mg PO HS 03/24/14 04/26/20 History Atenolol [Tenormin] 12.5 mg PO BID 03/24/14 04/26/20 History Desvenlafaxine Succinate [Pristiq 50 mg PO DAILY 03/24/14 04/26/20 History ER] Garlic 1 tab PO TID 03/24/14 04/26/20 History Simvastatin [Zocor] 40 mg PO DAILY 03/24/14 04/26/20 History Terazosin [Hytrin] 2 mg PO BID 03/24/14 04/26/20 History Roflumilast [Daliresp] 500 mcg PO DAILY 04/20/17 04/26/20 History Calcium Carbonate [Calcium] 600 mg PO DAILY 09/13/17 04/26/20 History Cholecalciferol [Vitamin D3] 5,000 unit PO DAILY 09/13/17 04/26/20 History Ferrous Sulfate [Feosol] 325 mg PO PC-LUNCH 09/13/17 04/26/20 History Montelukast [Singulair] 10 mg PO DAILY 09/13/17 04/26/20 History cycloSPORINE 0.05% OPHTH SOLN 1 drop BOTH EYES BID 09/13/17 04/26/20 History [Restasis] predniSONE 10 mg PO DAILY 09/13/17 04/26/20 History Ipratropium-Albuterol Nebulize 3 ml INHALATION RT-TID 12/20/17 04/26/20 History [Duoneb 0.5 mg-3 mg/3 ml Soln] Budesonide [Pulmicort] 0.5 mg INHALATION RT-BID 03/09/18 04/26/20 History Tadalafil [Cialis] 5 mg PO DAILY 03/09/18 04/26/20 History Modafinil [Provigil] 200 mg PO DAILY 01/20/19 04/26/20 History Apixaban [Eliquis] 2.5 mg PO BID #180 tablet 01/24/19 04/26/20 Rx Carbidopa-Levodopa 10-100 mg 1 tab PO TID 03/05/19 04/26/20 History [Sinemet 10-100 mg] Primidone [Mysoline] 100 mg PO TID 03/05/19 04/26/20 History Arformoterol Tartrate [Brovana] 15 mcg INHALATION RT-BID 12/01/19 04/26/20 His tory Azithromycin [Zithromax] 500 mg PO DAILY 12/01/19 04/26/20 History [place]-3 Fatty Acids [[place]-3] 1,000 mg PO TID 12/01/19 04/26/20 History Sulfamethox-Tmp 800-160Mg [Bactrim 1 tab PO Q12HR 04/26/20 04/26/20 History DS 800-160 mg] Allergies Allergy/AdvReac Type Severity Reaction Status Date / Time No Known Allergies Allergy Verified 04/26/20 08:26 Surgical - Exam - General well developed, chronically ill - Eyes PERRL - ENT no hearing loss - Neck trachea midline - Respiratory o2, labored respirations - Cardiovascular Rhythm: irregularly irregular - Abdomen Abdomen: soft, non tender - Genitourinary indwelling catheter, 40 gm prostate - Integumentary no rash, no growths - Neurologic normal coordination, normal sensation - Musculoskeletal normal posture - Psychiatric oriented to time, oriented to person, oriented to place, speech is normal, memory intact Assessment and Plan Assessment: Impression: Urine retention secondary to BPH, bladder stones, copd , cardiac arrythmia, cad Plan: turp, bladder stones under spinal anesthesia
[~2020-04-27 11:47] MED LIST changes: +GENTAMICIN 100 MG in SODIUM CHLORIDE 0.9% 100 ML IVPB ONE; -GENTAMICIN 90 MG in SODIUM CHLORIDE 0.9% 100 ML IVPB ONE; -LACTATED RINGERS 1,000 ML IV SCH; -LEVOFLOXACIN 500MG-D5W PMX 500 MG in DEXTROSE/WATER 1 100ML.BAG IVPB ONE; +ONDANSETRON 4 MG/2 ML VIAL IVP ONE; -fentaNYL (PF) 50 MCG/ML 2 ML AMP IV PRN
[2020-04-27] MEDS: LACTATED RINGERS 1,000 ML IV SCH (12:22)
[2020-04-27 12:38] LABS: Glucose,Whole Blood 156 mg/dL (75-99)
[2020-04-27] MEDS ORDERED: DEXAMETHASONE SOD PHOSPHATE 10 MG/ML 1 ML VIAL IV ONE (12:39)
[2020-04-27] MEDS ORDERED: PROPOFOL 10 MG/ML 20 ML VIAL IV ONE (13:14)
[2020-04-27] MEDS ORDERED: LIDOCAINE 1% INJ 10MG/ML (20 ML MDV) ONE (13:14)
[2020-04-27] MEDS ORDERED: MIDAZOLAM 2 MG/2 ML VIAL ONE (13:14)
[2020-04-27] MEDS ORDERED: fentaNYL (PF) 50 MCG/ML 2 ML AMP ONE (13:14)
[2020-04-27] MEDS ORDERED: MAG HYDROX/AL HYDROX/SIMETH 30 ML CUP PO PRN (15:35)
[2020-04-27] MEDS ORDERED: BELLADONNA-OPIUM 16.2-60 MG 1 EACH SUPP RECTAL PRN (15:35)
[2020-04-27] MEDS ORDERED: ACETAMINOPHEN TAB 325 MG TAB PO PRN (15:35)
--- NOTE | 2020-04-27 15:41 | P.OP ---
Date of Procedure: 04/27/20 Preoperative Diagnosis: BPH with obstruction, urinary retention, bladder stones large Postoperative Diagnosis: Same Procedure(s) Performed: Cystoscopy, cystolithotripsy (large greater than 3 cm), bipolar TURP Anesthesia: spinal Surgeon: Edi Coronel Estimated Blood Loss (ml): 150 Pathology: other (Stone, prostate) Condition: stable Disposition: PACU Indications for Procedure: The patient is an unhealthy 84-year-old gentleman in urine retention is failed medical management. He has several large bladder stones greater than centimeters and a very large prostate comes for TURP and cystoscopy lithotripsy Description of Procedure: The patient was brought to the operating suite. Given a spinal anesthetic. He's placed lithotomy position with sterile prep and drape. Under direct vision the 19 tea and Citizen [place] sheath and Foroblique lenses introduced in urethra. The anterior urethra is normal prostate shows long trilobar obstruction. Bladder wall shows severe trabeculation with cellules. There multiple stones totaling greater than 3 cm. With the 500 laser probe and 20 W of energy the stones are broken into tiny pieces and flushed out of the bladder. I then removed the cystoscope and introduced the 25-[place] sheath direct vision obturator resectoscope. With the [place] resectoscope the bipolar super sect loop the prostate is slowly resected. I first resect the middle lobe. I then resect the proximal portion the left lateral lobe the middle portion and in the apical portion left lateral lobe I do the same on the right lateral lobe. I then resect the redundant floor tissue. I the do this down to capsule. The bladder free to prostatic chips with the [place] evacuator. I reinspected the prostate and there is no active bleeding. I removed the resectoscope and introduce a 18- [place] coud-tip catheter with 10 mL balloon. The urine is clear today extremely light pink. The patient returned recovery in good condition. He will be kept in the hospital overnight due to his medical condition. The catheter stent placed 3-4 days. The patient tolerated procedure well. Blood loss about 150 mL.
[2020-04-27] MEDS ORDERED: hydrALAZINE HCL 20 MG/ML 1 ML VIAL IV ONE (16:10)
[2020-04-27] MEDS: DEXTROSE 5%-0.45% NACL 1,000 ML IV SCH (17:29)
[2020-04-27] MEDS: PRIMIDONE 50 MG TAB PO SCH ×2 (17:46→21:14)
[2020-04-27] MEDS: CARBIDOPA-LEVODOPA 10-100 MG 1 EACH TAB PO SCH ×2 (17:47→21:14)
[2020-04-27] MEDS: DOCUSATE 100 MG CAP PO SCH (19:36)
[2020-04-27] MEDS: cycloSPORINE 0.05% OPHTH 0.4 ML DROPERETTE BOTH EYES SCH (19:37)
[2020-04-27] MEDS: SULFAMETHOX-TMP 800-160MG 1 EACH TAB PO SCH (19:37)
[2020-04-27] MEDS: BUDESONIDE 0.5 MG/2 ML NEBU INHALATION SCH (20:11)
[2020-04-27] MEDS: FORMOTEROL FUMARATE 20 MCG/2 ML NEBU INHALATION SCH (20:11)
[2020-04-27] MEDS: IPRATROPIUM-ALBUTEROL 3 ML NEB INHALATION SCH (20:11)
[2020-04-27] MEDS: ATENOLOL 12.5 MG TAB PO SCH (21:14)
[2020-04-28] MEDS: DEXTROSE 5%-0.45% NACL 1,000 ML IV SCH (00:38)
[2020-04-28] MEDS: LACTATED RINGERS 1,000 ML IV SCH (00:39)
[2020-04-28] MEDS: SULFAMETHOX-TMP 800-160MG 1 EACH TAB PO SCH (07:43)
[2020-04-28] MEDS: CARBIDOPA-LEVODOPA 10-100 MG 1 EACH TAB PO SCH ×2 (07:43→15:03)
[2020-04-28] MEDS: DOCUSATE 100 MG CAP PO SCH (07:44)
[2020-04-28] MEDS: cycloSPORINE 0.05% OPHTH 0.4 ML DROPERETTE BOTH EYES SCH (07:44)
[2020-04-28] MEDS: ATENOLOL 12.5 MG TAB PO SCH (07:44)
[2020-04-28] MEDS: PRIMIDONE 50 MG TAB PO SCH ×2 (07:44→15:03)
[2020-04-28] MEDS: FORMOTEROL FUMARATE 20 MCG/2 ML NEBU INHALATION SCH (08:44)
[2020-04-28] MEDS: IPRATROPIUM-ALBUTEROL 3 ML NEB INHALATION SCH ×2 (08:44→12:32)
[2020-04-28] MEDS: BUDESONIDE 0.5 MG/2 ML NEBU INHALATION SCH (08:44)
[2020-04-28] MEDS ORDERED: DESVENLAFAXINE SUCCINATE 50 MG TAB.ER.24H PO SCH (09:00)
[2020-04-28] MEDS ORDERED: AZITHROMYCIN 500 MG TAB PO SCH (09:00)
[2020-04-28] MEDS ORDERED: DALIRESP 500 MCG PO SCH (09:00)
[2020-04-28] MEDS ORDERED: MONTELUKAST 10 MG TAB PO SCH (09:00)
[2020-04-28] MEDS ORDERED: MODAFINIL 200 MG TAB PO SCH (09:00)
[2020-04-28] MEDS ORDERED: predniSONE 10 MG TAB PO SCH (09:00)
[2020-04-28 11:53] VITALS: BP 124/49; RESP 17; TEMP 98.7
[2020-04-28 12:33] VITALS: PULSE 60
--- NOTE | 2020-04-28 12:46 | P.DS ---
Providers Attending physician: Edi Coronel Primary care physician: [facility] Course: The patient is an unhealthy 84 old gentleman with severe COPD atrial fibrillation cardiac problems. He has a large prostate and bladder stones. He underwent a TURP and cystoscopy lithotripsy of large stone just today. He was kept in the hospital overnight for medical reasons plus had a long-acting spinal. He did well. The urine is clear. We discharged home. Catheter will stay until Sunday. The pathology report is pending. Vital signs are stable. He'll hold his anticoagulation until I see him. Patient Condition at Discharge: Stable Plan - Discharge Summary Discharge Rx Participant: No New Discharge Prescriptions: No Action Desvenlafaxine Succinate [Pristiq ER] 50 mg PO DAILY Atenolol [Tenormin] 12.5 mg PO BID Aspirin 81 mg PO HS Simvastatin [Zocor] 40 mg PO DAILY Terazosin [Hytrin] 2 mg PO BID Garlic 1 tab PO TID Roflumilast [Daliresp] 500 mcg PO DAILY Ferrous Sulfate [Feosol] 325 mg PO PC-LUNCH Calcium Carbonate [Calcium] 600 mg PO DAILY Montelukast [Singulair] 10 mg PO DAILY cycloSPORINE 0.05% OPHTH SOLN [Restasis] 1 drop BOTH EYES BID Cholecalciferol [Vitamin D3] 5,000 unit PO DAILY predniSONE 10 mg PO DAILY Ipratropium-Albuterol Nebulize [Duoneb 0.5 mg-3 mg/3 ml Soln] 3 ml INHALATION RT-TID Tadalafil [Cialis] 5 mg PO DAILY Budesonide [Pulmicort] 0.5 mg INHALATION RT-BID Modafinil [Provigil] 200 mg PO DAILY Apixaban [Eliquis] 2.5 mg PO BID #180 tablet Primidone [Mysoline] 100 mg PO TID Carbidopa-Levodopa 10-100 mg [Sinemet 10-100 mg] 1 tab PO TID [place]-3 Fatty Acids [[place]-3] 1,000 mg PO TID Azithromycin [Zithromax] 500 mg PO DAILY Arformoterol Tartrate [Brovana] 15 mcg INHALATION RT-BID Sulfamethox-Tmp 800-160Mg [Bactrim DS 800-160 mg] 1 tab PO Q12HR Discharge Medication List Aspirin 81 mg PO HS 03/24/14 [History] Atenolol [Tenormin] 12.5 mg PO BID 03/24/14 [History] Desvenlafaxine Succinate [Pristiq ER] 50 mg PO DAILY 03/24/14 [History] Garlic 1 tab PO TID 03/24/14 [History] Simvastatin [Zocor] 40 mg PO DAILY 03/24/14 [History] Terazosin [Hytrin] 2 mg PO BID 03/24/14 [History] Roflumilast [Daliresp] 500 mcg PO DAILY 04/20/17 [History] Calcium Carbonate [Calcium] 600 mg PO DAILY 09/13/17 [History] Cholecalciferol [Vitamin D3] 5,000 unit PO DAILY 09/13/17 [History] Ferrous Sulfate [Feosol] 325 mg PO PC-LUNCH 09/13/17 [History] Montelukast [Singulair] 10 mg PO DAILY 09/13/17 [History] cycloSPORINE 0.05% OPHTH SOLN [Restasis] 1 drop BOTH EYES BID 09/13/17 [History] predniSONE 10 mg PO DAILY 09/13/17 [History] Ipratropium-Albuterol Nebulize [Duoneb 0.5 mg-3 mg/3 ml Soln] 3 ml INHALATION RT-TID 12/20/17 [History] Budesonide [Pulmicort] 0.5 mg INHALATION RT-BID 03/09/18 [History] Tadalafil [Cialis] 5 mg PO DAILY 03/09/18 [History] Modafinil [Provigil] 200 mg PO DAILY 01/20/19 [History] Apixaban [Eliquis] 2.5 mg PO BID #180 tablet 01/24/19 [Rx] Carbidopa-Levodopa 10-100 mg [Sinemet 10-100 mg] 1 tab PO TID 03/05/19 [History] Primidone [Mysoline] 100 mg PO TID 03/05/19 [History] Arformoterol Tartrate [Brovana] 15 mcg INHALATION RT-BID 12/01/19 [History] Azithromycin [Zithromax] 500 mg PO DAILY 12/01/19 [History] [place]-3 Fatty Acids [[place]-3] 1,000 mg PO TID 12/01/19 [History] Sulfamethox-Tmp 800-160Mg [Bactrim DS 800-160 mg] 1 tab PO Q12HR 04/26/20 [History] Follow up Appointment(s)/Referral(s): [facility] [NON-STAFF] - 1 Week Edi Coronel MD [STAFF PHYSICIAN] - 05/03/20 Discharge Disposition: HOME WITH HOME HEALTH SERVICES
== END 2020-04-28 15:33 | disposition home health service (06) ==
LOC: OR 11:47 → 5NMEDONC 16:06 → OR 04-28 15:33
PROVIDERS: ATTEND Urology
DX: N40.1 Benign prostatic hyperplasia with lower urinary tract symptoms (principal); R33.8 Other retention of urine; N21.0 Calculus in bladder; I10 Essential (primary) hypertension; I48.91 Unspecified atrial fibrillation; J43.9 Emphysema, unspecified; E78.5 Hyperlipidemia, unspecified; K21.9 Gastro-esophageal reflux disease without esophagitis; H40.9 Unspecified glaucoma; M54.5 Low back pain; G89.29 Other chronic pain; Z79.01 Long term (current) use of anticoagulants; Z79.82 Long term (current) use of aspirin; Z79.52 Long term (current) use of systemic steroids; Z79.51 Long term (current) use of inhaled steroids; Z79.899 Other long term (current) drug therapy; Z87.442 Personal history of urinary calculi; Z90.49 Acquired absence of other specified parts of digestive tract; Z98.41 Cataract extraction status, right eye; Z98.42 Cataract extraction status, left eye; Z98.890 Other specified postprocedural states; Z87.891 Personal history of nicotine dependence; Z81.8 Family history of other mental and behavioral disorders
CPT/HCPCS: 94640 ×4; 86900; 86901; 86850; 82365; 52318; 52601; C1769; J0360; J1100; J2405; J1580; J0290; J7512; 88305

== ENCOUNTER → 2020-07-06 | Outpatient (CLI) | payer MEDICARE, OTHER ==
--- NOTE | 2020-07-06 13:34 | MR ---
EXAMINATION TYPE: MR lumbar spine wo/w con DATE OF EXAM: 07/06/2020 COMPARISON: 06/15/2018 HISTORY: Lumbar neuritis, radiates into lt side and both buttocks. Prior surgery 2013. TECHNIQUE: T1 and T2 axial and sagittal images of the lumbar spine are submitted. FINDINGS: There is no abnormal signal seen within the visualized spinal cord or paraspinal soft tissu es. There is a degenerative retrograde listhesis of L3 on L4. Alignment is otherwise maintained. Cord sig nal is maintained. The conus ends normally at the level of the superior endplate of L2. Simple appear ing renal cyst. Postsurgical changes are seen posteriorly compatible with laminectomy at multiple lev els. Abnormal signal posteriorly is most typical of granulation or scar tissue. Findings similar to t he prior exam. At T12-L1, there is mild degenerative disc disease and hypertrophic spurring. Intervertebral foramina are well maintained. There is mild hypertrophic change in the facets. No canal stenosis or disc abram iation. At L1-2, there is moderate to severe degenerative disc disease stable in appearance. Broad-based left paracentral and central disc protrusion is stable. . Mild effacement of thecal sac. Mild left forami nal encroachment.. There are hypertrophic changes and capsulitis within the facets. At L2-3, there is mild disc degenerative disc disease with hypertrophic change of the facets. No Hope l stenosis. Neural foramina are preserved. No disc herniation.. At L3-4, there is stable severe degenerative disc. There is a mild retrograde listhesis of L3 on L4. There is a broad-based disc protrusion moderately deforming the thecal sac. There is bilateral severe intervertebral foraminal narrowing. There has been an L3 laminectomy. At L4-5, there is severe disc space loss. There is a laminectomy at L4. There is no significant compr essive discopathy. There are hypertrophic changes in the facets. There is bilateral moderate interver tebral foraminal narrowing, worse on the left than the right. Discogenic marrow changes are seen. At L5-S1, there is bilateral intervertebral foraminal narrowing, worse on the left than the right. Th ere is been an L5 laminectomy. There are fairly marked hypertrophic changes in the facets. Broad-base d central disc protrusion with moderate effacement of thecal sac and canal stenosis. Disc broad-based protrusion greater paracentrally and laterally to the left with moderate right and severe left fora jakob encroachment. Findings similar to the prior exam. IMPRESSION: 1. Postoperative changes stable and there is severe multilevel degenerative disc disease in significa nt multilevel foraminal encroachment similar to the prior exam. 2. Disc protrusions at L3-4 and L5-S1 results in significant compression of thecal sac and suspected canal stenosis. 3. Small focal disc protrusion or herniation centrally and paracentrally left L1-L2 with mild effacem ent of thecal sac stable.
== END | disposition home or self-care (01) ==
LOC: RADMRIMAIN 11:47
PROVIDERS: ATTEND Family Medicine
DX: M51.16 Intervertebral disc disorders with radiculopathy, lumbar region (principal); M51.17 Intervertebral disc disorders with radiculopathy, lumbosacral region; Z98.890 Other specified postprocedural states
CPT/HCPCS: 72158; A9585

== ENCOUNTER 2021-04-16 07:09 | Inpatient (IN) | payer MEDICARE, OTHER ==
[2021-04-16] MEDS ORDERED: SODIUM CHLORIDE 0.9% 500 ML 500 ML IV STA (07:44)
--- NOTE | 2021-04-16 07:56 | ED ---
General Adult HPI - General Chief complaint: Fall Stated complaint: Fall Time Seen by Provider: 04/16/21 07:12 Source: patient Mode of arrival: EMS Limitations: no limitations - History of Present Illness Initial comments: 85 year-old male patient with past history significant for oxygen dependent COPD, Parkinson's Disease presents to the emergency department for evaluation of leg weakness. Patient states that this has been getting worse over the last couple of years. States that around 0200 this morning he got up to go to the bathroom. States that he was sitting on his walker seat, reach over to shut off the light and slid off the walker and "slid" to the floor. Patient states that he landed on his butt. States he did not sustain any injuries. States that he wanted to get checked out because he is feeling more weak, states "my legs feel like they are a 100lbs". Denies any chest pain, shortness of breath, headaches, dizziness, numbness, or tingling. Denies any hematuria, dysuria, urinary urgency, or urinary frequency. Denies fever or chills. Does have a remote achilles injury to the left that causes chronic swelling in his leg. Patient d enies any recent rash, cough, abdominal pain, nausea, vomiting, diarrhea, constipation, back pain, numbness, tingling, dizziness, weakness, headache, visual changes, or any other complaints. - Related Data Home Medications Medication Instructions Recorded Confirmed Aspirin 81 mg PO HS 03/24/14 04/26/20 Desvenlafaxine Succinate [Pristiq 50 mg PO DAILY 03/24/14 04/26/20 ER] Garlic 1 tab PO TID 03/24/14 04/26/20 Simvastatin [Zocor] 40 mg PO DAILY 03/24/14 04/26/20 Terazosin [Hytrin] 2 mg PO BID 03/24/14 04/26/20 atenoloL [Tenormin] 12.5 mg PO BID 03/24/14 04/26/20 Roflumilast [Daliresp] 500 mcg PO DAILY 04/20/17 04/26/20 Calcium Carbonate [Calcium] 600 mg PO DAILY 09/13/17 04/26/20 Cholecalciferol [Vitamin D3] 5,000 unit PO DAILY 09/13/17 04/26/20 Ferrous Sulfate [Feosol] 325 mg PO PC-LUNCH 09/13/17 04/26/20 Montelukast [Singulair] 10 mg PO DAILY 09/13/17 04/26/20 cycloSPORINE 0.05% OPHTH SOLN 1 drop BOTH EYES BID 09/13/17 04/26/20 [Restasis] predniSONE 10 mg PO DAILY 09/13/17 04/26/20 Ipratropium-Albuterol Nebulize 3 ml INHALATION RT-TID 12/20/17 04/26/20 [Duoneb 0.5 mg-3 mg/3 ml Soln] Budesonide [Pulmicort] 0.5 mg INHALATION RT-BID 03/09/18 04/26/20 Tadalafil [Cialis] 5 mg PO DAILY 03/09/18 04/26/20 modafiniL [Provigil] 200 mg PO DAILY 01/20/19 04/26/20 Carbidopa-Levodopa 10-100 mg 1 tab PO TID 03/05/19 04/26/20 [Sinemet 10-100 mg] Primidone [Mysoline] 100 mg PO TID 03/05/19 04/26/20 Arformoterol Tartrate [Brovana] 15 mcg INHALATION RT-BID 12/01/19 04/26/20 Azithromycin [Zithromax] 500 mg PO DAILY 12/01/19 04/26/20 [place]-3 Fatty Acids [[place]-3] 1,000 mg PO TID 12/01/19 04/26/20 Sulfamethox-Tmp 800-160Mg [Bactrim 1 tab PO Q12HR 04/26/20 04/26/20 DS 800-160 mg] Previous Rx's Medication Instructions Recorded Apixaban [Eliquis] 2.5 mg PO BID #180 tablet 01/24/19 Allergies Allergy/AdvReac Type Severity Reaction Status Date / Time No Known Allergies Allergy Verified 04/16/21 07:24 Review of Systems ROS Statement: Those systems with pertinent positive or pertinent negative responses have been documented in the HPI. ROS Other: All systems not noted in ROS Statement are negative. Past Medical History Past Medical History: Atrial Fibrillation, COPD, Hyperlipidemia Additional Past Medical History / Comment(s): Parkinsons, emphysema, Home O2 at 3.5-4L/NC ATC, bronchitis, Hx of elevated cbg d/t chronic steroid use, chronic tremors-etiology unknown to pt, chronic low back pain, left foot drop., nephrolithiasis-has passed stones on his own and also surgically removed, BPH, bilateral glaucoma, Hx of left torn achilles tendon., states difficulty walking- using walker. Last Myocardial Infarction Date:: unknown History of Any Multi-Drug Resistant Organisms: None Reported Past Surgical History: Back Surgery, Cholecystectomy, Heart Catheterization, Hernia Repair Additional Past Surgical History / Comment(s): Lumbar laminectomy, lithotripsy, colonoscopy, bilateral cataracts, right inguinal hernia. Past Anesthesia/Blood Transfusion Reactions: No Reported Reaction, Previous Problems w/ Anesthesia Additional Past Anesthesia/Blood Transfusion Reaction / Comment(s): woke up during anesthesia x1 Past Psychological History: Depression Smoking Status: Former smoker Past Alcohol Use History: None Reported Past Drug Use History: None Reported - Past Family History Mother Family Medical History: Musculoskeletal Disorder, Neurologic Disorder Additional Family Medical History / Comment(s): Mother had parkinsons. Father Additional Family Medical History / Comment(s): Father had back problems. He in a MVA at the age of 62 yrs. General Exam Limitations: no limitations General appearance: alert, in no apparent distress, other (This is a well developed, well nourished adult male patient in no acute distress. V/S upon presentation are temp 98.4, pulse 56, resp 18, BP 189/75, pulse ox 100%. ) Eye exam: Present: normal appearance, PERRL, EOMI. Absent: scleral icterus, conjunctival injection, periorbital swelling ENT exam: Present: normal exam, normal oropharynx, mucous membranes moist Neck exam: Present: normal inspection, other (Nontender, no step-off, no deformity to firm midline palpation of the posterior cervical spine. Full range of motion without pain or limitation.). Absent: tenderness, meningismus, lymphadenopathy Respiratory exam: Present: normal lung sounds bilaterally. Absent: respiratory distress, wheezes, rales, rhonchi, stridor Cardiovascular Exam: Present: regular rate, normal rhythm, normal heart sounds. Absent: systolic murmur, diastolic murmur, rubs, gallop, clicks GI/Abdominal exam: Present: soft, normal bowel sounds. Absent: distended, tende rness, guarding, rebound, rigid Neurological exam: Present: alert, oriented X3, CN II-XII intact Expanded Speech: Present: fluid speech Cranial nerves: EOM's Intact: Normal, Nystagmus: Normal Motor strength exam: RUE: 5, LUE: 5, RLE: 4, LLE: 4 Psychiatric exam: Present: normal affect, normal mood Skin exam: Present: warm, dry, intact, normal color. Absent: rash Course Vital Signs 04/16/21 04/16/21 04/16/21 07:19 08:00 09:00 Temperature 98.4 F Pulse Rate 56 L 56 L 53 L Respiratory 18 15 18 Rate Blood Pressure 189/75 189/75 200/66 O2 Sat by Pulse 100 99 100 Oximetry EKG Findings - EKG Comments: EKG Findings:: EKG obtained at 06 23 shows sinus bradycardia with a first-degree AV block. Right bundle branch block, left anterior fascicular block. Ventricular is 57, para interval 228, QRS duration 140, QTC 452, QTc 439. EKG changes appears similar to previous EKG from March 2020. Medical Decision Making - Medical Decision Making 85-year-old male patient presents the emergency department today for evaluation of leg weakness. Did have a small fall this morning without injury. Labs reviewed and did reveal hemoglobin 10.1 and which seems to be chronic for patient. Also elevated BUN at 50 and creatinine 1.73. Troponin elevated at 0.184. Urinalysis did show large leukocyte esterase with 59 white blood cells. Covid was negative. We did given aspirin. He does take Eliquis twice daily. He'll be admitted to the hospital's cardiology consult. Dr. Benson is accepting. Case discussed with my attending Dr. Pierre. - Lab Data Result diagrams: 04/16/21 07:53 04/16/21 07:53 Lab Results 04/16/21 04/16/21 04/16/21 Range/Units 07:53 07:53 07:53 WBC 3.3 L (3.8-10.6) k/uL RBC 2.82 L (4.30-5.90) m/uL Hgb 10.1 L (13.0-17.5) gm/dL Hct 30.6 L (39.0-53.0) % MCV 108.4 H (80.0-100.0) fL MCH 35.7 H (25.0-35.0) pg MCHC 32.9 (31.0-37.0) g/dL RDW 14.5 (11.5-15.5) % Plt Count 156 (150-450) k/uL MPV 9.0 Neutrophils % 71 % Lymphocytes % 20 % Monocytes % 8 % Eosinophils % 0 % Basophils % 0 % Neutrophils # 2.3 (1.3-7.7) k/uL Lymphocytes # 0.7 L (1.0-4.8) k/uL Monocytes # 0.2 (0-1.0) k/uL Eosinophils # 0.0 (0-0.7) k/uL Basophils # 0.0 (0-0.2) k/uL Manual Slide Review Performed Macrocytosis Marked A PT 10.2 (9.0-12.0) sec INR 0.9 (<1.2) APTT 21.4 L (22.0-30.0) sec Sodium (137-145) mmol/L Potassium (3.5-5.1) mmol/L Chloride (98-107) mmol/L Carbon Dioxide (22-30) mmol/L Anion Gap mmol/L BUN (9-20) mg/dL Creatinine (0.66-1.25) mg/dL Est GFR (CKD-EPI)AfAm (>60 ml/min/1.73 sqM) Est GFR (CKD-EPI)NonAf (>60 ml/min/1.73 sqM) Glucose (74-99) mg/dL Plasma Lactic Acid Claudy (0.7-2.0) mmol/L Calcium (8.4-10.2) mg/dL Magnesium (1.6-2.3) mg/dL Total Bilirubin (0.2-1.3) mg/dL AST (17-59) U/L ALT (4-49) U/L Alkaline Phosphatase (38-126) U/L Creatine Kinase (55-170) U/L Troponin I (0.000-0.034) ng/mL Total Protein (6.3-8.2) g/dL Albumin (3.5-5.0) g/dL Urine Color Yellow Urine Appearance Clear (Clear) Urine pH 5.5 (5.0-8.0) Ur Specific [place] 1.021 (1.001-1.035) Urine Protein Trace H (Negative) Urine Glucose (UA) Negative (Negative) Urine Ketones Negative (Negative) Urine Blood Negative (Negative) Urine Nitrite Negative (Negative) Urine Bilirubin Negative (Negative) Urine Urobilinogen <2.0 (<2.0) mg/dL Ur Leukocyte Esterase Large H (Negative) Urine RBC 3 (0-5) /hpf Urine WBC 59 H (0-5) /hpf Ur Squamous Epith Cells 1 (0-4) /hpf Cellular Casts 1 (0) /lpf Hyaline Casts 1 (0-2) /lpf Urine Mucus Rare H (None) /hpf Coronavirus (PCR) (Not Detectd) 04/16/21 04/16/21 04/16/21 Range/Units 07:53 07:53 07:53 WBC (3.8-10.6) k/uL RBC (4.30-5.90) m/uL Hgb (13.0-17.5) gm/dL Hct (39.0-53.0) % MCV (80.0-100.0) fL MCH (25.0-35.0) pg MCHC (31.0-37.0) g/dL RDW (11.5-15.5) % Plt Count (150-450) k/uL MPV Neutrophils % % Lymphocytes % % Monocytes % % Eosinophils % % Basophils % % Neutrophils # (1.3-7.7) k/uL Lymphocytes # (1.0-4.8) k/uL Monocytes # (0-1.0) k/uL Eosinophils # (0-0.7) k/uL Basophils # (0-0.2) k/uL Manual Slide Review Macrocytosis PT (9.0-12.0) sec INR (<1.2) APTT (22.0-30.0) sec Sodium 142 (137-145) mmol/L Potassium 4.6 (3.5-5.1) mmol/L Chloride 107 (98-107) mmol/L Carbon Dioxide 31 H (22-30) mmol/L Anion Gap 4 mmol/L BUN 50 H (9-20) mg/dL Creatinine 1.73 H (0.66-1.25) mg/dL Est GFR (CKD-EPI)AfAm 41 (>60 ml/min/1.73 sqM) Est GFR (CKD-EPI)NonAf 35 (>60 ml/min/1.73 sqM) Glucose 100 H (74-99) mg/dL Plasma Lactic Acid Claudy 1.0 (0.7-2.0) mmol/L Calcium 9.6 (8.4-10.2) mg/dL Magnesium 2.3 (1.6-2.3) mg/dL Total Bilirubin 0.2 (0.2-1.3) mg/dL AST 28 (17-59) U/L ALT 11 (4-49) U/L Alkaline Phosphatase 57 (38-126) U/L Creatine Kinase (55-170) U/L Troponin I 0.184 H* (0.000-0.034) ng/mL Total Protein 6.2 L (6.3-8.2) g/dL Albumin 3.7 (3.5-5.0) g/dL Urine Color Urine Appearance (Clear) Urine pH (5.0-8.0) Ur Specific [place] (1.001-1.035) Urine Protein (Negative) Urine Glucose (UA) (Negative) Urine Ketones (Negative) Urine Blood (Negative) Urine Nitrite (Negative) Urine Bilirubin (Negative) Urine Urobilinogen (<2.0) mg/dL Ur Leukocyte Esterase (Negative) Urine RBC (0-5) /hpf Urine WBC (0-5) /hpf Ur Squamous Epith Cells (0-4) /hpf Cellular Casts (0) /lpf Hyaline Casts (0-2) /lpf Urine Mucus (None) /hpf Coronavirus (PCR) (Not Detectd) 04/16/21 04/16/21 Range/Units 07:53 07:53 WBC (3.8-10.6) k/uL RBC (4.30-5.90) m/uL Hgb (13.0-17.5) gm/dL Hct (39.0-53.0) % MCV (80.0-100.0) fL MCH (25.0-35.0) pg MCHC (31.0-37.0) g/dL RDW (11.5-15.5) % Plt Count (150-450) k/uL MPV Neutrophils % % Lymphocytes % % Monocytes % % Eosinophils % % Basophils % % Neutrophils # (1.3-7.7) k/uL Lymphocytes # (1.0-4.8) k/uL Monocytes # (0-1.0) k/uL Eosinophils # (0-0.7) k/uL Basophils # (0-0.2) k/uL Manual Slide Review Macrocytosis PT (9.0-12.0) sec INR (<1.2) APTT (22.0-30.0) sec Sodium (137-145) mmol/L Potassium (3.5-5.1) mmol/L Chloride (98-107) mmol/L Carbon Dioxide (22-30) mmol/L Anion Gap mmol/L BUN (9-20) mg/dL Creatinine (0.66-1.25) mg/dL Est GFR (CKD-EPI)AfAm (>60 ml/min/1.73 sqM) Est GFR (CKD-EPI)NonAf (>60 ml/min/1.73 sqM) Glucose (74-99) mg/dL Plasma Lactic Acid Claudy (0.7-2.0) mmol/L Calcium (8.4-10.2) mg/dL Magnesium (1.6-2.3) mg/dL Total Bilirubin (0.2-1.3) mg/dL AST (17-59) U/L ALT (4-49) U/L Alkaline Phosphatase (38-126) U/L Creatine Kinase 39 L (55-170) U/L Troponin I (0.000-0.034) ng/mL Total Protein (6.3-8.2) g/dL Albumin (3.5-5.0) g/dL Urine Color Urine Appearance (Clear) Urine pH (5.0-8.0) Ur Specific [place] (1.001-1.035) Urine Protein (Negative) Urine Glucose (UA) (Negative) Urine Ketones (Negative) Urine Blood (Negative) Urine Nitrite (Negative) Urine Bilirubin (Negative) Urine Urobilinogen (<2.0) mg/dL Ur Leukocyte Esterase (Negative) Urine RBC (0-5) /hpf Urine WBC (0-5) /hpf Ur Squamous Epith Cells (0-4) /hpf Cellular Casts (0) /lpf Hyaline Casts (0-2) /lpf Urine Mucus (None) /hpf Coronavirus (PCR) Not Detected (Not Detectd) - Radiology Data Radiology results: report reviewed, image reviewed On acute emphysematous changes small tiny left greater than right pleural effusions. No new focal infiltrate. No significant change from most recent x-ray. Disposition Clinical Impression: Elevated troponin, Weakness Disposition: ADMITTED IP TO THIS [facility] Condition: Serious Referrals: Maxx Benson MD [Primary Care Provider] - 1-2 days Decision to Admit Reason: Admit from EC Decision Date: 04/16/21 Decision Time: 09:13
[2021-04-16 08:14] LABS: Basophils % (A) 0 %; Eosinophils % (A) 0 %; HCT 30.6 % (39.0-53.0); HGB 10.1 gm/dL (13.0-17.5); Lymphocytes # (A) 0.7 k/uL (1.0-4.8); Lymphocytes % (A) 20 %; MCH 35.7 pg (25.0-35.0); MCHC 32.9 g/dL (31.0-37.0); MCV 108.4 fL (80.0-100.0); Macrocytosis Marked; Monocytes # (A) 0.2 k/uL (0-1.0); Monocytes % (A) 8 %; Neutrophils # (A) 2.3 k/uL (1.3-7.7); Neutrophils % (A) 71 %; Platelet Count 156 k/uL (150-450); RBC 2.82 m/uL (4.30-5.90); RDW 14.5 % (11.5-15.5); WBC 3.3 k/uL (3.8-10.6)
[2021-04-16 08:26] LABS: Albumin 3.7 g/dL (3.5-5.0); Calcium 9.6 mg/dL (8.4-10.2); Magnesium 2.3 mg/dL (1.6-2.3); Potassium 4.6 mmol/L (3.5-5.1); Total Bilirubin 0.2 mg/dL (0.2-1.3); Total Protein 6.2 g/dL (6.3-8.2)
[2021-04-16 08:29] LABS: INR 0.9 (<1.2); Prothrombin Time 10.2 sec (9.0-12.0)
[2021-04-16 08:47] LABS: Partial Thromboplastin Time 21.4 sec (22.0-30.0)
[2021-04-16 08:48] LABS: Appearance,Urine Clear (Clear); Bilirubin,Urine Negative (Negative); Blood,Urine Negative (Negative); Cellular Casts,Urine 1 /lpf (0); Color,Urine Yellow; Glucose,Urine (UA) Negative (Negative); Hyaline Casts,Urine 1 /lpf (0-2); Ketones,Urine Negative (Negative); Leukocyte Esterase,Urine Large (Negative); Mucus,Urine Rare /hpf; Nitrite,Urine Negative (Negative); PH, Urine 5.5 (5.0-8.0); Protein,Urine Trace (Negative); RBC,Urine 3 /hpf (0-5); Specific Gravity,Urine 1.021 (1.001-1.035); Squamous Epithelial Cell,Urine 1 /hpf (0-4); Urobilinogen,Urine <2.0 mg/dL (<2.0); WBC,Urine 59 /hpf (0-5)
[2021-04-16] MEDS ORDERED: ASPIRIN 81 MG PO STA (08:59)
[2021-04-16] MEDS ORDERED: cefTRIAXone IN SWFI 1,000 MG/10 ML SYRINGE IVP STA (09:01)
[2021-04-16] MEDS ORDERED: hydrALAZINE HCL 20 MG/ML 1 ML VIAL IVP STA (09:08)
[2021-04-16] MEDS ORDERED: NALOXONE 0.4 MG/ML 1 ML VIAL IV PRN (09:08)
--- NOTE | 2021-04-16 09:08 | XR ---
EXAMINATION TYPE: XR chest 2V DATE OF EXAM: 04/16/2021 COMPARISON: Chest x-ray April 14, [address] chest January 22, 2019 HISTORY: Weakness. TECHNIQUE: Frontal and lateral views of the chest are obtained. FINDINGS: There is background chronic emphysematous change with persistent small to tiny left greate r than right pleural effusions. No new focal airspace opacity or pneumothorax seen bilaterally The ca rdiac silhouette size is stable and upper limits of normal with atherosclerotic thoracic aorta. Bilat eral hilar prominence consistent with underlying pulmonary artery hypertension redemonstrated confirm ed on CT.. The osseous structures remain intact. IMPRESSION: Chronic emphysematous change with small to tiny left greater than right pleural effusion s. No new focal infiltrate. No significant change from most recent x-ray.
[2021-04-16] MEDS ORDERED: HYDROcodone/APAP 5-325MG 1 EACH TAB PO PRN (10:58)
--- NOTE | 2021-04-16 11:42 | CT ---
EXAMINATION TYPE: CT chest wo con DATE OF EXAM: 04/16/2021 COMPARISON: Chest CT January 22, 2019. Chest x-ray earlier today. HISTORY: COPD CT DLP: 238.6 mGycm. Automated Exposure Control for Dose Reduction was Utilized. TECHNIQUE: CT scan of the thorax is performed without IV contrast. FINDINGS: LUNGS: Moderate underlying emphysematous change is redemonstrated. Persistent slightly elevated left hemidiaphragm. Persistent tiny left pleural effusion. There is mild to moderate left lung linear scar ring and/or atelectasis redemonstrated No suspicious new focal consolidation or groundglass opacity. No pneumothorax seen bilaterally. MEDIASTINUM: Lack of IV contrast is noted to limit evaluation for mediastinal and especially hilar ad enopathy. There are no definitive greater than 1 cm hilar or mediastinal lymph nodes. Persistent enla rged main pulmonary artery into right pulmonary artery consistent with underlying pulmonary artery hy pertension. Small to tiny Pericardial effusion is redemonstrated. Heart size stable and upper limits of normal. Severe three-vessel coronary artery calcification redemonstrated. OTHER: Multilevel spurring in the thoracic spine. IMPRESSION: Moderate emphysematous change with tiny left pleural effusion and mild/moderate left basi lar scarring and/or atelectasis. No new focal infiltrate.
[2021-04-16] MEDS: FERROUS SULFATE 325 MG TAB PO SCH (13:12)
[2021-04-16] MEDS ORDERED: NON FORMULARY DRUG (Garlic [Garlic] 1 EACH Tablet) PO SCH (16:00)
[2021-04-16] MEDS: PRIMIDONE 50 MG TAB PO SCH ×2 (16:06→22:13)
[2021-04-16] MEDS: CARBIDOPA-LEVODOPA 25-100 MG 1 EACH TAB PO SCH ×2 (16:06→22:13)
[2021-04-16] MEDS: hydrALAZINE HCL 20 MG/ML 1 ML VIAL IVP PRN (18:24)
[2021-04-16] MEDS: BUDESONIDE 0.5 MG/2 ML NEBU INHALATION SCH (20:27)
[2021-04-16] MEDS: FORMOTEROL FUMARATE 20 MCG/2 ML NEBU INHALATION SCH (20:27)
[2021-04-16] MEDS: APIXABAN 2.5 MG TABLET PO SCH (20:59)
[2021-04-16] MEDS: ASPIRIN 81 MG PO SCH (20:59)
[2021-04-16] MEDS: cycloSPORINE 0.05% OPHTH 0.4 ML DROPERETTE BOTH EYES SCH (22:14)
[2021-04-16] MEDS: LATANOPROST 0.005% OPHTH DROPS 2.5 ML BTL BOTH EYES SCH (22:14)
--- NOTE | 2021-04-17 00:24 | HP ---
HISTORY AND PHYSICAL 85-year-old male, oxygen-dependent COPD, Parkinson disease, presents with leg weakness unable to lift his legs. He was found to have elevated troponin and possible UTI, slid to the floor as his legs feel like they are 100 pounds. He has history of lumbar disc disease status oxygen-dependent COPD, essential tremor, and Parkinson disease. We will get Neurology to look at him for tremor acute cardiology for elevated troponin. I will do another CT scan of his chest, long-standing COPD, chief . MEDICATIONS: Medications at home: Pristiq 50 mg daily, Zocor 40 daily, Hytrin 2 mg b.i.d.,. Tenormin 12.5 b.i.d., Daliresp 500 mcg daily, vitamin D3 5000 units daily, iron sulfate 325 daily, Singulair 10 mg daily, cyclosporine 0.05% ophthalmic solution, 1 drop both eyes b.i.d., prednisone 10 mg daily, DuoNeb updrafts t.i.d., Pulmicort 0.5 mg b.i.d., Cialis 5 mg daily, Provigil 200 daily, Sinemet 1 t.i.d. Mysoline 100 t.i.d., [place] 3- 1000 mg t.i.d. Bactrim Brovana b.i.d. omega. [place] 3 1000 mg t.i.d., Bactrim double strength b.i.d. ALLERGIES: No known drug allergies. PAST MEDICAL HISTORY: Atrial fibrillation COPD ends on 4 L oxygen 46 dyslipidemia, Parkinson disease, Parkinson's, essential tremor, BPH with a TURP done in the last year, history of torn Achilles tendon, difficulty walking, leg weakness, suspect she has got lumbar disc disease with radiculopathy. She has had back surgery cholecystectomy heart catheterization, hernia repair, cataract repair, inguinal hernia repair, recent TURP, lumbar laminectomy, bilateral cataracts, history of depression, ex-smoker. Socially lives alone, he was a parachute jumper back in the war. He does not smoke or drink currently. Pulse is in the 50s to 60s, temperature 98.5, respiratory 15-18, blood pressure is 180s to 200 over 60s to 70s. Will give IV hydralazine p.r.n. for hypertension acceleration. Psych: Fair mood and affect. SKIN warm, dry, intact. Neurologic mild to moderate tremor extremities and facial cardiovascular regular rate and rhythm. Lungs show scattered rhonchi and wheeze. ENT no adenopathy. ASSESSMENT: 1. Leg weakness, fall, possible urinary tract infection. 2. Chronic obstructive pulmonary disease exacerbation, suspect lumbar radiculopathy on the left leg. 3. Prerenal renal azotemia, chronic kidney disease, stage 3, history atrial fibrillation on Eliquis, Parkinson's, essential tremor. Continue on current treatment. Get Cardiology for elevated troponin. Neurology for tremor. Prognosis guarded. PT/OT. Treat UTI. MMODL / IJN: [id number] /
--- NOTE | 2021-04-17 02:07 | P.CNNES ---
History of Present Illness Consult date: 04/16/21 Requesting physician: Maxx Benson Reason for Consult: Tremors History of Present Illness: This is a Tele-Neurology consultation performed today on 04/16/2021. Patient was seen in ED to #9. Patient is a 85-year-old male came to the hospital today at 7:09 AM. Patient states that he came to the hospital because he is not able to hold up on his legs for last 2 years. He feels like he has weight in his legs 100 pounds apiece. Last night it became worse and he could not get up. He states that last night he fell down off the walker. He denies any neck pain although does have some back pain. It involves the hip to the left ankle. Neurology was consulted for tremors. Patient states that he has history of prabhjot mor for couple years. He is not sure if he does have Parkinson's or not. He does not see a neurologist. Patient states tremors are present all the time. When he is using his hands, it is worse. He has had an chin tremors as well. He cannot write for couple years because of shaking and the handwriting is getting bigger. He is using walker for last 2 years. Per EMS flow sheet, when they arrived, patient was sitting upright on the bathroom floor. He was alert and oriented 4 with GCS 15. Patient stated he had just slid out of his chair. Patient did not say he hurt anywhere. Did not hit his head. Patient not on any blood thinners. Patient stated that his legs felt weak and tingly. This has been going on for a while, but now on the morning, his legs felt weaker than normal. Patient's vital signs shows blood pressure 179/73, pulse rate 65, her saturation 98%. Patient's blood pressure 189/75, pulse rate 56, temperature 98.4. Chest x-ray showed chronic emphysematous change with small tiny left greater than right pleural effusions. No new focal infiltrate. No significant change from the most recent x-ray. EKG shows sinus bradycardia with first-degree AV block. Right bundle branch block. Left anterior fascicular block. CT of the chest without contrast shows moderate emphysematous change. Tiny left pleural effusion and mild/moderate left basilar scarring and/or atelectasis. No new focal infiltrate. Patient's blood test shows WC 3.3 hemoglobin 10.1 and platelets 156. PT/PTT normal, electrolytes normal, BUN 50, creatinine 1.73. Troponins are mildly elevated 0.184. CK 39 normal. UA shows large amount of leukocyte Estrace. 59 WBCs. Cali virus PCR negative. On review of records, patient's MRI of the brain from [facility] gyriform enhancement over the right frontal lobe may be related to cortical infarct Patient takes atenolol 12.5 mg twice a day, aspirin 81 mg, simvastatin 40 mg, prednisone 10 mg daily Provigil 200 mg daily, Eliquis 2.5 mg twice a day, primidone 100 mg 3 times a day, hydrocodone 5/325 twice a day when necessary, carbidopa levodopa 25/100, 1 tablet 3 times a day. Trintellix 20 mg daily. Patient has smoked 1-1/2-2 pack per day for 60 years, quit in 2001. He quit drinking in 1972. He drank a lot before and mainly beer. Patient states that his mother also has history of tremors. Patient has not drank alcohol for number of years due for does not remember if there is any impact of alcohol on the tremors. Review of Systems As mentioned above in detail. All other review of systems reviewed and noncontributory. Denies any chest pain shortness of breath wheezing or cough. Denies any blood or pain nausea vomiting diarrhea. Denies any fever or chills. No rash. No weight loss. Past Medical History Past Medical History: Atrial Fibrillation, COPD, Hyperlipidemia Additional Past Medical History / Comment(s): Parkinsons, emphysema, Home O2 at 3.5-4L/NC ATC, bronchitis, Hx of elevated cbg d/t chronic steroid use, chronic tremors-etiology unknown to pt, chronic low back pain, left foot drop., nephrolithiasis-has passed stones on his own and also surgically removed, BPH, bilateral glaucoma, Hx of left torn achilles tendon., states difficulty walking- using walker. Last Myocardial Infarction Date:: unknown History of Any Multi-Drug Resistant Organisms: None Reported Past Surgical History: Back Surgery, Cholecystectomy, Heart Catheterization, Hernia Repair Additional Past Surgical History / Comment(s): Lumbar laminectomy, lithotripsy, colonoscopy, bilateral cataracts, right inguinal hernia. Past Anesthesia/Blood Transfusion Reactions: No Reported Reaction, Previous Problems w/ Anesthesia Additional Past Anesthesia/Blood Transfusion Reaction / Comment(s): woke up during anesthesia x1 Past Psychological History: Depression Smoking Status: Former smoker Past Alcohol Use History: None Reported Past Drug Use History: None Reported - Past Family History Mother Family Medical History: Musculoskeletal Disorder, Neurologic Disorder Additional Family Medical History / Comment(s): Mother had parkinsons. Father Additional Family Medical History / Comment(s): Father had back problems. He in a MVA at the age of 62 yrs. Medications and Allergies Home Medications Medication Instructions Recorded Confirmed Type Aspirin 81 mg PO HS 03/24/14 04/16/21 History Garlic 1 tab PO TID 03/24/14 04/16/21 History Simvastatin [Zocor] 40 mg PO DAILY 03/24/14 04/16/21 History atenoloL [Tenormin] 12.5 mg PO BID 03/24/14 04/16/21 History Roflumilast [Daliresp] 500 mcg PO DAILY 04/20/17 04/16/21 History Calcium Carbonate [Calcium] 600 mg PO DAILY 09/13/17 04/16/21 History Cholecalciferol [Vitamin D3] 125 mcg PO DAILY 09/13/17 04/16/21 History Ferrous Sulfate [Feosol] 325 mg PO PC-LUNCH 09/13/17 04/16/21 History Montelukast [Singulair] 10 mg PO DAILY 09/13/17 04/16/21 History cycloSPORINE 0.05% OPHTH SOLN 1 drop BOTH EYES BID 09/13/17 04/16/21 History [Restasis] predniSONE 10 mg PO DAILY 09/13/17 04/16/21 History Budesonide [Pulmicort] 0.5 mg INHALATION RT-BID 03/09/18 04/16/21 History Tadalafil [Cialis] 5 mg PO DAILY 03/09/18 04/16/21 History modafiniL [Provigil] 200 mg PO DAILY 01/20/19 04/16/21 History Apixaban [Eliquis] 2.5 mg PO BID #180 tablet 01/24/19 04/16/21 Rx Primidone [Mysoline] 100 mg PO TID 03/05/19 04/16/21 History Arformoterol Tartrate [Brovana] 15 mcg INHALATION RT-BID 12/01/19 04/16/21 History Azithromycin [Zithromax] 500 mg PO MOWEFR 12/01/19 04/16/21 History Bimatoprost [Lumigan .01% Ophth 1 drop BOTH EYES HS 04/16/21 04/16/21 History Soln] Carbidopa-Levodopa 25-100 mg 1 tab PO TID 04/16/21 04/16/21 History [Sinemet 25-100] HYDROcodone/APAP 5-325MG [[place] 1 tab PO BID PRN 04/16/21 04/16/21 History 5-325] Dixon-3 Acid Ethyl Esters [Lovaza] 4 gm PO DAILY 04/16/21 04/16/21 History Roflumilast [Daliresp] 500 mcg PO DAILY 04/16/21 04/16/21 History Vortioxetine Hydrobromide 20 mg PO DAILY 04/16/21 04/16/21 History [Trintellix] Allergies Allergy/AdvReac Type Severity Reaction Status Date / Time No Known Allergies Allergy Verified 04/16/21 07:24 Physical Examination - Vital Signs Vital Signs: Vital Signs Temp Pulse Resp BP Pulse Ox 04/16/21 10:45 71 19 131/47 98 04/16/21 10:00 67 16 130/46 100 04/16/21 09:45 67 18 134/97 99 04/16/21 09:00 53 L 18 200/66 100 04/16/21 08:00 56 L 15 189/75 99 04/16/21 07:19 98.4 F 56 L 18 189/75 100 Intake and Output 04/15/21 04/16/21 04/16/21 22:59 06:59 14:59 Other: Weight 58.967 kg Patient is an elderly male, very pleasant, in no acute distress. Patient is alert awake oriented. Speech and language functions are normal. Attention, concentration and fund of knowledge is adequate for age. Detail cognitive function testing deferred. On cranial examination, pupils are equal, round and reacting to light, visual badillo are full on confrontation, extraocular muscles are intact with no nystagmus. Face is symmetric, tongue protrudes to the midline. Palatal elevation and sensation normal, hearing and shoulder shrug normal, facial sensation normal. Shoulder shrug normal. On muscle strength testing, there is no pronator drift and the strength is normal in arms and legs distally and proximally. Deltoid is 5-. Patient's left foot is weak because of the Achilles tendon issue. Deep tendon reflexes are overall hypoactive, and plantars downgoing. Sensory to touch is equal with no neglect. Cerebellar function showed no ataxia for [id number] testing. Patient has mild to moderate tremors of outstretched hands. Patient has head tremor, chin tremor. There is [id number] intermittent tremor at rest, which gets worse when he is nervous. Moderate tremor for [id number] testing bilaterally. Tone and bulk of muscles normal. Gait deferred. On general examination, there is no carotid bruit or murmur, S1-S2 audible. Abdomen is soft nontender. Chest is clear. Peripheral pulses are present. Patient has nonpitting edema. Results - Laboratory Findings CBC and BMP: 04/16/21 07:53 04/16/21 07:53 Abnormal Lab Findings: Abnormal Labs 04/16/21 04/16/21 04/16/21 07:53 07:53 07:53 WBC 3.3 L RBC 2.82 L Hgb 10.1 L Hct 30.6 L MCV 108.4 H MCH 35.7 H Lymphocytes # 0.7 L Macrocytosis Marked A APTT 21.4 L Carbon Dioxide BUN Creatinine Glucose Creatine Kinase Troponin I Total Protein Urine Protein Trace H Ur Leukocyte Esterase Large H Urine WBC 59 H Urine Mucus Rare H 04/16/21 04/16/21 04/16/21 07:53 07:53 07:53 WBC RBC Hgb Hct MCV MCH Lymphocytes # Macrocytosis APTT Carbon Dioxide 31 H BUN 50 H Creatinine 1.73 H Glucose 100 H Creatine Kinase 39 L Troponin I 0.184 H* Total Protein 6.2 L Urine Protein Ur Leukocyte Esterase Urine WBC Urine Mucus Assessment and Plan Assessment: * Tremors, probably multifactorial, with 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 * Status post fall * History of atrial fibrillation, on anticoagulation with Apixaban. * COPD * X tobacco use. Plan: * Patient will undergo a computed tomography scan of the head to rule out any intracranial process related to the fall. Patient is on anticoagulation. * Patient has mixed tremor disorder. Need to identify if patient has Parkinsonian tremor versus benign. I would suggest pursuing BRITANY Scan as an outpatient to identify Parkinsonian versus benign tremor. Then the treatment should be primarily targeted for treatment of that condition. * We will check TSH to rule out hyperthyroidism. B12, folate. * Patient is currently on primidone 100 mg 3 times a day, which should be cont inued, as it appears patient's tremor primarily is benign/essential type. These tremors also gets worse with ongoing metabolic dysfunction particularly involving cardiopulmonary process, infections or use of steroids or beta-2 adrenergics. Limiting these medications, and treating underlying cardio pulmonary and infectious condition may also help with these tremors. Apparently patient is also on Sinemet 25/100, 3 times a day. * We will follow.
[2021-04-17] MEDS: BUDESONIDE 0.5 MG/2 ML NEBU INHALATION SCH ×2 (07:36→19:17)
[2021-04-17] MEDS: FORMOTEROL FUMARATE 20 MCG/2 ML NEBU INHALATION SCH ×2 (07:36→19:17)
[2021-04-17 08:09] LABS: ALT <6 U/L (4-49); AST 29 U/L (17-59); African American GFR (CKD) 64 (>60 ml/min/1.73 sqM); Albumin 3.3 g/dL (3.5-5.0); Alkaline Phosphatase 50 U/L (38-126); Anion Gap 4 mmol/L; Blood Urea Nitrogen 41 mg/dL (9-20); Calcium 9.2 mg/dL (8.4-10.2); Carbon Dioxide 29 mmol/L (22-30); Chloride 108 mmol/L (98-107); Glucose 82 mg/dL (74-99); Non-African American GFR(CKD) 55 (>60 ml/min/1.73 sqM); Potassium 4.9 mmol/L (3.5-5.1); Sodium 141 mmol/L (137-145); Total Bilirubin 0.2 mg/dL (0.2-1.3); Total Protein 5.6 g/dL (6.3-8.2)
[2021-04-17 08:10] LABS: Basophils % (A) 0 %; Eosinophils % (A) 0 %; HCT 29.4 % (39.0-53.0); HGB 9.2 gm/dL (13.0-17.5); Lymphocytes # (A) 0.7 k/uL (1.0-4.8); Lymphocytes % (A) 23 %; MCH 34.1 pg (25.0-35.0); MCHC 31.4 g/dL (31.0-37.0); MCV 108.7 fL (80.0-100.0); Macrocytosis Marked; Mean Platelet Volume 8.3; Monocytes # (A) 0.3 k/uL (0-1.0); Monocytes % (A) 10 %; Neutrophils # (A) 1.9 k/uL (1.3-7.7); Neutrophils % (A) 66 %; Platelet Count 159 k/uL (150-450); RBC 2.71 m/uL (4.30-5.90); RDW 15.3 % (11.5-15.5); WBC 2.9 k/uL (3.8-10.6)
--- NOTE | 2021-04-17 08:11 | P.CRDCN ---
History of Present Illness Consult date: 04/17/21 History of present illness: HISTORY OF PRESENT ILLNESS: This is a 85-year-old male with a past medical history significant for the COPD with home oxygen, paroxysmal atrial fibrillation on anticoagulation with Eliquis, Parkinson's disease, tremors, hyperlipidemia, and mild nonobstructive coronary artery disease per cardiac catheterization in 1998.. Patient follows in the office with Dr. Méndez. We have been asked to see the patient in consultation for elevated troponins. Patient examined at the bedside. Patient states he has been having increasing weakness in his legs over the past few years. He states he was attempting to go to the bathroom with his 4 wheeled walker. He states he was sitting on the seat of his walker when he reached over to turn on a light switch and slid out of the walker onto the floor. Denies any injury. Patient denies chest pain or pressure. He denies shortness of breath. EKG reveals sinus bradycardia with first-degree AV block. Right bundle-branch block. Left anterior fascicular block. Unchanged from previous EKG Chest xray chronic emphysematous changes with small tiny left greater than right pleural effusions. No new focal infiltrate. No significant change from most recent chest x-ray. Laboratory data: WBC 3.3. Hemoglobin 10.1. Platelet count 156. Sodium 142. Potassium 4.6. BUN 50. Creatinine 1.73. Troponin 0.184. 0.178. 0.162. Current home cardiac medications include simvastatin 40 mg daily, aspirin 81 mg daily, and Eliquis 2.5 mg twice a day Most recent echocardiogram obtained in December 2018 revealed ejection fraction greater than 55%, [id number] mitral regurgitation, [id number] tricuspid regurgitation, and moderate pulmonary hypertension with RVSP of 64.95. Cardiac catheterization history: 1998 revealing mild non-obstructive coronary artery disease REVIEW OF SYSTEMS: At the time of my exam: CONSTITUTIONAL: Denies fever or chills. HEENT: Denies blurred vision, vision changes, or eye pain. Denies hemoptysis CARDIOVASCULAR: Denies chest pain. Denies orthopnea. Denies PND. Denies palpitations RESPIRATORY: Denies shortness of breath. GASTROINTESTINAL: Denies abdominal pain. Denies nausea or vomiting. HEMATOLOGIC: Denies bleeding disorders. GENITOURINARY: Denies any blood in urine. SKIN: Denies pruitis. Denies rash. PHYSICAL EXAM: VITAL SIGNS: Reviewed. GENERAL: Well-developed in no acute distress. HEENT: Head is normocephalic. Pupils are equal, round. Sclerae anicteric. Mucous membranes of the mouth are moist. Neck supple. No JVD or thyromegaly LUNGS: Respirations even and unlabored. Lungs with mild expiratory wheezing noted throughout. HEART: Regular rate and rhythm. S1 and S2 heard. Systolic murmur noted. ABDOMEN: Soft. Nondistended. Nontender. EXTREMITIES: Normal range of motion. No clubbing or cyanosis. Peripheral pulses intact. No lower extremity edema NEUROLOGIC: Awake and alert. Oriented x 3. ASSESSMENT: Increasing lower extremity weakness S/P fall without apparent injury Paroxysmal atrial fibrillation, on anticoagulation with Eliquis Acute kidney injury, creatinine 1.73 on admission, baseline 0.81.0 Abnormal troponins, not suggestive of acute coronary syndrome, likely secondary to acute kidney injury COPD Chronic hypoxic respiratory failure on home oxygen Hyperlipidemia PLAN: Neurology consulted. CT brain ordered. An acute coronary event has been ruled out. Obtain 2D echo to assess cardiac structure and function Continue telemetry monitoring Continue anticoagulation with Eliquis Monitor kidney function Further recommendations pending patient course. Nurse practitioner note has been reviewed by physician. Signing provider agrees with the documented findings, assessment, and plan of care. Past Medical History Past Medical History: Atrial Fibrillation, COPD, Hyperlipidemia Additional Past Medical History / Comment(s): Parkinsons, emphysema, Home O2 at 3.5-4L/[place] ATC, bronchitis, Hx of elevated cbg d/t chronic steroid use, chronic tremors-etiology unknown to pt, chronic low back pain, left foot drop., nephro lithiasis-has passed stones on his own and also surgically removed, BPH, bilateral glaucoma, Hx of left torn achilles tendon., states difficulty walking- using walker. Last Myocardial Infarction Date:: unknown History of Any Multi-Drug Resistant Organisms: None Reported Past Surgical History: Back Surgery, Cholecystectomy, Heart Catheterization, Hernia Repair Additional Past Surgical History / Comment(s): Lumbar laminectomy, lithotripsy, colonoscopy, bilateral cataracts, right inguinal hernia. Past Anesthesia/Blood Transfusion Reactions: No Reported Reaction, Previous P roblems w/ Anesthesia Additional Past Anesthesia/Blood Transfusion Reaction / Comment(s): woke up during anesthesia x1 Past Psychological History: Depression Smoking Status: Former smoker Past Alcohol Use History: None Reported Past Drug Use History: None Reported - Past Family History Mother Family Medical History: Musculoskeletal Disorder, Neurologic Disorder Additional Family Medical History / Comment(s): Mother had parkinsons. Father Additional Family Medical History / Comment(s): Father had back problems. He in a MVA at the age of 62 yrs. Medications and Allergies Home Medications Medication Instructions Recorded Confirmed Type Aspirin 81 mg PO HS 03/24/14 04/16/21 History Garlic 1 tab PO TID 03/24/14 04/16/21 History Simvastatin [Zocor] 40 mg PO DAILY 03/24/14 04/16/21 History atenoloL [Tenormin] 12.5 mg PO BID 03/24/14 04/16/21 History Roflumilast [Daliresp] 500 mcg PO DAILY 04/20/17 04/16/21 History Calcium Carbonate [Calcium] 600 mg PO DAILY 09/13/17 04/16/21 History Cholecalciferol [Vitamin D3] 125 mcg PO DAILY 09/13/17 04/16/21 History Ferrous Sulfate [Feosol] 325 mg PO PC-LUNCH 09/13/17 04/16/21 History Montelukast [Singulair] 10 mg PO DAILY 09/13/17 04/16/21 History cycloSPORINE 0.05% OPHTH SOLN 1 drop BOTH EYES BID 09/13/17 04/16/21 History [Restasis] predniSONE 10 mg PO DAILY 09/13/17 04/16/21 History Budesonide [Pulmicort] 0.5 mg INHALATION RT-BID 03/09/18 04/16/21 History Tadalafil [Cialis] 5 mg PO DAILY 03/09/18 04/16/21 History modafiniL [Provigil] 200 mg PO DAILY 01/20/19 04/16/21 History Apixaban [Eliquis] 2.5 mg PO BID #180 tablet 01/24/19 04/16/21 Rx Primidone [Mysoline] 100 mg PO TID 03/05/19 04/16/21 History Arformoterol Tartrate [Brovana] 15 mcg INHALATION RT-BID 12/01/19 04/16/21 History Azithromycin [Zithromax] 500 mg PO MOWEFR 12/01/19 04/16/21 History Bimatoprost [[place] .01% Ophth 1 drop BOTH EYES HS 04/16/21 04/16/21 History Soln] Carbidopa-Levodopa 25-100 mg 1 tab PO TID 04/16/21 04/16/21 History [Sinemet 25-100] HYDROcodone/APAP 5-325MG [[place] 1 tab PO BID PRN 04/16/21 04/16/21 History 5-325] [place]-3 Acid Ethyl Esters [Lovaza] 4 gm PO DAILY 04/16/21 04/16/21 History Roflumilast [Daliresp] 500 mcg PO DAILY 04/16/21 04/16/21 History Vortioxetine Hydrobromide 20 mg PO DAILY 04/16/21 04/16/21 History [Trintellix] Allergies Allergy/AdvReac Type Severity Reaction Status Date / Time No Known Allergies Allergy Verified 04/16/21 07:24 Physical Exam Vitals: Vital Signs Temp Pulse Pulse Resp BP BP Pulse Ox 04/17/21 07:49 77 18 04/17/21 07:37 71 18 99 04/17/21 04:00 98.3 F 67 20 162/56 99 04/17/21 01:46 70 20 04/16/21 23:22 98.1 F 70 20 121/45 98 04/16/21 20:41 74 04/16/21 20:34 76 04/16/21 20:33 74 04/16/21 20:27 74 04/16/21 20:00 97.9 F 69 20 130/57 100 04/16/21 19:03 127/68 04/16/21 17:26 72 20 179/79 98 04/16/21 16:38 98.4 F 80 18 184/88 100 04/16/21 16:06 80 18 184/88 100 04/16/21 13:06 69 18 136/64 100 04/16/21 12:00 68 20 130/49 95 04/16/21 11:00 70 20 110/78 94 L 04/16/21 10:45 71 19 131/47 98 04/16/21 10:00 67 16 130/46 100 04/16/21 09:45 67 18 134/97 99 04/16/21 09:00 53 L 18 200/66 100 Intake and Output 04/16/21 04/17/21 04/17/21 22:59 06:59 14:59 Intake Total 822 Output Total 475 Balance 822 -475 Intake: Oral 822 Output: Urine 475 Other: Voiding Method Bedside Commode Bedside Commode Urinal Urinal # Voids 0 Weight 58.967 kg 43.5 kg Results 04/16/21 07:53 04/16/21 07:53 Cardiac Enzymes 04/16/21 04/16/21 04/16/21 Range/Units 07:53 07:53 11:07 AST 28 (17-59) U/L Troponin I 0.184 H* 0.178 H* (0.000-0.034) ng/mL 04/16/21 Range/Units 13:54 AST (17-59) U/L Troponin I 0.162 H* (0.000-0.034) ng/mL Coagulation 04/16/21 Range/Units 07:53 PT 10.2 (9.0-12.0) sec APTT 21.4 L (22.0-30.0) sec CBC 04/16/21 Range/Units 07:53 WBC 3.3 L (3.8-10.6) k/uL RBC 2.82 L (4.30-5.90) m/uL Hgb 10.1 L (13.0-17.5) gm/dL Hct 30.6 L (39.0-53.0) % Plt Count 156 (150-450) k/uL Comprehensive Metabolic Panel 04/16/21 Range/Units 07:53 Sodium 142 (137-145) mmol/L Potassium 4.6 (3.5-5.1) mmol/L Chloride 107 (98-107) mmol/L Carbon Dioxide 31 H (22-30) mmol/L BUN 50 H (9-20) mg/dL Creatinine 1.73 H (0.66-1.25) mg/dL Glucose 100 H (74-99) mg/dL Calcium 9.6 (8.4-10.2) mg/dL AST 28 (17-59) U/L ALT 11 (4-49) U/L Alkaline Phosphatase 57 (38-126) U/L Total Protein 6.2 L (6.3-8.2) g/dL Albumin 3.7 (3.5-5.0) g/dL Current Medications Generic Name Dose Route Start Last Admin Trade Name Freq PRN Reason Stop Dose Admin Hydrocodone Bitart/Acetaminophen 1 each 04/16/21 10:58 Hydrocodone/Apap 5-325mg 1 Each Tab PO BID PRN Pain Apixaban 2.5 mg 04/16/21 21:00 04/16/21 20:59 Apixaban 2.5 Mg Tablet PO 2.5 mg BID SERA Administration Aspirin 81 mg 04/16/21 21:00 04/16/21 20:59 Aspirin 81 Mg PO 81 mg HS SERA Administration Atenolol 12.5 mg 04/16/21 21:00 04/16/21 22:14 Atenolol 12.5 Mg Tab PO 12.5 mg BID SERA Administration Atorvastatin Calcium 20 mg 04/17/21 09:00 Atorvastatin 20 Mg Tab PO DAILY SERA Azithromycin 500 mg 04/18/21 09:00 Azithromycin 500 Mg Tab PO MOWEFR SERA Budesonide 0.5 mg 04/16/21 20:00 04/17/21 07:36 Budesonide 0.5 Mg/2 Ml Nebu INHALATION 0.5 mg RT-BID SERA Administration Calcium Carbonate/Glycine 500 mg 04/17/21 09:00 Calcium Carbonate 500 Mg Chewable PO DAILY SERA Carbidopa/Levodopa 1 each 04/16/21 16:00 04/16/21 22:13 Carbidopa-Levodopa 25-100 Mg 1 Each Tab PO 1 each TID SERA Administration Cholecalciferol 125 mcg 04/17/21 09:00 Cholecalciferol 25 Mcg (1000 Iu) Tablet PO DAILY SERA Cyclosporine 1 drops 04/16/21 21:00 04/16/21 22:14 Cyclosporine 0.05% Ophth 0.4 Ml Droperette BOTH EYES 1 drops BID SERA Administration Ferrous Sulfate 325 mg 04/16/21 13:30 04/16/21 13:12 Ferrous Sulfate 325 Mg Tab PO 325 mg PC-LUNCH SERA Administration Formoterol Fumarate 20 mcg 04/16/21 20:00 04/17/21 07:36 Formoterol Fumarate 20 Mcg/2 Ml Nebu INHALATION 20 mcg RT-BID SERA Administration Hydralazine HCl 10 mg 04/16/21 18:10 04/16/21 18:24 Hydralazine Hcl 20 Mg/Ml 1 Ml Vial IVP 10 mg Q6HR PRN Administration Blood Pressure - High Ceftriaxone Sodium 1 gm/ 50 mls @ 100 mls/hr 04/17/21 09:00 Sodium Chloride IVPB Q24HR [facility] Latanoprost 1 drops 04/16/21 21:00 04/16/21 22:14 Latanoprost 0.005% Ophth Drops 2.5 Ml Btl BOTH EYES 1 drops HS SERA Administration Modafinil 200 mg 04/17/21 09:00 Modafinil 200 Mg Tab PO DAILY SERA Montelukast Sodium 10 mg 04/17/21 09:00 Montelukast 10 Mg Tab PO DAILY [facility] Naloxone HCl 0.2 mg 04/16/21 09:08 Naloxone 0.4 Mg/Ml 1 Ml Vial IV Q2M PRN Opioid Reversal Non-Formulary Medication 500 mcg 04/17/21 09:00 Roflumilast [Daliresp] PO DAILY [facility] Prednisone 10 mg 04/17/21 09:00 Prednisone 10 Mg Tab PO DAILY [facility] Primidone 100 mg 04/16/21 16:00 04/16/21 22:13 Primidone 50 Mg Tab PO 100 mg TID SERA Administration Vortioxetine 20 mg 04/17/21 09:00 Vortioxetine Hydrobromide 20 Mg Tablet PO DAILY [facility] Intake and Output 04/16/21 04/17/21 04/17/21 22:59 06:59 14:59 Intake Total 822 Output Total 475 Balance 822 -475 Intake: Oral 822 Output: Urine 475 Other: Voiding Method Bedside Commode Bedside Commode Urinal Urinal # Voids 0 Weight 58.967 kg 43.5 kg 04/16/21 07:53 04/16/21 07:53
[2021-04-17] MEDS ORDERED: NON FORMULARY DRUG (Omega-3 Acid Ethyl Esters [Lovaza] 1 GM Capsule) PO SCH (09:00)
[2021-04-17] MEDS ORDERED: ASPIRIN 325 MG TAB PO SCH (09:00)
[2021-04-17] MEDS ORDERED: NON FORMULARY DRUG (Tadalafil [Cialis] 5 MG Tablet) PO SCH (09:00)
[2021-04-17] MEDS: MONTELUKAST 10 MG TAB PO SCH (09:06)
[2021-04-17] MEDS: CALCIUM CARBONATE 500 MG CHEWABLE PO SCH (09:06)
[2021-04-17] MEDS: VORTIOXETINE HYDROBROMIDE 20 MG TABLET PO SCH (09:06)
[2021-04-17] MEDS: PRIMIDONE 50 MG TAB PO SCH ×3 (09:06→20:26)
[2021-04-17] MEDS: CHOLECALCIFEROL 25 MCG (1000 IU) TABLET PO SCH (09:07)
[2021-04-17] MEDS: CARBIDOPA-LEVODOPA 25-100 MG 1 EACH TAB PO SCH ×3 (09:07→20:26)
[2021-04-17] MEDS: predniSONE 10 MG TAB PO SCH (09:07)
[2021-04-17] MEDS: cycloSPORINE 0.05% OPHTH 0.4 ML DROPERETTE BOTH EYES SCH ×2 (09:07→20:26)
[2021-04-17] MEDS: NON FORMULARY DRUG (Roflumilast [Daliresp] 500 MCG Tablet) PO SCH (09:08)
[2021-04-17] MEDS: ATORVASTATIN 20 MG TAB PO SCH (09:08)
[2021-04-17] MEDS: APIXABAN 2.5 MG TABLET PO SCH ×2 (09:08→20:26)
[2021-04-17 09:15] LABS: T4, Free (Free Thyroxine) 1.09 ng/dL (0.78-2.19)
--- NOTE | 2021-04-17 14:35 | CT ---
EXAM: CT brain wo con CLINICAL HISTORY: Pain and weakness status post fall. COMPARISON: 04/20/2017. TECHNIQUE: Contiguous axial noncontrast images of the brain were obtained. Coronal and sagittal refor mats were generated and reviewed. Automated dose control was used for this exam. FINDINGS: There is no evidence for intracranial hemorrhage, mass effect or midline shift. There is right fronta l lobe encephalomalacia. Ventricular size and configuration is within normal limits for degree of parenchymal volume. The paranasal sinuses are clear. The mastoid air cells are clear. No evidence for calvarial fracture. IMPRESSION: No acute intracranial abnormality. Old right frontal lobe infarct. If there is concern for acute infarct, recommend MRI for further eval uation.
[2021-04-17] MEDS: FERROUS SULFATE 325 MG TAB PO SCH (15:45)
[2021-04-17] MEDS: hydrALAZINE HCL 20 MG/ML 1 ML VIAL IVP PRN (15:51)
--- NOTE | 2021-04-17 18:04 | P.PN ---
Subjective Progress Note Date: 04/17/21 Patient was seen for a follow-up via Tele-Neurology. Patient states his tremors are seen. Denies any new focal symptoms. Denies any headache. No visual symptoms. Patient is laying comfortably in the bed. Objective - Vital Signs Vital signs: Vital Signs Temp 98.2 F 04/17/21 15:49 Pulse 63 04/17/21 15:49 Resp 20 04/17/21 15:49 BP 200/84 04/17/21 15:49 Pulse Ox 94 L 04/17/21 15:49 Intake & Output 04/16/21 04/17/21 04/17/21 18:59 06:59 18:59 Intake Total 600 222 800 Output Total 475 700 Balance 600 -253 100 Weight 58.967 kg 43.5 kg Intake: IV 20 Invasive Line 1 20 Oral 600 222 780 Output: Urine 475 700 Other: Voiding Method Bedside Commode Urinal Urinal # Voids 0 0 - Exam Patient's mental status, speech and language functions are normal. Muscle strength is normal except left foot weakness, which is related to at least tendon issues. Patient is hard of hearing. Patient does have tremors with post ure and intention. Minimal tremors at rest noted. - Labs CBC & Chem 7: 04/17/21 06:43 04/17/21 06:43 Labs: Abnormal Lab Results - Last 24 Hours (Table) 04/17/21 04/17/21 04/17/21 Range/Units 06:43 06:43 06:43 WBC 2.9 L (3.8-10.6) k/uL RBC 2.71 L (4.30-5.90) m/uL Hgb 9.2 L (13.0-17.5) gm/dL Hct 29.4 L (39.0-53.0) % MCV 108.7 H (80.0-100.0) fL Lymphocytes # 0.7 L (1.0-4.8) k/uL Macrocytosis Marked A Chloride 108 H (98-107) mmol/L BUN 41 H (9-20) mg/dL Total Protein 5.6 L (6.3-8.2) g/dL Albumin 3.3 L (3.5-5.0) g/dL TSH 0.381 L (0.465-4.680) mIU/L Microbiology - Last 24 Hours (Table) 04/16/21 07:53 Urine Culture - Final Urine,Voided Assessment and Plan Assessment: * Tremors, probably multifactorial, with 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 * Status post fall * History of atrial fibrillation, on anticoagulation with Apixaban. * COPD * Hyperthyroidism * X tobacco use. Plan: * Patient's blood workup shows TSH low 0.381, with normal free T4 1.09. Hyperthyroidism can be associated with worsening of benign tremors. Although very borderline, but may need further evaluation. * Patient will undergo a computed tomography scan of the head to rule out any intracranial process related to the fall. Patient is on anticoagulation. * Patient has mixed tremor disorder. Need to identify if patient has Parkinsonian tremor versus benign. I would suggest pursuing BRITANY Scan as an outpatient to identify Parkinsonian versus benign tremor. Then the treatment should be primarily targeted for treatment of that condition. * B12 678, folate 21.0. * Patient is currently on primidone 100 mg 3 times a day, which should be continued, as it appears patient's tremor primarily is benign/essential type. These tremors also gets worse with ongoing metabolic dysfunction particularly involving cardiopulmonary process, infections or use of steroids or beta-2 adrenergics. Limiting these medications, and treating underlying cardiopulmonary and infectious condition may also help with these tremors. Apparently patient is also on Sinemet 25/100, 3 times a day. * Neurology will sign off. Please reconsult neurology if any other concerns.
--- NOTE | 2021-04-17 19:14 | P.PN ---
Progress Note - Text Progress Note Date: 04/17/21 Presenting complaint: Fall History of presenting complaint: Pleasant 85-year-old patient with multiple medical problems, had presented when he was using his walker and the strategy to switch off the a conditioner lost his balance and fell down. He was eventually able to pick himself up. Went back to bed. Next morning felt rather weak in the legs. Was unable to get up. No chest pain or palpitation. He is otherwise rather active given his conditions. Today: Laying in bed. Some tremors present. Oral intake fair. No chest pain or palpitation Review of systems: Was done for constitutional, cardiovascular, GI, pulmonary. relevant finding as above Active Medications Hydrocodone Bitart/Acetaminophen (Hydrocodone/Apap 5-325mg 1 Each Tab) 1 each PO BID PRN PRN Reason: Pain Apixaban (Apixaban 2.5 Mg Tablet) 2.5 mg PO BID [facility] Last Admin: 04/17/21 09:08 Dose: 2.5 mg Documented by: Aspirin (Aspirin 81 Mg) 81 mg PO HS [facility] Last Admin: 04/16/21 20:59 Dose: 81 mg Documented by: Atenolol (Atenolol 12.5 Mg Tab) 12.5 mg PO BID [facility] Last Admin: 04/17/21 09:06 Dose: 12.5 mg Documented by: Atorvastatin Calcium (Atorvastatin 20 Mg Tab) 20 mg PO DAILY [facility] Last Admin: 04/17/21 09:08 Dose: 20 mg Documented by: Azithromycin (Azithromycin 500 Mg Tab) 500 mg PO MOWEFR [facility] Budesonide (Budesonide 0.5 Mg/2 Ml Nebu) 0.5 mg INHALATION RT-BID [facility] Last Admin: 04/17/21 07:36 Dose: 0.5 mg Documented by: Calcium Carbonate/Glycine (Calcium Carbonate 500 Mg Chewable) 500 mg PO DAILY [facility] Last Admin: 04/17/21 09:06 Dose: 500 mg Documented by: Carbidopa/Levodopa (Carbidopa-Levodopa 25-100 Mg 1 Each Tab) 1 each PO TID [facility] Last Admin: 04/17/21 15:45 Dose: 1 each Documented by: Cholecalciferol (Cholecalciferol 25 Mcg (1000 Iu) Tablet) 125 mcg PO DAILY [facility] Last Admin: 04/17/21 09:07 Dose: 125 mcg Documented by: Cyclosporine (Cyclosporine 0.05% Ophth 0.4 Ml Droperette) 1 drops BOTH EYES BID [facility] Last Admin: 04/17/21 09:07 Dose: 1 drops Documented by: Ferrous Sulfate (Ferrous Sulfate 325 Mg Tab) 325 mg PO PC-LUNCH [facility] Last Admin: 04/17/21 15:45 Dose: 325 mg Documented by: Formoterol Fumarate (Formoterol Fumarate 20 Mcg/2 Ml Nebu) 20 mcg INHALATION RT-BID [facility] Last Admin: 04/17/21 07:36 Dose: 20 mcg Documented by: Hydralazine HCl (Hydralazine Hcl 20 Mg/Ml 1 Ml Vial) 10 mg IVP Q6HR PRN PRN Reason: Blood Pressure - High Last Admin: 04/17/21 15:51 Dose: 10 mg Documented by: Ceftriaxone Sodium 1 gm/ (Sodium Chloride) 50 mls @ 100 mls/hr IVPB Q24HR [facility] Last Admin: 04/17/21 09:06 Dose: 100 mls/hr Documented by: Latanoprost (Latanoprost 0.005% Ophth Drops 2.5 Ml Btl) 1 drops BOTH EYES HS [facility] Last Admin: 04/16/21 22:14 Dose: 1 drops Documented by: Modafinil (Modafinil 200 Mg Tab) 200 mg PO DAILY [facility] Last Admin: 04/17/21 09:07 Dose: 200 mg Documented by: Montelukast Sodium (Montelukast 10 Mg Tab) 10 mg PO DAILY [facility] Last Admin: 04/17/21 09:06 Dose: 10 mg Documented by: Naloxone HCl (Naloxone 0.4 Mg/Ml 1 Ml Vial) 0.2 mg IV Q2M PRN PRN Reason: Opioid Reversal Non-Formulary Medication (Roflumilast [Daliresp]) 500 mcg PO DAILY [facility] Last Admin: 04/17/21 09:08 Dose: Not Given Documented by: Prednisone (Prednisone 10 Mg Tab) 10 mg PO DAILY [facility] Last Admin: 04/17/21 09:07 Dose: 10 mg Documented by: Primidone (Primidone 50 Mg Tab) 100 mg PO TID [facility] Last Admin: 04/17/21 15:45 Dose: 100 mg Documented by: Vortioxetine (Vortioxetine Hydrobromide 20 Mg Tablet) 20 mg PO DAILY [facility] Last Admin: 04/17/21 09:06 Dose: 20 mg Documented by: On examination: VITAL SIGNS: [98.2, 63, 20, 159/70, 94% on 2 L] GENERAL APPEARANCE:laying in bed, comfortable. HEENT: Normal external appearance of nose and ear. Oral cavity normal EYES: Pupils equal. Conjunctiva normal. NECK: JVD not raised. Mass not palpable. RESPIRATORY: Respiratory effort normal. Lungs clear to auscultation. CARDIOVASCULAR: First and second sounds normal. No edema. ABDOMEN: Soft. Liver and spleen not palpable. No tenderness. No mass palpable. PSYCHIATRY: Alert and oriented x3. Mood and affect normal. NEUROLOGICAL: Intentional tremor. Some bradykininesia INVESTIGATIONS, reviewed in the clinical context: WBC 2.9 hemoglobin 9.2 platelets 159 potassium 4.9 creatinine 1.2 Troponin I 0.184, 0.178, 0.162 TSH 0.38, free T4 1 0.09 Albumin 3.3 Urine culture-negative Assessment and plan: -Fall secondary to likely autonomic dysfunction from underlying Parkinson's disease Patient has a walker. PTOT. 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 Follow with neurology -Chronic gait dysfunction from underlying Parkinson's disease Walker -persistent atrial fibrillation, rate controlled Not a candidate for anticoagulant vision because of falls -COPD in an ex-smoker On Pulmicort nebulizer -Chronic hypoxic respiratory failure from COPD On home oxygen 3.5-4 L [id number] -Chronic left foot drop -BPH -Hyperlipidemia On Lipitor -Acute UTI with cystitis, urine culture negative Change from IV ceftriaxone to Keflex. Care was discussed with the patient. Continue current medications.
[2021-04-17] MEDS: CEPHALEXIN 250 MG CAP PO SCH (20:26)
[2021-04-17] MEDS: ASPIRIN 81 MG PO SCH (20:26)
[2021-04-17] MEDS: LATANOPROST 0.005% OPHTH DROPS 2.5 ML BTL BOTH EYES SCH (20:33)
[2021-04-18] MEDS: BUDESONIDE 0.5 MG/2 ML NEBU INHALATION SCH ×2 (07:59→19:56)
[2021-04-18] MEDS: FORMOTEROL FUMARATE 20 MCG/2 ML NEBU INHALATION SCH ×2 (07:59→19:56)
[2021-04-18] MEDS: APIXABAN 2.5 MG TABLET PO SCH ×2 (08:40→21:01)
[2021-04-18] MEDS: CEPHALEXIN 250 MG CAP PO SCH ×3 (08:40→22:03)
[2021-04-18] MEDS: CALCIUM CARBONATE 500 MG CHEWABLE PO SCH (08:40)
[2021-04-18] MEDS: AZITHROMYCIN 500 MG TAB PO SCH (08:40)
[2021-04-18] MEDS: PRIMIDONE 50 MG TAB PO SCH ×3 (08:40→22:03)
[2021-04-18] MEDS: MONTELUKAST 10 MG TAB PO SCH (08:40)
[2021-04-18] MEDS: ATORVASTATIN 20 MG TAB PO SCH (08:40)
[2021-04-18] MEDS: predniSONE 10 MG TAB PO SCH (08:40)
[2021-04-18] MEDS: CARBIDOPA-LEVODOPA 25-100 MG 1 EACH TAB PO SCH ×3 (08:40→22:03)
[2021-04-18] MEDS: CHOLECALCIFEROL 25 MCG (1000 IU) TABLET PO SCH (08:40)
[2021-04-18] MEDS: cycloSPORINE 0.05% OPHTH 0.4 ML DROPERETTE BOTH EYES SCH ×2 (08:41→22:49)
[2021-04-18] MEDS: VORTIOXETINE HYDROBROMIDE 20 MG TABLET PO SCH (08:41)
[2021-04-18] MEDS: NON FORMULARY DRUG (Roflumilast [Daliresp] 500 MCG Tablet) PO SCH (08:42)
[2021-04-18] MEDS: FERROUS SULFATE 325 MG TAB PO SCH (11:53)
--- NOTE | 2021-04-18 12:40 | P.PN ---
Subjective Progress Note Date: 04/18/21 HISTORY OF PRESENT ILLNESS: This is a 85-year-old male with a past medical history significant for the COPD with home oxygen, paroxysmal atrial fibrillation on anticoagulation with E liquis, Parkinson's disease, tremors, hyperlipidemia, and mild nonobstructive coronary artery disease per cardiac catheterization in 1998.. Patient follows in the office with Dr. Méndez. We have been asked to see the patient in consultation for elevated troponins. Patient examined at the bedside. Patient states he has been having increasing weakness in his legs over the past few years. He states he was attempting to go to the bathroom with his 4 wheeled walker. He states he was sitting on the seat of his walker when he reached over to turn on a light switch and slid out of the walker onto the floor. Denies any injury. Patient denies chest pain or pressure. He denies shortness of breath. EKG reveals sinus bradycardia with first-degree AV block. Right bundle-branch block. Left anterior fascicular block. Unchanged from previous EKG Chest xray chronic emphysematous changes with small tiny left greater than right pleural effusions. No new focal infiltrate. No significant change from most recent chest x-ray. Laboratory data: WBC 3.3. Hemoglobin 10.1. Platelet count 156. Sodium 142. Potassium 4.6. BUN 50. Creatinine 1.73. Troponin 0.184. 0.178. 0.162. Current home cardiac medications include simvastatin 40 mg daily, aspirin 81 mg daily, and Eliquis 2.5 mg twice a day Most recent echocardiogram obtained in December 2018 revealed ejection fraction greater than 55%, [id number] mitral regurgitation, [id number] tricuspid regurgitation, and moderate pulmonary hypertension with RVSP of 64.95. Cardiac catheterization history: 1998 revealing mild non-obstructive coronary artery disease 04/18/2021 Patient examined this morning at the bedside. Patient denies chest pain or pressure. He denies shortness of breath. Blood pressure this morning 142/53. Heart rate in the 70s. He is afebrile. He is on 2 L nasal cannula with oxygen saturations greater than 92%. PHYSICAL EXAM: VITAL SIGNS: Reviewed. GENERAL: Well-developed in no acute distress. HEENT: Head is normocephalic. Pupils are equal, round. Sclerae anicteric. Mucous membranes of the mouth are moist. Neck supple. No JVD or thyromegaly LUNGS: Respirations even and unlabored. Lungs diminished bilaterally HEART: Regular rate and rhythm. S1 and S2 heard. Systolic murmur noted. ABDOMEN: Soft. Nondistended. Nontender. EXTREMITIES: Normal range of motion. No clubbing or cyanosis. Peripheral pulses intact. No lower extremity edema NEUROLOGIC: Awake and alert. Oriented x 3. ASSESSMENT: Increasing lower extremity weakness S/P fall without apparent injury Paroxysmal atrial fibrillation, on anticoagulation with Eliquis Acute kidney injury, creatinine 1.73 on admission, baseline 0.81.0 Abnormal troponins, not suggestive of acute coronary syndrome, likely secondary to acute kidney injury COPD Chronic hypoxic respiratory failure on home oxygen Hyperlipidemia PLAN: 2-D echo ordered. Await results Continue telemetry monitoring Continue anticoagulation with Eliquis Patient is currently stable from a cardiac standpoint We will follow on an as-needed basis. Please call with questions or concerns. Nurse practitioner note has been reviewed by physician. Signing provider agrees with the documented findings, assessment, and plan of care. Objective - Vital Signs Vital signs: Vital Signs Temp 98.1 F 04/18/21 11:50 Pulse 58 L 04/18/21 11:50 Resp 18 04/18/21 11:50 BP 159/60 04/18/21 11:50 Pulse Ox 100 04/18/21 11:50 Intake & Output 04/17/21 04/18/21 04/18/21 18:59 06:59 18:59 Intake Total 1040 140 250 Output Total 700 150 125 Balance 340 -10 125 Weight 50.4 kg Intake: IV 20 20 10 Invasive Line 1 20 20 10 Oral 1020 120 240 Output: Urine 700 150 125 Other: Voiding Method Urinal Urinal Urinal # Voids 1 - Labs CBC & Chem 7: 04/17/21 06:43 04/17/21 06:43 Labs: Microbiology - Last 24 Hours (Table) 04/16/21 23:41 Blood Culture - Preliminary Blood No Growth after 24 hours 04/16/21 07:53 Urine Culture - Final Urine,Voided
--- NOTE | 2021-04-18 15:05 | CT ---
EXAMINATION TYPE: CT lumbar spine wo con DATE OF EXAM: 04/18/2021 2:53 PM COMPARISON: MRI of lumbar spine July 06, 2020 HISTORY: Low back pain with prior surgery CT DLP: 775.6 mGycm Automated exposure control for dose reduction was used. Unenhanced CT of the lumbar spine was performed. Bone and soft tissue window settings are submitted as well as coronal and sagittal reconstructions. There are 5 lumbar type vertebra are redemonstrated. Persistent grade 1 retrolisthesis L3 on L4. Pers istent moderate to severe disc space narrowing L3-L4 level with severe anterior spurring. Persistent severe disc space narrowing with moderate to severe anterior spurring L4-L5 level. Persistent moderat e to severe disc space narrowing with vacuum disc phenomenon L5-S1 level. Persistent moderate disc sp norris narrowing along with anterior and posterior spurring at L1-L2 level. Posterior decompression L3-L 5 levels redemonstrated. Additional moderate multilevel lateral spurring is seen. Axial images at T12-L1 level redemonstrate stable mild facet arthropathy bilaterally. Axial images at L1-L2 level redemonstrate posterior spur disc complex effacing anterior thecal sac an d mild facet arthropathy bilaterally. Axial images at L2-L3 level show [id number]-brgfrscn facet arthropathy bilaterally. There is mild broad disc bulge mildly effacing the anterior thecal sac. There is mild bilateral anterior inferior neural foraminal narrowing. Axial images at L3-L4 level show posterior decompression changes. There is moderate to advanced facet arthropathy. There is posterior spur disc complex and spondylolisthesis. There is effacement of the anterior thecal sac noted axial image 53. There is moderate left and severe right-sided neural forami nal narrowing redemonstrated. Axial images at L4-L5 level show moderate to advanced facet arthropathy. There is posterior decompres suki changes. There is moderate bilateral neural foraminal narrowing redemonstrated. Axial images at L5-S1 level show feom-bu-vprfcnht facet arthropathy bilaterally. There is posterior s pur disc complex. Spinal canal grossly preserved. Moderate left greater than right bilateral neural f oraminal narrowing redemonstrated. Moderate to severe calcified plaque of the aorta extends into branch vessels. There is narrowing of t he bilateral sacroiliac joints left more prominent than right noted. IMPRESSION: Posterior decompression changes redemonstrated. Alignment is stable. Multilevel degenerat ana laura changes as detailed above without significant change from prior MRI. No paraspinal masses are identified. Lumbar segments are intact.
[2021-04-18] MEDS: hydrALAZINE HCL 20 MG/ML 1 ML VIAL IVP PRN (16:40)
--- NOTE | 2021-04-18 16:47 | ECHOF ---
Referral Reason:chf MEASUREMENTS -------- HEIGHT: 170.2 cm WEIGHT: 50.3 kg BP: 142/66 IVSd: 1.3 cm (0.6 - 1.1) LVIDd: 4.0 cm (3.9 - 5.3) LVPWd: 1.4 cm (0.6 - 1.1) EDV(Teich): 71 ml IVSs: 1.6 cm LVIDs: 2.5 cm LVPWs: 2.1 cm %IVS Thck: 23 % ESV(Teich): 23 ml EF(Teich): 68 % %FS: 38 % SV(Teich): 48 ml LA Diam: 3.8 cm (2.7 - 3.8) LALs A4C: 6.1 cm LAAs A4C: 22.0 cm LAESV A-L A4C: 67 ml LAESV MOD A4C: 64 ml LALs A2C: 5.8 cm LAAs A2C: 26.9 cm LAESV A-L A2C: 105 ml LAESV MOD A2C: 102 ml LAESV(A-L): 86 ml LAESV Index (A-L): 54.47 ml/m Ao Diam: 3.3 cm (2.0 - 3.7) AV Cusp: 1.8 cm (1.5 - 2.6) EPSS: 0.3 cm MV E Ajit: 0.91 m/s MV DecT: 172 ms MV Dec [place]: 5.3 m/s MV A Ajit: 1.07 m/s MV E/A Ratio: 0.85 MV PHT: 50 ms TR Vmax: 2.78 m/s TR maxP.00 mmHg RAP: 5.00 mmHg RVSP: 36.00 mmHg MV EF SLOPE: 135.86 mm/s (70 - 150) MV EXCURSION: 24.60 mm (> 18.000) FINDINGS -------- Sinus rhythm. This was a technically good study. The left ventricular size is normal. There is mild concentric left ventricular hypertrophy. Overa ll left ventricular systolic function is low-normal with, an EF between 50 - 55 %. The right ventricle is normal in size. LA is severely dilated >40 ml/m2 The right atrial size is normal. The aortic valve is trileaflet, and appears structurally normal. No aortic stenosis or regurgitation. The mitral valve leaflets are mildly thickened. Mild mitral regurgitation is present. Mild tricuspid regurgitation present. There is mild pulmonary hypertension. The right ventricular systolic pressure, as measured by Doppler, is 36.00mmHg. Trace/mild (physiologic) pulmonic regurgitation. There is a small, generalized pericardial effusion present. CONCLUSIONS -------- 1. The left ventricular size is normal. 2. There is mild concentric left ventricular hypertrophy. 3. Overall left ventricular systolic function is low-normal with, an EF between 50 - 55 %. 4. The right ventricle is normal in size. 5. LA is severely dilated >40 ml/m2 6. The right atrial size is normal. 7. The aortic valve is trileaflet, and appears structurally normal. No aortic stenosis or regurgitati on. 8. The mitral valve leaflets are mildly thickened. 9. Mild mitral regurgitation is present. 10. Mild tricuspid regurgitation present. 11. There is mild pulmonary hypertension. 12. The right ventricular systolic pressure, as measured by Doppler, is 36.00mmHg. 13. Trace/mild (physiologic) pulmonic regurgitation. 14. There is a small, generalized pericardial effusion present. APPLICATION ANALYST: So Quezada RDCS
[2021-04-18] MEDS: ASPIRIN 81 MG PO SCH (21:01)
[2021-04-18] MEDS: LATANOPROST 0.005% OPHTH DROPS 2.5 ML BTL BOTH EYES SCH (22:03)
[2021-04-19] MEDS: hydrALAZINE HCL 20 MG/ML 1 ML VIAL IVP PRN (04:20)
--- NOTE | 2021-04-19 04:35 | PN ---
PROGRESS NOTE 85-year-old white male. No chest pain, shortness of breath. Tremor is unchanged. Neurology has no nothing to offer for tremor. Lumbar CT scan was done pending orthopedic consult for left leg weakness. Continue PT/OT. Vital signs stable. Afebrile. Cardiovascular S1, S2. Lungs clear. GI soft. Hematology negative Homans. Lumbar CAT scan shows posterior decompressive changes, multilevel degenerative disc disease. Suspect possibly lumbar epidural will need to be done prior to discharge. Wait for orthopedic consult as well as [facility]. MMODL / IJN: [id number] /
[2021-04-19] MEDS: FORMOTEROL FUMARATE 20 MCG/2 ML NEBU INHALATION SCH ×2 (07:37→22:07)
[2021-04-19] MEDS: BUDESONIDE 0.5 MG/2 ML NEBU INHALATION SCH ×2 (07:38→22:07)
[2021-04-19] MEDS: CARBIDOPA-LEVODOPA 25-100 MG 1 EACH TAB PO SCH ×3 (09:07→21:19)
[2021-04-19] MEDS: CHOLECALCIFEROL 25 MCG (1000 IU) TABLET PO SCH (09:07)
[2021-04-19] MEDS: ATORVASTATIN 20 MG TAB PO SCH (09:07)
[2021-04-19] MEDS: ENOXAPARIN 40 MG/0.4 ML SYRINGE SQ SCH (09:07)
[2021-04-19] MEDS: CALCIUM CARBONATE 500 MG CHEWABLE PO SCH (09:08)
[2021-04-19] MEDS: CEPHALEXIN 250 MG CAP PO SCH ×3 (09:08→21:20)
[2021-04-19] MEDS: MONTELUKAST 10 MG TAB PO SCH (09:08)
[2021-04-19] MEDS: cycloSPORINE 0.05% OPHTH 0.4 ML DROPERETTE BOTH EYES SCH ×2 (09:08→21:20)
[2021-04-19] MEDS: PRIMIDONE 50 MG TAB PO SCH ×3 (09:08→21:20)
[2021-04-19] MEDS: predniSONE 10 MG TAB PO SCH (09:08)
[2021-04-19] MEDS: VORTIOXETINE HYDROBROMIDE 20 MG TABLET PO SCH (09:09)
[2021-04-19] MEDS: NON FORMULARY DRUG (Roflumilast [Daliresp] 500 MCG Tablet) PO SCH (09:31)
--- NOTE | 2021-04-19 09:47 | P.CNOR ---
History of Present Illness - HPI Consult date: 04/19/21 History of present illness: This is an 85-year-old male who is admitted for lower extremity weakness. Patient is seen and evaluated at bedside today. Patient's past medical history is significant for COPD, Parkinson's disease, tremor, atrial fibrillation, hyperlipidemia, chronic low back pain, left foot drop, history of kidney stones, BPH, and glaucoma. Orthopedics is consulted due to lower extremity weakness. Patient states that he is in pain from the waist down all of the time. Patient states that his weakness started 6 or 7 years ago after he ruptured his left Achilles tendon after being treated in the hospital for pneumonia. Patient states that he also has trouble walking because his oxygen levels decrease with exertion. Patient denies any numbness or tingling in the lower extremities. Patient states that he has pain shooting from the lower back down the left leg. Patient denies any fever or chills today. Review of Systems See HPI. Past Medical History Past Medical History: Atrial Fibrillation, COPD, Hyperlipidemia Additional Past Medical History / Comment(s): Parkinsons, emphysema, Home O2 at 3.5-4L/NC ATC, bronchitis, Hx of elevated cbg d/t chronic steroid use, chronic tremors-etiology unknown to pt, chronic low back pain, left foot drop., nephrolithiasis-has passed stones on his own and also surgically removed, BPH, bilateral glaucoma, Hx of left torn achilles tendon., states difficulty walking- using walker. Last Myocardial Infarction Date:: unknown History of Any Multi-Drug Resistant Organisms: None Reported Past Surgical History: Back Surgery, Cholecystectomy, Heart Catheterization, Hernia Repair Additional Past Surgical History / Comment(s): Lumbar laminectomy, lithotripsy, colonoscopy, bilateral cataracts, right inguinal hernia. Past Anesthesia/Blood Transfusion Reactions: No Reported Reaction, Previous Problems w/ Anesthesia Additional Past Anesthesia/Blood Transfusion Reaction / Comm: woke up during anesthesia x1 Past Psychological History: Depression Smoking Status: Former smoker Past Alcohol Use History: None Reported Past Drug Use History: None Reported - Past Family History Mother Family Medical History: Musculoskeletal Disorder, Neurologic Disorder Additional Family Medical History / Comment(s): Mother had parkinsons. Father Additional Family Medical History / Comment(s): Father had back problems. He in a MVA at the age of 62 yrs. Medications and Allergies Home Medications Medication Instructions Recorded Confirmed Type Aspirin 81 mg PO HS 03/24/14 04/16/21 History Garlic 1 tab PO TID 03/24/14 04/16/21 History Simvastatin [Zocor] 40 mg PO DAILY 03/24/14 04/16/21 History atenoloL [Tenormin] 12.5 mg PO BID 03/24/14 04/16/21 History Roflumilast [Daliresp] 500 mcg PO DAILY 04/20/17 04/16/21 History Calcium Carbonate [Calcium] 600 mg PO DAILY 09/13/17 04/16/21 History Cholecalciferol [Vitamin D3] 125 mcg PO DAILY 09/13/17 04/16/21 History Ferrous Sulfate [Feosol] 325 mg PO PC-LUNCH 09/13/17 04/16/21 History Montelukast [Singulair] 10 mg PO DAILY 09/13/17 04/16/21 History cycloSPORINE 0.05% OPHTH SOLN 1 drop BOTH EYES BID 09/13/17 04/16/21 History [Restasis] predniSONE 10 mg PO DAILY 09/13/17 04/16/21 History Budesonide [Pulmicort] 0.5 mg INHALATION RT-BID 03/09/18 04/16/21 History Tadalafil [Cialis] 5 mg PO DAILY 03/09/18 04/16/21 History modafiniL [Provigil] 200 mg PO DAILY 01/20/19 04/16/21 History Apixaban [Eliquis] 2.5 mg PO BID #180 tablet 01/24/19 04/16/21 Rx Primidone [Mysoline] 100 mg PO TID 03/05/19 04/16/21 History Arformoterol Tartrate [Brovana] 15 mcg INHALATION RT-BID 12/01/19 04/16/21 His tory Azithromycin [Zithromax] 500 mg PO MOWEFR 12/01/19 04/16/21 History Bimatoprost [Lumigan .01% Ophth 1 drop BOTH EYES HS 04/16/21 04/16/21 History Soln] Carbidopa-Levodopa 25-100 mg 1 tab PO TID 04/16/21 04/16/21 History [Sinemet 25-100] HYDROcodone/APAP 5-325MG [[place] 1 tab PO BID PRN 04/16/21 04/16/21 History 5-325] [place]-3 Acid Ethyl Esters [Lovaza] 4 gm PO DAILY 04/16/21 04/16/21 History Roflumilast [Daliresp] 500 mcg PO DAILY 04/16/21 04/16/21 History Vortioxetine Hydrobromide 20 mg PO DAILY 04/16/21 04/16/21 History [Trintellix] Allergies Allergy/AdvReac Type Severity Reaction Status Date / Time No Known Allergies Allergy Verified 04/16/21 07:24 Physical Examination On exam patient is resting comfortably in bed in no acute distress. Patient is alert and oriented 3. Patient is able to actively move bilateral lower extremities without pain. Patient has no pain with passive range of motion of bilateral hips. Patient has full range of motion of the right foot and ankle. Patient has limited range of motion of the left foot and ankle, but this is chronic for him. Sensation intact bilaterally. Calves are soft and nontender to palpation bilaterally. Neurovascular status and circulatory status are intact. Results A CT of the lumbar spine dated 04/18/2021 shows: Posterior decompression changes redemonstrated. Alignment is stable. Multilevel degenerative changes as detailed above without significant change from prior MRI. No paraspinal masses are identified. Lumbar segments are intact. - Labs Labs: Microbiology - Last 24 Hours (Table) 04/16/21 23:41 Blood Culture - Preliminary Blood No Growth after 48 hours H & H 04/16/21 04/17/21 Range/Units 07:53 06:43 Hgb 10.1 L 9.2 L (13.0-17.5) gm/dL Hct 30.6 L 29.4 L (39.0-53.0) % Coagulation 04/16/21 Range/Units 07:53 INR 0.9 (<1.2) Result Diagrams: 04/17/21 06:43 04/17/21 06:43 Assessment and Plan (1) Weakness Current Visit: Yes Status: Acute Code(s): R53.1 - WEAKNESS SNOMED Code(s): 34242732 Plan: 1. Lumbar CT is reviewed. No acute changes. 2. No surgical intervention planned. Patient may follow up as needed.
[2021-04-19] MEDS: FERROUS SULFATE 325 MG TAB PO SCH (12:01)
[2021-04-19] MEDS: lisinopriL 10 MG TAB PO SCH (12:01)
[2021-04-19 15:02] VITALS: BMI 20.2
[2021-04-19] MEDS: ASPIRIN 81 MG PO SCH (21:20)
[2021-04-19] MEDS: LATANOPROST 0.005% OPHTH DROPS 2.5 ML BTL BOTH EYES SCH (21:20)
--- NOTE | 2021-04-20 06:18 | PN ---
PROGRESS NOTE This 85-year-old white male with elevated troponins, generalized weakness, severe tremor secondary to Parkinson disease, essential tremor seen by Neurology. Cardiology. Supposed to get a lumbar epidural shot on his left leg. Eliquis is stopped so he could get a lumbar epidural. He is on subcu heparin. Hopefully, we will get an epidural of his lumbar spine prior to going home for left-sided pain and weakness. If not, he will have to just do it as an outpatient and will be started back on his Eliquis. Neurologic: He has a moderate amount tremor. Cardiovascular: S1-S2. Hematology: Negative Homans'. Psych: Fair mood and affect. ASSESSMENT: 1. Atrial fibrillation. 2. Essential tremor. 3. Parkinson's. 4. Acute lumbar disc disease with radiculopathy. 5. Left leg pain. Possible epidural shot will be done tomorrow, to be discharged home for outpatient epidural shot. He has been on heparin subcu and Eliquis has been held just in case he gets a lumbar epidural shot. CT scan is reviewed with him of the lumbar spine. Neurology saw for tremor and no further recommendations were given. Please see further orders. MMODL / IJN: [id number] /
[2021-04-20] MEDS: FORMOTEROL FUMARATE 20 MCG/2 ML NEBU INHALATION SCH ×2 (08:13→21:42)
[2021-04-20] MEDS: BUDESONIDE 0.5 MG/2 ML NEBU INHALATION SCH ×2 (08:13→21:42)
[2021-04-20] MEDS: CARBIDOPA-LEVODOPA 25-100 MG 1 EACH TAB PO SCH ×3 (10:19→20:49)
[2021-04-20] MEDS: CHOLECALCIFEROL 25 MCG (1000 IU) TABLET PO SCH (10:19)
[2021-04-20] MEDS: PRIMIDONE 50 MG TAB PO SCH ×3 (10:19→20:50)
[2021-04-20] MEDS: lisinopriL 10 MG TAB PO SCH (10:19)
[2021-04-20] MEDS: CALCIUM CARBONATE 500 MG CHEWABLE PO SCH (10:19)
[2021-04-20] MEDS: ENOXAPARIN 40 MG/0.4 ML SYRINGE SQ SCH (10:20)
[2021-04-20] MEDS: ATORVASTATIN 20 MG TAB PO SCH (10:20)
[2021-04-20] MEDS: MONTELUKAST 10 MG TAB PO SCH (10:20)
[2021-04-20] MEDS: predniSONE 10 MG TAB PO SCH (10:20)
[2021-04-20] MEDS: cycloSPORINE 0.05% OPHTH 0.4 ML DROPERETTE BOTH EYES SCH ×2 (10:21→20:49)
[2021-04-20] MEDS: CEPHALEXIN 250 MG CAP PO SCH ×3 (10:21→20:49)
[2021-04-20] MEDS: VORTIOXETINE HYDROBROMIDE 20 MG TABLET PO SCH (10:22)
[2021-04-20] MEDS: AZITHROMYCIN 500 MG TAB PO SCH (10:24)
[2021-04-20] MEDS: GABAPENTIN 100 MG CAP PO SCH ×2 (10:24→20:49)
[2021-04-20] MEDS: NON FORMULARY DRUG (Roflumilast [Daliresp] 500 MCG Tablet) PO SCH (11:31)
[2021-04-20 12:42] LABS: Basophils % (A) 0 %; Eosinophils % (A) 0 %; HCT 32.1 % (39.0-53.0); HGB 10.1 gm/dL (13.0-17.5); Hypochromasia Slight; Lymphocytes # (A) 0.8 k/uL (1.0-4.8); Lymphocytes % (A) 18 %; MCH 34.9 pg (25.0-35.0); MCHC 31.3 g/dL (31.0-37.0); MCV 111.5 fL (80.0-100.0); Macrocytosis Marked; Mean Platelet Volume 8.5; Monocytes # (A) 0.4 k/uL (0-1.0); Monocytes % (A) 9 %; Neutrophils # (A) 3.1 k/uL (1.3-7.7); Neutrophils % (A) 71 %; Platelet Count 182 k/uL (150-450); RBC 2.88 m/uL (4.30-5.90); RDW 15.4 % (11.5-15.5); WBC 4.3 k/uL (3.8-10.6)
[2021-04-20 12:58] LABS: Calcium 9.9 mg/dL (8.4-10.2); Potassium 4.8 mmol/L (3.5-5.1)
[2021-04-20] MEDS: FERROUS SULFATE 325 MG TAB PO SCH (13:31)
[2021-04-20 13:35] LABS: Anisocytosis (M) Present; Poikilocytosis (M) Present
[2021-04-20 14:54] LABS: Appearance,Urine Clear (Clear); Bilirubin,Urine Negative (Negative); Blood,Urine Negative (Negative); Color,Urine Light Yellow; Glucose,Urine (UA) Negative (Negative); Ketones,Urine Negative (Negative); Leukocyte Esterase,Urine Moderate (Negative); Nitrite,Urine Negative (Negative); PH, Urine 5.5 (5.0-8.0); Protein,Urine Trace (Negative); RBC,Urine <1 /hpf (0-5); Specific Gravity,Urine 1.015 (1.001-1.035); Urobilinogen,Urine <2.0 mg/dL (<2.0); WBC,Urine 28 /hpf (0-5)
--- NOTE | 2021-04-20 15:29 | P.PAINCN ---
History of Present Illness - Reason for Consult Consult date: 04/20/21 - History of Present Illness This is 85 years old male with a chronic history of severe low back pain, lower extremity weakness, he reported that the intensity of the pain increased over time, and he has difficulty ambulating, patient had back surgery ,and continued to have back pain, pain is constant and increases with any activity interfere with her quality of life and he has difficulty ambulating secondary to weakness in his lower extremity, he denies any fever or night sweats Past Medical History Past Medical History: Atrial Fibrillation, COPD, Hyperlipidemia Additional Past Medical History / Comment(s): Parkinsons, emphysema, Home O2 at 3.5-4L/[place] ATC, bronchitis, Hx of elevated cbg d/t chronic steroid use, chronic tremors-etiology unknown to pt, chronic low back pain, left foot drop., nephrolithiasis-has passed stones on his own and also surgically removed, BPH, bilateral glaucoma, Hx of left torn achilles tendon., states difficulty walking- using walker. Last Myocardial Infarction Date:: unknown History of Any Multi-Drug Resistant Organisms: None Reported Past Surgical History: Back Surgery, Cholecystectomy, Heart Catheterization, Hernia Repair Additional Past Surgical History / Comment(s): Lumbar laminectomy, lithotripsy, colonoscopy, bilateral cataracts, right inguinal hernia. Past Anesthesia/Blood Transfusion Reactions: No Reported Reaction, Previous Problems w/ Anesthesia Additional Past Anesthesia/Blood Transfusion Reaction / Comm: woke up during anesthesia x1 Past Psychological History: Depression Smoking Status: Former smoker Past Alcohol Use History: None Reported Past Drug Use History: None Reported - Past Family History Mother Family Medical History: Musculoskeletal Disorder, Neurologic Disorder Additional Family Medical History / Comment(s): Mother had parkinsons. Father Additional Family Medical History / Comment(s): Father had back problems. He in a MVA at the age of 62 yrs. Medications and Allergies Home Medications Medication Instructions Recorded Confirmed Type Aspirin 81 mg PO HS 03/24/14 04/16/21 History Garlic 1 tab PO TID 03/24/14 04/16/21 History Simvastatin [Zocor] 40 mg PO DAILY 03/24/14 04/16/21 History atenoloL [Tenormin] 12.5 mg PO BID 03/24/14 04/16/21 History Roflumilast [Daliresp] 500 mcg PO DAILY 04/20/17 04/16/21 History Calcium Carbonate [Calcium] 600 mg PO DAILY 09/13/17 04/16/21 History Cholecalciferol [Vitamin D3] 125 mcg PO DAILY 09/13/17 04/16/21 History Ferrous Sulfate [Feosol] 325 mg PO PC-LUNCH 09/13/17 04/16/21 History Montelukast [Singulair] 10 mg PO DAILY 09/13/17 04/16/21 History cycloSPORINE 0.05% OPHTH SOLN 1 drop BOTH EYES BID 09/13/17 04/16/21 History [Restasis] predniSONE 10 mg PO DAILY 09/13/17 04/16/21 History Budesonide [Pulmicort] 0.5 mg INHALATION RT-BID 03/09/18 04/16/21 History Tadalafil [Cialis] 5 mg PO DAILY 03/09/18 04/16/21 History modafiniL [Provigil] 200 mg PO DAILY 01/20/19 04/16/21 History Apixaban [Eliquis] 2.5 mg PO BID #180 tablet 01/24/19 04/16/21 Rx Primidone [Mysoline] 100 mg PO TID 03/05/19 04/16/21 History Arformoterol Tartrate [Brovana] 15 mcg INHALATION RT-BID 12/01/19 04/16/21 History Azithromycin [Zithromax] 500 mg PO MOWEFR 12/01/19 04/16/21 History Bimatoprost [Lumigan .01% Ophth 1 drop BOTH EYES HS 04/16/21 04/16/21 History Soln] Carbidopa-Levodopa 25-100 mg 1 tab PO TID 04/16/21 04/16/21 History [Sinemet 25-100] HYDROcodone/APAP 5-325MG [[place] 1 tab PO BID PRN 04/16/21 04/16/21 History 5-325] [place]-3 Acid Ethyl Esters [Lovaza] 4 gm PO DAILY 04/16/21 04/16/21 History Roflumilast [Daliresp] 500 mcg PO DAILY 04/16/21 04/16/21 History Vortioxetine Hydrobromide 20 mg PO DAILY 04/16/21 04/16/21 History [Trintellix] Allergies Allergy/AdvReac Type Severity Reaction Status Date / Time No Known Allergies Allergy Verified 04/16/21 07:24 Physical Exam Vitals: Vital Signs Temp Pulse Pulse Resp BP Pulse Ox 04/20/21 09:10 97.5 F L 72 18 145/60 98 04/20/21 08:26 68 04/20/21 08:19 66 04/20/21 08:18 66 04/20/21 08:15 64 04/20/21 04:00 98.0 F 59 L 17 142/51 100 04/20/21 01:35 55 L 17 04/19/21 23:38 98.6 F 55 L 122/60 100 04/19/21 20:00 98.0 F 60 17 141/51 99 04/19/21 16:00 98.6 F 62 18 124/45 100 04/19/21 14:00 16 Intake and Output 04/19/21 04/20/21 04/20/21 22:59 06:59 14:59 Intake Total 472 Output Total 125 200 600 Balance -125 -200 -128 Intake: Oral 472 Output: Urine 125 200 600 Other: Voiding Method Urinal Urinal Urinal # Bowel Movements 1 Weight 59.6 kg Physical Examinations : -Constitutiona : Cooperative , not in acute distress . -HEENT : nech : supple , no Lymphadenopathy , normal thyroid size . : eyes : no ptosis , no icterus, no photophobia . - neurologic : Cranial nerve II to XII intact , no focal neurological deffecit . -psychatric : alert , oriented X 3 , appropriate affect , intact judgment and insight . -Lymphatic : no Lymphadenopathy . - musculoskeltal : . Lumber spine moter stegnth lower extremities ,thigh and legs 5/5 Right side , 5/5 Left side deep tendon reflexes : normal Knee Jerk , normal ankle Jerk lumber facet Loading Test =positive Right , positive Left Range of motion of the lumbar spine Flexion 30 degrees, extension 10 degrees strait leg raising test = positive at 30 degree Fabere test= positive Right , and positive LT . tenderness over the Sacroiliac joint on the Right , and Left sides y Results CBC & Chem 7: 04/20/21 12:24 04/20/21 12:24 Labs: Abnormal Lab Results - Last 24 Hours (Table) 04/20/21 04/20/21 Range/Units 12:24 12:24 RBC 2.88 L (4.30-5.90) m/uL Hgb 10.1 L (13.0-17.5) gm/dL Hct 32.1 L (39.0-53.0) % MCV 111.5 H (80.0-100.0) fL Macrocytosis Marked A Carbon Dioxide 31 H (22-30) mmol/L BUN 41 H (9-20) mg/dL Glucose 106 H (74-99) mg/dL Microbiology - Last 24 Hours (Table) 04/16/21 23:41 Blood Culture - Preliminary Blood No Growth after 72 hours Comments: Computed tomography scan of the lumbar spine= multilevel lumbar degenerative disc disease multilevel lumbar facet arthropathy and decompression L4 5 and L5- S1 Assessment and Plan Plan: Assessment and plan=1-lumbar degenerative disc disease. 2-lumbar spondylosis with lumbar facet arthropathy. 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 4-bilateral sacroiliitis. Current use of anticoagulation, he received ELEQUIS 04/18/2021 at 9 PM , his currently on Lovenox Patient could benefit from caudal epidural steroid injection with lysis of epidural adhesions And if patient continued to have pain after that , then we will consider doing diagnostic medial branch block All this can be arranged as an outpatient, Shree could benefit from gabapentin 100 mg twice a day Time with Patient: Greater than 30 PQRS Measure Charge Sheet PQRS Narrative: Smoking Status Former smoker Do You Want the Pneumonia Vaccine Up to Date Vaccine AT THIS TIME? Blood Pressure [Right Arm] 145/60 Blood Pressure 184/88 Pain Intensity [None] 0 Pain Intensity 6 Scale Used Numeric (1 - 10) Home Medications: Ambulatory Orders Aspirin 81 mg PO HS 03/24/14 Garlic 1 tab PO TID 03/24/14 Simvastatin [Zocor] 40 mg PO DAILY 03/24/14 atenoloL [Tenormin] 12.5 mg PO BID 03/24/14 Roflumilast [Daliresp] 500 mcg PO DAILY 04/20/17 Calcium Carbonate [Calcium] 600 mg PO DAILY 09/13/17 Cholecalciferol [Vitamin D3] 125 mcg PO DAILY 09/13/17 Ferrous Sulfate [Feosol] 325 mg PO PC-LUNCH 09/13/17 Montelukast [Singulair] 10 mg PO DAILY 09/13/17 cycloSPORINE 0.05% OPHTH SOLN [Restasis] 1 drop BOTH EYES BID 09/13/17 predniSONE 10 mg PO DAILY 09/13/17 Budesonide [Pulmicort] 0.5 mg INHALATION RT-BID 03/09/18 Tadalafil [Cialis] 5 mg PO DAILY 03/09/18 modafiniL [Provigil] 200 mg PO DAILY 01/20/19 Apixaban [Eliquis] 2.5 mg PO BID #180 tablet 01/24/19 Primidone [Mysoline] 100 mg PO TID 03/05/19 Arformoterol Tartrate [Brovana] 15 mcg INHALATION RT-BID 12/01/19 Azithromycin [Zithromax] 500 mg PO MOWEFR 12/01/19 Bimatoprost [Lumigan .01% Ophth Soln] 1 drop BOTH EYES HS 04/16/21 Carbidopa-Levodopa 25-100 mg [Sinemet 25-100] 1 tab PO TID 04/16/21 HYDROcodone/APAP 5-325MG [[place] 5-325] 1 tab PO BID PRN 04/16/21 [place]-3 Acid Ethyl Esters [Lovaza] 4 gm PO DAILY 04/16/21 Roflumilast [Daliresp] 500 mcg PO DAILY 04/16/21 Vortioxetine Hydrobromide [Trintellix] 20 mg PO DAILY 04/16/21
[2021-04-20] MEDS: hydrALAZINE HCL 20 MG/ML 1 ML VIAL IVP PRN (16:31)
[2021-04-20] MEDS: LATANOPROST 0.005% OPHTH DROPS 2.5 ML BTL BOTH EYES SCH (20:48)
[2021-04-20] MEDS: ASPIRIN 81 MG PO SCH (20:49)
[2021-04-21] MEDS: BUDESONIDE 0.5 MG/2 ML NEBU INHALATION SCH (08:13)
[2021-04-21] MEDS: FORMOTEROL FUMARATE 20 MCG/2 ML NEBU INHALATION SCH (08:13)
[2021-04-21] MEDS: CHOLECALCIFEROL 25 MCG (1000 IU) TABLET PO SCH (09:03)
[2021-04-21] MEDS: GABAPENTIN 100 MG CAP PO SCH (09:03)
[2021-04-21] MEDS: CALCIUM CARBONATE 500 MG CHEWABLE PO SCH (09:03)
[2021-04-21] MEDS: ATORVASTATIN 20 MG TAB PO SCH (09:04)
[2021-04-21] MEDS: ENOXAPARIN 40 MG/0.4 ML SYRINGE SQ SCH (09:04)
[2021-04-21] MEDS: FERROUS SULFATE 325 MG TAB PO SCH (09:04)
[2021-04-21] MEDS: CARBIDOPA-LEVODOPA 25-100 MG 1 EACH TAB PO SCH ×2 (09:04→16:16)
[2021-04-21] MEDS: lisinopriL 10 MG TAB PO SCH (09:04)
[2021-04-21] MEDS: PRIMIDONE 50 MG TAB PO SCH ×2 (09:04→16:16)
[2021-04-21] MEDS: predniSONE 10 MG TAB PO SCH (09:04)
[2021-04-21] MEDS: MONTELUKAST 10 MG TAB PO SCH (09:04)
[2021-04-21] MEDS: cycloSPORINE 0.05% OPHTH 0.4 ML DROPERETTE BOTH EYES SCH (09:05)
[2021-04-21] MEDS: CEPHALEXIN 250 MG CAP PO SCH (09:05)
[2021-04-21] MEDS: VORTIOXETINE HYDROBROMIDE 20 MG TABLET PO SCH (09:05)
[2021-04-21] MEDS: NON FORMULARY DRUG (Roflumilast [Daliresp] 500 MCG Tablet) PO SCH (09:08)
[2021-04-21] MEDS: hydrALAZINE HCL 20 MG/ML 1 ML VIAL IVP PRN (09:26)
[2021-04-21 12:29] VITALS: TEMP 97.8
--- NOTE | 2021-04-21 15:49 | P.DS ---
Providers Date of admission: 04/16/21 09:40 Attending physician: Maxx Benson Consults: 04/16/21 11:01 Consult Physician Routine Consulting Provider: Nicol Sepulveda Consult Reason/Comments: tremors Do you want consulting provider notified?: Yes 04/18/21 12:26 Consult Physician Routine Consulting Provider: Berto Johnson Consult Reason/Comments: left leg weakness Do you want consulting provider notified?: Yes 04/18/21 23:16 Consult Physician Routine Consulting Provider: Anesthesia,Services Consult Reason/Comments: lumbar epidural Do you want consulting provider notified?: Yes Primary care physician: [facility] Course: Diagnoses: -Fall secondary to likely autonomic dysfunction from underlying Parkinson's disease -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 Finish antibiotic therapy Hospital course: This is a pleasant 85 years old male with multiple medical problems including atrial fibrillation, COPD, hyperlipidemia, Parkinson disease, emphysema on home oxygen at 3.5-4 L, chronic steroid use, chronic low back pain, left foot drop. Patient told me he has bilateral leg weakness for many years, about 3-5 years ago he had pneumonia from there he went home where he noticed significant weakness in his leg, at that time he did not do rehab. This time he decided to come to the hospital because his legs start giving up on him. Patient told me he is not interested in any surgery. He wanted to go home however I talked to him and he agreeable to a subacute rehab now. Patient has been evaluated by several consultants including neurologist, ortho pedic and pain management service. No indication for surgical intervention per orthopedic team, and pain management service for him to get treated as an outpatient prior to the hospital. Today patient is back to his baseline. Creatinine is stable at 1.14, WBC 4.3K, hemoglobin 10.1, platelets 111. Manager Client Support also evaluated the patient for his A. fib and they recommended to continue with the Eliquis (please note Eliquis is recommended to be held few days if he is going to need pain injection to his back, please refer to his PCP Dr. Benson for more recommendations) Patient denies chest pain or dyspnea, no abdominal pain, no change in urine or bowel habits. No fever Patient was cleared for discharge by all consultants including horticulture professor, orthopedic, pain management. Problems and management plan were discussed with the patient and he verbalized understanding and acceptance Patient was found stable and can be discharged home however he needs follow-up as an outpatient. Patient was instructed to follow up with PCP Dr. Benson within one week and patient agrees We recommend also patient to follow-up with his faculty physician Dr. Gurrola in 1-2 weeks for his chronic hypoxic respiratory failure, as patient thinks that oxygen therapy limits his ability to ambulate also recommend patient follow up with orthopedic Dr. Cook as needed, he has an appointment with the patient in clinic on 05/16 or he can refer to neurologist Dr. Perdomo in 2 weeks for pain management and Parkinson disease Physical exam Gen: patient is a AAOx3, no distress CVS: S1-S2, RRR, no murmur Lungs: B/L CTA, no wheezing Abdomen: soft, no distention, no tenderness, positive bowel sounds Extremity: no leg edema or induration Time spent more than 35 minutes Patient Condition at Discharge: Serious Plan - Discharge Summary Discharge Rx Participant: Yes New Discharge Prescriptions: No Action atenoloL [Tenormin] 12.5 mg PO BID Aspirin 81 mg PO HS Simvastatin [Zocor] 40 mg PO DAILY Garlic 1 tab PO TID Roflumilast [Daliresp] 500 mcg PO DAILY Ferrous Sulfate [Feosol] 325 mg PO PC-LUNCH Calcium Carbonate [Calcium] 600 mg PO DAILY Montelukast [Singulair] 10 mg PO DAILY cycloSPORINE 0.05% OPHTH SOLN [Restasis] 1 drop BOTH EYES BID Cholecalciferol [Vitamin D3] 125 mcg PO DAILY predniSONE 10 mg PO DAILY Tadalafil [Cialis] 5 mg PO DAILY Budesonide [Pulmicort] 0.5 mg INHALATION RT-BID modafiniL [Provigil] 200 mg PO DAILY Apixaban [Eliquis] 2.5 mg PO BID #180 tablet Primidone [Mysoline] 100 mg PO TID Azithromycin [Zithromax] 500 mg PO MOWEFR Arformoterol Tartrate [Brovana] 15 mcg INHALATION RT-BID HYDROcodone/APAP 5-325MG [[place] 5-325] 1 tab PO BID PRN PRN Reason: Pain Bimatoprost [Lum[place] .01% Ophth Soln] 1 drop BOTH EYES HS Roflumilast [Daliresp] 500 mcg PO DAILY [place]-3 Acid Ethyl Esters [Lovaza] 4 gm PO DAILY Carbidopa-Levodopa 25-100 mg [Sinemet 25-100] 1 tab PO TID Vortioxetine Hydrobromide [Trintellix] 20 mg PO DAILY Discharge Medication List Aspirin 81 mg PO HS 03/24/14 [History] Garlic 1 tab PO TID 03/24/14 [History] Simvastatin [Zocor] 40 mg PO DAILY 03/24/14 [History] atenoloL [Tenormin] 12.5 mg PO BID 03/24/14 [History] Roflumilast [Daliresp] 500 mcg PO DAILY 04/20/17 [History] Calcium Carbonate [Calcium] 600 mg PO DAILY 09/13/17 [History] Cholecalciferol [Vitamin D3] 125 mcg PO DAILY 09/13/17 [History] Ferrous Sulfate [Feosol] 325 mg PO PC-LUNCH 09/13/17 [History] Montelukast [Singulair] 10 mg PO DAILY 09/13/17 [History] cycloSPORINE 0.05% OPHTH SOLN [Restasis] 1 drop BOTH EYES BID 09/13/17 [History] predniSONE 10 mg PO DAILY 09/13/17 [History] Budesonide [Pulmicort] 0.5 mg INHALATION RT-BID 03/09/18 [History] modafiniL [Provigil] 200 mg PO DAILY 01/20/19 [History] Apixaban [Eliquis] 2.5 mg PO BID #180 tablet 01/24/19 [Rx] Primidone [Mysoline] 100 mg PO TID 03/05/19 [History] Arformoterol Tartrate [Brovana] 15 mcg INHALATION RT-BID 12/01/19 [History] Bimatoprost [Lumigan .01% Ophth Soln] 1 drop BOTH EYES HS 04/16/21 [History] Carbidopa-Levodopa 25-100 mg [Sinemet 25-100] 1 tab PO TID 04/16/21 [History] [place]-3 Acid Ethyl Esters [Lovaza] 4 gm PO DAILY 04/16/21 [History] Roflumilast [Daliresp] 500 mcg PO DAILY 04/16/21 [History] Vortioxetine Hydrobromide [Trintellix] 20 mg PO DAILY 04/16/21 [History] lisinopriL [Zestril] 10 mg PO DAILY tab 04/21/21 [Rx] Follow up Appointment(s)/Referral(s): [facility] [facility] [NON-STAFF] - (Please call to inquire about a bedside commode or toilet riser. ) Misael Cook DO [Doctor of Osteopathic Medicine] - As Needed Maxx Benson MD [Primary Care Provider] - 1-2 days (call office to set p an appointment once discharged from rehab) [facility] [NON-STAFF] - 05/16/21 9:30 am (register on first floor of [facility]. pain clinic is on [facility] 3rd floor. ) Clement Perdomo MD [Medical Doctor] - 2 Weeks (Neurologist and pain management) Jae Gurrola MD [STAFF PHYSICIAN] - 2 Weeks (the office is currently closed, please call office at [phone] to make an appointment within 2 weeks)
[2021-04-21 16:15] VITALS: BP 155/68; PULSE 66; RESP 15
== END 2021-04-21 17:43 | DRG 690 ==
LOC: EC 07:09 → 3SCARD 09:40
PROVIDERS: ADMIT Family Medicine; ATTEND Family Medicine
DX: N30.90 Cystitis, unspecified without hematuria (principal); I48.19 Other persistent atrial fibrillation; I45.2 Bifascicular block; J96.11 Chronic respiratory failure with hypoxia; N17.9 Acute kidney failure, unspecified; G20 Parkinson's disease; M46.1 Sacroiliitis, not elsewhere classified; J43.9 Emphysema, unspecified; N18.30 Chronic kidney disease, stage 3 unspecified; Z20.822 Contact with and (suspected) exposure to COVID-19; R26.9 Unspecified abnormalities of gait and mobility; I12.9 Hypertensive chronic kidney disease with stage 1 through stage 4 chronic kidney disease, or unspecified chronic kidney disease; R77.8 Other specified abnormalities of plasma proteins; G90.9 Disorder of the autonomic nervous system, unspecified; I44.0 Atrioventricular block, first degree; R00.1 Bradycardia, unspecified; Z99.81 Dependence on supplemental oxygen; I25.10 Atherosclerotic heart disease of native coronary artery without angina pectoris; M21.372 Foot drop, left foot; Z91.81 History of falling; M51.16 Intervertebral disc disorders with radiculopathy, lumbar region; E78.5 Hyperlipidemia, unspecified; M96.1 Postlaminectomy syndrome, not elsewhere classified; G89.29 Other chronic pain; M47.896 Other spondylosis, lumbar region; N40.0 Benign prostatic hyperplasia without lower urinary tract symptoms; M54.5 Low back pain; H40.9 Unspecified glaucoma; F32.9 Major depressive disorder, single episode, unspecified; I25.2 Old myocardial infarction; Z90.79 Acquired absence of other genital organ(s); Z90.49 Acquired absence of other specified parts of digestive tract; Z98.42 Cataract extraction status, left eye; Z98.41 Cataract extraction status, right eye; Z82.0 Family history of epilepsy and other diseases of the nervous system; Z79.899 Other long term (current) drug therapy; Z79.82 Long term (current) use of aspirin; Z79.01 Long term (current) use of anticoagulants; Z79.52 Long term (current) use of systemic steroids; Z87.442 Personal history of urinary calculi; Z86.73 Personal history of transient ischemic attack (TIA), and cerebral infarction without residual deficits; Z87.891 Personal history of nicotine dependence; Z87.01 Personal history of pneumonia (recurrent); Z87.39 Personal history of other diseases of the musculoskeletal system and connective tissue; Z82.69 Family history of other diseases of the musculoskeletal system and connective tissue
CPT/HCPCS: 36415; 70450; 71046; 71250; 72131; 80048; 80053; 81001; 82550; 82607; 82746; 83605; 83735; 84439; 84443; 84484; 85025; 85610; 85730; 87040; 87086; 87635; 93005; 93306; 94640; 94760; 96360; 99285

== ENCOUNTER 2021-05-01 05:40 | Emergency (ER) | payer MEDICARE, OTHER ==
[2021-05-01 05:49] VITALS: RESP 20
[2021-05-01 06:13] LABS: Basophils % (A) 0 %; Eosinophils % (A) 0 %; HCT 31.2 % (39.0-53.0); HGB 10.3 gm/dL (13.0-17.5); Lymphocytes # (A) 0.9 k/uL (1.0-4.8); Lymphocytes % (A) 11 %; MCH 35.5 pg (25.0-35.0); MCV 107.7 fL (80.0-100.0); Macrocytosis Moderate; Mean Platelet Volume 8.5; Monocytes # (A) 0.9 k/uL (0-1.0); Monocytes % (A) 11 %; Neutrophils # (A) 5.8 k/uL (1.3-7.7); Neutrophils % (A) 76 %; Platelet Count 152 k/uL (150-450); RDW 14.4 % (11.5-15.5); WBC 7.7 k/uL (3.8-10.6)
[2021-05-01 06:27] LABS: Calcium 9.6 mg/dL (8.4-10.2); Potassium 4.8 mmol/L (3.5-5.1)
[2021-05-01] MEDS ORDERED: hydrALAZINE HCL 20 MG/ML 1 ML VIAL IVP STA (06:36)
--- NOTE | 2021-05-01 07:07 | ED ---
General Adult HPI - General Chief complaint: Recheck/Abnormal Lab/Rx Stated complaint: High blood pressure Time Seen by Provider: 05/01/21 05:59 Source: patient, EMS, RN notes reviewed Mode of arrival: EMS Limitations: no limitations - History of Present Illness Initial comments: 85-year-old male presents emergency Department with chief complaint of hyp ertension. Patient was sent in secondary to his blood pressure being elevated he has no complaints. Denies chest pain shortness breath headache dizziness no pain on the usual chronic pain that he has. Patient had received some recent adjustment of his medications. Patient states that he got up to go to the bathroom at 3:00 and he checked his blood pressure which was elevated. - Related Data Home Medications Medication Instructions Recorded Confirmed Aspirin 81 mg PO HS 03/24/14 04/16/21 Garlic 1 tab PO TID 03/24/14 04/16/21 Simvastatin [Zocor] 40 mg PO DAILY 03/24/14 04/16/21 atenoloL [Tenormin] 12.5 mg PO BID 03/24/14 04/16/21 Roflumilast [Daliresp] 500 mcg PO DAILY 04/20/17 04/16/21 Calcium Carbonate [Calcium] 600 mg PO DAILY 09/13/17 04/16/21 Cholecalciferol [Vitamin D3 (25 125 mcg PO DAILY 09/13/17 04/16/21 Mcg = 1000 Iu)] Ferrous Sulfate [Iron (65 MG 325 mg PO PC-LUNCH 09/13/17 04/16/21 Elemental)] Montelukast [Singulair] 10 mg PO DAILY 09/13/17 04/16/21 cycloSPORINE 0.05% OPHTH SOLN 1 drop BOTH EYES BID 09/13/17 04/16/21 [Restasis] predniSONE 10 mg PO DAILY 09/13/17 04/16/21 Budesonide [Pulmicort] 0.5 mg INHALATION RT-BID 03/09/18 04/16/21 modafiniL [Provigil] 200 mg PO DAILY 01/20/19 04/16/21 Primidone [Mysoline] 100 mg PO TID 03/05/19 04/16/21 Arformoterol Tartrate [Brovana] 15 mcg INHALATION RT-BID 12/01/19 04/16/21 Bimatoprost [Lumigan .01% Ophth 1 drop BOTH EYES HS 04/16/21 04/16/21 Soln] Carbidopa-Levodopa 25-100 mg 1 tab PO TID 04/16/21 04/16/21 [Sinemet 25-100 mg] [place]-3 Acid Ethyl Esters [Lovaza] 4 gm PO DAILY 04/16/21 04/16/21 Roflumilast [Daliresp] 500 mcg PO DAILY 04/16/21 04/16/21 Vortioxetine Hydrobromide 20 mg PO DAILY 04/16/21 04/16/21 [Trintellix] Previous Rx's Medication Instructions Recorded Apixaban [Eliquis] 2.5 mg PO BID #180 tablet 01/24/19 Gabapentin [Neurontin] 100 mg PO BID #6 cap 04/21/21 lisinopriL [Zestril] 10 mg PO DAILY tab 04/21/21 Allergies Allergy/AdvReac Type Severity Reaction Status Date / Time No Known Allergies Allergy Verified 05/01/21 05:49 Review of Systems ROS Statement: Those systems with pertinent positive or pertinent negative responses have been documented in the HPI. ROS Other: All systems not noted in ROS Statement are negative. Past Medical History Past Medical History: Atrial Fibrillation, COPD, Hyperlipidemia, Hypertension Additional Past Medical History / Comment(s): Parkinsons, emphysema, Home O2 at 3.5-4L/NC ATC, bronchitis, Hx of elevated cbg d/t chronic steroid use, chronic tremors-etiology unknown to pt, chronic low back pain, left foot drop., nephrolithiasis-has passed stones on his own and also surgically removed, BPH, bilateral glaucoma, Hx of left torn achilles tendon., states difficulty walking- using walker. Last Myocardial Infarction Date:: unknown History of Any Multi-Drug Resistant Organisms: None Reported Past Surgical History: Back Surgery, Cholecystectomy, Heart Catheterization, Hernia Repair Additional Past Surgical History / Comment(s): Lumbar laminectomy, lithotripsy, colonoscopy, bilateral cataracts, right inguinal hernia. Past Anesthesia/Blood Transfusion Reactions: No Reported Reaction, Previous Problems w/ Anesthesia Additional Past Anesthesia/Blood Transfusion Reaction / Comment(s): woke up duri ng anesthesia x1 Past Psychological History: Depression Smoking Status: Former smoker Past Alcohol Use History: None Reported Past Drug Use History: None Reported - Past Family History Mother Family Medical History: Musculoskeletal Disorder, Neurologic Disorder Additional Family Medical History / Comment(s): Mother had parkinsons. Father Additional Family Medical History / Comment(s): Father had back problems. He in a MVA at the age of 62 yrs. General Exam Limitations: no limitations General appearance: alert, in no apparent distress Head exam: Present: atraumatic, normocephalic, normal inspection Respiratory exam: Present: normal lung sounds bilaterally. Absent: respiratory distress, wheezes, rales, rhonchi, stridor Cardiovascular Exam: Present: regular rate, normal rhythm, normal heart sounds. Absent: systolic murmur, diastolic murmur, rubs, gallop, clicks GI/Abdominal exam: Present: soft, normal bowel sounds. Absent: distended, tenderness, guarding, rebound, rigid Neurological exam: Present: alert Skin exam: Present: warm, dry, intact, normal color. Absent: rash Course Vital Signs 05/01/21 05/01/21 05:41 06:55 Temperature 98.9 F Pulse Rate 78 61 Respiratory 20 20 Rate Blood Pressure 215/75 166/50 O2 Sat by Pulse 95 96 Oximetry EKG Findings - EKG Comments: EKG Findings:: EKG performed at 6:01 normal sinus rhythm with rate bundle rate of 66 [place] 192 QRS 124 QT/QTC 426/440 Medical Decision Making - Medical Decision Making Patient's blood pressure is improved. Labs are essentially unremarkable. Patient we discharged in stable condition. - Lab Data Result diagrams: 05/01/21 06:01 05/01/21 06:01 Lab Results 05/01/21 05/01/21 Range/Units 06:01 06:01 WBC 7.7 (3.8-10.6) k/uL RBC 2.90 L (4.30-5.90) m/uL Hgb 10.3 L (13.0-17.5) gm/dL Hct 31.2 L (39.0-53.0) % MCV 107.7 H (80.0-100.0) fL MCH 35.5 H (25.0-35.0) pg MCHC 33.0 (31.0-37.0) g/dL RDW 14.4 (11.5-15.5) % Plt Count 152 (150-450) k/uL MPV 8.5 Neutrophils % 76 % Lymphocytes % 11 % Monocytes % 11 % Eosinophils % 0 % Basophils % 0 % Neutrophils # 5.8 (1.3-7.7) k/uL Lymphocytes # 0.9 L (1.0-4.8) k/uL Monocytes # 0.9 (0-1.0) k/uL Eosinophils # 0.0 (0-0.7) k/uL Basophils # 0.0 (0-0.2) k/uL Macrocytosis Moderate Sodium 140 (137-145) mmol/L Potassium 4.8 (3.5-5.1) mmol/L Chloride 107 (98-107) mmol/L Carbon Dioxide 33 H (22-30) mmol/L Anion Gap 0 mmol/L BUN 25 H (9-20) mg/dL Creatinine 0.96 (0.66-1.25) mg/dL Est GFR (CKD-EPI)AfAm 84 (>60 ml/min/1.73 sqM) Est GFR (CKD-EPI)NonAf 72 (>60 ml/min/1.73 sqM) Glucose 121 H (74-99) mg/dL Calcium 9.6 (8.4-10.2) mg/dL Disposition Clinical Impression: Hypertension Disposition: HOME SELF-CARE Condition: Stable Instructions (If sedation given, give patient instructions): Hypertension (ED) Additional Instructions: Please return to the Emergency Department if symptoms worsen or any other concerns. Is patient prescribed a controlled substance at d/c from ED?: No Referrals: Maxx Benson MD [Primary Care Provider] - 1-2 days Time of Disposition: 07:07
[2021-05-01 07:16] VITALS: BP 144/53; PULSE 64; TEMP 98.7
== END 2021-05-01 08:01 | disposition home or self-care (01) ==
LOC: EC 05:40
DX: I10 Essential (primary) hypertension (principal); E78.5 Hyperlipidemia, unspecified; F32.9 Major depressive disorder, single episode, unspecified; J43.9 Emphysema, unspecified; G20 Parkinson's disease; I25.2 Old myocardial infarction; N40.0 Benign prostatic hyperplasia without lower urinary tract symptoms; Z87.891 Personal history of nicotine dependence; Z79.82 Long term (current) use of aspirin; Z79.52 Long term (current) use of systemic steroids; Z79.51 Long term (current) use of inhaled steroids; Z79.01 Long term (current) use of anticoagulants; Z99.81 Dependence on supplemental oxygen
CPT/HCPCS: 36415; 93005; 80048; 85025; 99284; 96374; J0360

== ENCOUNTER → 2021-05-16 | Outpatient (CLI) | payer MEDICARE, OTHER ==
--- NOTE | 2021-05-16 10:13 | P.PN ---
Subjective Progress Note Date: 05/16/21 This is 85 years old male with a chronic history of severe low back pain, lower extremity weakness, he reported that the intensity of the pain increased over time, and he has difficulty ambulating, patient had back surgery ,and continued to have back pain, pain is constant and increases with any activity interfere with her quality of life and he has difficulty ambulating secondary to weakness in his lower extremity, he denies any fever or night sweats, he was seen previously as an inpatient and were not able to schedule him for any interventional pain procedure because patient is on ELEQUIS , and was discharged home and is here for follow-up visit and to arrange for holding [place] for a few days before the procedure before we can proceed with interventional pain management Past Medical History Past Medical History: Atrial Fibrillation, COPD, Hyperlipidemia Additional Past Medical History / Comment(s): Parkinsons, emphysema, Home O2 at 3.5-4L/NC ATC, bronchitis, Hx of elevated cbg d/t chronic steroid use, chronic tremors-etiology unknown to pt, chronic low back pain, left foot drop., nephrolithiasis-has passed stones on his own and also surgically removed, BPH, bilateral glaucoma, Hx of left torn achilles tendon., states difficulty walking- using walker. Last Myocardial Infarction Date:: unknown History of Any Multi-Drug Resistant Organisms: None Reported Past Surgical History: Back Surgery, Cholecystectomy, Heart Catheterization, Hernia Repair Additional Past Surgical History / Comment(s): Lumbar laminectomy, lithotripsy, colonoscopy, bilateral cataracts, right inguinal hernia. Past Anesthesia/Blood Transfusion Reactions: No Reported Reaction, Previous Problems w/ Anesthesia Additional Past Anesthesia/Blood Transfusion Reaction / Comm: woke up during anesthesia x1 Past Psychological History: Depression Smoking Status: Former smoker Past Alcohol Use History: None Reported Past Drug Use History: None Reported - Past Family History Mother Family Medical History: Musculoskeletal Disorder, Neurologic Disorder Additional Family Medical History / Comment(s): Mother had parkinsons. Father Additional Family Medical History / Comment(s): Father had back problems. He in a MVA at the age of 62 yrs. Medications and Allergies Physical Examinations : -Constitutiona : Cooperative , not in acute distress . -HEENT : nech : supple , no Lymphadenopathy , normal thyroid size . : eyes : no ptosis , no icterus, no photophobia . - neurologic : Cranial nerve II to XII intact , no focal neurological deffecit . -psychatric : alert , oriented X 3 , appropriate affect , intact judgment and insight . -Lymphatic : no Lymphadenopathy . - musculoskeltal : . Lumber spine moter stegnth lower extremities ,thigh and legs 5/5 Right side , 5/5 Left side deep tendon reflexes : normal Knee Jerk , normal ankle Jerk lumber facet Loading Test =positive Right , positive Left Range of motion of the lumbar spine Flexion 30 degrees, extension 10 degrees strait leg raising test = positive at 30 degree Fabere test= positive Right , and positive LT . tenderness over the Sacroiliac joint on the Right , and Left sides Computed tomography scan of the lumbar spine= multilevel lumbar degenerative disc disease multilevel lumbar facet arthropathy and decompression L4 5 and L5- S1 Assessment and plan=1-lumbar degenerative disc disease. 2-lumbar spondylosis with lumbar facet arthropathy. 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 4-bilateral sacroiliitis. Current use of anticoagulation, he received ELEQUIS Patient could benefit from caudal epidural steroid injection with lysis of epidural adhesions, under fluoroscopy guidence We have to hold ELEQUIS for 3 days before the procedure - PQRS measures = - Patient's medications are documented in the chart. -Tobacco use is negative and counseling.Given. -Patient's has not received pneumococcal vaccine. -Advanced care planning discussed, patient not eligible. -Opiate contract not signed. -Pain positive and follow-up visit/procedure is scheduled. -Patient's blood pressure measured [102/67 ] , and documented in the record ,and patient will follow up with the primary care. -Patient's weight was measured and body mass index [ 20,6 ] within the normal limits and counseling was done. and patient instructed to follow-up with the primary care physician. -Patient was not identified as an unhealthy alcohol user Objective - Vital Signs Vital signs: Intake & Output 05/15/21 05/16/21 05/16/21 18:59 06:59 18:59 Weight 61.518 kg
[2021-05-16 10:17] VITALS: BP 102/67; PULSE 54; RESP 18; TEMP 97.5
== END ==
LOC: PNWHC3 09:28
PROVIDERS: ATTEND Specialist
DX: M51.36 Other intervertebral disc degeneration, lumbar region (principal); M47.816 Spondylosis without myelopathy or radiculopathy, lumbar region; M96.1 Postlaminectomy syndrome, not elsewhere classified; M46.1 Sacroiliitis, not elsewhere classified; I48.91 Unspecified atrial fibrillation; E78.5 Hyperlipidemia, unspecified; F32.9 Major depressive disorder, single episode, unspecified; Z87.891 Personal history of nicotine dependence; Z79.01 Long term (current) use of anticoagulants; Z79.51 Long term (current) use of inhaled steroids
CPT/HCPCS: 99212

== ENCOUNTER → 2021-06-07 | Day surgery (SDC) | payer MEDICARE, OTHER ==
[2021-06-06 14:26] VITALS: BMI 20.2
[~2021-06-07] MED LIST changes: -AMPICILLIN 1,000 MG in SODIUM CHLORIDE 0.9% 50 ML IVPB ONE; -GENTAMICIN 100 MG in SODIUM CHLORIDE 0.9% 100 ML IVPB ONE; -HYDROmorphone 0.5 MG/0.5 ML SYRINGE IVP PRN; +IOPAMIDOL M200 10 ML VIAL ONE; +IV FLUID CONTINUATION 1,000 ML IV ONE; -LIDOCAINE 1% (10MG/ML) FOR IV START INTRADERMA PRN; +MIDAZOLAM 2 MG/2 ML VIAL ONE; -ONDANSETRON 4 MG/2 ML VIAL IVP ONE; +ROPIVACAINE 5MG/ML 20ML VIAL ONE; +TRIAMCINOLONE ACETONIDE 40 MG/ML 1 ML VIAL ONE; +fentaNYL (PF) 50 MCG/ML 2 ML AMP ONE
[2021-06-07] MEDS: LACTATED RINGERS 1,000 ML IV SCH ×2 (10:45→11:01)
[2021-06-07 10:49] VITALS: TEMP 98.2
[2021-06-07 10:49] LABS: Glucose,Whole Blood 123 mg/dL (75-99)
--- NOTE | 2021-06-07 11:17 | P.PCN ---
Date of Procedure: 06/07/21 Surgeon: Hayes Olson Pathology: none sent Condition: stable Disposition: PACU Description of Procedure: PREOP DIAGNOSIS: Lumbar postlaminectomy syndrome POSTOP DIAGNOSIS: Lumbar postlaminectomy syndrome PROCEDURE: Caudal epidural steroid injection with epidurolysis and epidurogram under fluoroscopic guidance ANESTHESIA: Local with 1% lidocaine; IV moderate concious sedation EBL: Minimal. PROCEDURE INDICATION: The patient with post-laminectomy syndrome with low back pain and radiculopathy radiating down in both legs, here for a caudal epidural steroid injection with epidurolysis. PROCEDURE DESCRIPTION: The patient was seen and identified in the preoperative area. Risks, benefits, complications, and alternatives were discussed with the patient. The patient agreed to proceed with the procedure and signed the consent. IV was started, and vital signs were stable. Patient was taken to the OR and time out was completed. The patient was placed in the prone position on procedure table and a pillow was placed under the abdomen to reduce lumbar lordosis. The lumbosacral area was prepped and draped in the usual sterile fashion. Critical pause was taken. Vital signs were closely monitored during the procedure. Fluoroscopic camera was placed in the lateral view and the anterior-posterior plates of the sacrum were identified with infiltration of the area overlying the sacral hiatus with 1% lidocaine .A 16 gauge RK epidural needle was used to advance through the sacral hiatus into the caudal epidural space. Omnipaque 300 dye 2cc was injected and the position of the needle was verified to be in the midline. A Racz catheter was introduced into the epidural space and was advanced towards the L5-S1 interspace under direct fluoroscopic guidance. Multiple passes were made with the catheter for lysis of epidural adhesions. Kenalog 40mg with 2ml of preservative free Ropivacaine 0.5% and 7 ml of preservative free normal saline was injected slowly. The needle and the catheter were withdrawn intact. EPIDUROGRAM: Omnipaque 300 dye 2 ml was injected with spread of the dye into the caudal epidural space and with spread cutoff at S1 prior to epidurolysis. Post epidurolysis dye 2 ml was injected and spread was seen to L5. COMPLICATIONS: None. DISPOSITION / PLANS: The patient was placed in a supine position and transferred to the recovery area in a stable condition for observation and was discharged from the recovery room after meeting discharge criteria. Home discharge instructions given to the patient by the staff. The patient was reexamined prior to discharge. The patient will schedule a follow up in the clinic in 2-4 weeks.
[2021-06-07 11:30] VITALS: RESP 16
[2021-06-07 12:01] VITALS: BP 158/62; PULSE 51
--- NOTE | 2021-06-07 17:02 | FL ---
Fluoroscopy HISTORY: Pain 5 seconds fluoroscopy time supplied to the referring clinician. 2 intraoperative C-arm images docume nt the procedure. See dictated report from anesthesia.
== END ==
LOC: ORPAIN 09:27
PROVIDERS: ATTEND Anesthesiology
DX: M96.1 Postlaminectomy syndrome, not elsewhere classified (principal); I48.91 Unspecified atrial fibrillation; Z79.01 Long term (current) use of anticoagulants; Z79.899 Other long term (current) drug therapy
CPT/HCPCS: 62264; J2250; J3301; J3010; Q9966; J2795; C1894

== ENCOUNTER 2021-07-14 14:44 | Emergency (ER) | payer MEDICARE, OTHER ==
[2021-07-14 15:14] VITALS: RESP 18
--- NOTE | 2021-07-14 16:11 | ED ---
Fall HPI - General Chief Complaint: Fall Stated Complaint: Fall Time Seen by Provider: 07/14/21 15:02 Source: EMS Mode of arrival: EMS - History of Present Illness Initial Comments: Patient is an 86-year-old male with history of Parkinson's, emphysema, A. fib, presenting to the emergency department from [facility] after he slipped off his bed this morning. This fall was unwitnessed however the nurse was there fairly quickly according to staff and they do not believe he lost consciousness. He does take eliquis and ASA. The patient's PCP requested patient come into the ER for a CT of the head. He does have an abrasion to the right forehead which seems minor as well as a skin tear to the left forearm. Patient states he is having some mild pain of his left upper leg and his left hip. He is able to move around. He denies any chest pain or shortness of breath, no abdominal pain. Denies any pain of his right lower extremity or bilateral upper extremities. He denies any neck pain or headache. He has no further complaints. Recent vital signs are stable upon arrival. - Related Data Home Medications Medication Instructions Recorded Confirmed Aspirin 81 mg PO DAILY@0903/24/14 07/14/21 Simvastatin [Zocor] 40 mg PO HS@209903/24/14 07/14/21 Budesonide [Pulmicort] 0.5 mg INHALATION RT-BID@899,209903/09/18 07/14/21 modafiniL [Provigil] 200 mg PO DAILY@0900 01/20/19 07/14/21 Carbidopa-Levodopa 25-100 mg 1 tab PO TID@0900,1300,209904/16/21 07/14/21 [Sinemet 25-100 mg] Apixaban [Eliquis] 2.5 mg PO BID@00,209907/14/21 07/14/21 Atenolol [Tenormin] 50 mg PO BID@0900,209907/14/21 07/14/21 Gabapentin [Neurontin] 100 mg PO BID@0900,209907/14/21 07/14/21 HYDROcodone/APAP 10-325MG [[place] 1 tab PO Q4H PRN 07/14/21 07/14/21 10-325] Ipratropium-Albuterol Nebulize 3 ml INHALATION RT-Q6H PRN 07/14/21 07/14/21 [Duoneb 0.5 mg-3 mg/3 ml Soln] Latanoprost/Pf [Latanoprost 0.005% 1 drop BOTH EYES HS@209907/14/21 07/14/21 Eye Drop] Montelukast [Singulair] 10 mg PO DAILY@0907/14/21 07/14/21 Omeprazole 20 mg PO DAILY@89907/14/21 07/14/21 Primidone [Mysoline] 200 mg PO HS@209907/14/21 07/14/21 Sennosides [Senna] 8.6 mg PO BID PRN 07/14/21 07/14/21 amantadine HCL [Amantadine] 100 mg PO TID@0900,1300,209907/14/21 07/14/21 cloNIDine 0.1 MG/24HR PATCH 1 patch TOPICAL TU 07/14/21 07/14/21 [Catapres-TTS] guaiFENesin [Mucinex] 1,200 mg PO Q12H PRN 07/14/21 07/14/21 hydrALAZINE HCL 75 mg PO TID@0900,1300,209907/14/21 07/14/21 Allergies Allergy/AdvReac Type Severity Reaction Status Date / Time No Known Allergies Allergy Verified 07/14/21 16:35 Review of Systems ROS Statement: Those systems with pertinent positive or pertinent negative responses have been documented in the HPI. ROS Other: All systems not noted in ROS Statement are negative. Past Medical History Past Medical History: Atrial Fibrillation, COPD, Hyperlipidemia, Hypertension Additional Past Medical History / Comment(s): Parkinsons, emphysema, Home O2 at 3.5-4L/[place] ATC, bronchitis, chronic tremors-etiology unknown to pt, chronic low back pain, left foot drop., nephrolithiasis-has passed stones on his own and also surgically removed, BPH, bilateral glaucoma, Hx of left torn achilles tendon., states difficulty walking-using walker. Last Myocardial Infarction Date:: unknown History of Any Multi-Drug Resistant Organisms: None Reported Past Surgical History: Back Surgery, Cholecystectomy, Heart Catheterization, Hernia Repair Additional Past Surgical History / Comment(s): Lumbar laminectomy, lithotripsy, colonoscopy, bilateral cataracts, right inguinal hernia. Past Anesthesia/Blood Transfusion Reactions: Previous Problems w/ Anesthesia Additional Past Anesthesia/Blood Transfusion Reaction / Comment(s): woke up during anesthesia x1 Smoking Status: Former smoker - Past Family History Mother Family Medical History: Musculoskeletal Disorder, Neurologic Disorder Additional Family Medical History / Comment(s): Mother had parkinsons. Father Additional Family Medical History / Comment(s): Father had back problems. He in a MVA at the age of 62 yrs. General Exam - General Exam Comments Initial Comments: GENERAL: Patient is well-developed and well-nourished. Patient is nontoxic and in no acute distress. HEAD: Atraumatic, normocephalic. No hematoma although he has a minor abrasion to the right forehead, this does not seem tender. No signs of basal skull fracture. EYES: Pupils equal round and reactive to light, extraocular movements intact, sclera anicteric, conjunctiva are normal. Eyelids were unremarkable. ENT: TMs normal, nares patent, oropharynx clear without exudates. Moist mucous membranes. NECK: Normal range of motion, supple without lymphadenopathy or JVD. No tenderness. LUNGS: Unlabored respirations. Breath sounds clear to auscultation bilaterally and equal. No wheezes rales or rhonchi. HEART: Regular rate and rhythm without murmurs, rubs or gallops. ABDOMEN: Soft, nontender, normoactive bowel sounds. No guarding, no rebound. No masses appreciated. : Deferred MUSCULOSKELETAL: Patient has some mild pain with palpation of the left femur area, left hip. He does have active range of motion of the left hip however is painful with flexion. There is no leg length discrepancy. No deformity seen. No pitting or edema. No clubbing or cyanosis. NEUROLOGICAL: Patient is alert and oriented x 2-3, at baseline. Motor and sensory are also intact. Cranial nerves II through XII grossly intact. Symmetrical smile. Normal speech. PSYCH: Normal mood, normal affect. SKIN: Warm, Dry, normal turgor, no rashes. Chin has a skin tear noted to the left elbow. Limitations: physical limitation Course Vital Signs 07/14/21 14:56 Temperature 97.4 F L Pulse Rate 51 L Respiratory 18 Rate Blood Pressure 113/46 O2 Sat by Pulse 100 Oximetry Medical Decision Making - Medical Decision Making Patient is an 86-year-old male presenting via EMS from [facility] after he slipped out of his bed. There was no LOC. He is on eliquis for A.fib. He has a small abrasion to his right forehead, no hematoma, he says this skin tear to his left elbow. He was also complaining of some mild left hip and left femur pain. X- rays of the left hip, pelvis and femur reveal no acute fractures or dislocations. CT of brain and C-spine also showed no acute process at this time. Patient is stable for discharge back to [facility]. He is agreeable to this. Return parameters were discussed with him and he verbalized understanding. Case discussed with Dr. Pierre. Disposition Clinical Impression: Fall, Skin tear of left elbow without complication, Contusion of left hip Disposition: HOME SELF-CARE Condition: Stable Instructions (If sedation given, give patient instructions): Fall Prevention for Older Adults (ED) Additional Instructions: Please return to the Emergency Department if symptoms worsen or any other concerns. May take Tylenol or ibuprofen for any discomfort. Is patient prescribed a controlled substance at d/c from ED?: No Referrals: Maxx Benson MD [Primary Care Provider] - 1-2 days Time of Disposition: 17:17
--- NOTE | 2021-07-14 16:13 | CT ---
EXAMINATION TYPE: CT brain brii dinh con DATE OF EXAM: 07/14/2021 COMPARISON: 04/17/2021 HISTORY: Fall. CT DLP: 1406.[address] of the brain was performed. The ventricles, basal cisterns and sulci overlying the cerebral convexities demonstrate mild to moder ate enlargement. There is no evidence for intracranial hemorrhage or sulcal effacement. There is decreased attenuatio n about the periventricular white matter and deep white matter of both cerebral hemispheres, compatib le with chronic small vessel ischemia. Remote insult right frontal region. No mass effects are seen. If symptoms persist consider MRI. Osseous calvarium is intact. IMPRESSION: 1. Age related atrophic and chronic small vessel ischemic change without acute intracranial process seen at this time. CT Cervical Spine: Unenhanced CT of the cervical spine was performed with bone and soft tissue window settings submitted . Coronal and sagittal reconstruction is obtained. There is normal alignment and prevertebral soft tissues. No evidence for acute cervical fracture . Moderate to severe Scattered degenerative disc disease and spondylosis. Biapical scarring. IMPRESSION: 1. No evidence for acute fracture or subluxation of the cervical spine.
--- NOTE | 2021-07-14 16:21 | XR ---
EXAMINATION TYPE: XR Hip LT and AP Pelvis DATE OF EXAM: 07/14/2021 CLINICAL HISTORY: pain TECHNIQUE: Single view the pelvis is submitted. 2 views of the left hip are also submitted. FINDINGS: No evidence for fracture, dislocation or bony lesion. Joint spaces are well-preserved. S I joints appear symmetric. IMPRESSION: 1. No acute fracture or dislocation seen. ICD 10 NO FRACTURE, INITIAL EVALUATION
--- NOTE | 2021-07-14 16:22 | XR ---
EXAMINATION TYPE: XR femur LT DATE OF EXAM: 07/14/2021 CLINICAL HISTORY: pain TECHNIQUE: Two views of the left femur are obtained. COMPARISON: None. FINDINGS: There is no acute fracture or dislocation seen of the femur. The hip and knee joints darrian ear within normal limits. The overlying soft tissue appears unremarkable. IMPRESSION: There is no acute fracture or dislocation seen of the femur. ICD 10 NO FRACTURE, INITIAL EVALUATION
[2021-07-14 18:21] VITALS: BP 148/72; PULSE 52; TEMP 97.8
== END 2021-07-14 18:20 | disposition home or self-care (01) ==
LOC: EC 14:44
DX: S51.012A Laceration without foreign body of left elbow, initial encounter (principal); S70.02XA Contusion of left hip, initial encounter; I48.91 Unspecified atrial fibrillation; J44.9 Chronic obstructive pulmonary disease, unspecified; E78.5 Hyperlipidemia, unspecified; I10 Essential (primary) hypertension; Z79.82 Long term (current) use of aspirin; Z79.01 Long term (current) use of anticoagulants; Z90.89 Acquired absence of other organs; Z87.891 Personal history of nicotine dependence; W06.XXXA Fall from bed, initial encounter
CPT/HCPCS: 70450; 72125; 73502; 99284

== ENCOUNTER 2021-07-17 20:29 | Emergency (ER) | payer MEDICARE, OTHER ==
[2021-07-17 20:43] VITALS: BP 104/57
--- NOTE | 2021-07-17 20:46 | ED ---
General Adult HPI - General Chief complaint: Cardiac Arrest/CPR Stated complaint: Unresponsive Time Seen by Provider: 07/17/21 20:43 Source: EMS Mode of arrival: EMS Limitations: altered mental status, physical limitation - History of Present Illness Initial comments: Patient presents the ED by EMS from his half-way for evaluation. Per EMS, they were called for difficulty breathing. Per EMS, the patient became bradycardic en route to the ED, so he was given atropine 1 mg IV. Per EMS, the patient then became unresponsive and asystolic, so CPR was started. Per EMS, the patient was given a dose of epinephrine and he was defibrillated once as well. Per EMS the patient then regained a pulse and perfusing rhythm. On arrival to the ED, the patient had a pulse and a perfusing wide complex rhythm. Patient is full code per EMS. Patient is unresponsive and unable to provide any history at this time. - Related Data Home Medications Medication Instructions Recorded Confirmed Aspirin 81 mg PO DAILY@89903/24/14 07/14/21 Simvastatin [Zocor] 40 mg PO HS@209903/24/14 07/14/21 Budesonide [Pulmicort] 0.5 mg INHALATION RT-BID@09,209903/09/18 07/14/21 modafiniL [Provigil] 200 mg PO DAILY@0900 01/20/19 07/14/21 Carbidopa-Levodopa 25-100 mg 1 tab PO TID@0900,1300,209904/16/21 07/14/21 [Sinemet 25-100 mg] Apixaban [Eliquis] 2.5 mg PO BID@0900,209907/14/21 07/14/21 Atenolol [Tenormin] 50 mg PO BID@0900,209907/14/21 07/14/21 Gabapentin [Neurontin] 100 mg PO BID@0900,209907/14/21 07/14/21 HYDROcodone/APAP 10-325MG [[place] 1 tab PO Q4H PRN 07/14/21 07/14/21 10-325] Ipratropium-Albuterol Nebulize 3 ml INHALATION RT-Q6H PRN 07/14/21 07/14/21 [Duoneb 0.5 mg-3 mg/3 ml Soln] Latanoprost/Pf [Latanoprost 0.005% 1 drop BOTH EYES HS@209907/14/21 07/14/21 Eye Drop] Montelukast [Singulair] 10 mg PO DAILY@89907/14/21 07/14/21 Omeprazole 20 mg PO DAILY@89907/14/21 07/14/21 Primidone [Mysoline] 200 mg PO HS@209907/14/21 07/14/21 Sennosides [Senna] 8.6 mg PO BID PRN 07/14/21 07/14/21 amantadine HCL [Amantadine] 100 mg PO TID@0900,1300,209907/14/21 07/14/21 cloNIDine 0.1 MG/24HR PATCH 1 patch TOPICAL TU 07/14/21 07/14/21 [Catapres-TTS] guaiFENesin [Mucinex] 1,200 mg PO Q12H PRN 07/14/21 07/14/21 hydrALAZINE HCL 75 mg PO TID@0900,1300,209907/14/21 07/14/21 Allergies Allergy/AdvReac Type Severity Reaction Status Date / Time No Known Allergies Allergy Verified 07/17/21 20:40 Review of Systems ROS Statement: Those systems with pertinent positive or pertinent negative responses have been documented in the HPI. Limitations: ROS unobtainable due to patients medical condition Past Medical History Past Medical History: Atrial Fibrillation, COPD, Hyperlipidemia, Hypertension Additional Past Medical History / Comment(s): Parkinsons, emphysema, Home O2 at 3.5-4L/NC ATC, bronchitis, chronic tremors-etiology unknown to pt, chronic low back pain, left foot drop., nephrolithiasis-has passed stones on his own and also surgically removed, BPH, bilateral glaucoma, Hx of left torn achilles tendon., states difficulty walking-using walker. Last Myocardial Infarction Date:: unknown History of Any Multi-Drug Resistant Organisms: None Reported Past Surgical History: Back Surgery, Cholecystectomy, Heart Catheterization, Hernia Repair Additional Past Surgical History / Comment(s): Lumbar laminectomy, lithotripsy, colonoscopy, bilateral cataracts, right inguinal hernia. Past Anesthesia/Blood Transfusion Reactions: Previous Problems w/ Anesthesia Additional Past Anesthesia/Blood Transfusion Reaction / Comment(s): woke up during anesthesia x1 Past Psychological History: Depression Smoking Status: Former smoker - Past Family History Mother Family Medical History: Musculoskeletal Disorder, Neurologic Disorder Additional Family Medical History / Comment(s): Mother had parkinsons. Father Additional Family Medical History / Comment(s): Father had back problems. He in a MVA at the age of 62 yrs. General Exam Limitations: altered mental status, physical limitation General appearance: other (Patient is being ventilated with [id number]; GCS = 3) Head exam: Present: atraumatic, normocephalic Eye exam: Present: normal appearance, other (Pupils are round and sluggishly reactive to light bilaterally) ENT exam: Present: mucous membranes dry Neck exam: Present: other (Trachea is in midline) Respiratory exam: Present: other (Course of breath sounds bilaterally with bagging; equal breath sounds bilaterally) Cardiovascular Exam: Present: regular rate, normal rhythm, normal heart sounds, other (Strong femoral pulses bilaterally) GI/Abdominal exam: Present: soft. Absent: distended, guarding Extremities exam: Absent: pedal edema Neurological exam: Present: other (GCS = 3) Skin exam: Present: warm, dry, intact, cyanosis Course Vital Signs 07/17/21 07/17/21 20:31 20:41 Pulse Rate 70 Respiratory 4 L Rate Blood Pressure 121/48 104/57 O2 Sat by Pulse 65 L Oximetry - Reevaluation(s) Reevaluation #1: 07/17/21 20:56 I spoke with the patient's daughters 4 in the ED, one of whom is the patient's healthcare POA. They all wish for the patient to be DO NOT RESUSCITATE at this time. 07/17/21 21:37 Case and patient's were discussed with Dr. Maxx Benson. He agrees to complete the patient's certificate. EKG Findings - EKG Comments: EKG Findings:: EKG is limited secondary to motion, sinus bradycardia with first- degree AV block, occasional premature atrial complexes, right bundle-branch block, ventricular rate of 50 bpm, TN interval of 278 ms, QRS duration of 162 ms, QTc interval of 505 ms, lateral T-wave abnormality Procedures - Intubation Sedative: Etomidate Mg Given: 20 Paralytic: Rocuronium Mg Given: 50 Laryngoscope: other (Video glidescope) Size: 4 ET Tube Size: 7.5 ET Tube Uncuffed: No Tube Secured Depth (cm): 23 Tube Secured Location: lips Tube Placement Confirmation: visualized tube passing through cords, equal breath sounds bilaterally, no breath sounds over epigastrium Patient Tolerated Procedure: well Intubation Complications: hypoxia Medical Decision Making - Medical Decision Making Patient presented to the ED with a perfusing rhythm, but he then deteriorated to a bradycardic rhythm. Patient's daughters 4 (one of whom is the patient's healthcare POA) are in the ED and were notified of the patient's critical condition. They all state that the patient would not want to be on a ventilator and had CPR performed, and they wished to make the patient DO NOT RESUSCITATE. Patient then became more bradycardic and eventually became asystolic. Patient was pronounced at 21:21. Patient's daughters were at bedside with the patient. rn examiner was notified. Patient's PCP (Dr. Maxx Benson) was also notified. - Lab Data Result diagrams: 07/17/21 20:47 07/17/21 20:47 Lab Results 07/17/21 07/17/21 07/17/21 Range/Units 20:41 20:47 20:47 WBC 19.5 H (3.8-10.6) k/uL RBC 2.88 L (4.30-5.90) m/uL Hgb 9.9 L (13.0-17.5) gm/dL Hct 32.5 L (39.0-53.0) % MCV 112.9 H (80.0-100.0) fL MCH 34.4 (25.0-35.0) pg MCHC 30.5 L (31.0-37.0) g/dL RDW 14.9 (11.5-15.5) % Plt Count 178 (150-450) k/uL MPV 8.8 Neutrophils % (Manual) 77 % Band Neuts % (Manual) 10 % Lymphocytes % (Manual) 7 % Monocytes % (Manual) 6 % Neutrophils # (Manual) 16.90 H (1.3-7.7) k/uL Lymphocytes # (Manual) 1.37 (1.0-4.8) k/uL Monocytes # (Manual) 1.17 H (0-1.0) k/uL Nucleated RBCs 0 (0-0) /100 WBC Manual Slide Review Performed Hypochromasia Marked Macrocytosis Marked A PT 10.5 (9.0-12.0) sec INR 1.0 (<1.2) APTT 24.6 (22.0-30.0) sec D-Dimer 1.75 H (<0.60) mg/L FEU Sodium (137-145) mmol/L Potassium (3.5-5.1) mmol/L Chloride (98-107) mmol/L Carbon Dioxide (22-30) mmol/L Anion Gap mmol/L BUN (9-20) mg/dL Creatinine (0.66-1.25) mg/dL Est GFR (CKD-EPI)AfAm (>60 ml/min/1.73 sqM) Est GFR (CKD-EPI)NonAf (>60 ml/min/1.73 sqM) Glucose (74-99) mg/dL POC Glucose (mg/dL) 147 H (75-99) mg/dL POC Glu Nylon Hot Wire Cutter ID Gomez, Val Calcium (8.4-10.2) mg/dL Magnesium (1.6-2.3) mg/dL Total Bilirubin (0.2-1.3) mg/dL AST (17-59) U/L ALT (4-49) U/L Alkaline Phosphatase (38-126) U/L Troponin I (0.000-0.034) ng/mL Total Protein (6.3-8.2) g/dL Albumin (3.5-5.0) g/dL 07/17/21 07/17/21 Range/Units 20:47 20:47 WBC (3.8-10.6) k/uL RBC (4.30-5.90) m/uL Hgb (13.0-17.5) gm/dL Hct (39.0-53.0) % MCV (80.0-100.0) fL MCH (25.0-35.0) pg MCHC (31.0-37.0) g/dL RDW (11.5-15.5) % Plt Count (150-450) k/uL MPV Neutrophils % (Manual) % Band Neuts % (Manual) % Lymphocytes % (Manual) % Monocytes % (Manual) % Neutrophils # (Manual) (1.3-7.7) k/uL Lymphocytes # (Manual) (1.0-4.8) k/uL Monocytes # (Manual) (0-1.0) k/uL Nucleated RBCs (0-0) /100 WBC Manual Slide Review Hypochromasia Macrocytosis PT (9.0-12.0) sec INR (<1.2) APTT (22.0-30.0) sec D-Dimer (<0.60) mg/L FEU Sodium 140 (137-145) mmol/L Potassium 6.3 H* (3.5-5.1) mmol/L Chloride 102 (98-107) mmol/L Carbon Dioxide 27 (22-30) mmol/L Anion Gap 11 mmol/L BUN 54 H (9-20) mg/dL Creatinine 1.79 H (0.66-1.25) mg/dL Est GFR (CKD-EPI)AfAm 39 (>60 ml/min/1.73 sqM) Est GFR (CKD-EPI)NonAf 34 (>60 ml/min/1.73 sqM) Glucose 143 H (74-99) mg/dL POC Glucose (mg/dL) (75-99) mg/dL POC Glu Nylon Hot Wire Cutter ID Calcium 9.0 (8.4-10.2) mg/dL Magnesium 2.7 H (1.6-2.3) mg/dL Total Bilirubin 0.6 (0.2-1.3) mg/dL AST 196 H (17-59) U/L ALT 17 (4-49) U/L Alkaline Phosphatase 134 H (38-126) U/L Troponin I 0.081 H* (0.000-0.034) ng/mL Total Protein 5.8 L (6.3-8.2) g/dL Albumin 3.3 L (3.5-5.0) g/dL - Radiology Data Radiology results: report reviewed (Chest x-ray: Endotracheal and enteric tubes appear in satisfactory position, veil like opacity of the right lung which may represent layering pleural effusion or consolidation, hyper aerated lungs likely due to emphysema) Critical Care Time Critical Care Time: Yes Total Critical Care Time: 60 Disposition Clinical Impression: Cardiac arrest, , Hyperkalemia, Renal insufficiency, Elevated troponin Disposition: Is patient prescribed a controlled substance at d/c from ED?: No Referrals: Maxx Benson MD [Primary Care Provider] - 1-2 days Time of Disposition: 21:21 Preliminary Cause of : Cardiac arrest
[2021-07-17 20:52] LABS: Glucose,Whole Blood 147 mg/dL (75-99)
[2021-07-17 21:04] LABS: HCT 32.5 % (39.0-53.0); HGB 9.9 gm/dL (13.0-17.5); Hypochromasia Marked; MCH 34.4 pg (25.0-35.0); MCHC 30.5 g/dL (31.0-37.0); Macrocytosis Marked; Mean Platelet Volume 8.8; Platelet Count 178 k/uL (150-450); RBC 2.88 m/uL (4.30-5.90); RDW 14.9 % (11.5-15.5); WBC 19.5 k/uL (3.8-10.6)
[2021-07-17 21:08] LABS: MCV 112.9 fL (80.0-100.0)
[2021-07-17] MEDS ORDERED: ETOMIDATE 2 MG/ML 10 ML VIAL IVP STA (21:08)
[2021-07-17 21:13] LABS: Albumin 3.3 g/dL (3.5-5.0); Magnesium 2.7 mg/dL (1.6-2.3); Total Bilirubin 0.6 mg/dL (0.2-1.3); Total Protein 5.8 g/dL (6.3-8.2)
[2021-07-17] MEDS ORDERED: ROCURONIUM 10 MG/ML (5 ML VIAL) IV STA (21:13)
[2021-07-17 21:16] LABS: Potassium 6.3 mmol/L (3.5-5.1)
[2021-07-17] MEDS ORDERED: CALCIUM CHLORIDE 100 MG/ML 10 ML SYRINGE IVP STA (21:18)
[2021-07-17 21:19] LABS: Partial Thromboplastin Time 24.6 sec (22.0-30.0); Prothrombin Time 10.5 sec (9.0-12.0)
[2021-07-17 21:34] LABS: Band Neutrophils % 10 %; Lymphocytes # (M) 1.37 k/uL (1.0-4.8); Monocytes # (M) 1.17 k/uL (0-1.0); Neutrophils % (M) 77 %; Nucleated Red Blood Cells 0 /100 WBC (0-0); Total Cells Counted 100
--- NOTE | 2021-07-17 21:55 | XR ---
EXAMINATION TYPE: XR chest 1V portable DATE OF EXAM: 07/17/2021 COMPARISON: Chest radiograph 04/16/2021 HISTORY: Unresponsive, endotracheal tube placement TECHNIQUE: Single frontal view of the chest is obtained. FINDINGS: Endotracheal tube is present with tip lying approximately 5 cm above the malik. Enteric tube appears of diaphragmatic overlying the left upper abdomen. Patient is rotated to the left. Cardiomediastinal silhouette appears mildly prominent. Atherosclerotic vascular calcifications of the aortic arch. Chelo gs appear hyperaerated. Veil like opacity of the right lung which may represent layering pleural effu suki or consolidation. No sizable left left pleural effusion. No definite pneumothorax. Partially vis ualized osseous structures appear intact. Limited views of the upper abdomen appear unremarkable. IMPRESSION: 1. Endotracheal and enteric tubes appear in satisfactory position. 2. Veil like opacity of the right lung which may represent layering pleural effusion or consolidation . 3. Hyper aerated lungs likely due to underlying emphysema.
[2021-07-18 02:38] VITALS: RESP 0
[2021-07-18 02:45] VITALS: PULSE 48
== END 2021-07-18 01:00 | disposition expired ==
LOC: EC 20:29
DX: I46.9 Cardiac arrest, cause unspecified (principal); E87.5 Hyperkalemia; N28.9 Disorder of kidney and ureter, unspecified; R74.8 Abnormal levels of other serum enzymes; I48.91 Unspecified atrial fibrillation; I10 Essential (primary) hypertension; J44.9 Chronic obstructive pulmonary disease, unspecified; E78.5 Hyperlipidemia, unspecified; F32.9 Major depressive disorder, single episode, unspecified; G20 Parkinson's disease; Z79.82 Long term (current) use of aspirin; Z79.01 Long term (current) use of anticoagulants; Z87.442 Personal history of urinary calculi; Z90.49 Acquired absence of other specified parts of digestive tract; Z87.891 Personal history of nicotine dependence
CPT/HCPCS: 31500; 36415; 71045; 80053; 83605; 83735; 83880; 84484; 85025; 85379; 85610; 85730; 87635; 93005; 94002; 99291